=== PATIENT | male | born 1940 | race Caucasian/White ===

== ENCOUNTER 2016-08-15 09:49 | Inpatient (IN) | payer MEDICARE ==
[2016-08-15] MEDS ORDERED: SODIUM CHLORIDE 0.9% 500 ML IV STA (09:59)
[2016-08-15] MEDS ORDERED: SODIUM CHLORIDE 0.9% 1,000 ML IV STA (09:59)
[2016-08-15 10:24] LABS: Glucose,Whole Blood 96 mg/dL (75-99)
[2016-08-15 10:46] LABS: INR 1.1 (<1.1); Partial Thromboplastin Time 23.8 sec (22.0-30.0)
--- NOTE | 2016-08-15 10:48 | ED ---
General Adult HPI - General Chief complaint: Neuro Symptoms/Deficit Stated complaint: tia Symptoms Time Seen by Provider: 08/15/16 09:52 Source: patient, RN notes reviewed, old records reviewed Mode of arrival: wheelchair Limitations: no limitations - History of Present Illness Initial comments: This is a 76-year-old male to the ER for evaluation. Patient presents here today for evaluation of neurological complaint. Patient has recent diagnosis of high blood pressure. No other medical comorbid disease. No prior history of CVA, no known heart disease. 3 days ago he started having some dizziness and weakness fine motor skill loss of control of his right hand and arm, right leg difficulty and weakness causing him to have dizziness while walking or instability. Patient states his symptoms have been persistent since 3 days. No modifying symptoms. No change in medication. - Related Data Home Medications Medication Instructions Recorded Confirmed Aspirin 162 mg PO ONCE 08/15/16 08/15/16 Hydrochlorothiazide [Hydrodiuril] 25 mg PO DAILY 08/15/16 08/15/16 Levothyroxine Sodium [Synthroid] 50 mcg PO DAILY 08/15/16 08/15/16 Losartan Potassium [Cozaar] 100 mg PO DAILY 08/15/16 08/15/16 Allergies Allergy/AdvReac Type Severity Reaction Status Date / Time No Known Allergies Allergy Verified 08/15/16 11:03 Review of Systems ROS Statement: Those systems with pertinent positive or pertinent negative responses have been documented in the HPI. ROS Other: All systems not noted in ROS Statement are negative. Past Medical History Past Medical History: Hypertension History of Any Multi-Drug Resistant Organisms: None Reported Past Surgical History: Orthopedic Surgery Additional Past Surgical History / Comment(s): prostate Past Psychological History: No Psychological Hx Reported Smoking Status: Never smoker Past Alcohol Use History: None Reported Past Drug Use History: None Reported General Exam - General Exam Comments Initial Comments: NIH of 1 secondary to right leg weakness compared to left Limitations: no limitations General appearance: alert, in no apparent distress Head exam: Present: atraumatic, normocephalic, normal inspection Eye exam: Present: normal appearance, PERRL, EOMI. Absent: scleral icterus, conjunctival injection, periorbital swelling ENT exam: Present: normal exam, mucous membranes moist Neck exam: Present: normal inspection. Absent: tenderness, meningismus, lymphadenopathy Respiratory exam: Present: normal lung sounds bilaterally. Absent: respiratory distress, wheezes, rales, rhonchi, stridor Cardiovascular Exam: Present: regular rate, normal rhythm, normal heart sounds. Absent: systolic murmur, diastolic murmur, rubs, gallop, clicks GI/Abdominal exam: Present: soft, normal bowel sounds. Absent: distended, tenderness, guarding, rebound, rigid Extremities exam: Present: normal inspection, full ROM, normal capillary refill. Absent: tenderness, pedal edema, joint swelling, calf tenderness Back exam: Present: normal inspection Neurological exam: Present: alert, oriented X3, CN II-XII intact Psychiatric exam: Present: normal affect, normal mood Skin exam: Present: warm, dry, intact, normal color. Absent: rash Course Vital Signs 08/15/16 08/15/16 08/15/16 09:52 10:18 10:42 Temperature 97.6 F Pulse Rate 75 84 90 Respiratory 20 18 18 Rate Blood Pressure 159/101 163/112 166/106 O2 Sat by Pulse 97 97 Oximetry - Reevaluation(s) Reevaluation #1: 08/15/16 10:47 Patient is not TPA secondary to time of onset EKG Findings - EKG Comments: EKG Findings:: EKG shows sinus rhythm of 72, pO2 100, QRS 114, QTc 444 Medical Decision Making - Medical Decision Making 76 ER for evaluation of right arm right leg weakness since and difficulty walking, patient will be admitted for neurological evaluation. Symptoms 3 days ago. Patient will start on aspirin, CT at this time is negative - Lab Data Result diagrams: 08/15/16 10:18 08/15/16 10:18 Lab Results 08/15/16 08/15/16 08/15/16 Range/Units 10:18 10:18 10:18 WBC 6.0 (3.8-10.6) k/uL RBC 5.36 (4.30-5.90) m/uL Hgb 15.9 (13.0-17.5) gm/dL Hct 46.7 (39.0-53.0) % MCV 87.2 (80.0-100.0) fL MCH 29.6 (25.0-35.0) pg MCHC 33.9 (31.0-37.0) g/dL RDW 13.0 (11.5-15.5) % Plt Count 241 (150-450) k/uL Neutrophils % (Manual) 72.0 % Lymphocytes % (Manual) 17.0 % Monocytes % (Manual) 4.0 % Eosinophils % (Manual) 7.0 % Neutrophils # (Manual) 4.3 (1.3-7.7) k/uL Lymphocytes # (Manual) 1.0 (1.0-4.8) k/uL Monocytes # (Manual) 0.2 (0-1.0) k/uL Eosinophils # (Manual) 0.4 (0-0.7) k/uL Nucleated RBCs 0 (0-0) /100 WBC Manual Slide Review Performed RBC Morphology Normal PT (9.0-12.0) sec INR (<1.1) APTT (22.0-30.0) sec Sodium 141 (137-145) mmol/L Potassium 4.3 (3.5-5.1) mmol/L Chloride 103 (98-107) mmol/L Carbon Dioxide 28 (22-30) mmol/L Anion Gap 10 mmol/L BUN 30 H (9-20) mg/dL Creatinine 1.44 H (0.66-1.25) mg/dL Est GFR (MDRD) Af Amer 58 (>60 ml/min/1.73 sqM) Est GFR (MDRD) Non-Af 48 (>60 ml/min/1.73 sqM) Glucose 101 H (74-99) mg/dL POC Glucose (mg/dL) (75-99) mg/dL POC Glu Patient Service Rep ID Calcium 9.6 (8.4-10.2) mg/dL Total Bilirubin 2.0 H (0.2-1.3) mg/dL AST 34 (17-59) U/L ALT 32 (21-72) U/L Alkaline Phosphatase 58 (38-126) U/L Total Creatine Kinase 341 H (55-170) U/L CK-MB (CK-2) 6.9 H* (0.0-2.4) ng/mL CK-MB (CK-2) Rel Index 2.0 Troponin I <0.012 (0.000-0.034) ng/mL Total Protein 7.8 (6.3-8.2) g/dL Albumin 4.5 (3.5-5.0) g/dL 08/15/16 08/15/16 Range/Units 10:18 10:19 WBC (3.8-10.6) k/uL RBC (4.30-5.90) m/uL Hgb (13.0-17.5) gm/dL Hct (39.0-53.0) % MCV (80.0-100.0) fL MCH (25.0-35.0) pg MCHC (31.0-37.0) g/dL RDW (11.5-15.5) % Plt Count (150-450) k/uL Neutrophils % (Manual) % Lymphocytes % (Manual) % Monocytes % (Manual) % Eosinophils % (Manual) % Neutrophils # (Manual) (1.3-7.7) k/uL Lymphocytes # (Manual) (1.0-4.8) k/uL Monocytes # (Manual) (0-1.0) k/uL Eosinophils # (Manual) (0-0.7) k/uL Nucleated RBCs (0-0) /100 WBC Manual Slide Review RBC Morphology PT 11.0 (9.0-12.0) sec INR 1.1 (<1.1) APTT 23.8 (22.0-30.0) sec Sodium (137-145) mmol/L Potassium (3.5-5.1) mmol/L Chloride (98-107) mmol/L Carbon Dioxide (22-30) mmol/L Anion Gap mmol/L BUN (9-20) mg/dL Creatinine (0.66-1.25) mg/dL Est GFR (MDRD) Af Amer (>60 ml/min/1.73 sqM) Est GFR (MDRD) Non-Af (>60 ml/min/1.73 sqM) Glucose (74-99) mg/dL POC Glucose (mg/dL) 96 (75-99) mg/dL POC Glu Patient Service Rep ID Coby Murphy Calcium (8.4-10.2) mg/dL Total Bilirubin (0.2-1.3) mg/dL AST (17-59) U/L ALT (21-72) U/L Alkaline Phosphatase (38-126) U/L Total Creatine Kinase (55-170) U/L CK-MB (CK-2) (0.0-2.4) ng/mL CK-MB (CK-2) Rel Index Troponin I (0.000-0.034) ng/mL Total Protein (6.3-8.2) g/dL Albumin (3.5-5.0) g/dL - Radiology Data Radiology results: report reviewed ( CT brain negative for acute disease, chest x-ray negative), image reviewed Disposition Clinical Impression: Cerebrovascular accident Disposition: ADMITTED IP TO THIS [facility] Condition: Undetermined Referrals: Divya Agustin MD [Primary Care Provider] - 1-2 days
[2016-08-15 10:51] LABS: Aty Lym Flag Slight; CH 30.6; CHCM 35.2; HCT 46.7 % (39.0-53.0); HDW 2.48; HGB 15.9 gm/dL (13.0-17.5); MCH 29.6 pg (25.0-35.0); MCHC 33.9 g/dL (31.0-37.0); MCV 87.2 fL (80.0-100.0); Mean Platelet Volume 6.7; RBC 5.36 m/uL (4.30-5.90); WBC (Perox) 5.83
[2016-08-15 10:55] LABS: Calcium 9.6 mg/dL (8.4-10.2); Potassium 4.3 mmol/L (3.5-5.1); Total Protein 7.8 g/dL (6.3-8.2)
[2016-08-15 11:00] LABS: Add Differential Manual Differential; Creatine Kinase 341 U/L (55-170)
[2016-08-15 11:01] LABS: Nucleated Red Blood Cells 0 /100 WBC (0-0); Total Cells Counted 100
[2016-08-15 11:02] LABS: Manual Review Performed; RBC Morphology Normal
--- NOTE | 2016-08-15 11:02 | XR ---
EXAMINATION TYPE: XR chest 2V DATE OF EXAM: 08/15/2016 10:56 AM COMPARISON: NONE HISTORY: Shortness of breath TECHNIQUE: Frontal and lateral views of the chest are obtained. FINDINGS: Scattered senescent parenchymal changes noted. Hyperinflation compatible with COPD. No evidence for infiltrate. No evidence for atelectasis. Heart size is stable. Mediastinal structures are stable and grossly unremarkable. No evidence for hilar prominence. Degenerative changes dorsal spine. IMPRESSION: 1. No evidence for acute pulmonary disease.
--- NOTE | 2016-08-15 11:07 | CT ---
EXAMINATION TYPE: CT brain wo con for TPA DATE OF EXAM: 08/15/2016 11:03 AM COMPARISON: NONE HISTORY: Paitent complains of episode of slurred speech and difficulty controlling right side extremi ties. CT DLP: [address] of the brain was performed. The ventricles, basal cisterns and sulci overlying the cerebral convexities demonstrate mild enlargem ent. There is no evidence for intracranial hemorrhage or sulcal effacement. There is decreased attenuation about the periventricular white matter and deep white matter of both c erebral hemispheres, compatible with chronic small vessel ischemia. Differential diagnosis does inclu de demyelination. No mass effects are seen.No midline shift. Osseous calvarium is intact. If symptoms persist consider MRI. IMPRESSION: 1. Age related atrophic and chronic small vessel ischemic change without acute intracranial process s een at this time.
[2016-08-15 11:12] LABS: Troponin I <0.012 ng/mL (0.000-0.034)
[2016-08-15 11:21] LABS: Creatine Kinase MB 6.9 ng/mL (0.0-2.4)
[2016-08-15] MEDS ORDERED: ASPIRIN 325 MG TAB PO STA (12:04)
[2016-08-15] MEDS ORDERED: ASPIRIN 81 MG CHEW PO STA (12:13)
[2016-08-15] MEDS ORDERED: hydrALAZINE HCL 20 MG/ML 1 ML VIAL IVP STA (12:13)
--- NOTE | 2016-08-15 13:59 | US ---
EXAMINATION TYPE: US carotid duplex BILAT DATE OF EXAM: 08/15/2016 12:52 PM COMPARISON: NONE CLINICAL HISTORY: Stenosis. Possible TIA. Slurred speech. Right upper and lower extremity mov't los s. EXAM MEASUREMENTS: RIGHT: Peak Systolic Velocity (PSV) cm/sec ----- Right CCA: 61.9 ----- Right ICA: 57.9 ----- Right ECA: 103.0 ICA/CCA ratio: 0.9 RIGHT: End Diastole cm/sec ----- Right CCA: 14.7 ----- Right ICA: 26.3 ----- Right ECA: 17.6 LEFT: Peak Systolic Velocity (PSV) cm/sec ----- Left CCA: 68.6 ----- Left ICA: 72.9 ----- Left ECA: 93.0 ICA/CCA ratio: 1.1 LEFT: End Diastole cm/sec ----- Left CCA: 16.2 ----- Left ICA: 25.8 ----- Left ECA: 14.9 VERTEBRALS (direction of flow): Right Vertebral: Antegrade Left Vertebral: Antegrade Bilateral wall thickening. No elevated velocities or significant stenosis seen. Plaque seen in bila teral bulbs and in mid right CCA. IMPRESSION: 1. Bilateral plaque with no significant hemodynamic stenosis.
--- NOTE | 2016-08-15 17:25 | HP ---
DATE OF ADMISSION: 08/15/2016 Mario Alberto is a pleasant 76-year-old gentleman who came in with complaints of something wrong with the right side of his body. Patient may have right-sided facial droop as well. Patient was complaining of weakness in the right upper limb and lower limb that has been going on for about 3 days. Patient has mostly instability of the gait, because of which patient fell down. Patient denied any headache. Patient denied any seizure-like activity. Patient denied any loss of bowel or bladder incontinence. Patient denied any back pain, denied any migraine, denied any fever, chills, cough, runny nose. Upon neurological examination, patient's strength appears to be the same in bilaterally both upper limbs and lower limbs with normal reflexes, about 4+/5 in both upper limbs as well as lower limbs. Patient appears to have minimal facial droop toward the left side. I did not appreciate any other cranial nerve abnormalities, although patient's Romberg sign is positive with eyes open and patient has unstable gait. The rest of the cerebellar signs are essentially within normal limits. Finger-nose test is a bit slow but not significantly abnormal. Patient does not have any post-pointing tremor. ( ) test is essentially within normal limits, although patient does have clear unstable gait. Patient also has some elevated creatinine. I do not have his baseline creatinine at this point of time. REVIEW OF SYSTEMS: CONSTITUTIONAL: No fever, no malaise, no fatigue. HEENT: No recent visual problems or hearing problems. Denied any sore throat. CARDIOVASCULAR: No chest pain, orthopnea, PND, no palpitations, no syncope. PULMONARY: No shortness of breath, no cough, no hemoptysis. GASTROINTESTINAL: No diarrhea, no nausea, no vomiting, no abdominal pain. Normoactive bowel sounds. NEUROLOGICAL: As described in HPI. HEMATOLOGICAL: Denies any bleeding or petechiae. GENITOURINARY: Denies any burning micturition, frequency, or urgency. MUSCULOSKELETAL/RHEUMATOLOGICAL: Denies any joint pain, swelling, or any muscle pain. ENDOCRINE: Denies any polyuria or polydipsia. The rest of the 14 point review of systems is negative. Past medical history is significant for: 1. Hypertension. 2. Orthopedic surgery. 3. Prostate surgery. SOCIAL HISTORY: Denied any smoking, alcohol abuse or any drug abuse. FAMILY HISTORY: Extensive family history of cerebrovascular accidents and coronary artery disease. PHYSICAL EXAMINATION: VITAL SIGNS: Temperature 97.6, pulse of 105, respiratory rate of 18. Blood pressure is 128/89. Saturating at 95% on 2 L of oxygen by nasal cannula. GENERAL: The patient is alert and oriented x3, not in any acute distress. Well developed, well nourished. HEENT: Pupils are round and equally reacting to light. EOMI. No scleral icterus. No conjunctival pallor. Normocephalic, atraumatic. No pharyngeal erythema. No thyromegaly. CARDIOVASCULAR: S1 and S2 present. No murmurs, rubs, or gallops. PULMONARY: Chest is clear to auscultation, no wheezing or crackles. ABDOMEN: Soft, nontender, nondistended, normoactive bowel sounds. No palpable organomegaly. MUSCULOSKELETAL: No joint swelling or deformity. EXTREMITIES: No cyanosis, clubbing, or pedal edema. NEUROLOGICAL: As described in HPI. SKIN: No rashes. Bilateral carotid Doppler only showed some plaques. CT of the brain showed age-related atrophic changes without any intracranial abnormality. Patient may end up needing an MRI. That decision will be left to Neurology. Patient was given aspirin. I am also obtaining an echocardiogram and lipid panel. I will obtain a TSH level as well and B12 level. ASSESSMENT AND PLAN: 1. Possible cerebrovascular accident involving the cerebellum, although it is not clear. Will obtain neurology consultation. Continue with aspirin. Further workup with echocardiogram. Lipid panel, as mentioned above. 2. Hypertension. Because of the renal dysfunction ( ) permissive hypertension, will hold off on hydrochlorothiazide and losartan. 3. Hypothyroidism. Continue with levothyroxine. 4. Possible acute renal failure. Continue with IV fluids and see how his kidney function responds. Patient may have prerenal azotemia secondary to hydrochlorothiazide and losartan.
[2016-08-15] MEDS: SODIUM CHLORIDE 0.9% 1,000 ML IV SCH ×2 (20:03→23:30)
--- NOTE | 2016-08-15 21:10 | P.CNNES ---
History of Present Illness Consult date: 08/15/16 Reason for Consult: Patient with right sided weakness and possible stroke. History of Present Illness: This patient is a 76-year-old right-handed white male who was in his usual state of health until Saturday morning. Apparently he was at home and was noticing difficulty with the use of his right leg. He was also complaining of some balance difficulties and possible weakness in his right leg causing him to feel very unsteady walking. He did not seek any medical attention at the time. Yesterday the patient was outdoors brain some trees with a sprayer when he noticed right-sided weakness and holding his right arm and right leg. This caused him to lose balance and fall to his right side. Due to the recurrence of the right-sided weakness he decided to come to the emergency room. He was seen in the ER by Dr. Quiroz. He was evaluated and his NIH stroke scale this morning was noted to be 1.0. He was not a candidate for TPA. He was advised admission to the hospital for a full stroke workup. He underwent a carotid Doppler today which came back negative for any evidence of significant carotid artery stenosis. He underwent a computed tomography scan of the brain which revealed age related atrophy and chronic small vessel ischemic changes without acute intracranial abnormalities noted. The patient states he still feels somewhat uncoordinated with some right-sided weakness. His neurological examination seems to still indicate residual right sided features. He denies any previous history of TIA or stroke. His most recent [facility] [place] and was noted to be 190. He has not been on any specific statin drug for high cholesterol. He was taking aspirin up until year ago when he stopped aspirin therapy altogether. We are recommending that he be restarted on one baby aspirin daily for secondary stroke prevention. This patient's clinical history suggesting possibility of left hemispheric TIA versus stroke. We are recommending he undergo a complete stroke evaluation for further assessment. Neurology is now been consulted for further evaluation and recommendations. Review of Systems All systems: negative Constitutional: Denies chills, Denies fever Eyes: denies blurred vision, denies pain Ears, nose, mouth and throat: Denies headache, Denies sore throat Cardiovascular: Denies chest pain, Denies shortness of breath Respiratory: Denies cough Gastrointestinal: Denies abdominal pain, Denies diarrhea, Denies nausea, Denies vomiting Musculoskeletal: Denies myalgias Integumentary: Denies pruritus, Denies rash Neurological: Reports change in speech, Reports lack of coordination, Reports sensory deficit, Denies numbness, Denies weakness Psychiatric: Denies anxiety, Denies depression Endocrine: Denies fatigue, Denies weight change Past Medical History Past Medical History: Cancer, Hypertension, Osteoarthritis (OA) Additional Past Medical History / Comment(s): Prostate cancer with surgery, 2006 UTI with EColi, back pain on occasion, seasonal allergies. History of Any Multi-Drug Resistant Organisms: None Reported Past Surgical History: Orthopedic Surgery Additional Past Surgical History / Comment(s): Radical retropubic prostatectomy , colonoscopy with polypectomy, R elbow sx, R knee arthroscopy. Past Anesthesia/Blood Transfusion Reactions: No Reported Reaction Past Psychological History: No Psychological Hx Reported Additional Psychological History / Comment(s): Pt resides with his spouse. He uses no device. He drives. Smoking Status: Never smoker Past Alcohol Use History: None Reported Past Drug Use History: None Reported - Past Family History Father Family Medical History: No Reported History Additional Family Medical History / Comment(s): Father was healthy and lived to be 89yrs old. Mother Family Medical History: Diabetes Mellitus Additional Family Medical History / Comment(s): Mother in her 80's. Medications and Allergies Home Medications Medication Instructions Recorded Confirmed Type Aspirin 162 mg PO ONCE 08/15/16 08/15/16 History Hydrochlorothiazide [Hydrodiuril] 25 mg PO DAILY 08/15/16 08/15/16 History Levothyroxine Sodium [Synthroid] 50 mcg PO DAILY 08/15/16 08/15/16 History Losartan Potassium [Cozaar] 100 mg PO DAILY 08/15/16 08/15/16 History Allergies Allergy/AdvReac Type Severity Reaction Status Date / Time No Known Allergies Allergy Verified 08/15/16 11:03 Physical Examination - Vital Signs Vital Signs: Vital Signs Pulse Pulse Resp BP BP Pulse Ox 08/15/16 15:04 98 18 134/84 96 08/15/16 14:49 105 H 18 128/89 95 08/15/16 14:00 103 H 18 152/92 97 08/15/16 12:20 91 18 167/107 97 Intake and Output 04/26/17 04/26/17 04/26/17 06:59 14:59 22:59 Other: # Voids 1 - Constitutional General appearance: average body habitus, cooperative - EENT EENT: PERRL, mucous membranes moist - Respiratory Respiratory: lungs clear, normal breath sounds - Cardiovascular Cardiovascular: regular rate, normal S1, normal S2 Extremities: no peripheral edema bilaterally - Gastrointestinal Gastrointestinal: normoactive bowel sounds - Integumentary Integumentary: normal - Neurologic Cranial nerve examination: PERRL, EOMI, VFF, V1/V2/V3 grossly intact, face symmetric, tongue midline, intact gag reflex, intact corneal reflex, normal palatal elevation Speech examination: intact Sensorimotor examination: intact Motor examination - right side: 3/5: wrist flexion, wrist extension, 4/5: biceps , triceps, sound ranging crewmember, hip flexors, knee extensors, dorsiflexion, toe extension (EHL) , plantarflexion Motor examination - left side: 5/5: biceps, triceps, wrist flexion, wrist extension, sound ranging crewmember, hip flexors, knee extensors, dorsiflexion, toe extension (EHL) , plantarflexion Detailed sensory examination: intact Reflex and gait examination: intact Reflexes: 1+: ankle, bicep, knee, tricep Cerebellar examination: ataxia - Musculoskeletal Musculoskeletal: no pain - Psychiatric Psychiatric: mood/affect appropriate, cooperative Results - Laboratory Findings CBC and BMP: 08/15/16 10:18 08/15/16 10:18 Assessment and Plan (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 Symptoms started on Saturday of this past week. He did not seek medical attention at that time. Today he was brought in for further evaluation. He was seen in the ER by Dr. Quiroz. He underwent a computed tomography scan of the brain which was negative for any evidence of acute stroke. Carotid Doppler is negative for significant carotid artery stenosis. His most recent total cholesterol level was noted to be 190 done at [facility]. There is some family history of stroke. We are recommending he undergo a complete stroke evaluation. His clinical exam findings and history suggests acute left hemispheric stroke. We are recommending undergo an MRI of the brain for further evaluation. Patient should be started on aspirin 81 mg daily for secondary stroke prevention. His overall prognosis at this time remains guarded. This case was discussed at length with the patient and his and 2 children at bedside. All of their questions were answered. They're aware of his guarded condition. Neurology will continue close neurological follow-up of this patient during this admission. Time with Patient: Greater than 30
[2016-08-16 06:43] LABS: Anion Gap 8 mmol/L; Blood Urea Nitrogen 26 mg/dL (9-20); Calcium 8.8 mg/dL (8.4-10.2); Carbon Dioxide 23 mmol/L (22-30); Chloride 110 mmol/L (98-107); Cholesterol 158 mg/dL (<200); Glucose 96 mg/dL (74-99); HDL Cholesterol 32 mg/dL (40-60); Non-African American GFR(MDRD) 59 (>60 ml/min/1.73 sqM); Potassium 4.1 mmol/L (3.5-5.1); Sodium 141 mmol/L (137-145); Triglycerides 101 mg/dL (<150)
[2016-08-16 07:32] LABS: Vitamin B12 235 pg/mL
[2016-08-16] MEDS ORDERED: ASPIRIN 325 MG TAB PO SCH (09:00)
[2016-08-16 09:28] VITALS: TEMP 96.8
[2016-08-16] MEDS: SODIUM CHLORIDE 0.9% 1,000 ML IV SCH (09:33)
[2016-08-16] MEDS ORDERED: LACTATED RINGERS 1,000 ML IV SCH (10:30)
--- NOTE | 2016-08-16 10:30 | ECHOF ---
Referral Reason:stroke MEASUREMENTS -------- HEIGHT: 177.8 cm WEIGHT: 79.4 kg BP: 145/82 RVIDd: 3.2 cm (< 3.3) IVSd: 1.0 cm (0.6 - 1.1) LVIDd: 4.9 cm (3.9 - 5.3) LVPWd: 0.9 cm (0.6 - 1.1) IVSs: 1.3 cm LVIDs: 2.9 cm LVPWs: 1.1 cm LAESV Index (A-L): 24.66 ml/m Ao Diam: 3.5 cm (2.0 - 3.7) AV Cusp: 1.7 cm (1.5 - 2.6) LA Diam: 2.6 cm (2.7 - 3.8) MV EXCURSION: 12.690 mm (> 18.000) MV EF SLOPE: 35 mm/s (70 - 150) EPSS: 0.5 cm MV E Shayan: 0.64 m/s MV DecT: 247 ms MV A Shayan: 0.93 m/s MV E/A Ratio: 0.68 RAP: 5.00 mmHg RVSP: 13.09 mmHg FINDINGS -------- Sinus rhythm with extra systolic beats. This was a technically good study. LV size, wall thickness and systolic function are normal, with an EF greater than 55%. The right ventricle is normal in size and function. Normal LA size by volume 22+/-6 ml/m2. The right atrium is normal in size. There is mild aortic valve sclerosis. Mitral valve is thickened with myxomatous degeneration. The mitral valve leaflets are mildly thickened. There is no evidence of pulmonary hypertension. The right ventricular systolic pressure, as measured by Doppler, is 13.09mmHg. The pulmonic valve is normal. The aortic root size is normal. Echo free space may represent effusion or a pericardial fat pad. There is a trivial pericardial effusion present. CONCLUSIONS -------- 1. LV size, wall thickness and systolic function are normal, with an EF greater than 55%. 2. There is mild aortic valve sclerosis. 3. Mitral valve is thickened with myxomatous degeneration. 4. The mitral valve leaflets are mildly thickened. 5. There is no evidence of pulmonary hypertension. 6. The right ventricular systolic pressure, as measured by Doppler, is 13.09mmHg. 7. The aortic root size is normal. 8. Echo free space may represent effusion or a pericardial fat pad. 9. There is a trivial pericardial effusion present. COMMERCIAL SALES MANAGER: Татьяна Jimenez RDCS
--- NOTE | 2016-08-16 12:15 | MR ---
EXAMINATION TYPE: MR brain wo con DATE OF EXAM: 08/16/2016 12:05 PM COMPARISON: CT brain 08/15/2016 HISTORY: Acute left hemispheric stroke T1-weighted sagittal, T2, FLAIR, and diffusion axial, and T2 coronal coronal views of the brain are s ubmitted. There is 1.2 cm area of high signal within the gilbert on diffusion imaging compatible with acute to sub acute ischemia. Changes of chronic sinusitis noted. Mild to moderate generalized degenerative change. Diffuse and focal areas of abnormal signal are seen diffusely throughout the white matter bilaterally which are nonspecific but most typical remote microvascular ischemia. Craniocervical junction maintained. Sella turcica has a normal appearance. No cerebellopontine angle mass. IMPRESSION: 1. Area of suspected acute ischemia measuring 1.2 cm within the gilbert. 2. Degenerative and nonspecific white matter changes most typical remote microvascular ischemia. Repo rt called to the patient's nurse.
[2016-08-16] MEDS ORDERED: CYANOCOBALAMIN 1,000 MCG/ML 1 ML VIAL IM ONE (13:27)
[2016-08-16 19:00] VITALS: BP 142/84; PULSE 64; RESP 16
[2016-08-16] MEDS ORDERED: ATORVASTATIN 40 MG TAB PO SCH (21:00)
--- NOTE | 2016-08-16 22:40 | P.PN ---
Subjective This patient is a 76-year-old right-handed white male who was admitted just stay with symptoms of acute right-sided weakness and unsteady gait. He was admitted to hospital yesterday and initially was seen in the ER by Dr. Quiroz. He underwent an initial computed tomography scan of the brain which was reported negative for any acute changes. He was not considered a candidate for TPA by the ER physician and the interventional neurologist as his NIH stroke scale was 1.0. His neurological examination yesterday after admission revealed him to have evidence of some right-sided weakness and speech impairment. He was sent for MRI of the brain today which was completed. MRI does reveal evidence of any acute stroke measuring 1.2 cm in the pontine region of the brain stem. We reviewed the results of the MRI today with the patient. He is to continue on aspirin therapy 325 mg daily. He underwent an echocardiogram today which was reviewed. Echo reveals an ejection fraction greater than 55%. There was mild aortic valve sclerosis noted. Patient seems to be doing slightly better today compared to yesterday. He is to be evaluated by PT /OT for possible inpatient rehab placement. According to the patient he was able to work with PT today and he was walking up and down the hallway. He did not require any further assistance. Apparently he was told that he does not require inpatient rehab placement. We have reviewed all of the test results today with the patient and his at bedside. We are recommending that he be continue on aspirin therapy daily. He may continue with some physical therapy in the outpatient setting. Patient may follow-up in the outpatient neurology clinic in 2-3 weeks. Patient should also monitor his blood pressure closely for any signs of essential hypertension. Case was discussed today at length with the patient and his in detail. We are recommending he follow-up in the outpatient neurology clinic in 2-3 weeks. His overall prognosis remains guarded. Objective - Vital Signs Vital signs: Vital Signs Temp 96.8 F L 08/16/16 08:00 Pulse 64 08/16/16 16:00 Resp 16 08/16/16 16:00 BP 142/84 08/16/16 16:00 Pulse Ox 94 L 08/16/16 16:00 Intake & Output 08/16/16 08/16/16 08/17/16 06:59 18:59 06:59 Intake Total 1700 1525 Output Total 1050 Balance 1700 475 Weight 79.6 kg Intake: IV 1700 Sodium Chloride 0.9% 1, 1700 000 ml @ 100 mls/hr IV . Q10H [facility] Rx#:[id number] Intake, IV Titration 925 Amount Lactated Ringers 1,000 ml 225 @ 75 mls/hr IV .[id number] [facility] Rx#:[id number] Sodium Chloride 0.9% 1, 700 000 ml @ 100 mls/hr IV . Q10H [facility] Rx#:[id number] Oral 600 Output: Urine 1050 Other: Voiding Method Toilet Urinal - Exam Physical examination: PHYSICAL EXAMINATION: Patient is resting comfortably in bed. VITAL SIGNS: Blood pressure is 147/96. Heart rate is [76]. Respiration is [18]. Temperature is [97.0]. HEENT: Head is atraumatic, neck is supple, there were no carotid bruits. CHEST: Lungs are clear to auscultation and percussion. CARDIAC: S1, S2 normal rate and rhythm. There is no murmur. ABDOMEN: Soft and nontender. Bowel sounds are present. EXTREMITIES: There is no pedal edema. Peripheral pulses are present. Neurological examination: Patient's neurological examination is unchanged from yesterday. - Labs CBC & Chem 7: 08/15/16 10:18 08/16/16 06:17 Labs: Abnormal Lab Results - Last 24 Hours (Table) 08/16/16 Range/Units 06:17 Chloride 110 H (98-107) mmol/L BUN 26 H (9-20) mg/dL LDL Cholesterol, Calc 106 H (0-99) mg/dL HDL Cholesterol 32 L (40-60) mg/dL Assessment and Plan (1) Acute ischemic left middle cerebral artery (MCA) stroke Status: Acute Code(s): I63.512 - CEREB INFRC D/T UNSP OCCLS OR STENOS OF LEFT MID CEREB ART (2) Aphasia Status: Acute Code(s): R47.01 - APHASIA (3) Dysmetria Status: Acute Code(s): R27.8 - OTHER LACK OF COORDINATION (4) Hyperlipidemia Status: Acute Code(s): E78.5 - HYPERLIPIDEMIA, UNSPECIFIED
--- NOTE | 2016-08-17 11:18 | EEG ---
DATE OF SERVICE: 08/16/2016 INDICATIONS FOR EXAMINATION: This patient is a 76 -year-old male being evaluated for right sided weakness and acute pontine stroke. AGE: 76Y EEG FINDINGS: A routine 21 channel awake digital EEG recording was accomplished utilizing the 10-20 international system with bipolar and referential montages. The background activity in the most alert resting state consists of a low to medium amplitude, fairly well developed and well sustained 7-8 Hz activity over the posterior head regions. This posterior rhythm attenuates to eye opening. There is a small amount of low amplitude 18-20 Hz beta activity seen maximally over the anterior head regions. Muscle and movement artifact was observed on a few occasions during the tracing. Hyperventilation was not performed. Photic stimulation at flash frequencies of 2-30 Hz produced a good symmetrical occipital driving response. No epileptiform discharges were seen. IMPRESSION: This EEG is within normal limits for the patient's age. The EEG failed to reveal any focal, lateralized or epileptiform abnormalities. Clinical correlation is recommended.
--- NOTE | 2016-08-17 11:40 | DS ---
DATE OF ADMISSION: 08/15/2016 DATE OF DISCHARGE: 08/16/2016 76 -year-old admitted with unstable and some weakness in the right side of the body. Patient main symptoms are unstable yet and the patient had an MRI which showed pontine stroke, although in the MRI report the stroke is not lateralized. I believe it is in the left pontine area from the images and we will get neurology opinion if the patient needs any further intervention. As patient is already on aspirin, we will switch him to Plavix 75 mg oral daily and the patient will be started on statin because of his LDL 106. REVIEW OF SYSTEMS: CARDIOVASCULAR: No chest pain, no orthopnea, no PND, no palpitations. PULMONARY: Denied any shortness of breath. No cough or hemoptysis. GASTROINTESTINAL: No diarrhea, nausea or vomiting. No abdominal pain. Normoactive bowel sounds. NEUROLOGIC: Improvement in his unstable gait. PHYSICAL EXAMINATION: Temperature 96.8, pulse of 76, respiratory rate of 18, blood pressure is 147/96, saturating at 94% on room air. GENERAL: The patient is alert and oriented x3, not in any acute distress. Well developed, well nourished. HEENT: Pupils are round and equally reacting to light. EOMI. No scleral icterus. No conjunctival pallor. Normocephalic, atraumatic. No pharyngeal erythema. No thyromegaly. CARDIOVASCULAR: S1 and S2 present. No murmurs, rubs, or gallops. PULMONARY: Chest is clear to auscultation, no wheezing or crackles. ABDOMEN: Soft, nontender, nondistended, normoactive bowel sounds. No palpable organomegaly. MUSCULOSKELETAL: No joint swelling or deformity. EXTREMITIES: No cyanosis, clubbing, or pedal edema. NEUROLOGICAL: Improvement in his unstable gait. SKIN: No rashes. LABORATORY DATA: CBC and BMP are abnormal for elevated chloride of 110, which is secondary to normal saline he was receiving. Kidney function improved from 1.44 to 1.20. BUN is 26. I believe patient still has prerenal azotemia which is expected to improve. TSH is within normal limits. B12 is on the low-normal side. I will go ahead and give him intramuscular cyanocobalamin injection one dose. ASSESSMENT AND PLAN: 1. Cerebrovascular accident with stroke involving the left pontine area with improvement in symptoms and PT and OT evaluate the patient, they are recommending a walker. Cleared by neurology. Patient will be discharged home with atorvastatin 20 mg p.o. bedtime. Amlodipine 2.5 mg oral daily and Plavix 75 mg oral daily. 2. Hypertension because of renal dysfunction secondary to ( ) because NIKUNJ inhibitor at this is being held and patient was started on atorvastatin. Patient is also hypotensive, will start him on gentle ( ) to allow permissive hypertension, we will start him on a very low dose of amlodipine. 3. Hyperlipidemia. 4. Acute renal failure, prerenal azotemia secondary to the medications, including NIKUNJ inhibitor and diuretic. If the patient is cleared for discharge and no further intervention is being planned by neurology then patient will be discharged, patient will be discharged to follow with Dr. Divya Agustin in about 3 to 7 days. Home physical therapy: Will order home physical therapy. Activity as tolerated. Cardiac diet. Echocardiogram showed normal ejection fraction. No significant interventricular thrombus was appreciated. Spent greater than 35 minutes in total discharge process. I had extensive discussion with the family regarding further management of his medical problems.
== END 2016-08-16 20:57 | disposition home or self-care (01) | DRG 65 ==
LOC: EC 09:49 → 6SEL 12:04
PROVIDERS: ADMIT Hospitalist; ATTEND Hospitalist
DX: I63.9 Cerebral infarction, unspecified (principal); N17.9 Acute kidney failure, unspecified; I95.9 Hypotension, unspecified; R47.01 Aphasia; I35.8 Other nonrheumatic aortic valve disorders; I10 Essential (primary) hypertension; E03.9 Hypothyroidism, unspecified; E78.5 Hyperlipidemia, unspecified; M19.90 Unspecified osteoarthritis, unspecified site; Z79.82 Long term (current) use of aspirin; Z79.899 Other long term (current) drug therapy; Z85.46 Personal history of malignant neoplasm of prostate; Z82.49 Family history of ischemic heart disease and other diseases of the circulatory system
CPT/HCPCS: 36415; 70450; 70551; 71020; 80048; 80053; 80061; 82550; 82553; 82607; 84443; 84484; 85025; 85610; 85730; 93005; 93306; 93880; 95819; 96361; 96374; 99285

== ENCOUNTER 2016-10-28 13:32 | Emergency (ER) | payer MEDICARE ==
[2016-10-28 13:46] VITALS: RESP 18
[2016-10-28] MEDS ORDERED: LIDOCAINE/EPINEPHR/TETRACAINE 5 ML BOTTLE TOPICAL ONE (14:21)
--- NOTE | 2016-10-28 14:23 | ED ---
General Adult HPI - General Chief complaint: Fall Stated complaint: Fall. Facial Injury Time Seen by Provider: 10/28/16 14:16 Source: patient, RN notes reviewed Mode of arrival: ambulatory Limitations: no limitations - History of Present Illness Initial comments: Patient 76-year-old male who presents emergency room today with a chief complaint of fall and facial injury that occurred just prior to arrival. Patient does admit that he was in his right guarding pulling weeds when he tripped over the proximal and down hitting his nose causing abrasions and laceration. He also admits to chewing to tooth #9. Patient denies any loss consciousness. Does admit to pain over the nasal bridge. Does admit to bloody nose, from the left side. Patient does admit that he is on blood thinners. He denies any other complaints or associated symptoms at this time. Patient denies any recent fever, chills, shortness of breath, chest pain, back pain, abdominal pain, nausea or vomiting, numbness or tingling, dysuria or hematuria, constipation or diarrhea, headaches or visual changes, or any other complaints. - Related Data Home Medications Medication Instructions Recorded Confirmed Levothyroxine Sodium [Synthroid] 50 mcg PO DAILY 08/15/16 10/28/16 amLODIPine BESYLATE [Norvasc] 2.5 mg PO HS 10/28/16 10/28/16 amLODIPine [Norvasc] 5 mg PO QAM 10/28/16 10/28/16 Previous Rx's Medication Instructions Recorded Atorvastatin Calcium [Lipitor] 20 mg PO HS #30 tab 08/16/16 Clopidogrel Bisulfate [Plavix] 75 mg PO DAILY #30 tab 08/16/16 Cephalexin [Keflex] 500 mg PO Q12HR 10 Days 10/28/16 Allergies Allergy/AdvReac Type Severity Reaction Status Date / Time No Known Allergies Allergy Verified 10/28/16 14:38 Review of Systems ROS Statement: Those systems with pertinent positive or pertinent negative responses have been documented in the HPI. ROS Other: All systems not noted in ROS Statement are negative. Past Medical History Past Medical History: Cancer, CVA/TIA, Hypertension, Osteoarthritis (OA) Additional Past Medical History / Comment(s): Prostate cancer with surgery, 2006 UTI with EColi, back pain on occasion, seasonal allergies. History of Any Multi-Drug Resistant Organisms: None Reported Past Surgical History: Orthopedic Surgery Additional Past Surgical History / Comment(s): Radical retropubic prostatectomy , colonoscopy with polypectomy, R elbow sx, R knee arthroscopy. Past Anesthesia/Blood Transfusion Reactions: No Reported Reaction Past Psychological History: No Psychological Hx Reported Smoking Status: Never smoker Past Alcohol Use History: None Reported Past Drug Use History: None Reported - Past Family History Father Family Medical History: No Reported History Additional Family Medical History / Comment(s): Father was healthy and lived to be 89yrs old. Mother Family Medical History: Diabetes Mellitus Additional Family Medical History / Comment(s): Mother in her 80's. General Exam - General Exam Comments Initial Comments: General: The patient is awake and alert, in no distress, and does not appear acutely ill. Eye: Pupils are equal, round and reactive to light, extra-ocular movements are intact. No nystagmus. There is normal conjunctiva bilaterally. No signs of icterus. Ears, nose, mouth and throat: There are moist mucous membranes and no oral lesions. Neck: The neck is supple, there is no tenderness or JVD. Cardiovascular: There is a regular rate and rhythm. No murmur, rub or gallop is appreciated. Respiratory: Lungs are clear to auscultation, respirations are non-labored, breath sounds are equal. No wheezes, stridor, rales, or rhonchi. Gastrointestinal: Soft, non-distended, non-tender abdomen without masses or organomegaly noted. There is no rebound or guarding present. No CVA tenderness. Bowel sounds are unremarkable. Musculoskeletal: Normal ROM, no tenderness. Strength 5/5. Sensation intact. Pulses equal bilaterally 2+. Neurological: A&O x 3. CN II-XII intact, There are no obvious motor or sensory deficits. Coordination appears 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 Speech is normal. Skin: Abrasion over the nasal bridge. Patient does have small laceration left side of the upper lip measuring approximately 0.5 cm. Psychiatric: Cooperative, appropriate mood & affect, normal judgment. Limitations: no limitations Course Vital Signs 10/28/16 13:43 Temperature 97.0 F L Pulse Rate 93 Respiratory 18 Rate Blood Pressure 155/91 O2 Sat by Pulse 99 Oximetry Procedures - Procedures Initial comment: 0.5 cm linear L-shaped laceration to the upper lip. Laceration was cleaned here with saline and closed with Dermabond. Medical Decision Making - Medical Decision Making Patient reexamined at this time shows no signs of distress. Does show comminuted nasal fracture. No other acute abnormalities appreciated. Patient' s epistaxis doctor in the emergency room. Patient doing well at this time no rebleeding after. Of observation. Patient's laceration to the upper lip was closed with Dermabond. Patient's tetanus updated given shot of Ancef here in the emergency room. Patient will be continued on antibiotics and advised to follow-up with ENT over the next 2 days. Advised return here to the emergency room symptoms increase or worsen or for any other concerns. Disposition Clinical Impression: Fall, Nasal fracture, Epistaxis, Abrasion, Laceration Disposition: HOME SELF-CARE Condition: Good Instructions: Nasal Fracture (ED) Additional Instructions: Please use medication as discussed. Please follow-up with ENT/family doctor in the next 2 days. Please return to emergency room if the symptoms increase or worsen or for any other concerns. Prescriptions: Cephalexin [Keflex] 500 mg PO Q12HR 10 Days Referrals: Divya Agustin MD [Primary Care Provider] - 1-2 days Time of Disposition: 15:45
--- NOTE | 2016-10-28 15:05 | CT ---
EXAMINATION TYPE: CT facial bones wo con DATE OF EXAM: 10/28/2016 COMPARISON: NONE HISTORY: Fall today. Injury to nose. CT DLP: 569.10 mGycm Automated exposure control for dose reduction was used. TECHNIQUE: CT scan of the sinuses is performed without contrast, axial images are obtained, coronal r eformatted images are also reviewed. FINDINGS: The mandibular ring is intact. The orbital margins are intact. There is no evidence of a bl owout fracture. There is mild mucosal thickening in the ethmoid and right maxillary sinus. Sphenoid s inus is normal. The maxilla is intact. The zygomatic arches appear normal. There is a comminuted frac ture of the nasal bone. There is soft tissue air anterior to the nasal bone consistent with laceratio n. IMPRESSION: Comminuted nasal bone fracture with laceration. Debris in the nasopharynx.
--- NOTE | 2016-10-28 15:09 | CT ---
EXAMINATION TYPE: CT brain abhay edmondson DATE OF EXAM: 10/28/2016 COMPARISON: CT brain 08/15/2016 HISTORY: Fall today. Injury to nose. CT DLP: 1307.40 mGycm Automated exposure control for dose reduction was used. TECHNIQUE: CT scan of the head and cervical spine are performed without contrast. FINDINGS: Ventricles of normal size. There is no mass effect nor midline shift. There is no sign of intracranial hemorrhage. Calvarium is intact. Nasal bone fractures noted. Cervical vertebra are normal alignment. There is degenerative disc space narrowing from C4 to C7 with moderate spurring of the endplates. Posterior elements are intact. There is no compression fracture. There is bony spinal stenosis at C4-5 C5-6 and C6-7. The skull base is intact. IMPRESSION: No acute intracranial abnormality. Multilevel cervical spondylosis. Multilevel bony spinal stenosis in the lower cervical spine. No frac ture.
[2016-10-28] MEDS ORDERED: ceFAZolin 1,000 MG VIAL IM STA (15:24)
[2016-10-28] MEDS ORDERED: TOPICAL SKIN ADHESIVE 1 EACH AMP TOPICAL ONE (15:30)
[2016-10-28] MEDS ORDERED: DIPH,PERTUS(ACELL)TETVAC-LF 0.5 ML VIAL IM ONE (15:30)
[2016-10-28 16:26] VITALS: BP 152/89; PULSE 88; TEMP 97.4
== END 2016-10-28 16:35 | disposition home or self-care (01) ==
LOC: EC 13:32
DX: S02.2XXA Fracture of nasal bones, initial encounter for closed fracture (principal); S01.511A Laceration without foreign body of lip, initial encounter; I10 Essential (primary) hypertension; Z23 Encounter for immunization; Z86.73 Personal history of transient ischemic attack (TIA), and cerebral infarction without residual deficits; Z79.02 Long term (current) use of antithrombotics/antiplatelets; Z79.899 Other long term (current) drug therapy; W01.198A Fall on same level from slipping, tripping and stumbling with subsequent striking against other object, initial encounter
CPT/HCPCS: 99283; 12011; 96372; 90471; 72125; 70486; 70450; 90715; J0690

== ENCOUNTER → 2017-09-10 | Outpatient (CLI) | payer OTHER ==
--- NOTE | 2017-09-10 10:48 | US ---
EXAMINATION TYPE: US abd limited kidneys/bladder DATE OF EXAM: 09/10/2017 COMPARISON: NONE CLINICAL HISTORY: R31.9 Hematuria. Limited/difficult exam due to overlying bowel gas/patient body hab itus EXAM MEASUREMENTS: Liver Length: 13.6 cm Gallbladder Wall: 0.2 cm CBD: 0.3 cm Right Kidney: 10.1 x 4.6 x 4.8 cm Left Kidney: 9.8 x 5.0 x 4.2 cm Pancreas: Obscured by bowel gas Liver: Limited visualization due to overlying bowel. Cystic area visualized left lobe measuring 1.7 x 1.6 x 1.9 cm Gallbladder: Non-mobile echogenic area visualize measuring 0.3 cm CBD: wnl as visualized, distal portion obscured by bowel gas Right Kidney: No hydronephrosis or masses seen Left Kidney: No hydronephrosis or masses seen Bladder: Bladder wall appears thickened Bilateral Jets Seen Yes IMPRESSION: 1. Hepatic cyst 2. Gallbladder polyp. Adherent stone considered less likely. 3. Some urinary bladder wall thickening may be present.
== END | disposition home or self-care (01) ==
LOC: RADUSWWP 06:58
DX: K76.89 Other specified diseases of liver (principal); K82.4 Cholesterolosis of gallbladder; N32.89 Other specified disorders of bladder
CPT/HCPCS: 76705; 76770

== ENCOUNTER → 2022-09-20 | Outpatient (CLI) | payer MEDICARE ==
--- NOTE | 2022-09-20 09:40 | XR ---
EXAM TYPE: LUMBAR SPINE X RAY SERIES COMPARISON: NONE HISTORY: Pain TECHNIQUE: 4 views are submitted. FINDINGS: Alignment is anatomic. The pedicles are intact. The transverse processes are intact. There is no s pondylolysis or spondylolisthesis. Severe multilevel degenerative disc disease with facet arthropath y and multilevel foraminal protrusion. Diffuse osteopenia. Vascular calcifications of the aorta. IMPRESSION: 1. Bilateral severe degenerative disc disease and facet arthropathy. Multilevel foraminal encroachmen t suspected
== END | disposition home or self-care (01) ==
LOC: RADXRYALE 08:39
PROVIDERS: ATTEND Internal Medicine
DX: M51.16 Intervertebral disc disorders with radiculopathy, lumbar region (principal); M47.26 Other spondylosis with radiculopathy, lumbar region
CPT/HCPCS: 72110

== ENCOUNTER 2023-02-08 22:50 | Inpatient (IN) | payer MEDICARE ==
[2023-02-08] MEDS ORDERED: SODIUM CHLORIDE 0.9% 1,000 ML IV STA (23:11)
--- NOTE | 2023-02-08 23:49 | ED ---
Weakness HPI - General Chief complaint: Weakness Stated complaint: Weakness Time Seen by Provider: 02/08/23 22:52 Source: patient, family, EMS, RN notes reviewed Mode of arrival: EMS Limitations: no limitations - History of Present Illness Initial comments: This is an 82-year-old male who presents to the emergency department for generalized weakness. Patient has been experiencing increasing weakness and fatigue for the last 4 weeks. He was hospitalized at [facility] from 01/28-02/01 related to his weakness. He was found to have low white blood cells and instructed to follow up with a home hospice aide. He is scheduled to see a home hospice aide next week, Dr. Curran. However, his weakness increased substantially today, prompting his family to call EMS. They state that over the last couple of weeks his blood pressure has been very low. His blood pressure medications have been discontinued for a couple of weeks, however his pressure continues to drop. They are keeping close track of his vital signs, and today is the first time that his heart rate became over 100 beats per minute. His current medications only consist of levothyroxine and Flomax. Patient also notes feeling very short of breath over the last 4 weeks, especially with any exertion. Denies any associated chest pain. Also denies any swelling in his extremities. His family also notes that he has lost over 20 pounds in the last few weeks as well. MD Complaint: generalized weakness - Related Data Home Medications Medication Instructions Recorded Confirmed Levothyroxine Sodium [Synthroid] 50 mcg PO DAILY 08/15/16 10/28/16 amLODIPine BESYLATE [Norvasc] 2.5 mg PO HS 10/28/16 10/28/16 amLODIPine [Norvasc] 5 mg PO QAM 10/28/16 10/28/16 Previous Rx's Medication Instructions Recorded Atorvastatin Calcium [Lipitor] 20 mg PO HS #30 tab 08/16/16 Clopidogrel Bisulfate [Plavix] 75 mg PO DAILY #30 tab 08/16/16 Cephalexin [Keflex] 500 mg PO Q12HR 10 Days cap 10/28/16 Allergies Allergy/AdvReac Type Severity Reaction Status Date / Time No Known Allergies Allergy Verified 10/28/16 14:38 Review of Systems ROS Statement: Those systems with pertinent positive or pertinent negative responses have been documented in the HPI. ROS Other: All systems not noted in ROS Statement are negative. Past Medical History Past Medical History: Cancer, CVA/TIA, Hypertension, Osteoarthritis (OA) Additional Past Medical History / Comment(s): Prostate cancer with surgery, 2007 UTI with EColi, back pain on occasion, seasonal allergies. History of Any Multi-Drug Resistant Organisms: None Reported Past Surgical History: Orthopedic Surgery Additional Past Surgical History / Comment(s): Radical retropubic prostatectomy, colonoscopy with polypectomy, R elbow sx, R knee arthroscopy. Past Anesthesia/Blood Transfusion Reactions: No Reported Reaction Past Psychological History: No Psychological Hx Reported Smoking Status: Never smoker Past Alcohol Use History: None Reported Past Drug Use History: None Reported - Past Family History Father Family Medical History: No Reported History Additional Family Medical History / Comment(s): Father was healthy and lived to be 89yrs old. Mother Family Medical History: Diabetes Mellitus Additional Family Medical History / Comment(s): Mother in her 80's. General Exam Limitations: no limitations General appearance: alert, in no apparent distress Head exam: Present: atraumatic, normocephalic, normal inspection Respiratory exam: Present: normal lung sounds bilaterally. Absent: respiratory distress, wheezes, rales, rhonchi, stridor Cardiovascular Exam: Present: normal rhythm, tachycardia, normal heart sounds GI/Abdominal exam: Present: soft, normal bowel sounds. Absent: distended, tenderness, guarding, rebound, rigid Neurological exam: Present: alert, oriented X3, CN II-XII intact Psychiatric exam: Present: normal affect, normal mood Skin exam: Present: warm, dry, intact, normal color. Absent: rash Course Vital Signs 02/08/23 02/09/23 02/09/23 22:57 00:00 00:23 Temperature 97.6 F Pulse Rate 115 H 101 H 92 Respiratory 20 16 16 Rate Blood Pressure 101/66 89/67 95/66 O2 Sat by Pulse 97 96 96 Oximetry 02/09/23 01:37 Temperature Pulse Rate 87 Respiratory 16 Rate Blood Pressure 104/75 O2 Sat by Pulse 96 Oximetry Medical Decision Making - Medical Decision Making This is an 82-year-old male who presents to the emergency department for generalized weakness. Was pt. sent in by a medical professional or institution? @ -No Did you speak to anyone other than the patient for history? @ -His family provided the majority of the information, with the patient saying that he felt increasingly fatigued and short of breath, especially with exer tion. Did you review nursing and triage notes? @ -Yes, and I agree, it is accurate with regards to the patient's symptoms. Were old charts reviewed? @ -No Differential Diagnosis? @ -Differential Weakness: Hypoglycemia, shock, sepsis, hyponatremia, anemia, infection, IN, ETOH, adverse medicine reaction, overdose, stroke, this is not meant to be an all-inclusive list. EKG interpreted by me (3pts min.)? @ -EKG interpreted by me demonstrating the following: Atrial flutter/tachycardia. Ventricular rate 115 bpm, QRS duration 138 ms, QTC 365 ms. X-rays interpreted by me (1pt min.)? @ -Chest x-ray obtained, my interpretation identifies no localized consolidations or infiltrates. CT interpreted by me (1pt min.)? @ -Not obtained U/S interpreted by me (1pt. min.)? @ -Not obtained What testing was considered but not performed? (CT, X-rays, U/S, labs)? Why? @ -CTA of the chest to r/o PE, however the patient has poor renal function and this was avoided. VQ scan was ordered instead. What meds were considered but not given? Why? @ -None Did you discuss the management of the patient with other professionals? @ -Yes, Nick Chamebrs with [facility], who accepts the patient for admission. Did you reconcile home meds? @ -No Was smoking cessation discussed for >3mins.? @ -No Was critical care preformed (if so, how long)? @ -No Were there social determinants of health that impacted care today? How? (Homelessness, low income, unemployed, alcoholism, drug addiction, transportation, low edu. Level, literacy, decrease access to med. care, prison, rehab)? @ -No Was there de-escalation of care discussed even if they declined? (Discuss DNR or withdrawal of care, Hospice)? @ -No What co-morbidities impacted this encounter? (DM, HTN, Smoking, COPD, CAD, Cancer, CVA, Hep., AIDS, mental health diagnosis, sleep apnea, morbid obesity)? @ -None Was patient admitted / discharged? @ -Admitted. Lab work reveals multiple irregularities, including findings suggestive of pancytopenia on his CBC with a WBC of 2.8, RBC of 4.15, and platelets of 16. Na is 124. Renal function is poor with a creatinine of 2.01 and GFR of 30. Lactic acid elevated at 3.5. D-dimer elevated at 5.91. COVID, influenza, and RSV testing were negative. Heterophile negative. Chest x-ray reveals no acute process. Given the patient's poor renal function, CTA cannot be obtained. Patient was tachycardic and hypotensive on arrival here. He was given a 2 L bolus of normal saline. Tachycardia improved and blood pressure improved to some extent, but was still soft. Patient admitted to medicine for generalized weakness, pancytopenia, hypotension, and elevated d-dimer. VQ scan was ordered with regards to the elevated d-dimer and his shortness of breath. Patient does note that he had in depth testing done on 02/05 for further investigation into the pancytopenia. Family states that this was ordered by his PCP, but they are unsure what the results were. Urinalysis still pending at the time of admission. Consult placed for hematology oncology. Undiagnosed new problem with uncertain prognosis? @ -None Drug Therapy requiring intensive monitoring for toxicity (Heparin, Nitro, Insulin, Cardizem)? @ -None Were any procedures done? @ -None Diagnosis/symptom? @ -Weakness, pancytopenia, hypotension, elevated d-dimer Acute, or Chronic, or Acute on Chronic? @ -Acute Uncomplicated (without systemic symptoms) or Complicated (systemic symptoms)? @ -Complicated Side effects of treatment? @ -None Exacerbation, Progression, or Severe Exacerbation] @ -Not applicable Poses a threat to life or bodily function? @ -Yes This case was discussed in detail with the attending ED physician, Dr. Segovia. Presentation, findings, and treatment plan discussed in detail as well. - Lab Data Result diagrams: 02/08/23 23:28 02/08/23 23:28 Lab Results 02/08/23 02/08/23 02/08/23 Range/Units 23:28 23:28 23:28 WBC 2.8 L (3.8-10.6) k/uL RBC 4.15 L (4.30-5.90) m/uL Hgb 11.8 L (13.0-17.5) gm/dL Hct 33.2 L (39.0-53.0) % MCV 79.9 L (80.0-100.0) fL MCH 28.4 (25.0-35.0) pg MCHC 35.5 (31.0-37.0) g/dL RDW 13.9 (11.5-15.5) % Plt Count 16 L* (150-450) k/uL MPV 12.7 Neutrophils % (Manual) 20 % Lymphocytes % (Manual) 67 % Monocytes % (Manual) 13 % Other Cells % % Neutrophils # METAL MOULDER Neutrophils # (Manual) 0.56 L (1.3-7.7) k/uL Lymphocytes # (Manual) 1.88 (1.0-4.8) k/uL Monocytes # (Manual) 0.36 (0-1.0) k/uL Nucleated RBCs 0 (0-0) /100 WBC Differential Comment P PT 12.8 H (10.0-12.5) sec INR 1.2 H (<1.2) APTT 31.9 H (22.0-30.0) sec D-Dimer 5.91 H (<0.60) mg/L FEU Sodium 124 L (137-145) mmol/L Potassium 4.8 (3.5-5.1) mmol/L Chloride 98 (98-107) mmol/L Carbon Dioxide 12 L (22-30) mmol/L Anion Gap 14 mmol/L BUN 70 H (9-20) mg/dL Creatinine 2.01 H (0.66-1.25) mg/dL Est GFR (CKD-EPI)AfAm 35 (>60 ml/min/1.73 sqM) Est GFR (CKD-EPI)NonAf 30 (>60 ml/min/1.73 sqM) Glucose 134 H (74-99) mg/dL Lactic Ac Sepsis Rflx Plasma Lactic Acid Eulogio (0.7-2.0) mmol/L Calcium 8.3 L (8.4-10.2) mg/dL Magnesium 1.9 (1.6-2.3) mg/dL Total Bilirubin 1.7 H (0.2-1.3) mg/dL AST 48 (17-59) U/L ALT 41 (4-49) U/L Alkaline Phosphatase 83 (38-126) U/L Troponin I (0.000-0.034) ng/mL Total Protein 4.8 L (6.3-8.2) g/dL Albumin 2.6 L (3.5-5.0) g/dL TSH 2.550 (0.465-4.680) mIU/L Heterophile Antibody (Negative) Influenza Type A (PCR) (Not Detectd) Influenza Type B (PCR) (Not Detectd) RSV (PCR) (Not Detectd) SARS-CoV-2 (PCR) (Not Detectd) 02/08/23 02/08/23 02/08/23 Range/Units 23:28 23:28 23:28 WBC (3.8-10.6) k/uL RBC (4.30-5.90) m/uL Hgb (13.0-17.5) gm/dL Hct (39.0-53.0) % MCV (80.0-100.0) fL MCH (25.0-35.0) pg MCHC (31.0-37.0) g/dL RDW (11.5-15.5) % Plt Count (150-450) k/uL MPV Neutrophils % (Manual) % Lymphocytes % (Manual) % Monocytes % (Manual) % Other Cells % % Neutrophils # Neutrophils # (Manual) (1.3-7.7) k/uL Lymphocytes # (Manual) (1.0-4.8) k/uL Monocytes # (Manual) (0-1.0) k/uL Nucleated RBCs (0-0) /100 WBC Differential Comment PT (10.0-12.5) sec INR (<1.2) APTT (22.0-30.0) sec D-Dimer (<0.60) mg/L FEU Sodium (137-145) mmol/L Potassium (3.5-5.1) mmol/L Chloride (98-107) mmol/L Carbon Dioxide (22-30) mmol/L Anion Gap mmol/L BUN (9-20) mg/dL Creatinine (0.66-1.25) mg/dL Est GFR (CKD-EPI)AfAm (>60 ml/min/1.73 sqM) Est GFR (CKD-EPI)NonAf (>60 ml/min/1.73 sqM) Glucose (74-99) mg/dL Lactic Ac Sepsis Rflx Plasma Lactic Acid Eulogio 3.5 H* (0.7-2.0) mmol/L Calcium (8.4-10.2) mg/dL Magnesium (1.6-2.3) mg/dL Total Bilirubin (0.2-1.3) mg/dL AST (17-59) U/L ALT (4-49) U/L Alkaline Phosphatase (38-126) U/L Troponin I <0.012 (0.000-0.034) ng/mL Total Protein (6.3-8.2) g/dL Albumin (3.5-5.0) g/dL TSH (0.465-4.680) mIU/L Heterophile Antibody (Negative) Influenza Type A (PCR) Not Detected (Not Detectd) Influenza Type B (PCR) Not Detected (Not Detectd) RSV (PCR) Not Detected (Not Detectd) SARS-CoV-2 (PCR) Not Detected (Not Detectd) 02/08/23 02/09/23 Range/Units 23:58 00:20 WBC (3.8-10.6) k/uL RBC (4.30-5.90) m/uL Hgb (13.0-17.5) gm/dL Hct (39.0-53.0) % MCV (80.0-100.0) fL MCH (25.0-35.0) pg MCHC (31.0-37.0) g/dL RDW (11.5-15.5) % Plt Count (150-450) k/uL MPV Neutrophils % (Manual) % Lymphocytes % (Manual) % Monocytes % (Manual) % Other Cells % % Neutrophils # Neutrophils # (Manual) (1.3-7.7) k/uL Lymphocytes # (Manual) (1.0-4.8) k/uL Monocytes # (Manual) (0-1.0) k/uL Nucleated RBCs (0-0) /100 WBC Differential Comment PT (10.0-12.5) sec INR (<1.2) APTT (22.0-30.0) sec D-Dimer (<0.60) mg/L FEU Sodium (137-145) mmol/L Potassium (3.5-5.1) mmol/L Chloride (98-107) mmol/L Carbon Dioxide (22-30) mmol/L Anion Gap mmol/L BUN (9-20) mg/dL Creatinine (0.66-1.25) mg/dL Est GFR (CKD-EPI)AfAm (>60 ml/min/1.73 sqM) Est GFR (CKD-EPI)NonAf (>60 ml/min/1.73 sqM) Glucose (74-99) mg/dL Lactic Ac Sepsis Rflx Y Plasma Lactic Acid Eulogio (0.7-2.0) mmol/L Calcium (8.4-10.2) mg/dL Magnesium (1.6-2.3) mg/dL Total Bilirubin (0.2-1.3) mg/dL AST (17-59) U/L ALT (4-49) U/L Alkaline Phosphatase (38-126) U/L Troponin I (0.000-0.034) ng/mL Total Protein (6.3-8.2) g/dL Albumin (3.5-5.0) g/dL TSH (0.465-4.680) mIU/L Heterophile Antibody Negative (Negative) Influenza Type A (PCR) (Not Detectd) Influenza Type B (PCR) (Not Detectd) RSV (PCR) (Not Detectd) SARS-CoV-2 (PCR) (Not Detectd) - Radiology Data Radiology results: report reviewed, image reviewed Disposition Clinical Impression: Weakness, Pancytopenia, Hypotension, Elevated d-dimer Disposition: ADMITTED IP TO THIS HOSP
[2023-02-09] MEDS ORDERED: SODIUM CHLORIDE 0.9% 1,000 ML IV STA ×2 (00:03)
[2023-02-09 00:08] LABS: HCT 33.2 % (39.0-53.0); HGB 11.8 gm/dL (13.0-17.5); MCH 28.4 pg (25.0-35.0); MCHC 35.5 g/dL (31.0-37.0); MCV 79.9 fL (80.0-100.0); Mean Platelet Volume 12.7; RBC 4.15 m/uL (4.30-5.90); RDW 13.9 % (11.5-15.5); WBC 2.8 k/uL (3.8-10.6)
[2023-02-09 00:12] LABS: ALT 41 U/L (4-49); AST 48 U/L (17-59); African American GFR (CKD) 35 (>60 ml/min/1.73 sqM); Albumin 2.6 g/dL (3.5-5.0); Alkaline Phosphatase 83 U/L (38-126); Anion Gap 14 mmol/L; Blood Urea Nitrogen 70 mg/dL (9-20); Calcium 8.3 mg/dL (8.4-10.2); Carbon Dioxide 12 mmol/L (22-30); Chloride 98 mmol/L (98-107); Glucose 134 mg/dL (74-99); Magnesium 1.9 mg/dL (1.6-2.3); Non-African American GFR(CKD) 30 (>60 ml/min/1.73 sqM); Potassium 4.8 mmol/L (3.5-5.1); Sodium 124 mmol/L (137-145); Total Bilirubin 1.7 mg/dL (0.2-1.3); Total Protein 4.8 g/dL (6.3-8.2)
[2023-02-09 00:21] LABS: INR 1.2 (<1.2); Partial Thromboplastin Time 31.9 sec (22.0-30.0); Prothrombin Time 12.8 sec (10.0-12.5)
[2023-02-09 00:22] LABS: Platelet Count 16 k/uL (150-450)
[2023-02-09 00:54] LABS: Lymphocytes # (M) 1.88 k/uL (1.0-4.8); Monocytes # (M) 0.36 k/uL (0-1.0); Neutrophils # (M) 0.56 k/uL (1.3-7.7); Neutrophils % (M) 20 %; Nucleated Red Blood Cells 0 /100 WBC (0-0); Total Cells Counted 100
[2023-02-09] MEDS ORDERED: ONDANSETRON 4 MG/2 ML VIAL IVP PRN (01:01)
[2023-02-09] MEDS ORDERED: ACETAMINOPHEN TAB 325 MG TAB PO PRN (01:01)
[2023-02-09] MEDS ORDERED: NALOXONE 0.4 MG/ML 1 ML VIAL IV PRN (01:01)
[2023-02-09] MEDS ORDERED: HYDROcodone/APAP 5-325MG 1 EACH TAB PO PRN (01:01)
--- NOTE | 2023-02-09 02:52 | XR ---
EXAM: XR Chest, 2 Views CLINICAL HISTORY: ITS.REASON XR Reason: Weakness TECHNIQUE: Frontal and lateral views of the chest. COMPARISON: 08/15/2016 FINDINGS: Lungs: Unremarkable. No consolidation. Pleural space: Unremarkable. No pneumothorax. No pleural effusions. Heart: Unremarkable. No cardiomegaly. Mediastinum: Unremarkable. Bones/joints: Mid thoracic compression fractures stable from prior exam. IMPRESSION: No acute cardiopulmonary disease.
--- NOTE | 2023-02-09 08:49 | NM ---
EXAMINATION TYPE: NM pul vent and perfuse DATE OF EXAM: 02/09/2023 CLINICAL INDICATION: Male, 82 years old with history of ROBINA, tachycardia, elevated d-dimer; COMPARISON: 2V chest x-ray 02/09/2023 TECHNIQUE: Utilizing inhalation of 38.7 mCi Tc 99m DTPA aerosol and intravenous injection of 4.9 mCi of Tc 99m MAA, ventilation and perfusion images are acquired post injection in multiple projections. FINDINGS: Some clumping of radiotracer noted on ventilation study in the hilar regions. Otherwise normal radiot racer distribution is noted in the lungs. There is no evidence of mismatched defects. If there is persistent concern, CT angiogram may be considered for further evaluation. IMPRESSION: No convincing scintigraphic evidence of PE.
[2023-02-09] MEDS: IOPAMIDOL CONTRAST (ORAL USE) VIAL PO PRN ×2 (09:49→09:50)
--- NOTE | 2023-02-09 11:44 | P.HPIM ---
History of Present Illness H&P Date: 02/09/23 Chief Complaint: Generalized weakness * 82-year-old gentleman with past medical history significant for hypertension, prostate cancer, history of CVA, osteoarthritis presents to the emergency department with worsening weakness and fatigue ongoing for the last 4 weeks. Patient was recently hospitalized and early January with significant weakness and blood count obtained at that time showed pancytopenia. Patient was scheduled to follow-up with hematology as outpatient however due to progressive weakness and failure to thrive patient decided to call EMS and was brought to the emergency for further evaluation. Patient had been complaining of associated weakness and exertional shortness of breath however he denied any fever, chest pain, nausea, vomiting, diarrhea. Patient to chart review mentioned to the emergency team that he lost about 20 pounds in the last few w eeks * Workup initiated in ER include hepatology which were WBC of 2.8 hemoglobin 11.8 hematocrit 33 platelet count of 16,000 neutrophil count is 0.56 PT/INR off 12.8, 1.2 d-dimer of 5.91 * Patient had a VQ scan done which was negative for pulmonary embolism * Serum chemistry showed sodium 124 potassium 4.8, and Axert 12 BUNs 70 2.01 lactate of 3.5 bilirubin of 1.7 TSH within normal limits * Patient tested negative for influenza and RSV and Covid PCR REVIEW OF SYSTEMS: Weakness, weight loss, anorexia, decreased appetite CONSTITUTIONAL: Weakness, weight loss, anorexia, decreased appetite HEENT: No recent visual problems or hearing problems. Denied any sore throat. CARDIOVASCULAR: No chest pain, orthopnea, PND, no palpitations, no syncope. PULMONARY: No shortness of breath, no cough, no hemoptysis. GASTROINTESTINAL: No diarrhea, no nausea, no vomiting, no abdominal pain. NEUROLOGICAL: No headaches, no weakness, no numbness. HEMATOLOGICAL: Denies any bleeding or petechiae. GENITOURINARY: Denies any burning micturition, frequency, or urgency. MUSCULOSKELETAL/RHEUMATOLOGICAL: Denies any joint pain, swelling, or any muscle pain. ENDOCRINE: Denies any polyuria or polydipsia. PHYSICAL EXAMINATION: GENERAL: The patient is alert and oriented x3, ill appearance, pale HEENT: Pupils are round and equally reacting to light. EOMI. CARDIOVASCULAR: S1 and S2 present. No murmurs, rubs, or gallops. PULMONARY: Chest is clear to auscultation, no wheezing or crackles. ABDOMEN: Soft, nontender, nondistended, normoactive bowel sounds. MUSCULOSKELETAL: No joint swelling or deformity. EXTREMITIES: No cyanosis, clubbing, or pedal edema. NEUROLOGICAL: Gross neurological examination did not reveal any focal deficits. Past Medical History Past Medical History: Cancer, CVA/TIA, Hypertension, Osteoarthritis (OA) Additional Past Medical History / Comment(s): Prostate cancer with surgery, 2006 UTI with EColi, back pain on occasion, seasonal allergies. History of Any Multi-Drug Resistant Organisms: None Reported Past Surgical History: Orthopedic Surgery Additional Past Surgical History / Comment(s): Radical retropubic prostatectomy, colonoscopy with polypectomy, R elbow sx, R knee arthroscopy. Past Anesthesia/Blood Transfusion Reactions: No Reported Reaction Past Psychological History: No Psychological Hx Reported Additional Psychological History / Comment(s): Pt resides with his spouse. He uses no device. He drives. Smoking Status: Never smoker Past Alcohol Use History: None Reported Past Drug Use History: None Reported - Past Family History Father Family Medical History: No Reported History Additional Family Medical History / Comment(s): Father was healthy and lived to be 89yrs old. Mother Family Medical History: Diabetes Mellitus Additional Family Medical History / Comment(s): Mother in her 80's. Medications and Allergies Home Medications Medication Instructions Recorded Confirmed Type Levothyroxine Sodium [Synthroid] 50 mcg PO DAILY 08/15/16 10/28/16 History Atorvastatin Calcium [Lipitor] 20 mg PO HS #30 tab 08/16/16 10/28/16 Rx Clopidogrel Bisulfate [Plavix] 75 mg PO DAILY #30 tab 08/16/16 10/28/16 Rx Cephalexin [Keflex] 500 mg PO Q12HR 10 Days cap 10/28/16 Rx amLODIPine BESYLATE [Norvasc] 2.5 mg PO HS 10/28/16 10/28/16 History amLODIPine [Norvasc] 5 mg PO QAM 10/28/16 10/28/16 History Allergies Allergy/AdvReac Type Severity Reaction Status Date / Time No Known Allergies Allergy Verified 10/28/16 14:38 Physical Exam Vitals: Vital Signs Temp Pulse Pulse Resp BP BP Pulse Ox 02/09/23 04:11 86 18 136/65 97 02/09/23 01:37 87 16 104/75 96 02/09/23 00:23 92 16 95/66 96 02/09/23 00:00 101 H 16 89/67 96 02/08/23 22:57 97.6 F 115 H 20 10166 97 Intake and Output 02/08/23 02/09/23 02/09/23 22:59 06:59 14:59 Intake Total 240 Balance 240 Intake: Oral 240 Other: Weight 71.214 kg 71.214 kg Results CBC & Chem 7: 02/08/23 23:28 02/08/23 23:28 Labs: Abnormal Lab Results - Last 24 Hours (Table) 02/08/23 02/08/23 02/08/23 Range/Units 23:28 23:28 23:28 WBC 2.8 L (3.8-10.6) k/uL RBC 4.15 L (4.30-5.90) m/uL Hgb 11.8 L (13.0-17.5) gm/dL Hct 33.2 L (39.0-53.0) % MCV 79.9 L (80.0-100.0) fL Plt Count 16 L* (150-450) k/uL Neutrophils # (Manual) 0.56 L (1.3-7.7) k/uL PT 12.8 H (10.0-12.5) sec INR 1.2 H (<1.2) APTT 31.9 H (22.0-30.0) sec D-Dimer 5.91 H (<0.60) mg/L FEU Sodium 124 L (137-145) mmol/L Carbon Dioxide 12 L (22-30) mmol/L BUN 70 H (9-20) mg/dL Creatinine 2.01 H (0.66-1.25) mg/dL Glucose 134 H (74-99) mg/dL Plasma Lactic Acid Eulogio (0.7-2.0) mmol/L Calcium 8.3 L (8.4-10.2) mg/dL Total Bilirubin 1.7 H (0.2-1.3) mg/dL Total Protein 4.8 L (6.3-8.2) g/dL Albumin 2.6 L (3.5-5.0) g/dL 02/08/23 Range/Units 23:28 WBC (3.8-10.6) k/uL RBC (4.30-5.90) m/uL Hgb (13.0-17.5) gm/dL Hct (39.0-53.0) % MCV (80.0-100.0) fL Plt Count (150-450) k/uL Neutrophils # (Manual) (1.3-7.7) k/uL PT (10.0-12.5) sec INR (<1.2) APTT (22.0-30.0) sec D-Dimer (<0.60) mg/L FEU Sodium (137-145) mmol/L Carbon Dioxide (22-30) mmol/L BUN (9-20) mg/dL Creatinine (0.66-1.25) mg/dL Glucose (74-99) mg/dL Plasma Lactic Acid Eulogio 3.5 H* (0.7-2.0) mmol/L Calcium (8.4-10.2) mg/dL Total Bilirubin (0.2-1.3) mg/dL Total Protein (6.3-8.2) g/dL Albumin (3.5-5.0) g/dL Thrombosis Risk Factor Assmnt - DVT/VTE Prophylaxis DVT/VTE Prophylaxis: Mechanical Prophylaxis ordered - Choose All That Apply Any of the Below Risk Factors Present?: No Each Risk Factor Represents 3 Points: Age 75 years or older Other congenital or acquired thrombophilia - If yes, enter type in comment: No Thrombosis Risk Factor Assessment Total Risk Factor Score: 3 Thrombosis Risk Factor Assessment Level: Moderate Risk Assessment and Plan Assessment: Assessment and plan * Acute pancytopenia * Noninfectious lactic acidosis and dehydration * Acute kidney injury * Acute hyponatremia * Severe protein calorie malnutrition * In regards to pancytopenia, hematology oncology consulted, peripheral smear ordered, folate, vitamin B12 levels ordered. CT abdomen and pelvis ordered * In regards to lactic acidosis patient reassess her with IV fluid serum lactic acid levels improved follow up on CRP and pro-calcitonin levels * In regards to acute kidney injury follow up on renal profile post hydration continue patient on IV fluids * In regards to hyponatremia likely secondary to hypovolemia continue fluid resuscitation * In regards to protein calorie malnutrition that reconsulted continue patient on regular diet * Physical therapy occupational therapy consulted * Status is full code
[2023-02-09 12:23] VITALS: BMI 23.1
[2023-02-09 12:53] LABS: HCT 29.1 % (39.0-53.0); HGB 10.2 gm/dL (13.0-17.5); MCH 28.6 pg (25.0-35.0); MCV 81.7 fL (80.0-100.0); Mean Platelet Volume 11.2; RBC 3.56 m/uL (4.30-5.90); RDW 13.9 % (11.5-15.5); WBC 2.3 k/uL (3.8-10.6)
[2023-02-09 12:55] LABS: Platelet Count 21 k/uL (150-450)
--- NOTE | 2023-02-09 16:22 | P.CONS ---
History of Present Illness - Reason for Consult Consult date: 02/09/23 Pancytopenia Requesting physician: Rosmery Butterfield - Chief Complaint Hypotension, weakness - History of Present Illness Mr. Lyons is a very pleasant 82-year-old gentleman with a history of hypertension, remote CVA, and prostate cancer status post resection 1015 years ago who is here for increased weakness and hypotension. He has noted increasing weakness for the past 4 weeks or so. He was recently hospitalized for the same problem at [facility] where he was noted to be hypokalemic. He was hydrated and his antihypertensive medications were discontinued. He was also found to have an elevated creatinine and pancytopenia. On presentation his WBC was 3.2, hemoglobin 13.8, platelets 55. Repeat with a WBC 2.1, hemoglobin 11.9, platelets 53. Throughout the rest of his hospitalization his white count has been around 12, platelets downtrending with hemoglobin stable around 11. He was discharged with platelets of 32 with instructions to [address] Dr[address] Curran for further evaluation for his pancytopenia. His differential showed neutropenia. He is scheduled to see Dr. Curran later this week on however presented back to the hospital here for hypotension, blood pressure 75/48, with persistent significant weakness. He does not feel that he improved at all during his hospitalization at [facility]. He has been doing very well up until around spring of this year when he started having knee pain. He was seen by orthopedics and was told she had osteoarthritis. He then developed low back pain which improved with cortisone injection. During this time he was losing weight, about 20 pounds total. After gathering and 01/12/23, he woke up the next day very fatigued. He has been walking his dog 4 times a day but has been unable to do anything else and gets very tired with this. No pain, nausea, vomiting, shortness of breath, cough, significant diarrhea other than a couple days prior to his initial hospitalization, constipation, or bleeding. Denies any obvious bruising. He has had limited appetite and decreased oral intake. Here in the ER, his WBC was 2.8, hemoglobin 11.8, platelets 16. ANC was 0.5. Sodium 124, creatinine 2. Covid/RSV/flu was negative. TSH was normal. B12 was borderline low at 293. Chest x-ray unremarkable. His d-dimer was elevated. He was found to have lactic acidosis and given fluids, with improvement. He was admitted and we were consulted for further evaluation of his pancytopenia. He is and lives with his who is with him today. Has been doing very well and very active up until a month ago. He follows [facility] and states his last blood work from 08/2022 was normal. Denies any smoking, alcohol, or drug use. No known family history of blood disorders or malignancy other than the patient himself with prostate cancer status post resection 1015 years ago and a brother with prostate cancer. Past Medical History Past Medical History: Cancer, CVA/TIA, Hypertension, Osteoarthritis (OA) Additional Past Medical History / Comment(s): Prostate cancer with surgery, 2006 UTI with EColi, back pain on occasion, seasonal allergies. History of Any Multi-Drug Resistant Organisms: None Reported Past Surgical History: Orthopedic Surgery Additional Past Surgical History / Comment(s): Radical retropubic prostatectomy, colonoscopy with polypectomy, R elbow sx, R knee arthroscopy. Past Anesthesia/Blood Transfusion Reactions: No Reported Reaction Past Psychological History: No Psychological Hx Reported Additional Psychological History / Comment(s): Pt resides with his spouse. He uses no device. He drives. Smoking Status: Never smoker Past Alcohol Use History: None Reported Past Drug Use History: None Reported - Past Family History Father Family Medical History: No Reported History Additional Family Medical History / Comment(s): Father was healthy and lived to be 89yrs old. Mother Family Medical History: Diabetes Mellitus Additional Family Medical History / Comment(s): Mother in her 80's. Medications and Allergies Home Medications Medication Instructions Recorded Confirmed Type Levothyroxine Sodium [Synthroid] 50 mcg PO DAILY 08/15/16 02/09/23 History Tamsulosin [Flomax] 0.4 mg PO DAILY 02/09/23 02/09/23 History Allergies Allergy/AdvReac Type Severity Reaction Status Date / Time No Known Allergies Allergy Verified 02/09/23 12:55 Physical Exam Vitals: Vital Signs Temp Pulse Pulse Resp BP BP Pulse Ox 02/09/23 13:38 96 18 123/76 95 02/09/23 08:00 98.1 F 101 H 18 123/89 96 02/09/23 04:11 86 18 136/65 97 02/09/23 01:37 87 16 104/75 96 02/09/23 00:23 92 16 95/66 96 02/09/23 00:00 101 H 16 89/67 96 02/08/23 22:57 97.6 F 115 H 20 101/66 97 Intake and Output 02/09/23 02/09/23 02/09/23 06:59 14:59 22:59 Intake Total 240 236 Output Total 500 Balance 240 -264 Intake: Oral 240 236 Output: Urine 500 Other: Voiding Method External Catheter Weight 71.214 kg 71.214 kg Patient appears to be in no acute distress. No respiratory distress, on room air. Heart rate normal. Abdomen is soft, nontender, nondistended. No lower extremity swelling. No obvious bruises or petechiae. Results CBC & Chem 7: 02/09/23 11:06 02/08/23 23:28 Labs: Abnormal Lab Results - Last 24 Hours (Table) 02/08/23 02/08/23 02/08/23 Range/Units 23:28 23:28 23:28 WBC 2.8 L (3.8-10.6) k/uL RBC 4.15 L (4.30-5.90) m/uL Hgb 11.8 L (13.0-17.5) gm/dL Hct 33.2 L (39.0-53.0) % MCV 79.9 L (80.0-100.0) fL Plt Count 16 L* (150-450) k/uL Neutrophils # (Manual) 0.56 L (1.3-7.7) k/uL PT 12.8 H (10.0-12.5) sec INR 1.2 H (<1.2) APTT 31.9 H (22.0-30.0) sec D-Dimer 5.91 H (<0.60) mg/L FEU Sodium 124 L (137-145) mmol/L Carbon Dioxide 12 L (22-30) mmol/L BUN 70 H (9-20) mg/dL Creatinine 2.01 H (0.66-1.25) mg/dL Glucose 134 H (74-99) mg/dL Plasma Lactic Acid Eulogio (0.7-2.0) mmol/L Calcium 8.3 L (8.4-10.2) mg/dL Total Bilirubin 1.7 H (0.2-1.3) mg/dL C-Reactive Protein (<1.0) mg/dL Total Protein 4.8 L (6.3-8.2) g/dL Albumin 2.6 L (3.5-5.0) g/dL 02/08/23 02/09/23 02/09/23 Range/Units 23:28 11:06 11:06 WBC 2.3 L (3.8-10.6) k/uL RBC 3.56 L (4.30-5.90) m/uL Hgb 10.2 L (13.0-17.5) gm/dL Hct 29.1 L (39.0-53.0) % MCV (80.0-100.0) fL Plt Count 21 L (150-450) k/uL Neutrophils # (Manual) (1.3-7.7) k/uL PT (10.0-12.5) sec INR (<1.2) APTT (22.0-30.0) sec D-Dimer (<0.60) mg/L FEU Sodium (137-145) mmol/L Carbon Dioxide (22-30) mmol/L BUN (9-20) mg/dL Creatinine (0.66-1.25) mg/dL Glucose (74-99) mg/dL Plasma Lactic Acid Eulogio 3.5 H* (0.7-2.0) mmol/L Calcium (8.4-10.2) mg/dL Total Bilirubin (0.2-1.3) mg/dL C-Reactive Protein 1.2 H (<1.0) mg/dL Total Protein (6.3-8.2) g/dL Albumin (3.5-5.0) g/dL Chest x-ray: report reviewed Assessment and Plan Assessment: 1. Pancytopenia of unclear etiology with severe neutropenia, mild anemia, and severe thrombocytopenia 2. Dehydration 3. Hypotension 4. AL 5. Generalized weakness Plan: Mr. Lyons is a very pleasant 82-year-old gentleman with no significant past medical history other than prostate cancer, status post resection 1015 years ago, who is here for increasing weakness and hypotension her the past month, as sociated with 20 pound weight loss over the past few months and lack of appetite. Due to his records here as well as at [facility]. Workup with AK I, creatinine 2, hypo-nature anemia, sodium 124, and pancytopenia with WBC 2.8, hemoglobin 11.8, platelets 16 with ANC of 0.5. No obvious infections. B12 is borderline low at 293, we'll supplement, normal folate, TSH normal Agree with flow cytometry and peripheral smear, we'll monitor for results PT and PTT are elevated as well as a d-dimer, rule out DIC Agree with CT AP, would also obtain CT chest Complete pancytopenia workup including viral studies We should proceed with bone marrow biopsy. I discussed this with the patient an d his family at bedside ( and daughter) and they're agreeable. This should be planned for Saturday/Saturday of this week Monitor CBC and transfuse for hemoglobin <7 or platelets <15 Monitor for bleeding Encouraged increased oral intake, protein drinks such as boost ovary his prior blood work results from the summer and previously, we'll scan these into his chart is a don't have a baseline set of labs prior to this month Discussed with patient and family and they're agreeable to the plan. All her questions were answered.
--- NOTE | 2023-02-09 19:32 | CT ---
EXAMINATION TYPE: CT abdomen pelvis wo con CT DLP: 501 mGycm, Automated exposure control for dose reduction was used. DATE OF EXAM: 02/09/2023 12:21 PM COMPARISON: None CLINICAL INDICATION:Male, 82 years old with history of history of prostate cancer, abdominal pain, co ncern for metastatic disease. Evaluate for intra-abdominal pathology; TECHNIQUE: Axial CT of the abdomen and pelvis. Sagittal and coronal reformats were created on a [employer] workstation. Contrast used:, (none if empty) Oral contrast used: Oral contrast was utilized FINDINGS: LOWER CHEST: Mild coronary artery calcifications ABDOMEN LIVER: Simple appearing left hepatic lobe cyst. GALLBLADDER AND BILE DUCTS: Unremarkable. PANCREAS: Unremarkable. SPLEEN: Spleen is enlarged measuring up to 14.9 cm. ADRENAL GLANDS: Right adrenal nodule measuring 22 mm and 8 Hounsfield units which is compatible with lipid rich adrenal adenoma. KIDNEYS AND URETERS: No evidence of hydronephrosis or renal calculus. The ureters are unremarkable. PELVIS BLADDER: Unremarkable REPRODUCTIVE: Unremarkable. ABDOMEN & PELVIS STOMACH AND BOWEL: No evidence of bowel obstruction. The appendix is normal. PERITONEUM/RETROPERITONEUM: No evidence of pneumoperitoneum or free fluid. Surgical clips in the pelv is. VASCULATURE: No evidence of aortic aneurysm. MUSCULOSKELETAL: No acute osseous abnormalities LYMPH NODES: No gross evidence for lymphadenopathy. SOFT TISSUE/ABDOMINAL WALL: Unremarkable IMPRESSION: 1. No evidence for acute intra-abdominal process. 2. Splenomegaly. 3. Prostatomegaly without definitive evidence for recurrence or metastatic disease. Consider nuclear medicine PET gallium-68 PSMA scan for more sensitive evaluation for recurrence of prostate cancer in the setting of rising PSA. 4. Right adrenal nodule most compatible with lipid rich adrenal adenoma.
[2023-02-09 23:07] LABS: Appearance,Urine Clear (Clear); Bilirubin,Urine Negative (Negative); Blood,Urine Negative (Negative); Color,Urine Yellow; Glucose,Urine (UA) Negative (Negative); Ketones,Urine Negative (Negative); Leukocyte Esterase,Urine Negative (Negative); Nitrite,Urine Negative (Negative); Protein,Urine Trace (Negative); Specific Gravity,Urine 1.015 (1.001-1.035); Urobilinogen,Urine <2.0 mg/dL (<2.0)
[2023-02-10] MEDS: LEVOTHYROXINE 50 MCG TAB PO SCH (06:39)
[2023-02-10] MEDS: TAMSULOSIN 0.4 MG CAP.ER.24H PO SCH (09:00)
--- NOTE | 2023-02-10 11:54 | P.PN ---
Subjective Progress Note Date: 02/10/23 * 82-year-old gentleman with past medical history significant for hypertension, prostate cancer, history of CVA, osteoarthritis presents to the emergency department with worsening weakness and fatigue ongoing for the last 4 weeks. Patient was recently hospitalized and early January with significant weakness and blood count obtained at that time showed pancytopenia. Patient was scheduled to follow-up with hematology as outpatient however due to progressive weakness and failure to thrive patient decided to call EMS and was brought to the emergency for further evaluation. Patient had been complaining of associated weakness and exertional shortness of breath however he denied any fever, chest pain, nausea, vomiting, diarrhea. Patient to chart review mentioned to the emergency team that he lost about 20 pounds in the last few weeks * Workup initiated in ER include hepatology which were WBC of 2.8 hemoglobin 11.8 hematocrit 33 platelet count of 16,000 neutrophil count is 0.56 PT/INR off 12.8, 1.2 d-dimer of 5.91 * Patient had a VQ scan done which was negative for pulmonary embolism * Serum chemistry showed sodium 124 potassium 4.8, and Axert 12 BUNs 70 2.01 lactate of 3.5 bilirubin of 1.7 TSH within normal limits * Patient tested negative for influenza and RSV and Covid PCR * 02/10/23: Patient seen and evaluated bedside, appreciate input from oncology, CT abdomen pelvis reviewed, CT chest ordered continue to monitor for fever or chills of infection was of infection noted Objective - Vital Signs Vital signs: Vital Signs Temp 98.0 F 02/10/23 08:00 Pulse 66 02/10/23 08:00 Resp 18 02/10/23 08:00 BP 113/66 02/10/23 08:00 Pulse Ox 99 02/10/23 08:00 FiO2 Intake & Output 02/09/23 02/10/23 02/10/23 18:59 06:59 18:59 Intake Total 354 240 Output Total 500 800 Balance -146 -800 240 Weight 71.214 kg Intake: Oral 354 240 Output: Urine 500 800 Other: Voiding Method External Catheter External Catheter External Catheter - Exam PHYSICAL EXAMINATION: GENERAL: The patient is alert and oriented x3, ill appearance, pale HEENT: Pupils are round and equally reacting to light. EOMI. CARDIOVASCULAR: S1 and S2 present. No murmurs, rubs, or gallops. PULMONARY: Chest is clear to auscultation, no wheezing or crackles. ABDOMEN: Soft, nontender, nondistended, normoactive bowel sounds. MUSCULOSKELETAL: No joint swelling or deformity. EXTREMITIES: No cyanosis, clubbing, or pedal edema. NEUROLOGICAL: Gross neurological examination did not reveal any focal deficits. - Labs CBC & Chem 7: 02/09/23 11:06 02/08/23 23:28 Labs: Abnormal Lab Results - Last 24 Hours (Table) 02/09/23 02/09/23 02/09/23 Range/Units 11:06 11:06 11:06 WBC 2.3 L (3.8-10.6) k/uL RBC 3.56 L (4.30-5.90) m/uL Hgb 10.2 L (13.0-17.5) gm/dL Hct 29.1 L (39.0-53.0) % Plt Count 21 L (150-450) k/uL Fibrinogen (200-500) mg/dL C-Reactive Protein 1.2 H (<1.0) mg/dL Procalcitonin 0.32 H (0.02-0.09) ng/mL Urine Protein (Negative) 02/09/23 02/10/23 Range/Units 22:30 07:37 WBC (3.8-10.6) k/uL RBC (4.30-5.90) m/uL Hgb (13.0-17.5) gm/dL Hct (39.0-53.0) % Plt Count (150-450) k/uL Fibrinogen 99 L (200-500) mg/dL C-Reactive Protein (<1.0) mg/dL Procalcitonin (0.02-0.09) ng/mL Urine Protein Trace H (Negative) Assessment and Plan Assessment: Assessment and plan * Acute pancytopenia * Noninfectious lactic acidosis and dehydration * Acute kidney injury * Acute hyponatremia * Severe protein calorie malnutrition * In regards to pancytopenia, hematology oncology consulted, peripheral smear ordered, CT abdomen and pelvis negative for intra-abdominal process, vitamin B12 supplementation started here will need bone marrow biopsy, CT chest ordered * In regards to lactic acidosis patient reassess her with IV fluid serum lactic acid levels improved follow up on CRP and pro-calcitonin levels minimally elevated * In regards to acute kidney injury follow up on renal profile post hydration continue patient on IV fluids * In regards to hyponatremia likely secondary to hypovolemia continue fluid resuscitation * In regards to protein calorie malnutrition that reconsulted continue patient on regular diet * Physical therapy occupational therapy consulted * Status is full code
[2023-02-10] MEDS ORDERED: SODIUM CHLORIDE 0.9% 1,000 ML IV SCH (12:00)
--- NOTE | 2023-02-10 13:16 | CT ---
EXAMINATION TYPE: CT chest wo con CT DLP: 341.7 mGycm, Automated exposure control for dose reduction was used. DATE OF EXAM: 02/10/2023 12:27 PM COMPARISON: CT abdomen pelvis 02/09/2023 CLINICAL INDICATION:Male, 82 years old with history of Rule out intrathoracic mass; PHH, Rule out int rathoracic mass TECHNIQUE: Multiple axial images were obtained through the chest. Sagittal and coronal reformats were created for review. Contrast used: mL of (None if empty) Oral contrast used: (None if empty) FINDINGS: LUNGS/ PLEURA: No evidence of focal consolidation or pneumothorax. Suspected trace right pleural effu bin. AIRWAY: Patent and unremarkable. HEART: Size within normal limits. There is severe coronary artery calcifications. MEDIASTINUM: No gross evidence of adenopathy. VASCULATURE: No aortic aneurysm. MUSCULOSKELETAL: No acute osseous abnormalities SOFT TISSUES/LYMPH NODES: Unremarkable. LOWER NECK: No significant findings. UPPER ABDOMEN: No significant findings. IMPRESSION: 1. No evidence for mass. 2. Trace right pleural effusion. 3. Severe coronary artery calcifications.
[2023-02-10 13:27] LABS: Albumin 2.6 d/dL (3.8-4.9); Immunoglobulin M <35.0 mg/dL (40.0-280.0); Protein, Total 4.2 d/dL (6.2-8.2)
[2023-02-10 13:56] LABS: Hepatitis B Surface AB- Quant 3.5 mIU/mL; Hepatitis B Surface Antigen Nonreactive; Hepatitis C IgG Antibody Nonreactive
[2023-02-11] MEDS: LEVOTHYROXINE 50 MCG TAB PO SCH (06:16)
[2023-02-11 08:23] LABS: HCT 29.9 % (39.0-53.0); HGB 10.3 gm/dL (13.0-17.5); MCH 27.9 pg (25.0-35.0); MCHC 34.5 g/dL (31.0-37.0); Mean Platelet Volume 11.2; RBC 3.69 m/uL (4.30-5.90); RDW 13.9 % (11.5-15.5); WBC 2.1 k/uL (3.8-10.6)
[2023-02-11 08:30] LABS: Platelet Count 20 k/uL (150-450)
[2023-02-11] MEDS: TAMSULOSIN 0.4 MG CAP.ER.24H PO SCH (09:23)
[2023-02-11 09:53] LABS: African American GFR (CKD) 36 (>60 ml/min/1.73 sqM); Anion Gap 5 mmol/L; Blood Urea Nitrogen 55 mg/dL (9-20); C Reactive Protein 0.9 mg/dL (<1.0); Calcium 8.1 mg/dL (8.4-10.2); Carbon Dioxide 19 mmol/L (22-30); Chloride 104 mmol/L (98-107); Glucose 101 mg/dL (74-99); Non-African American GFR(CKD) 32 (>60 ml/min/1.73 sqM); Potassium 4.9 mmol/L (3.5-5.1); Sodium 128 mmol/L (137-145)
--- NOTE | 2023-02-11 10:24 | P.PN ---
Subjective Progress Note Date: 02/11/23 Principal diagnosis: pancytopenia In f/u pt denies any gross bleeding, energy levels are fair, his wt. loss stabilized in the last 4 months. Denies fevers, sweats, N, acute change in bowel habits. Objective - Vital Signs Vital signs: Vital Signs Temp 98.3 F 02/11/23 09:00 Pulse 103 H 02/11/23 09:00 Resp 18 02/11/23 09:00 BP 107/74 02/11/23 09:00 Pulse Ox 94 L 02/11/23 09:00 FiO2 Intake & Output 02/10/23 02/11/23 02/11/23 18:59 06:59 18:59 Intake Total 540 118 Output Total 250 1300 300 Balance 290 -1300 -182 Intake: Oral 540 118 Output: Urine 250 1300 300 Other: Voiding Method External Catheter External Catheter External Catheter # Voids 1 - Constitutional General appearance: Present: cooperative, no acute distress, thin - EENT Eyes: Present: anicteric sclerae, EOMI ENT: Present: hearing grossly normal - Respiratory Respiratory: bilateral: CTA - Cardiovascular Rhythm: regular Heart sounds: normal: S1, S2 Abnormal Heart Sounds: Absent: systolic murmur, diastolic murmur, rub, S3 Gallop, S4 Gallop, click, other - Peripheral edema leg Peripheral Edema: bilateral: None - Gastrointestinal General gastrointestinal: Present: normal bowel sounds, soft - Integumentary Integumentary: Present: normal - Neurologic Neurologic: Present: CNII-XII intact - Musculoskeletal Musculoskeletal: Present: strength equal bilaterally - Psychiatric Psychiatric: Present: A&O x's 3, appropriate affect, intact judgment & insight - Labs CBC & Chem 7: 02/11/23 07:16 02/11/23 07:16 Labs: Abnormal Lab Results - Last 24 Hours (Table) 02/10/23 02/10/23 02/11/23 Range/Units 07:37 07:37 07:16 WBC 2.1 L (3.8-10.6) k/uL RBC 3.69 L (4.30-5.90) m/uL Hgb 10.3 L (13.0-17.5) gm/dL Hct 29.9 L (39.0-53.0) % Plt Count 20 L (150-450) k/uL Sodium (137-145) mmol/L Carbon Dioxide (22-30) mmol/L BUN (9-20) mg/dL Creatinine (0.66-1.25) mg/dL Glucose (74-99) mg/dL Calcium (8.4-10.2) mg/dL Total Protein (PEP) 4.2 L (6.2-8.2) d/dL Albumin (PEP) 2.6 L (3.8-4.9) d/dL Procalcitonin 0.26 H (0.02-0.09) ng/mL IgM <35.0 L (40.0-280.0) mg/dL 02/11/23 Range/Units 07:16 WBC (3.8-10.6) k/uL RBC (4.30-5.90) m/uL Hgb (13.0-17.5) gm/dL Hct (39.0-53.0) % Plt Count (150-450) k/uL Sodium 128 L (137-145) mmol/L Carbon Dioxide 19 L (22-30) mmol/L BUN 55 H (9-20) mg/dL Creatinine 1.92 H (0.66-1.25) mg/dL Glucose 101 H (74-99) mg/dL Calcium 8.1 L (8.4-10.2) mg/dL Total Protein (PEP) (6.2-8.2) d/dL Albumin (PEP) (3.8-4.9) d/dL Procalcitonin (0.02-0.09) ng/mL IgM (40.0-280.0) mg/dL - Imaging and Cardiology CT scan - abdomen: report reviewed CT scan - chest: report reviewed CT scan - pelvis: report reviewed Assessment and Plan (1) DIC (disseminated intravascular coagulation) Current Visit: Yes Status: Acute Priority: High Code(s): D65 - DISSEMINATED INTRAVASCULAR COAGULATION SNOMED Code(s): 22861385 (2) Pancytopenia Current Visit: Yes Status: Acute Priority: High Code(s): D61.818 - OTHER PANCYTOPENIA SNOMED Code(s): 477580000 Plan: Low grade DIC -DIC labs results reviewed -Fibrinogen 99, cryoprecipitate ordered -Coags and fibrinogen daily ordered -Some solid tumors and liquid tumors, such as APL and CMML, can cause DIC, work up progress. PSA ordered as pt has a Hx of prostate ca. -Dr. Gonzalez discussed with pt pending pancytopenia work up completion before purs uing BM Bx and aspirate as those results determine the testing that will be ordered on the Bx and aspirate. Planning BM bx and asp possibly for this Wed or Thur Pancytopenia -No transfusions needed today -Transfuse for a Hgb< 7 and plt <10K or if symptomatic -CBC monitoring daily -Pending ordered work up, peripheral smear analysis -Underlying cause being worked up. Will update plan of care as more info becomes available Attests: I have seen and examined pt, performed H&P, developed impression and plan of care. Discussed with dictator. Agree with documentation, dictated as a scribe.
[2023-02-11 12:52] LABS: Free Kappa Lt Chain Qnt, Serum 3.76 mg/dL (0.33-1.94); Free Lambda Lt Chain Qnt, Seru 3.78 mg/dL (0.57-2.63)
--- NOTE | 2023-02-11 13:05 | P.PN ---
Subjective Progress Note Date: 02/11/23 * 82-year-old gentleman with past medical history significant for hypertension, prostate cancer, history of CVA, osteoarthritis presents to the emergency department with worsening weakness and fatigue ongoing for the last 4 weeks. Patient was recently hospitalized and early January with significant weakness and blood count obtained at that time showed pancytopenia. Patient was scheduled to follow-up with hematology as outpatient however due to progressive weakness and failure to thrive patient decided to call EMS and was brought to the emergency for further evaluation. Patient had been complaining of associated weakness and exertional shortness of breath however he denied any fever, chest pain, nausea, vomiting, diarrhea. Patient to chart review mentioned to the emergency team that he lost about 20 pounds in the last few weeks * Workup initiated in ER include hepatology which were WBC of 2.8 hemoglobin 11.8 hematocrit 33 platelet count of 16,000 neutrophil count is 0.56 PT/INR off 12.8, 1.2 d-dimer of 5.91 * Patient had a VQ scan done which was negative for pulmonary embolism * Serum chemistry showed sodium 124 potassium 4.8, and Axert 12 BUNs 70 2.01 lactate of 3.5 bilirubin of 1.7 TSH within normal limits * Patient tested negative for influenza and RSV and Covid PCR * 02/10/23: Patient seen and evaluated bedside, appreciate input from oncology, CT abdomen pelvis reviewed, CT chest ordered continue to monitor for fever or chills of infection was of infection noted * 02/11/23 : Patient seen and evaluated bedside. Continue to monitor blood counts. DIC labs reviewed planning for bone marrow biopsy this hospital stay continue to monitor CBC. CT chest reviewed negative for intrathoracic mass Objective - Vital Signs Vital signs: Vital Signs Temp 97.9 F 02/11/23 11:40 Pulse 101 H 02/11/23 11:40 Resp 18 02/11/23 11:40 BP 107/65 02/11/23 11:40 Pulse Ox 95 02/11/23 11:40 FiO2 Intake & Output 02/10/23 02/11/23 02/11/23 18:59 06:59 18:59 Intake Total 540 118 Output Total 250 1300 300 Balance 290 -1300 -182 Intake: Oral 540 118 Output: Urine 250 1300 300 Other: Voiding Method External Catheter External Catheter External Catheter # Voids 1 - Exam PHYSICAL EXAMINATION: GENERAL: The patient is alert and oriented x3, ill appearance, pale HEENT: Pupils are round and equally reacting to light. EOMI. CARDIOVASCULAR: S1 and S2 present. No murmurs, rubs, or gallops. PULMONARY: Chest is clear to auscultation, no wheezing or crackles. ABDOMEN: Soft, nontender, nondistended, normoactive bowel sounds. MUSCULOSKELETAL: No joint swelling or deformity. EXTREMITIES: No cyanosis, clubbing, or pedal edema. NEUROLOGICAL: Gross neurological examination did not reveal any focal deficits. - Labs CBC & Chem 7: 02/11/23 07:16 02/11/23 07:16 Labs: Abnormal Lab Results - Last 24 Hours (Table) 02/10/23 02/10/23 02/11/23 Range/Units 07:37 07:37 07:16 WBC 2.1 L (3.8-10.6) k/uL RBC 3.69 L (4.30-5.90) m/uL Hgb 10.3 L (13.0-17.5) gm/dL Hct 29.9 L (39.0-53.0) % Plt Count 20 L (150-450) k/uL Sodium (137-145) mmol/L Carbon Dioxide (22-30) mmol/L BUN (9-20) mg/dL Creatinine (0.66-1.25) mg/dL Glucose (74-99) mg/dL Calcium (8.4-10.2) mg/dL Total Protein (PEP) 4.2 L (6.2-8.2) d/dL Albumin (PEP) 2.6 L (3.8-4.9) d/dL Procalcitonin 0.26 H (0.02-0.09) ng/mL IgM <35.0 L (40.0-280.0) mg/dL Free [place] LC, Quant 3.76 H (0.33-1.94) mg/dL Free Lambda LC, Quant 3.78 H (0.57-2.63) mg/dL 02/11/23 Range/Units 07:16 WBC (3.8-10.6) k/uL RBC (4.30-5.90) m/uL Hgb (13.0-17.5) gm/dL Hct (39.0-53.0) % Plt Count (150-450) k/uL Sodium 128 L (137-145) mmol/L Carbon Dioxide 19 L (22-30) mmol/L BUN 55 H (9-20) mg/dL Creatinine 1.92 H (0.66-1.25) mg/dL Glucose 101 H (74-99) mg/dL Calcium 8.1 L (8.4-10.2) mg/dL Total Protein (PEP) (6.2-8.2) d/dL Albumin (PEP) (3.8-4.9) d/dL Procalcitonin (0.02-0.09) ng/mL IgM (40.0-280.0) mg/dL Free [place] LC, Quant (0.33-1.94) mg/dL Free Lambda LC, Quant (0.57-2.63) mg/dL Assessment and Plan Assessment: Assessment and plan * Acute pancytopenia * Noninfectious lactic acidosis and dehydration * Acute kidney injury * Acute hyponatremia * Severe protein calorie malnutrition * In regards to pancytopenia, hematology oncology consulted, peripheral smear ordered, CT abdomen and pelvis negative for intra-abdominal process, vitamin B12 supplementation started here will need bone marrow biopsy, CT chest negative for intrathoracic mass * In regards to lactic acidosis patient reassess her with IV fluid serum lactic acid levels improved follow up on CRP and pro-calcitonin levels minimally elevated * In regards to acute kidney injury follow up on renal profile post hydration continue patient on IV fluids * In regards to hyponatremia likely secondary to hypovolemia continue fluid resuscitation * In regards to protein calorie malnutrition that reconsulted continue patient on regular diet * Physical therapy occupational therapy consulted * Status is full code
[2023-02-11 14:36] LABS: EBV-EA (IgG) <0.2 AI; EBV-EBNA(IgG) >8.0; EBV-VCA (IgG) >8.0 AI; EBV-VCA (IgM) <0.2 AI; HIV 2 AB Non-Reactive (Non-Reactive); HIV AB P24 Non-Reactive (Non-Reactive); HIV P24 AG Non-Reactive (Non-Reactive)
[2023-02-11 19:47] LABS: Gamma Globulin 0.72 d/dL (0.70-1.50)
[2023-02-12 05:39] LABS: HCT 31.3 % (39.0-53.0); HGB 10.7 gm/dL (13.0-17.5); MCH 27.6 pg (25.0-35.0); MCHC 34.4 g/dL (31.0-37.0); MCV 80.4 fL (80.0-100.0); Mean Platelet Volume 10.8; RBC 3.89 m/uL (4.30-5.90); RDW 13.9 % (11.5-15.5); WBC 1.6 k/uL (3.8-10.6)
[2023-02-12 05:46] LABS: African American GFR (CKD) 41 (>60 ml/min/1.73 sqM); Anion Gap 8 mmol/L; Blood Urea Nitrogen 50 mg/dL (9-20); Calcium 7.9 mg/dL (8.4-10.2); Carbon Dioxide 17 mmol/L (22-30); Chloride 102 mmol/L (98-107); Glucose 105 mg/dL (74-99); Non-African American GFR(CKD) 36 (>60 ml/min/1.73 sqM); Potassium 4.6 mmol/L (3.5-5.1); Sodium 127 mmol/L (137-145)
[2023-02-12] MEDS: LEVOTHYROXINE 50 MCG TAB PO SCH (06:10)
[2023-02-12 07:30] LABS: INR 1.1 (<1.2); Partial Thromboplastin Time 28.8 sec (22.0-30.0)
[2023-02-12 07:49] LABS: Platelet Count 18 k/uL (150-450)
[2023-02-12] MEDS: TAMSULOSIN 0.4 MG CAP.ER.24H PO SCH (08:44)
--- NOTE | 2023-02-12 11:45 | P.PN ---
Subjective Progress Note Date: 02/12/23 * 82-year-old gentleman with past medical history significant for hypertension, prostate cancer, history of CVA, osteoarthritis presents to the emergency department with worsening weakness and fatigue ongoing for the last 4 weeks. Patient was recently hospitalized and early January with significant weakness and blood count obtained at that time showed pancytopenia. Patient was scheduled to follow-up with hematology as outpatient however due to progressive weakness and failure to thrive patient decided to call EMS and was brought to the emergency for further evaluation. Patient had been complaining of associated weakness and exertional shortness of breath however he denied any fever, chest pain, nausea, vomiting, diarrhea. Patient to chart review mentioned to the emergency team that he lost about 20 pounds in the last few weeks * Workup initiated in ER include hepatology which were WBC of 2.8 hemoglobin 11.8 hematocrit 33 platelet count of 16,000 neutrophil count is 0.56 PT/INR off 12.8, 1.2 d-dimer of 5.91 * Patient had a VQ scan done which was negative for pulmonary embolism * Serum chemistry showed sodium 124 potassium 4.8, and Axert 12 BUNs 70 2.01 lactate of 3.5 bilirubin of 1.7 TSH within normal limits * Patient tested negative for influenza and RSV and Covid PCR * 02/10/23: Patient seen and evaluated bedside, appreciate input from oncology, CT abdomen pelvis reviewed, CT chest ordered continue to monitor for fever or chills of infection was of infection noted * 02/11/23 : Patient seen and evaluated bedside. Continue to monitor blood counts. DIC labs reviewed planning for bone marrow biopsy this hospital stay continue to monitor CBC. CT chest reviewed negative for intrathoracic mass * 02/12/23: Patient seen and evaluated at bedside accompanied with wobgejvm-or-por, care plan discussed blood work reviewed platelet count 18,000. Hematology following plan for bone marrow biopsy secondary to impaired kidney function will request evaluation from nephrology as well Objective - Vital Signs Vital signs: Vital Signs Temp 98.3 F 02/12/23 08:10 Pulse 101 H 02/12/23 08:10 Resp 18 02/12/23 08:10 BP 108/65 02/12/23 08:10 Pulse Ox 95 02/12/23 08:10 FiO2 Intake & Output 02/11/23 02/12/23 02/12/23 18:59 06:59 18:59 Intake Total 319 240 Output Total 850 500 Balance -531 -500 240 Intake: Oral 236 240 Blood Product 83 Pooled Cryoprecipitate 83 Unit [id number] Output: Urine 850 500 Other: Voiding Method External Catheter External Catheter External Catheter - Exam PHYSICAL EXAMINATION: GENERAL: The patient is alert and oriented x3, ill appearance, pale HEENT: Pupils are round and equally reacting to light. EOMI. CARDIOVASCULAR: S1 and S2 present. No murmurs, rubs, or gallops. PULMONARY: Chest is clear to auscultation, no wheezing or crackles. ABDOMEN: Soft, nontender, nondistended, normoactive bowel sounds. MUSCULOSKELETAL: No joint swelling or deformity. EXTREMITIES: No cyanosis, clubbing, or pedal edema. NEUROLOGICAL: Gross neurological examination did not reveal any focal deficits. - Labs CBC & Chem 7: 02/12/23 04:54 02/12/23 04:54 Labs: Abnormal Lab Results - Last 24 Hours (Table) 02/08/23 02/10/23 02/10/23 Range/Units 23:28 07:37 07:37 WBC (3.8-10.6) k/uL RBC (4.30-5.90) m/uL Hgb (13.0-17.5) gm/dL Hct (39.0-53.0) % Plt Count (150-450) k/uL Pathologist Review See comment A Fibrinogen (200-500) mg/dL Sodium (137-145) mmol/L Carbon Dioxide (22-30) mmol/L BUN (9-20) mg/dL Creatinine (0.66-1.25) mg/dL Glucose (74-99) mg/dL Calcium (8.4-10.2) mg/dL Zthbj-3-Iziekorxj 0.38 L (0.60-1.00) d/dL Beta Globulins 0.43 L (0.60-1.30) d/dL Free [place] LC, Quant 3.76 H (0.33-1.94) mg/dL Free Lambda LC, Quant 3.78 H (0.57-2.63) mg/dL EBV Capsid Ag IgG Intrp Positive A (Negative) EBV Nuc Ag IgG Interp Positive A (Negative) 10/24/23 10/24/23 10/24/23 Range/Units 04:54 04:54 04:54 WBC 1.6 L (3.8-10.6) k/uL RBC 3.89 L (4.30-5.90) m/uL Hgb 10.7 L (13.0-17.5) gm/dL Hct 31.3 L (39.0-53.0) % Plt Count 18 L* (150-450) k/uL Pathologist Review Fibrinogen 170 L (200-500) mg/dL Sodium 127 L (137-145) mmol/L Carbon Dioxide 17 L (22-30) mmol/L BUN 50 H (9-20) mg/dL Creatinine 1.73 H (0.66-1.25) mg/dL Glucose 105 H (74-99) mg/dL Calcium 7.9 L (8.4-10.2) mg/dL Dxpoe-3-Axqlkryit (0.60-1.00) d/dL Beta Globulins (0.60-1.30) d/dL Free [place] LC, Quant (0.33-1.94) mg/dL Free Lambda LC, Quant (0.57-2.63) mg/dL EBV Capsid Ag IgG Intrp (Negative) EBV Nuc Ag IgG Interp (Negative) Assessment and Plan Assessment: Assessment and plan * Acute pancytopenia * Noninfectious lactic acidosis and dehydration * Acute kidney injury on CK D stage IIIa * Acute hyponatremia * Severe protein calorie malnutrition * In regards to pancytopenia, hematology oncology consulted, peripheral smear ordered, CT abdomen and pelvis negative for intra-abdominal process, vitamin B12 supplementation started * will need bone marrow biopsy, CT chest negative for intrathoracic mass * In regards to lactic acidosis patient reassess her with IV fluid serum lactic acid levels improved follow up on CRP and pro-calcitonin levels minimally elevated * In regards to acute kidney injury follow up on renal profile post hydration, nephrology consulted for evaluation * In regards to hyponatremia likely secondary to hypovolemia continue fluid resuscitation was appropriately resuscitated with fluid * In regards to protein calorie malnutrition that reconsulted continue patient on regular diet * Physical therapy occupational therapy consulted * Status is full code
--- NOTE | 2023-02-12 15:08 | P.PN ---
Subjective Progress Note Date: 02/12/23 Principal diagnosis: pancytopenia In f/u pt Did have a nosebleed this a.m., no other bleeding to report. Denies fevers, cough, acute changes in bowel or bladder habits Objective - Vital Signs Vital signs: Vital Signs Temp 98.3 F 02/12/23 08:10 Pulse 101 H 02/12/23 08:10 Resp 18 02/12/23 08:10 BP 108/65 02/12/23 08:10 Pulse Ox 95 02/12/23 08:10 FiO2 Intake & Output 02/11/23 02/12/23 02/12/23 18:59 06:59 18:59 Intake Total 319 240 Output Total 850 500 Balance -531 -500 240 Intake: Oral 236 240 Blood Product 83 Pooled Cryoprecipitate 83 Unit [id number] Output: Urine 850 500 Other: Voiding Method External Catheter External Catheter External Catheter - Constitutional General appearance: Present: cooperative, no acute distress, thin - EENT Eyes: Present: anicteric sclerae, EOMI ENT: Present: hearing grossly normal - Respiratory Details: resp even and unlabored at rest - Cardiovascular Details: skin warm and dry to touch - Peripheral edema leg Peripheral Edema: bilateral: None - Integumentary Integumentary: Present: pale - Neurologic Neurologic: Present: CNII-XII intact (grossly) - Musculoskeletal Musculoskeletal: Present: generalized weakness - Psychiatric Psychiatric: Present: A&O x's 3, appropriate affect, intact judgment & insight - Labs CBC & Chem 7: 02/12/23 04:54 02/12/23 04:54 Labs: Abnormal Lab Results - Last 24 Hours (Table) 02/08/23 02/10/23 02/10/23 Range/Units 23:28 07:37 07:37 WBC (3.8-10.6) k/uL RBC (4.30-5.90) m/uL Hgb (13.0-17.5) gm/dL Hct (39.0-53.0) % Plt Count (150-450) k/uL Pathologist Review See comment A Fibrinogen (200-500) mg/dL Sodium (137-145) mmol/L Carbon Dioxide (22-30) mmol/L BUN (9-20) mg/dL Creatinine (0.66-1.25) mg/dL Glucose (74-99) mg/dL Calcium (8.4-10.2) mg/dL Uopor-7-Wlbtdrfte 0.38 L (0.60-1.00) d/dL Beta Globulins 0.43 L (0.60-1.30) d/dL Free [place] LC, Quant 3.76 H (0.33-1.94) mg/dL Free Lambda LC, Quant 3.78 H (0.57-2.63) mg/dL EBV Capsid Ag IgG Intrp Positive A (Negative) EBV Nuc Ag IgG Interp Positive A (Negative) 02/12/23 02/12/23 02/12/23 Range/Units 04:54 04:54 04:54 WBC 1.6 L (3.8-10.6) k/uL RBC 3.89 L (4.30-5.90) m/uL Hgb 10.7 L (13.0-17.5) gm/dL Hct 31.3 L (39.0-53.0) % Plt Count 18 L* (150-450) k/uL Pathologist Review Fibrinogen 170 L (200-500) mg/dL Sodium 127 L (137-145) mmol/L Carbon Dioxide 17 L (22-30) mmol/L BUN 50 H (9-20) mg/dL Creatinine 1.73 H (0.66-1.25) mg/dL Glucose 105 H (74-99) mg/dL Calcium 7.9 L (8.4-10.2) mg/dL Zqded-6-Ydplidkgj (0.60-1.00) d/dL Beta Globulins (0.60-1.30) d/dL Free [place] LC, Quant (0.33-1.94) mg/dL Free Lambda LC, Quant (0.57-2.63) mg/dL EBV Capsid Ag IgG Intrp (Negative) EBV Nuc Ag IgG Interp (Negative) Assessment and Plan (1) DIC (disseminated intravascular coagulation) Current Visit: Yes Status: Acute Priority: High Code(s): D65 - DISSEMINATED INTRAVASCULAR COAGULATION SNOMED Code(s): 87843756 (2) Pancytopenia Current Visit: Yes Status: Acute Priority: High Code(s): D61.818 - OTHER PANCYTOPENIA SNOMED Code(s): 242294898 Plan: Low grade DIC -DIC labs results reviewed -Fibrinogen 170 s/p cryoprecipitate -Coags and fibrinogen daily ordered-coags normal, fibrinogen 170 today -Some solid tumors and liquid tumors, such as APL and CMML, can cause DIC, Workup is in progress. -PSA screen is 0.038 -Some of the results today show an IgM of less than 35, there is a parapr oteinemia 0.23 g/dL this is not been thoroughly qualified. Lambda light chains were both elevated, ratio is equal. Peripheral smear is reported as pancytopenia with rare atypical lymphocytes present, myeloproliferative or myelodysplastic disorder. -Plan is for bone marrow biopsy tomorrow morning at 7 AM. The procedure, risks versus benefits, risks of bleeding, infection, information that will be obtained from the bone marrow will be used in determining diagnosis and prognosis. All of patient's and his family's questions were answered to the best of my ability. Orders have been placed for her nothing by mouth after midnight, obtain consent. Cryoprecipitate has been ordered to be given at 5 AM, couple of hours before bone marrow biopsy. CBC ordered stat for 5 AM Pancytopenia -No transfusions needed today -Transfuse for a Hgb< 7 and plt <10K or if symptomatic. Hemoglobin stable at 10.7, platelets 18,000. -WBC 1.6, Unreadable differential. No acute intervention at this time until we have at least a preliminary bone marrow report -CBC monitoring daily -Pending ordered work up -Underlying cause being worked up. Will update plan of care as more info becomes available
[2023-02-12 15:31] LABS: Neutrophils % (M) 16 %
[2023-02-12 15:35] LABS: Lymphocytes # (M) 1.23 k/uL (1.0-4.8); Monocytes # (M) 0.11 k/uL (0-1.0); Neutrophils # (M) 0.26 k/uL (1.3-7.7); Nucleated Red Blood Cells 0 /100 WBC (0-0); Total Cells Counted 100
[2023-02-12 15:37] LABS: RBC Morphology Norm
[2023-02-13] MEDS: LEVOTHYROXINE 50 MCG TAB PO SCH (06:21)
[2023-02-13] MEDS ORDERED: PHENYLEPHRINE 10 MG/ML 5 ML VIAL ONE (06:57)
[2023-02-13] MEDS ORDERED: PROPOFOL 10 MG/ML 20 ML VIAL IV ONE (06:57)
[2023-02-13] MEDS ORDERED: IV FLUID CONTINUATION 500 ML IV ONE (07:21)
--- NOTE | 2023-02-13 07:26 | P.PCN ---
Date of Procedure: 02/13/23 Preoperative Diagnosis: Pancytopenia Postoperative Diagnosis: Same Procedure(s) Performed: Bone marrow aspiration biopsy Anesthesia: MAC Surgeon: Ervin [employer] Supervisor #1: Stated None Estimated Blood Loss (ml): 1 Pathology: other Condition: stable Disposition: floor Indications for Procedure: Pancytopenia, negative lab workup. DIC Operative Findings: Adequate samples Description of Procedure: The procedure was discussed in detail with the patient on the floor. Informed consent was obtained on the floor. He was brought to the outpatient endoscopy suite, placed in the left lateral decubitus position. Area over both posterior iliac crest was cleaned and prepped with chlorhexidine and sterile draping. IV sedation was then initiated. Local anesthesia was administered to the right posterior iliac crest a Jamshidi needle was then inserted and bone marrow aspirate and biopsy obtained. On withdrawal of the needle hemostasis was easily achieved. Blood loss was minimal and recovery from sedation was satisfactory. He appeared to have tolerated the procedure well without any obvious, immediate complications. Patient was transferred back to the floor in stable condition.
[2023-02-13] MEDS: TAMSULOSIN 0.4 MG CAP.ER.24H PO SCH (07:52)
[2023-02-13 09:09] LABS: HCT 28.1 % (39.0-53.0); HGB 9.9 gm/dL (13.0-17.5); MCH 28.5 pg (25.0-35.0); MCHC 35.3 g/dL (31.0-37.0); MCV 80.7 fL (80.0-100.0); Mean Platelet Volume 12.9; RBC 3.49 m/uL (4.30-5.90); RDW 14.2 % (11.5-15.5); Reticulocyte % 1.1 % (0.5-2.0)
[2023-02-13 09:15] LABS: Platelet Count 17 k/uL (150-450); WBC 1.2 k/uL (3.8-10.6)
[2023-02-13 09:17] LABS: INR 1.1 (<1.2); Partial Thromboplastin Time 29.7 sec (22.0-30.0); Prothrombin Time 12.3 sec (10.0-12.5)
[2023-02-13 09:21] LABS: African American GFR (CKD) 38 (>60 ml/min/1.73 sqM); Blood Urea Nitrogen 52 mg/dL (9-20); Calcium 7.7 mg/dL (8.4-10.2); Carbon Dioxide 18 mmol/L (22-30); Chloride 103 mmol/L (98-107); Glucose 111 mg/dL (74-99); Non-African American GFR(CKD) 33 (>60 ml/min/1.73 sqM); Potassium 4.9 mmol/L (3.5-5.1)
[2023-02-13 10:15] LABS: Lymphocytes # (M) 0.83 k/uL (1.0-4.8); Monocytes # (M) 0.17 k/uL (0-1.0); Neutrophils % (M) 17 %; Nucleated Red Blood Cells 0 /100 WBC (0-0); Total Cells Counted 100
[2023-02-13 10:54] LABS: Anion Gap 6 mmol/L; Sodium 127 mmol/L (137-145)
--- NOTE | 2023-02-13 11:14 | P.PN ---
Subjective Progress Note Date: 02/13/23 * 82-year-old gentleman with past medical history significant for hypertension, prostate cancer, history of CVA, osteoarthritis presents to the emergency department with worsening weakness and fatigue ongoing for the last 4 weeks. Patient was recently hospitalized and early January with significant weakness and blood count obtained at that time showed pancytopenia. Patient was scheduled to follow-up with hematology as outpatient however due to progressive weakness and failure to thrive patient decided to call EMS and was brought to the emergency for further evaluation. Patient had been complaining of associated weakness and exertional shortness of breath however he denied any fever, chest pain, nausea, vomiting, diarrhea. Patient to chart review mentioned to the emergency team that he lost about 20 pounds in the last few weeks * Workup initiated in ER include hepatology which were WBC of 2.8 hemoglobin 11.8 hematocrit 33 platelet count of 16,000 neutrophil count is 0.56 PT/INR off 12.8, 1.2 d-dimer of 5.91 * Patient had a VQ scan done which was negative for pulmonary embolism * Serum chemistry showed sodium 124 potassium 4.8, and Axert 12 BUNs 70 2.01 lactate of 3.5 bilirubin of 1.7 TSH within normal limits * Patient tested negative for influenza and RSV and Covid PCR * 02/10/23: Patient seen and evaluated bedside, appreciate input from oncology, CT abdomen pelvis reviewed, CT chest ordered continue to monitor for fever or chills of infection was of infection noted * 02/11/23 : Patient seen and evaluated bedside. Continue to monitor blood counts. DIC labs reviewed planning for bone marrow biopsy this hospital stay continue to monitor CBC. CT chest reviewed negative for intrathoracic mass * 02/12/23: Patient seen and evaluated at bedside accompanied with deqoyzgw-xq-wkx, care plan discussed blood work reviewed platelet count 18,000. Hematology following plan for bone marrow biopsy secondary to impaired kidney function will request evaluation from nephrology as well * 02/13/23: Patient seen and evaluated bedside, pmypbibi-jh-hef at bedside care plan discussed. Episode of 97.5 temperature. Does have neutropenia along with pancytopenia. Started on IV cefepime blood cultures ordered infectious disease consulted as well will follow up on CRP and pro-calcitonin levels. CRP early in the hospital stay was normal pro-calcitonin was minimally elevated on 02/10 0.26 appreciate input from nephrology as well. Patient denies feeling sick, denies chills does complain of decreased appetite Objective - Vital Signs Vital signs: Vital Signs Temp 97.5 F L 02/13/23 11:02 Pulse 96 02/13/23 11:02 Resp 17 02/13/23 11:02 BP 95/60 02/13/23 11:02 Pulse Ox 97 02/13/23 11:02 FiO2 Intake & Output 02/12/23 02/13/23 02/13/23 18:59 06:59 18:59 Intake Total 358 96 658 Output Total 350 700 Balance 8 -604 658 Intake: IV 300 Oral 358 358 Blood Product 96 Pooled Cryoprecipitate 96 Unit [id number] Output: Urine 350 700 Other: Voiding Method External Catheter External Catheter External Catheter - Exam PHYSICAL EXAMINATION: GENERAL: The patient is alert and oriented x3, ill appearance, pale HEENT: Pupils are round and equally reacting to light. EOMI. CARDIOVASCULAR: S1 and S2 present. No murmurs, rubs, or gallops. PULMONARY: Chest is clear to auscultation, no wheezing or crackles. ABDOMEN: Soft, nontender, nondistended, normoactive bowel sounds. MUSCULOSKELETAL: No joint swelling or deformity. EXTREMITIES: No cyanosis, clubbing, or pedal edema. NEUROLOGICAL: Gross neurological examination did not reveal any focal deficits. - Labs CBC & Chem 7: 02/13/23 08:00 02/13/23 08:00 Labs: Abnormal Lab Results - Last 24 Hours (Table) 02/12/23 02/13/23 02/13/23 Range/Units 04:54 08:00 08:00 WBC 1.2 L* (3.8-10.6) k/uL RBC 3.49 L (4.30-5.90) m/uL Hgb 9.9 L (13.0-17.5) gm/dL Hct 28.1 L (39.0-53.0) % Plt Count 17 L* (150-450) k/uL Neutrophils # (Manual) 0.26 L* 0.20 L* (1.3-7.7) k/uL Lymphocytes # (Manual) 0.83 L (1.0-4.8) k/uL Fibrinogen (200-500) mg/dL Sodium 127 L (137-145) mmol/L Carbon Dioxide 18 L (22-30) mmol/L BUN 52 H (9-20) mg/dL Creatinine 1.87 H (0.66-1.25) mg/dL Glucose 111 H (74-99) mg/dL Calcium 7.7 L (8.4-10.2) mg/dL 02/13/23 Range/Units 08:00 WBC (3.8-10.6) k/uL RBC (4.30-5.90) m/uL Hgb (13.0-17.5) gm/dL Hct (39.0-53.0) % Plt Count (150-450) k/uL Neutrophils # (Manual) (1.3-7.7) k/uL Lymphocytes # (Manual) (1.0-4.8) k/uL Fibrinogen 195 L (200-500) mg/dL Sodium (137-145) mmol/L Carbon Dioxide (22-30) mmol/L BUN (9-20) mg/dL Creatinine (0.66-1.25) mg/dL Glucose (74-99) mg/dL Calcium (8.4-10.2) mg/dL Assessment and Plan Assessment: Assessment and plan * Acute pancytopenia * Neutropenia with low-grade temperature * Noninfectious lactic acidosis and dehydration RESOLVED * Acute kidney injury on CK D stage IIIa * Acute hyponatremia * Severe protein calorie malnutrition * In regards to pancytopenia, hematology oncology consulted, CT abdomen and pelvis negative for intra-abdominal process, vitamin B12 supplementation , status was bone marrow aspiration 02/13 * will need bone marrow biopsy, CT chest negative for intrathoracic mass * In regards to febrile neutropenia noted on 02/13, infectious disease consulted patient started on cefepime, blood cultures ordered In regards to lactic acidosis patient reassess her with IV fluid serum lactic acid levels improved follow up on CRP and pro-calcitonin levels minimally elevated * In regards to acute kidney injury follow up on renal profile post hydration, nephrology consulted for evaluation * In regards to hyponatremia likely secondary to hypovolemia continue fluid resuscitation was appropriately resuscitated with fluid * In regards to protein calorie malnutrition that reconsulted continue patient on regular diet * Physical therapy occupational therapy consulted * Status is full code
--- NOTE | 2023-02-13 11:16 | P.NPCON ---
History of Present Illness - Reason for Consult acute renal failure - History of Present Illness Patient is an 82-year-old male with history of prostatic cancer status post resection about 10-15 years ago. He was recently discharged from [facility] after being admitted for weakness, volume depletion. He had acute kidney injury with creatinine at peak of 2.5 mg/dL. Patient received IV fluids and serum creatinine was around 1.8 at the time of discharge. Patient is readmitted with continued weakness and difficulty to ambulate. No history of nausea vomiting or abdominal pain or diarrhea. He has had pancytopenia and had a bone marrow aspiration done this morning. Patient states he is been voiding well. CT of the abdomen does not show any obstructive uropathy. Serum creatinine was 2.0 on admission and it is 1.87 today. Serum sodium 127. Blood pressure has been low with systolic in the 90s Currently not on IV fluids. Review of Systems As per HPI Past Medical History Past Medical History: Cancer, CVA/TIA, Hypertension, Osteoarthritis (OA) Additional Past Medical History / Comment(s): Prostate cancer with surgery, 2006 UTI with EColi, back pain on occasion, seasonal allergies. History of Any Multi-Drug Resistant Organisms: None Reported Past Surgical History: Orthopedic Surgery Additional Past Surgical History / Comment(s): Radical retropubic prostatectomy, colonoscopy with polypectomy, R elbow sx, R knee arthroscopy. Past Anesthesia/Blood Transfusion Reactions: No Reported Reaction Past Psychological History: No Psychological Hx Reported Additional Psychological History / Comment(s): Pt resides with his spouse. He uses no device. He drives. Smoking Status: Never smoker Past Alcohol Use History: None Reported Past Drug Use History: None Reported - Past Family History Father Family Medical History: No Reported History Additional Family Medical History / Comment(s): Father was healthy and lived to be 89yrs old. Mother Family Medical History: Diabetes Mellitus Additional Family Medical History / Comment(s): Mother in her 80's. Medications and Allergies Home Medications Medication Instructions Recorded Confirmed Type Levothyroxine Sodium [Synthroid] 50 mcg PO DAILY 08/15/16 02/09/23 History Tamsulosin [Flomax] 0.4 mg PO DAILY 02/09/23 02/09/23 History Allergies Allergy/AdvReac Type Severity Reaction Status Date / Time No Known Allergies Allergy Verified 02/09/23 12:55 Physical Exam Vitals: Vital Signs Temp Pulse Pulse Resp BP BP Pulse Ox 02/13/23 11:02 97.5 F L 96 17 95/60 97 02/13/23 07:41 97.6 F 94 17 102/64 94 L 02/13/23 06:12 97.8 F 99 16 104/61 97 02/13/23 05:46 98.0 F 101 H 16 102/65 96 02/13/23 05:26 98.0 F 98 16 103/70 95 02/13/23 05:17 98.2 F 102 H 16 104/69 95 02/13/23 04:00 103 H 18 101/59 98 02/13/23 02:00 18 02/13/23 00:00 108 H 18 94/60 95 02/12/23 20:00 98.3 F 107 H 18 99/58 97 02/12/23 16:19 98.1 F 113 H 18 90/55 94 L 02/12/23 13:17 107 H 02/12/23 12:00 97.5 F L 120 H 18 95/55 98 Intake and Output 02/12/23 02/13/23 02/13/23 22:59 06:59 14:59 Intake Total 118 96 658 Output Total 350 700 Balance -232 606 658 Intake: IV 300 Oral 118 358 Blood Product 96 Pooled Cryoprecipitate 96 Unit [id number] Output: Urine 350 700 Other: Voiding Method External Catheter External Catheter External Catheter Patient is awake, comfortable, no acute distress Examination of the heart S1 and S2 Examination of the lungs bilateral breath sounds are heard Abdomen is soft nontender Examination of lower extremity shows no evidence of edema [employer] [facility] exam 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 Results - Lab Results Most recent lab results Calcium 7.7 mg/dL (8.4-10.2) L 02/13/23 08:00 Magnesium 1.9 mg/dL (1.6-2.3) 02/08/23 23:28 02/13/23 08:00 02/13/23 08:00 Assessment and Plan Assessment: 1. Acute kidney injury, ATN with peak creatinine at 2.5 mg/dL while at [facility] 2 weeks ago. Renal function improved with creatinine now staying at about 1.7-1.8 mg/dL. No evidence of obstruction on CT of the abdomen. UA is completely benign 2. Hyponatremia most likely hypovolemic. Consider SIADH if serum sodium worsens with saline administration. Check urine osmolality and random urine sodium. 3. Generalized debility and weakness 4. Pancytopenia status post bone marrow biopsy 5. History of prostatic cancer status post surgery 10-15 years ago 6. Non-gap metabolic acidosis associated with acute kidney injury Plan: Add IV fluids, half-normal saline with 150mEq of sodium bicarb Repeat sodium this afternoon Check random urine sodium and urine osmolality Accurate I's and O's Repeat labs in a.m. Thank you for the consultation. We will continue to follow the patient with you during his hospitalization.
[2023-02-13] MEDS: SODIUM CHLORIDE 0.45% 1,000 ML with SODIUM BICARB (1 MEQ/ML) 150 ML IV SCH ×2 (12:16)
[2023-02-13] MEDS: CEFEPIME 2 GM in SODIUM CHLORIDE 0.9% 100 ML IVPB SCH ×2 (12:16→19:54)
--- NOTE | 2023-02-13 21:36 | P.CONS ---
History of Present Illness - Reason for Consult Consult date: 02/13/23 - History of Present Illness Patient is a 82-year-old male with a past medical history significant for hypertension osteoarthritis CVA TIA history of prostate cancer and UTI patient presenting to the hospital 5 days ago for evaluation generalized weakness and fatigue and this patient symptom has been going on for 4 weeks patient on presentation to the hospital did have a low-grade fever of 99.7 however no fever for the last 3 to 4 days patient did have mild hypertension but no need for pressor support and no hypoxemia patient did have leukopenia and the white count has dropped to 1.2 platelet count is 17 and neutrophil count of 0.20. It has been mildly elevated patient did have EBV serology hepatitis and HIV panel was negative patient did have bone marrow biopsy completed today infectious was consulted because of his worsening leukopenia low-grade fever concerning for possible febrile neutropenia patient did have a CT abdominal pelvis on 02/09/2023 no evidence for acute intra-abdominal process splenomegaly prostatomegaly without evidence for recurrence or metastatic disease patient also have a CT of the chest no evidence of mass pleural effusion patient currently denies having any fever or any chills denies any headache or URI symptoms no chest pain no shortness related mild cough not bringing up any sputum no nausea vomiting no abdominal pain no diarrhea no urinary symptoms Past Medical History Past Medical History: Cancer, CVA/TIA, Hypertension, Osteoarthritis (OA) Additional Past Medical History / Comment(s): Prostate cancer with surgery, 2006 UTI with EColi, back pain on occasion, seasonal allergies. History of Any Multi-Drug Resistant Organisms: None Reported Past Surgical History: Orthopedic Surgery Additional Past Surgical History / Comment(s): Radical retropubic prostatectomy, colonoscopy with polypectomy, R elbow sx, R knee arthroscopy. Past Anesthesia/Blood Transfusion Reactions: No Reported Reaction Past Psychological History: No Psychological Hx Reported Additional Psychological History / Comment(s): Pt resides with his spouse. He uses no device. He drives. Smoking Status: Never smoker Past Alcohol Use History: None Reported Past Drug Use History: None Reported - Past Family History Father Family Medical History: No Reported History Additional Family Medical History / Comment(s): Father was healthy and lived to be 89yrs old. Mother Family Medical History: Diabetes Mellitus Additional Family Medical History / Comment(s): Mother in her 80's. Medications and Allergies Home Medications Medication Instructions Recorded Confirmed Type Levothyroxine Sodium [Synthroid] 50 mcg PO DAILY 08/15/16 02/09/23 History Tamsulosin [Flomax] 0.4 mg PO DAILY 02/09/23 02/09/23 History Allergies Allergy/AdvReac Type Severity Reaction Status Date / Time No Known Allergies Allergy Verified 02/09/23 12:55 Physical Exam Vitals: Vital Signs Temp Pulse Pulse Resp BP BP Pulse Ox 02/13/23 11:02 97.5 F L 96 17 95/60 97 02/13/23 07:41 97.6 F 94 17 102/64 94 L 02/13/23 06:12 97.8 F 99 16 104/61 97 02/13/23 05:46 98.0 F 101 H 16 102/65 96 02/13/23 05:26 98.0 F 98 16 103/70 95 02/13/23 05:17 98.2 F 102 H 16 104/69 95 02/13/23 04:00 103 H 18 101/59 98 02/13/23 02:00 18 02/13/23 00:00 108 H 18 94/60 95 02/12/23 20:00 98.3 F 107 H 18 99/58 97 02/12/23 16:19 98.1 F 113 H 18 90/55 94 L 02/12/23 13:17 107 H Intake and Output 02/12/23 02/13/23 02/13/23 22:59 06:59 14:59 Intake Total 118 96 658 Output Total 350 700 Balance -232 -604 658 Intake: IV 300 Oral 118 358 Blood Product 96 Pooled Cryoprecipitate 96 Unit [id number] Output: Urine 350 700 Other: Voiding Method External Catheter External Catheter External Catheter Results CBC & Chem 7: 02/13/23 08:00 02/13/23 15:40 Labs: Abnormal Lab Results - Last 24 Hours (Table) 02/12/23 02/13/23 02/13/23 Range/Units 04:54 08:00 08:00 WBC 1.2 L* (3.8-10.6) k/uL RBC 3.49 L (4.30-5.90) m/uL Hgb 9.9 L (13.0-17.5) gm/dL Hct 28.1 L (39.0-53.0) % Plt Count 17 L* (150-450) k/uL Neutrophils # (Manual) 0.26 L* 0.20 L* (1.3-7.7) k/uL Lymphocytes # (Manual) 0.83 L (1.0-4.8) k/uL Fibrinogen (200-500) mg/dL Sodium 127 L (137-145) mmol/L Carbon Dioxide 18 L (22-30) mmol/L BUN 52 H (9-20) mg/dL Creatinine 1.87 H (0.66-1.25) mg/dL Glucose 111 H (74-99) mg/dL Calcium 7.7 L (8.4-10.2) mg/dL 02/13/23 Range/Units 08:00 WBC (3.8-10.6) k/uL RBC (4.30-5.90) m/uL Hgb (13.0-17.5) gm/dL Hct (39.0-53.0) % Plt Count (150-450) k/uL Neutrophils # (Manual) (1.3-7.7) k/uL Lymphocytes # (Manual) (1.0-4.8) k/uL Fibrinogen 195 L (200-500) mg/dL Sodium (137-145) mmol/L Carbon Dioxide (22-30) mmol/L BUN (9-20) mg/dL Creatinine (0.66-1.25) mg/dL Glucose (74-99) mg/dL Calcium (8.4-10.2) mg/dL Assessment and Plan Plan: 1patient with pancytopenia with the first being leukopenic patient did have evidence of splenomegaly on CT abdominal pelvis but no evidence of any other lymphadenopathy did have a low-grade fever which could be more like related to underlying primary illness responsible for this pancytopenia and concern for possible hematological malignancy clinical suspicion is low for secondary infectious etiology as the patient does not look toxic CT chest was negative for pneumonia CT abdominal pelvis was negative for any acute intra-abdominal process 2-we will obtain blood cultures and inflammatory markers 3-continue with empiric cefepime We will follow on clinical condition and cultures to further adjust medication if needed Thank you for this consultation we will follow the patient along with you Dictation was produced using Applikaation software. please excuse any grammatical, word or spelling errors. Time with Patient: Greater than 30
[2023-02-14] MEDS: SODIUM CHLORIDE 0.45% 1,000 ML with SODIUM BICARB (1 MEQ/ML) 150 ML IV SCH ×2 (05:00)
[2023-02-14] MEDS: LEVOTHYROXINE 50 MCG TAB PO SCH (06:07)
[2023-02-14 07:50] LABS: HCT 26.8 % (39.0-53.0); HGB 9.4 gm/dL (13.0-17.5); MCH 27.9 pg (25.0-35.0); MCV 79.9 fL (80.0-100.0); Mean Platelet Volume 10.4; RBC 3.36 m/uL (4.30-5.90); RDW 13.9 % (11.5-15.5)
[2023-02-14 08:29] LABS: INR 1.1 (<1.2); Partial Thromboplastin Time 29.6 sec (22.0-30.0)
[2023-02-14 09:02] LABS: Platelet Count 20 k/uL (150-450)
[2023-02-14 09:53] LABS: African American GFR (CKD) 40 (>60 ml/min/1.73 sqM); Anion Gap 4 mmol/L; Blood Urea Nitrogen 47 mg/dL (9-20); Calcium 7.5 mg/dL (8.4-10.2); Carbon Dioxide 20 mmol/L (22-30); Chloride 102 mmol/L (98-107); Glucose 91 mg/dL (74-99); Non-African American GFR(CKD) 35 (>60 ml/min/1.73 sqM); Potassium 4.8 mmol/L (3.5-5.1); Sodium 126 mmol/L (137-145)
[2023-02-14] MEDS: CEFEPIME 2 GM in SODIUM CHLORIDE 0.9% 100 ML IVPB SCH ×2 (11:04→20:06)
[2023-02-14] MEDS: TAMSULOSIN 0.4 MG CAP.ER.24H PO SCH (11:34)
--- NOTE | 2023-02-14 11:44 | P.PN ---
Subjective Progress Note Date: 02/14/23 * 82-year-old gentleman with past medical history significant for hypertension, prostate cancer, history of CVA, osteoarthritis presents to the emergency department with worsening weakness and fatigue ongoing for the last 4 weeks. Patient was recently hospitalized and early January with significant weakness and blood count obtained at that time showed pancytopenia. Patient was scheduled to follow-up with hematology as outpatient however due to progressive weakness and failure to thrive patient decided to call EMS and was brought to the emergency for further evaluation. Patient had been complaining of associated weakness and exertional shortness of breath however he denied any fever, chest pain, nausea, vomiting, diarrhea. Patient to chart review mentioned to the emergency team that he lost about 20 pounds in the last few weeks * Workup initiated in ER include hepatology which were WBC of 2.8 hemoglobin 11.8 hematocrit 33 platelet count of 16,000 neutrophil count is 0.56 PT/INR off 12.8, 1.2 d-dimer of 5.91 * Patient had a VQ scan done which was negative for pulmonary embolism * Serum chemistry showed sodium 124 potassium 4.8, and Axert 12 BUNs 70 2.01 lactate of 3.5 bilirubin of 1.7 TSH within normal limits * Patient tested negative for influenza and RSV and Covid PCR * 02/10/23: Patient seen and evaluated bedside, appreciate input from oncology, CT abdomen pelvis reviewed, CT chest ordered continue to monitor for fever or chills of infection was of infection noted * 02/11/23 : Patient seen and evaluated bedside. Continue to monitor blood counts. DIC labs reviewed planning for bone marrow biopsy this hospital stay continue to monitor CBC. CT chest reviewed negative for intrathoracic mass * 02/12/23: Patient seen and evaluated at bedside accompanied with [id number], care plan discussed blood work reviewed platelet count 18,000. Hematology following plan for bone marrow biopsy secondary to impaired kidney function will request evaluation from nephrology as well * 02/13/23: Patient seen and evaluated bedside, [id number] at bedside care plan discussed. Episode of 97.5 temperature. Does have neutropenia along with pancytopenia. Started on IV cefepime blood cultures ordered infectious disease consulted as well will follow up on CRP and pro-calcitonin levels. CRP early in the hospital stay was normal pro-calcitonin was minimally elevated on 02/10 0.26 appreciate input from nephrology as well. Patient denies feeling sick, denies chills does complain of decreased appetite * 02/14/23: Patient seen and evaluated bedside, multiple family members at bedside including , [id number], daughter. Care plan discussed. Continue to monitor for fever. We'll follow up on bone marrow biopsy results. Continue prophylactic antibiotics secondary to neutropenia. Infectious disease following. We will daily monitor CBC and basic metabolic panel. CRP normal pro-calcitonin minimally elevated infection. Regarding discharge planning patient will be through the weekend potential discharge on Saturday once cleared by hematology I did to rehab or home depending on patient's condition. Patient encouraged increase oral intake mentation is alert and oriented 4 Objective - Vital Signs Vital signs: Vital Signs Temp 97.9 F 02/14/23 04:00 Pulse 108 H 02/14/23 10:10 Resp 17 02/14/23 08:29 BP 98/56 02/14/23 08:29 Pulse Ox 94 L 02/14/23 08:29 FiO2 Intake & Output 02/13/23 02/14/23 02/14/23 18:59 06:59 18:59 Intake Total 1212 Output Total 600 700 Balance 612 -700 Weight 71.214 kg Intake: IV 300 Oral 912 Output: Urine 600 700 Other: Voiding Method External Catheter External Catheter - Exam PHYSICAL EXAMINATION: GENERAL: The patient is alert and oriented x 4 , ill appearance, pale HEENT: Pupils are round and equally reacting to light. EOMI. CARDIOVASCULAR: S1 and S2 present. No murmurs, rubs, or gallops. PULMONARY: Chest is clear to auscultation, no wheezing or crackles. ABDOMEN: Soft, nontender, nondistended, normoactive bowel sounds. MUSCULOSKELETAL: No joint swelling or deformity. EXTREMITIES: No cyanosis, clubbing, or pedal edema. NEUROLOGICAL: Gross neurological examination did not reveal any focal deficits. - Labs CBC & Chem 7: 02/14/23 06:49 02/14/23 06:49 Labs: Abnormal Lab Results - Last 24 Hours (Table) 02/13/23 02/14/23 02/14/23 Range/Units 15:40 06:49 06:49 WBC 1.0 L* (3.8-10.6) k/uL RBC 3.36 L (4.30-5.90) m/uL Hgb 9.4 L (13.0-17.5) gm/dL Hct 26.8 L (39.0-53.0) % MCV 79.9 L (80.0-100.0) fL Fibrinogen (200-500) mg/dL Sodium 127 L (137-145) mmol/L Carbon Dioxide (22-30) mmol/L BUN (9-20) mg/dL Creatinine (0.66-1.25) mg/dL Calcium (8.4-10.2) mg/dL Procalcitonin 0.13 H (0.02-0.09) ng/mL 02/14/23 02/14/23 Range/Units 06:49 06:49 WBC (3.8-10.6) k/uL RBC (4.30-5.90) m/uL Hgb (13.0-17.5) gm/dL Hct (39.0-53.0) % MCV (80.0-100.0) fL Fibrinogen 198 L (200-500) mg/dL Sodium 126 L (137-145) mmol/L Carbon Dioxide 20 L (22-30) mmol/L BUN 47 H (9-20) mg/dL Creatinine 1.78 H (0.66-1.25) mg/dL Calcium 7.5 L (8.4-10.2) mg/dL Procalcitonin (0.02-0.09) ng/mL Assessment and Plan Assessment: Assessment and plan * Acute pancytopenia * Neutropenia with low-grade temperature * Noninfectious lactic acidosis and dehydration RESOLVED * Acute kidney injury on CK D stage IIIa * Acute hyponatremia * Severe protein calorie malnutrition * In regards to pancytopenia, hematology oncology consulted, CT abdomen and pelvis negative for intra-abdominal process , status was bone marrow aspiration 02/13 CT chest negative for intrathoracic mass * In regards to febrile neutropenia noted on 02/13, infectious disease consulted patient started on cefepime, blood cultures ordered In regards to lactic acidosis patient reassess her with IV fluid serum lactic acid levels improved follow up on CRP and pro-calcitonin levels minimally elevated * In regards to acute kidney injury follow up on renal profile post hydration, nephrology consulted for evaluation * In regards to hyponatremia likely secondary to hypovolemia continue fluid resuscitation was appropriately resuscitated with fluid * In regards to protein calorie malnutrition that reconsulted continue patient on regular diet * Physical therapy occupational therapy consulted>>PHOEBE likely by 02/17/23 * Status is full code
--- NOTE | 2023-02-14 11:50 | P.PN ---
Subjective Patient is seen for follow-up for acute kidney injury and top of chronic kidney disease. No significant complaints today. Good urine output. Serum creatinine at 1.7 mg/dL. Sodium is at 126 today. Maintained on bicarb drip with half normal saline as base. Urine osmolality and urine sodium not back yet. Objective - Vital Signs Vital signs: Vital Signs Temp 97.9 F 02/14/23 04:00 Pulse 108 H 02/14/23 10:10 Resp 17 02/14/23 08:29 BP 98/56 02/14/23 08:29 Pulse Ox 94 L 02/14/23 08:29 FiO2 Intake & Output 02/13/23 02/14/23 02/14/23 18:59 06:59 18:59 Intake Total 1212 Output Total 600 700 Balance 612 -700 Weight 71.214 kg Intake: IV 300 Oral 912 Output: Urine 600 700 Other: Voiding Method External Catheter External Catheter - Exam Patient is awake, comfortable, no acute distress Examination of the heart S1 and S2 Examination of the lungs bilateral breath sounds are heard Abdomen is soft nontender Examination of lower extremity shows no evidence of edema [employer] exam 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 - Labs CBC & Chem 7: 02/14/23 06:49 02/14/23 06:49 Labs: Abnormal Lab Results - Last 24 Hours (Table) 02/13/23 02/14/23 02/14/23 Range/Units 15:40 06:49 06:49 WBC 1.0 L* (3.8-10.6) k/uL RBC 3.36 L (4.30-5.90) m/uL Hgb 9.4 L (13.0-17.5) gm/dL Hct 26.8 L (39.0-53.0) % MCV 79.9 L (80.0-100.0) fL Fibrinogen (200-500) mg/dL Sodium 127 L (137-145) mmol/L Carbon Dioxide (22-30) mmol/L BUN (9-20) mg/dL Creatinine (0.66-1.25) mg/dL Calcium (8.4-10.2) mg/dL Procalcitonin 0.13 H (0.02-0.09) ng/mL 02/14/23 02/14/23 Range/Units 06:49 06:49 WBC (3.8-10.6) k/uL RBC (4.30-5.90) m/uL Hgb (13.0-17.5) gm/dL Hct (39.0-53.0) % MCV (80.0-100.0) fL Fibrinogen 198 L (200-500) mg/dL Sodium 126 L (137-145) mmol/L Carbon Dioxide 20 L (22-30) mmol/L BUN 47 H (9-20) mg/dL Creatinine 1.78 H (0.66-1.25) mg/dL Calcium 7.5 L (8.4-10.2) mg/dL Procalcitonin (0.02-0.09) ng/mL Assessment and Plan Assessment: 1. Acute kidney injury, ATN with peak creatinine at 2.5 mg/dL while at [facility] 2 weeks ago. Renal function improved with creatinine now staying at about 1.7-1.8 mg/dL. No evidence of obstruction on CT of the abdomen. UA is completely benign. Previous creatinine 1.2 in 2017 2. Hyponatremia most likely hypovolemic. Consider SIADH if serum sodium worsens with saline administration. Check urine osmolality and random urine sodium. Check cortisol as blood pressure has been on the lower side 3. Generalized debility and weakness, Check cortisol level 4. Pancytopenia status post bone marrow biopsy 5. History of prostatic cancer status post surgery 10-15 years ago 6. Non-gap metabolic acidosis associated with acute kidney injury 7. Chronic kidney disease NKF stage III with previous creatinine 1.2 in 2017. Etiology is nephrosclerosis. UA is quite benign with trace protein. Plan: Check cortisol level rule out adrenal insufficiency as blood pressure remains low Reorder urine osmolality and urine sodium Sodium chloride tab 1 Switch IV fluids to normal saline Add oral sodium bicarb
[2023-02-14 13:44] LABS: Band Neutrophils % 2 %; Eosinophils # (M) 0.01 k/uL (0-0.7); Lymphocytes # (M) 0.53 k/uL (1.0-4.8); Monocytes # (M) 0.11 k/uL (0-1.0); Neutrophils % (M) 32 %
[2023-02-14 13:45] LABS: Metamyelocytes # (M) 0.01 k/uL (0); Metamyelocytes % 1 %; Nucleated Red Blood Cells 0 /100 WBC (0-0); Total Cells Counted 100
[2023-02-14] MEDS: SODIUM CHLORIDE TAB 1 GM TAB PO SCH ×2 (14:20→20:07)
--- NOTE | 2023-02-14 14:59 | P.PN ---
Subjective Progress Note Date: 02/14/23 Principal diagnosis: Febrile neutropenia Patient is a 82-year-old male with a past medical history significant for hypertension osteoarthritis CVA TIA history of prostate cancer and UTI patient presenting to the hospital for evaluation generalized weakness and fatigue, patient did have low-grade fever also noticed to be leukopenia/neutropenia prompting this Infectious disease consultation On today's evaluation that is 02/14/2023, the patient continues to be afebrile, the patient is breathing comfortably on room air, the patient denies any chest pain or cough, patient denies abdominal pain, and denies any nausea/vomiting or diarrhea Patient white count is 1.0, creatinine is 1.78, culture pending Objective - Vital Signs Vital signs: Vital Signs Temp 97.9 F 02/14/23 04:00 Pulse 108 H 02/14/23 10:10 Resp 17 02/14/23 08:29 BP 98/56 02/14/23 08:29 Pulse Ox 94 L 02/14/23 08:29 FiO2 Intake & Output 02/13/23 02/14/23 02/14/23 18:59 06:59 18:59 Intake Total 1212 Output Total 600 700 Balance 612 -700 Weight 71.214 kg Intake: IV 300 Oral 912 Output: Urine 600 700 Other: Voiding Method External Catheter External Catheter - Exam GENERAL DESCRIPTION: An elderly male lying in bed in no distress RESPIRATORY SYSTEM: Unlabored breathing , clear to auscultation anteriorly HEART: S1 S2 regular rate and rhythm , ABDOMEN: Soft , no tenderness EXTREMITIES: No edema feet - Labs CBC & Chem 7: 02/14/23 06:49 02/14/23 06:49 Labs: Abnormal Lab Results - Last 24 Hours (Table) 02/13/23 02/13/23 02/14/23 Range/Units 08:00 15:40 06:49 WBC 1.0 L* (3.8-10.6) k/uL RBC 3.36 L (4.30-5.90) m/uL Hgb 9.4 L (13.0-17.5) gm/dL Hct 26.8 L (39.0-53.0) % MCV 79.9 L (80.0-100.0) fL Fibrinogen (200-500) mg/dL Sodium 127 L 127 L (137-145) mmol/L Carbon Dioxide (22-30) mmol/L BUN (9-20) mg/dL Creatinine (0.66-1.25) mg/dL Calcium (8.4-10.2) mg/dL 02/14/23 02/14/23 Range/Units 06:49 06:49 WBC (3.8-10.6) k/uL RBC (4.30-5.90) m/uL Hgb (13.0-17.5) gm/dL Hct (39.0-53.0) % MCV (80.0-100.0) fL Fibrinogen 198 L (200-500) mg/dL Sodium 126 L (137-145) mmol/L Carbon Dioxide 20 L (22-30) mmol/L BUN 47 H (9-20) mg/dL Creatinine 1.78 H (0.66-1.25) mg/dL Calcium 7.5 L (8.4-10.2) mg/dL Assessment and Plan (1) Febrile neutropenia Current Visit: Yes Status: Acute Code(s): D70.9 - NEUTROPENIA, UNSPECIFIED; R50.81 - FEVER PRESENTING WITH CONDITIONS CLASSIFIED ELSEWHERE SNOMED Code(s): 281887296 Plan: 1patient with pancytopenia with the first being leukopenic patient did have evidence of splenomegaly on CT abdominal pelvis but no evidence of any other lymphadenopathy did have a low-grade fever which could be more like related to underlying primary illness responsible for this pancytopenia and concern for possible hematological malignancy clinical suspicion is low for secondary infectious etiology as the patient does not look toxic CT chest was negative for pneumonia CT abdominal pelvis was negative for any acute intra-abdominal process 2- blood cultures and inflammatory markers are currently pending 3-patient to continue with empiric cefepime Multiple family members at the bedside questions were answered Dictation was produced using Un[employer]ation software. please excuse any grammatical, word or spelling errors. Time with Patient: Less than 30
--- NOTE | 2023-02-14 19:41 | P.PN ---
Subjective Progress Note Date: 02/14/23 Principal diagnosis: pancytopenia In f/u pt denies fever, cough, appetite is poor, no N,V, or acute changes in bowel or bladder habits Objective - Vital Signs Vital signs: Vital Signs Temp 97.9 F 02/14/23 04:00 Pulse 108 H 02/14/23 14:00 Resp 17 02/14/23 14:00 BP 98/56 02/14/23 08:29 Pulse Ox 94 L 02/14/23 08:29 FiO2 Intake & Output 02/13/23 02/14/23 02/14/23 18:59 06:59 18:59 Intake Total 1212 Output Total 600 700 Balance 612 -700 Weight 71.214 kg Intake: IV 300 Oral 912 Output: Urine 600 700 Other: Voiding Method External Catheter External Catheter External Catheter - Constitutional General appearance: Present: cooperative, no acute distress, thin - EENT Eyes: Present: anicteric sclerae, EOMI ENT: Present: hearing grossly normal - Respiratory Details: resp even and unlabored - Peripheral edema leg Peripheral Edema: bilateral: None - Integumentary Integumentary Comment(s): no hematoma at Bx site - Neurologic Neurologic: Present: CNII-XII intact - Musculoskeletal Musculoskeletal: Present: generalized weakness - Psychiatric Psychiatric: Present: A&O x's 3, appropriate affect, intact judgment & insight - Labs CBC & Chem 7: 02/14/23 06:49 02/14/23 06:49 Labs: Abnormal Lab Results - Last 24 Hours (Table) 02/13/23 02/14/23 02/14/23 Range/Units 15:40 06:49 06:49 WBC 1.0 L* (3.8-10.6) k/uL RBC 3.36 L (4.30-5.90) m/uL Hgb 9.4 L (13.0-17.5) gm/dL Hct 26.8 L (39.0-53.0) % MCV 79.9 L (80.0-100.0) fL Plt Count 20 L (150-450) k/uL Neutrophils # (Manual) 0.30 L* (1.3-7.7) k/uL Lymphocytes # (Manual) 0.53 L (1.0-4.8) k/uL Metamyelocytes # (Man) 0.01 H (0) k/uL Fibrinogen (200-500) mg/dL Sodium 127 L (137-145) mmol/L Carbon Dioxide (22-30) mmol/L BUN (9-20) mg/dL Creatinine (0.66-1.25) mg/dL Calcium (8.4-10.2) mg/dL Procalcitonin 0.13 H (0.02-0.09) ng/mL 02/14/23 02/14/23 Range/Units 06:49 06:49 WBC (3.8-10.6) k/uL RBC (4.30-5.90) m/uL Hgb (13.0-17.5) gm/dL Hct (39.0-53.0) % MCV (80.0-100.0) fL Plt Count (150-450) k/uL Neutrophils # (Manual) (1.3-7.7) k/uL Lymphocytes # (Manual) (1.0-4.8) k/uL Metamyelocytes # (Man) (0) k/uL Fibrinogen 198 L (200-500) mg/dL Sodium 126 L (137-145) mmol/L Carbon Dioxide 20 L (22-30) mmol/L BUN 47 H (9-20) mg/dL Creatinine 1.78 H (0.66-1.25) mg/dL Calcium 7.5 L (8.4-10.2) mg/dL Procalcitonin (0.02-0.09) ng/mL Assessment and Plan (1) DIC (disseminated intravascular coagulation) Current Visit: Yes Status: Acute Priority: High Code(s): D65 - DISSEMINATED INTRAVASCULAR COAGULATION SNOMED Code(s): 20517783 (2) Pancytopenia Current Visit: Yes Status: Acute Priority: High Code(s): D61.818 - OTHER PANCYTOPENIA SNOMED Code(s): 979961079 Plan: Low grade DIC -DIC labs results reviewed today, coags normal, fibrinogen 198 today after 2 doses of cryoprecipitate -Coags and fibrinogen irdered -Some solid tumors and liquid tumors, such as APL and CMML, can cause DIC, workup is in progress, s/p BM Bx. -Some of the results today show an IgM of less than 35, there is a paraproteinemia 0.23 g/dL qualified as IgG lambda. Light chains were both elevated, ratio is equal. Peripheral smear is reported as pancytopenia with rare atypical lymphocytes present, myeloproliferative or myelodysplastic disorder. Do not anticipate preliminary bone marrow results until early next week, will cont to inquire Pancytopenia -No transfusions needed today -Transfuse for a Hgb< 7 and plt <10K or if symptomatic. Hemoglobin 9.4, platelets 20,000. -WBC 1, Unreadable differential. No GCSF at this time until we have at least a preliminary bone marrow report. ID following. -CBC monitoring daily -Pending ordered work up -Underlying cause being worked up. Will update plan of care as more info becomes available
[2023-02-14] MEDS: SODIUM BICARBONATE TAB 650 MG TAB PO SCH (20:07)
[2023-02-15] MEDS: LEVOTHYROXINE 50 MCG TAB PO SCH (06:25)
[2023-02-15 08:10] LABS: HGB 8.9 gm/dL (13.0-17.5); MCH 28.6 pg (25.0-35.0); MCHC 35.5 g/dL (31.0-37.0); MCV 80.5 fL (80.0-100.0); Mean Platelet Volume 10.1; RDW 13.9 % (11.5-15.5)
[2023-02-15 08:20] LABS: Platelet Count 23 k/uL (150-450); WBC 0.8 k/uL (3.8-10.6)
[2023-02-15 08:35] LABS: African American GFR (CKD) 41 (>60 ml/min/1.73 sqM); Anion Gap 6 mmol/L; Blood Urea Nitrogen 46 mg/dL (9-20); Calcium 7.3 mg/dL (8.4-10.2); Carbon Dioxide 22 mmol/L (22-30); Chloride 100 mmol/L (98-107); Glucose 83 mg/dL (74-99); Non-African American GFR(CKD) 36 (>60 ml/min/1.73 sqM); Potassium 4.3 mmol/L (3.5-5.1); Sodium 128 mmol/L (137-145)
[2023-02-15] MEDS: TAMSULOSIN 0.4 MG CAP.ER.24H PO SCH (08:52)
[2023-02-15] MEDS: SODIUM BICARBONATE TAB 650 MG TAB PO SCH ×2 (08:53→20:49)
[2023-02-15] MEDS: CEFEPIME 2 GM in SODIUM CHLORIDE 0.9% 100 ML IVPB SCH ×2 (08:56→20:49)
[2023-02-15 09:50] LABS: Rouleaux Present
--- NOTE | 2023-02-15 11:20 | P.PN ---
Subjective Patient is seen in follow-up for acute kidney injury on chronic kidney disease. Renal Fortune stable. Denies chest pain or shortness of breath. No vomiting or diarrhea. Oral intake fair. Hemodynamically stable. Vital signs are stable. General: No acute distress. HEENT: Head exam is unremarkable. LUNGS: No audible rhonchi or wheezes. HEART: Rate and Rhythm are regular. ABDOMEN: Nontender. EXTREMITITES: No edema. Objective - Vital Signs Vital signs: Vital Signs Temp 98.2 F 02/15/23 08:24 Pulse 100 02/15/23 10:04 Resp 17 02/15/23 08:24 BP 95/62 02/15/23 09:30 Pulse Ox 93 L 02/15/23 08:24 FiO2 Intake & Output 02/14/23 02/15/23 02/15/23 18:59 06:59 18:59 Intake Total 700 10 Output Total 400 700 Balance 300 -700 10 Intake: IV 10 Invasive Line 2 10 Intake, IV Titration 700 Amount Cefepime 2 gm In Sodium 100 Chloride 0.9% 100 ml @ 25 mls/hr IVPB Q12HR [facility] Rx #:[id number] Sodium Chloride 0.45% 1, 600 000 ml @ 75 mls/hr IV . [id number] [facility] with Sodium Bicarb (1 Meq/ml) 150 ml Rx#:[id number] Output: Urine 400 700 Other: Voiding Method External Catheter External Catheter - Labs CBC & Chem 7: 02/15/23 07:15 02/15/23 07:15 Labs: Abnormal Lab Results - Last 24 Hours (Table) 02/14/23 02/15/23 02/15/23 Range/Units 06:49 07:15 07:15 WBC 0.8 L* (3.8-10.6) k/uL RBC 3.10 L (4.30-5.90) m/uL Hgb 8.9 L (13.0-17.5) gm/dL Hct 25.0 L (39.0-53.0) % Plt Count 20 L 23 L (150-450) k/uL Neutrophils # (Manual) 0.30 L* (1.3-7.7) k/uL Lymphocytes # (Manual) 0.53 L (1.0-4.8) k/uL Metamyelocytes # (Man) 0.01 H (0) k/uL Fibrinogen (200-500) mg/dL Sodium 128 L (137-145) mmol/L BUN 46 H (9-20) mg/dL Creatinine 1.73 H (0.66-1.25) mg/dL Calcium 7.3 L (8.4-10.2) mg/dL 02/15/23 Range/Units 07:15 WBC (3.8-10.6) k/uL RBC (4.30-5.90) m/uL Hgb (13.0-17.5) gm/dL Hct (39.0-53.0) % Plt Count (150-450) k/uL Neutrophils # (Manual) (1.3-7.7) k/uL Lymphocytes # (Manual) (1.0-4.8) k/uL Metamyelocytes # (Man) (0) k/uL Fibrinogen 172 L (200-500) mg/dL Sodium (137-145) mmol/L BUN (9-20) mg/dL Creatinine (0.66-1.25) mg/dL Calcium (8.4-10.2) mg/dL Microbiology - Last 24 Hours (Table) 02/13/23 11:48 Blood Culture - Preliminary Blood Assessment and Plan Plan: Assessment: 1. Acute kidney injury secondary to ATN. Renal function stable with creatinine at 1.73 today. No hydronephrosis noted on CAT scan. UA with trace protein. 2. Hyponatremia. 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 On sodium chloride tabs. Better. Urine sodium 95 and urine osmolality 627. Cortisol level not low. 3. Pancytopenia status post bone marrow biopsy. 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 Oncology following. 4. Metabolic acidosis secondary to acute kidney injury maintain on oral bicarb martha. Better. 5. Chronic kidney disease stage IIIA with creatinine near 1.2 in 2017. Suspect nephrosclerosis. Plan: Maintain salt tabs. Add 1500 mL fluid restriction. Check TSH. If no improvement in sodium level tomorrow, will give Samsca. Avoid nephrotoxins. Continue to monitor renal function and urine output.
[2023-02-15] MEDS: SODIUM CHLORIDE TAB 1 GM TAB PO SCH ×2 (12:28→20:49)
--- NOTE | 2023-02-15 13:56 | P.PN ---
Subjective Progress Note Date: 02/15/23 Principal diagnosis: pancytopenia At todays visit patient is resting comfortably in bedside chair. Family at bedside. Patient is reporting nausea today. Denies vomiting. WBC 800, platelets 23,000, hemoglobin 8.9. Patient denies any bleeding episodes or petechiae. Objective - Vital Signs Vital signs: Vital Signs Temp 97.5 F L 02/15/23 12:24 Pulse 106 H 02/15/23 12:24 Resp 15 02/15/23 12:24 BP 92/57 02/15/23 12:24 Pulse Ox 96 02/15/23 12:24 FiO2 Intake & Output 02/14/23 02/15/23 02/15/23 18:59 06:59 18:59 Intake Total 700 130 Output Total 400 700 Balance 300 -700 130 Weight 71.214 kg Intake: IV 10 Invasive Line 2 10 Intake, IV Titration 700 Amount Cefepime 2 gm In Sodium 100 Chloride 0.9% 100 ml @ 25 mls/hr IVPB Q12HR [facility] Rx #:[id number] Sodium Chloride 0.45% 1, 600 000 ml @ 75 mls/hr IV . [id number] [facility] with Sodium Bicarb (1 Meq/ml) 150 ml Rx#:[id number] Oral 120 Output: Urine 400 700 Other: Voiding Method External Catheter External Catheter # Bowel Movements 1 - Constitutional General appearance: Present: no acute distress - EENT Eyes: Present: anicteric sclerae, EOMI ENT: Present: hearing grossly normal - Respiratory Details: breathing is even and unlabored - Cardiovascular Details: skin warm and dry - Integumentary Integumentary: Present: pale - Musculoskeletal Musculoskeletal: Present: generalized weakness - Psychiatric Psychiatric: Present: A&O x's 3, appropriate affect, intact judgment & insight - Labs CBC & Chem 7: 02/15/23 07:15 02/15/23 07:15 Labs: Abnormal Lab Results - Last 24 Hours (Table) 02/15/23 02/15/23 02/15/23 Range/Units 07:15 07:15 07:15 WBC 0.8 L* (3.8-10.6) k/uL RBC 3.10 L (4.30-5.90) m/uL Hgb 8.9 L (13.0-17.5) gm/dL Hct 25.0 L (39.0-53.0) % Plt Count 23 L (150-450) k/uL Fibrinogen 172 L (200-500) mg/dL Sodium 128 L (137-145) mmol/L BUN 46 H (9-20) mg/dL Creatinine 1.73 H (0.66-1.25) mg/dL Calcium 7.3 L (8.4-10.2) mg/dL Microbiology - Last 24 Hours (Table) 02/13/23 11:48 Blood Culture - Preliminary Blood Assessment and Plan (1) DIC (disseminated intravascular coagulation) Current Visit: Yes Status: Acute Priority: High Code(s): D65 - DISSEM INATED INTRAVASCULAR COAGULATION SNOMED Code(s): 91482545 (2) Pancytopenia Current Visit: Yes Status: Acute Priority: High Code(s): D61.818 - OTHER P ANCYTOPENIA SNOMED Code(s): 998901552 Plan: Low grade DIC -DIC labs results reviewed, coags normal, fibrinogen 172 today after 2 doses of cryoprecipitate -Will continue to monitor coags and fibrinogen -Some solid tumors and liquid tumors, such as APL and CMML, can cause DIC, workup is in progress, s/p BM Bx. -Some of the results today show an IgM of less than 35, there is a paraproteinemia 0.23 g/dL qualified as IgG lambda. Light chains were both elevated, ratio is normal. Peripheral smear is reported as pancytopenia with rare atypical lymphocytes present, myeloproliferative or myelodysplastic disorder. Do not anticipate preliminary bone marrow results until early next week, will cont to follow Pt and family have been updated on results and POC Pancytopenia -No transfusions needed today -Transfuse for a Hgb< 7 and plt <10K or if symptomatic. Hemoglobin 8.9, platelets 23,000. -WBC 800, Unreadable differential. No GCSF at this time until we have at least a preliminary bone marrow report. ID following. -CBC monitoring daily -Underlying cause being worked up. Will update plan of care as more info becomes available
--- NOTE | 2023-02-15 14:51 | P.PN ---
Subjective Progress Note Date: 02/15/23 Principal diagnosis: Febrile neutropenia Patient is a 82-year-old male with a past medical history significant for hypertension osteoarthritis CVA TIA history of prostate cancer and UTI patient presenting to the hospital for evaluation generalized weakness and fatigue, patient did have low-grade fever also noticed to be leukopenia/neutropenia prompting this Infectious disease consultation On today's evaluation that is 02/15/2023, the patient denies any fever or any chills, the patient is breathing comfortably on room air and no need for supplemental oxygen, the patient denies any chest pain patient did have some dry irritating, but no sputum production, patient denies any nausea/vomiting or diarrhea and no abdominal pain Patient white count is 0.8, creatinine is 1.73, culture pending Objective - Vital Signs Vital signs: Vital Signs Temp 98.2 F 02/15/23 08:24 Pulse 100 02/15/23 10:04 Resp 17 02/15/23 08:24 BP 95/62 02/15/23 09:30 Pulse Ox 93 L 02/15/23 08:24 FiO2 Intake & Output 02/14/23 02/15/23 02/15/23 18:59 06:59 18:59 Intake Total 700 10 Output Total 400 700 Balance 300 -700 10 Intake: IV 10 Invasive Line 2 10 Intake, IV Titration 700 Amount Cefepime 2 gm In Sodium 100 Chloride 0.9% 100 ml @ 25 mls/hr IVPB Q12HR [facility] Rx #:[id number] Sodium Chloride 0.45% 1, 600 000 ml @ 75 mls/hr IV . [id number] [facility] with Sodium Bicarb (1 Meq/ml) 150 ml Rx#:[id number] Output: Urine 400 700 Other: Voiding Method External Catheter External Catheter - Exam GENERAL DESCRIPTION: An elderly male lying in bed in no distress RESPIRATORY SYSTEM: Unlabored breathing , clear to auscultation anteriorly HEART: S1 S2 regular rate and rhythm , ABDOMEN: Soft , no tenderness EXTREMITIES: No edema feet - Labs CBC & Chem 7: 02/15/23 07:15 02/15/23 07:15 Labs: Abnormal Lab Results - Last 24 Hours (Table) 02/14/23 02/14/23 02/15/23 Range/Units 06:49 06:49 07:15 WBC (3.8-10.6) k/uL RBC (4.30-5.90) m/uL Hgb (13.0-17.5) gm/dL Hct (39.0-53.0) % Plt Count 20 L (150-450) k/uL Neutrophils # (Manual) 0.30 L* (1.3-7.7) k/uL Lymphocytes # (Manual) 0.53 L (1.0-4.8) k/uL Metamyelocytes # (Man) 0.01 H (0) k/uL Fibrinogen (200-500) mg/dL Sodium 128 L (137-145) mmol/L BUN 46 H (9-20) mg/dL Creatinine 1.73 H (0.66-1.25) mg/dL Calcium 7.3 L (8.4-10.2) mg/dL Procalcitonin 0.13 H (0.02-0.09) ng/mL 02/15/23 02/15/23 Range/Units 07:15 07:15 WBC 0.8 L* (3.8-10.6) k/uL RBC 3.10 L (4.30-5.90) m/uL Hgb 8.9 L (13.0-17.5) gm/dL Hct 25.0 L (39.0-53.0) % Plt Count 23 L (150-450) k/uL Neutrophils # (Manual) (1.3-7.7) k/uL Lymphocytes # (Manual) (1.0-4.8) k/uL Metamyelocytes # (Man) (0) k/uL Fibrinogen 172 L (200-500) mg/dL Sodium (137-145) mmol/L BUN (9-20) mg/dL Creatinine (0.66-1.25) mg/dL Calcium (8.4-10.2) mg/dL Procalcitonin (0.02-0.09) ng/mL Microbiology - Last 24 Hours (Table) 02/13/23 11:48 Blood Culture - Preliminary Blood Assessment and Plan (1) Febrile neutropenia Current Visit: Yes Status: Acute Code(s): D70.9 - NEUTROPENIA, UNSPECIFIED; R50.81 - FEVER PRESENTING WITH CONDITIONS CLASSIFIED ELSEWHERE SNOMED Code(s): 920382987 Plan: 1patient with pancytopenia with the first being leukopenic patient did have evidence of splenomegaly on CT abdominal pelvis but no evidence of any other lymphadenopathy did have a low-grade fever which could be more like related to underlying primary illness responsible for this pancytopenia and concern for possible hematological malignancy clinical suspicion is low for secondary infectious etiology as the patient does not look toxic CT chest was negative for pneumonia CT abdominal pelvis was negative for any acute intra-abdominal process 2- blood cultures are so far negative, patient did have a procalcitonin 0.13 and a CRP of 0.7 3-patient to continue with empiric cefepime and monitor clinical course closely and daughter at the bedside multiple questions and concerns were answered in Layman terms Dictation was produced using [employer] dictation software. please excuse any gr ammatical, word or spelling errors. Time with Patient: Less than 30
--- NOTE | 2023-02-15 15:28 | P.PN ---
Subjective Progress Note Date: 02/15/23 82-year-old gentleman with past medical history significant for hypertension, prostate cancer, history of CVA, osteoarthritis presents to the emergency department with worsening weakness and fatigue ongoing for the last 4 weeks. Patient was recently hospitalized and early January with significant weakness and blood count obtained at that time showed pancytopenia. Patient was scheduled to follow-up with hematology as outpatient however due to progressive weakness and failure to thrive patient decided to call EMS and was brought to the emergency for further evaluation. Patient had been complaining of associated weakness and exertional shortness of breath however he denied any fever, chest pain, nausea, vomiting, diarrhea. Patient to chart review mentioned to the emergency team that he lost about 20 pounds in the last few weeks * Workup initiated in ER include hepatology which were WBC of 2.8 hemoglobin 11.8 hematocrit 33 platelet count of 16,000 neutrophil count is 0.56 PT/INR off 12.8, 1.2 d-dimer of 5.91 * Patient had a VQ scan done which was negative for pulmonary embolism * Serum chemistry showed sodium 124 potassium 4.8, and Axert 12 BUNs 70 2.01 lactate of 3.5 bilirubin of 1.7 TSH within normal limits * Patient tested negative for influenza and RSV and Covid PCR * 02/10/23: Patient seen and evaluated bedside, appreciate input from oncology, CT abdomen pelvis reviewed, CT chest ordered continue to monitor for fever or chills of infection was of infection noted * 02/11/23 : Patient seen and evaluated bedside. Continue to monitor blood counts. DIC labs reviewed planning for bone marrow biopsy this hospital stay continue to monitor CBC. CT chest reviewed negative for intrathoracic mass * 02/12/23: Patient seen and evaluated at bedside accompanied with [id number], care plan discussed blood work reviewed platelet count 18,000. Hematology following plan for bone marrow biopsy secondary to impaired kidney function will request evaluation from nephrology as well * 02/13/23: Patient seen and evaluated bedside, [id number] at bedside care plan discussed. Episode of 97.5 temperature. Does have neutropenia along with pancytopenia. Started on IV cefepime blood cultures ordered infectious disease consulted as well will follow up on CRP and pro-calcitonin levels. CR P early in the hospital stay was normal pro-calcitonin was minimally elevated on 02/10 0.26 appreciate input from nephrology as well. Patient denies feeling sick, denies chills does complain of decreased appetite * 02/14/23: Patient seen and evaluated bedside, multiple family members at bedside including , [id number], daughter. Care plan discussed. Continue to monitor for fever. We'll follow up on bone marrow biopsy results. Continue prophylactic antibiotics secondary to neutropenia. Infectious disease following. We will daily monitor CBC and basic metabolic panel. CRP normal pro-calcitonin minimally elevated infection. Regarding discharge planning patient will be through the weekend potential discharge on Saturday once cleared by hematology I did to rehab or home depending on patient's condition. Patient encouraged increase oral intake mentation is alert and oriented 4 02/15. Patient seen and examined. Blood work and this morning showed WBC 0.8, hemoglobin 8.9, platelet count 23, sodium 128, potassium 4.3, BUN 46, creatinine 1.73. Vital signs temperature 98.2 heart rate 100, respirations 17, blood pressure 95/62. Family at the bedside, they're concerned patient has poor appetite. Not drinking enough water. REVIEW OF SYSTEMS: CONSTITUTIONAL: No fever,. Complaining of fatigue CARDIOVASCULAR: No chest pain, no palpitations, no syncope. PULMONARY: No shortness of breath, no cough, GASTROINTESTINAL: No diarrhea, no nausea, no vomiting, no abdominal pain. NEUROLOGICAL: No headaches, no weakness, PHYSICAL EXAMINATION: GENERAL: The patient is alert and oriented x3, not in any acute distress. Chronically ill-looking HEENT: Pupils are round and equally reacting to light. EOMI. No scleral icterus. No conjunctival pallor. Normocephalic, atraumatic. No pharyngeal erythema. No thyromegaly. CARDIOVASCULAR: S1 and S2 present. No murmurs, rubs, or gallops. PULMONARY: Chest is clear to auscultation, no wheezing or crackles. ABDOMEN: Soft, nontender, nondistended, normoactive bowel sounds. No palpable organomegaly. MUSCULOSKELETAL: No joint swelling or deformity. EXTREMITIES: No cyanosis, clubbing, or pedal edema. NEUROLOGICAL: Gross neurological examination did not reveal any focal deficits. SKIN: No rashes. Assessment and plan Acute pancytopenia * Neutropenia with low-grade temperature * Noninfectious lactic acidosis and dehydration RESOLVED * Acute kidney injury on CK D stage IIIa * Acute hyponatremia * Severe protein calorie malnutrition * In regards to pancytopenia, hematology oncology consulted, CT abdomen and pelvis negative for intra-abdominal process , status was bone marrow asp iration 02/13 CT chest negative for intrathoracic mass.IgM of less than 35, there is a paraproteinemia 0.23 g/dL qualified as IgG lambda. Light chains were both elevated, ratio is equal. Peripheral smear is reported as pancytopenia with rare atypical lymphocytes present, myeloproliferative or mye lodysplastic disorder. Biopsy results pending. No transfusion is needed on 02/15 * In regards to febrile neutropenia noted on 02/13, infectious disease consulted patient started on cefepime, blood cultures ordered In regards to lactic acidosis patient reassess her with IV fluid serum lactic acid levels improved follow up on CRP and pro-calcitonin levels minimally elevated * In regards to acute kidney injury follow up on renal profile post hydration, nephrology consulted for evaluation * In regards to hyponatremia likely secondary to hypovolemia continue fluid resuscitation was appropriately resuscitated with fluid * In regards to protein calorie malnutrition that reconsulted continue patient on regular diet * Physical therapy occupational therapy consulted>>PHOEBE likely by 02/17/23 Labs and medication were reviewed.. Continue same treatment. Continue with symptomatic treatment. Resume home medication. Monitor labs and vitals. DVT and GI prophylaxis. Further recommendations as per clinical course of the patient Dictation was produced using [employer] dictation software. please excuse any grammatical, word or spelling errors. Objective - Vital Signs Vital signs: Vital Signs Temp 98.2 F 02/15/23 08:24 Pulse 100 02/15/23 10:04 Resp 17 02/15/23 08:24 BP 95/62 02/15/23 09:30 Pulse Ox 93 L 02/15/23 08:24 FiO2 Intake & Output 02/14/23 02/15/23 02/15/23 18:59 06:59 18:59 Intake Total 700 10 Output Total 400 700 Balance 300 -700 10 Intake: IV 10 Invasive Line 2 10 Intake, IV Titration 700 Amount Cefepime 2 gm In Sodium 100 Chloride 0.9% 100 ml @ 25 mls/hr IVPB Q12HR [facility] Rx #:[id number] Sodium Chloride 0.45% 1, 600 000 ml @ 75 mls/hr IV . [id number] [facility] with Sodium Bicarb (1 Meq/ml) 150 ml Rx#:[id number] Output: Urine 400 700 Other: Voiding Method External Catheter External Catheter - Labs CBC & Chem 7: 02/15/23 07:15 02/15/23 07:15 Labs: Abnormal Lab Results - Last 24 Hours (Table) 02/14/23 02/15/23 02/15/23 Range/Units 06:49 07:15 07:15 WBC 0.8 L* (3.8-10.6) k/uL RBC 3.10 L (4.30-5.90) m/uL Hgb 8.9 L (13.0-17.5) gm/dL Hct 25.0 L (39.0-53.0) % Plt Count 20 L 23 L (150-450) k/uL Neutrophils # (Manual) 0.30 L* (1.3-7.7) k/uL Lymphocytes # (Manual) 0.53 L (1.0-4.8) k/uL Metamyelocytes # (Man) 0.01 H (0) k/uL Fibrinogen (200-500) mg/dL Sodium 128 L (137-145) mmol/L BUN 46 H (9-20) mg/dL Creatinine 1.73 H (0.66-1.25) mg/dL Calcium 7.3 L (8.4-10.2) mg/dL 02/15/23 Range/Units 07:15 WBC (3.8-10.6) k/uL RBC (4.30-5.90) m/uL Hgb (13.0-17.5) gm/dL Hct (39.0-53.0) % Plt Count (150-450) k/uL Neutrophils # (Manual) (1.3-7.7) k/uL Lymphocytes # (Manual) (1.0-4.8) k/uL Metamyelocytes # (Man) (0) k/uL Fibrinogen 172 L (200-500) mg/dL Sodium (137-145) mmol/L BUN (9-20) mg/dL Creatinine (0.66-1.25) mg/dL Calcium (8.4-10.2) mg/dL Microbiology - Last 24 Hours (Table) 02/13/23 11:48 Blood Culture - Preliminary Blood
[2023-02-16 05:37] LABS: MCH 27.7 pg (25.0-35.0); MCHC 34.6 g/dL (31.0-37.0); MCV 80.1 fL (80.0-100.0); Mean Platelet Volume 11.4; RBC 3.25 m/uL (4.30-5.90)
[2023-02-16 05:41] LABS: Platelet Count 25 k/uL (150-450); WBC 0.9 k/uL (3.8-10.6)
[2023-02-16 05:45] LABS: INR 1.1 (<1.2); Partial Thromboplastin Time 29.7 sec (22.0-30.0); Prothrombin Time 12.3 sec (10.0-12.5)
[2023-02-16 06:01] LABS: African American GFR (CKD) 44 (>60 ml/min/1.73 sqM); Anion Gap 5 mmol/L; Blood Urea Nitrogen 49 mg/dL (9-20); Calcium 7.6 mg/dL (8.4-10.2); Carbon Dioxide 22 mmol/L (22-30); Chloride 100 mmol/L (98-107); Glucose 100 mg/dL (74-99); Magnesium 1.9 mg/dL (1.6-2.3); Non-African American GFR(CKD) 38 (>60 ml/min/1.73 sqM); Potassium 4.7 mmol/L (3.5-5.1); Sodium 127 mmol/L (137-145)
[2023-02-16] MEDS: LEVOTHYROXINE 50 MCG TAB PO SCH (06:31)
[2023-02-16] MEDS: CEFEPIME 2 GM in SODIUM CHLORIDE 0.9% 100 ML IVPB SCH ×2 (08:27→19:45)
[2023-02-16] MEDS: SODIUM BICARBONATE TAB 650 MG TAB PO SCH ×2 (08:27→19:45)
[2023-02-16] MEDS: SODIUM CHLORIDE TAB 1 GM TAB PO SCH ×2 (08:27→19:45)
[2023-02-16] MEDS: TAMSULOSIN 0.4 MG CAP.ER.24H PO SCH (08:27)
--- NOTE | 2023-02-16 13:19 | P.PN ---
Subjective Progress Note Date: 02/16/23 Principal diagnosis: Febrile neutropenia Patient is a 82-year-old male with a past medical history significant for hypertension osteoarthritis CVA TIA history of prostate cancer and UTI patient presenting to the hospital for evaluation generalized weakness and fatigue, patient did have low-grade fever also noticed to be leukopenia/neutropenia prompting this Infectious disease consultation On today's evaluation that is 02/16/2023, the patient remains to be afebrile, the patient is breathing comfortably on room air and denies any shortness of breath, the patient denies any chest pain, he did have occasional dry cough, patient denies Abdominal pain and no nausea/vomiting or diarrhea Patient white count is 0.9, creatinine is 1.66, culture so far negative Objective - Vital Signs Vital signs: Vital Signs Temp 98.1 F 02/16/23 08:21 Pulse 67 02/16/23 11:25 Resp 17 02/16/23 11:25 BP 110/67 02/16/23 11:25 Pulse Ox 95 02/16/23 11:25 FiO2 Intake & Output 02/15/23 02/16/23 02/16/23 18:59 06:59 18:59 Intake Total 470 480 Output Total 350 1000 925 Balance 120 -1000 -445 Weight 71.214 kg Intake: IV 10 Invasive Line 2 10 Intake, IV Titration 100 Amount Cefepime 2 gm In Sodium 100 Chloride 0.9% 100 ml @ 25 mls/hr IVPB Q12HR [facility] Rx #:[id number] Oral 360 480 Output: Urine 350 1000 925 Other: Voiding Method External Catheter External Catheter External Catheter # Voids 2 # Bowel Movements 1 - Exam GENERAL DESCRIPTION: An elderly male lying in bed in no distress RESPIRATORY SYSTEM: Unlabored breathing , clear to auscultation anteriorly HEART: S1 S2 regular rate and rhythm , ABDOMEN: Soft , no tenderness EXTREMITIES: No edema feet - Labs CBC & Chem 7: 02/16/23 05:07 02/16/23 05:07 Labs: Abnormal Lab Results - Last 24 Hours (Table) 02/16/23 02/16/23 02/16/23 Range/Units 05:07 05:07 05:07 WBC 0.9 L* (3.8-10.6) k/uL RBC 3.25 L (4.30-5.90) m/uL Hgb 9.0 L (13.0-17.5) gm/dL Hct 26.0 L (39.0-53.0) % Plt Count 25 L (150-450) k/uL Fibrinogen 170 L (200-500) mg/dL Sodium 127 L (137-145) mmol/L BUN 49 H (9-20) mg/dL Creatinine 1.66 H (0.66-1.25) mg/dL Glucose 100 H (74-99) mg/dL Calcium 7.6 L (8.4-10.2) mg/dL Microbiology - Last 24 Hours (Table) 02/13/23 11:48 Blood Culture - Preliminary Blood Assessment and Plan (1) Febrile neutropenia Current Visit: Yes Status: Acute Code(s): D70.9 - NEUTROPENIA, UNSPECIFIED; R50.81 - FEVER PRESENTING WITH CONDITIONS CLASSIFIED ELSEWHERE SNOMED Code(s): 704666221 Plan: 1patient with pancytopenia with the first being leukopenic patient did have evidence of splenomegaly on CT abdominal pelvis but no evidence of any other lymphadenopathy did have a low-grade fever which could be more like related to underlying primary illness responsible for this pancytopenia and concern for possible hematological malignancy clinical suspicion is low for secondary infectious etiology as the patient does not look toxic CT chest was negative for pneumonia CT abdominal pelvis was negative for any acute intra-abdominal process 2- blood cultures are so far negative, patient did have a procalcitonin 0.13 and a CRP of 0.7 3-patient has shown clinical improvement and will continue with cefepime while waiting for the workup to be completed Dictation was produced using [employer] dictation software. please excuse any grammatical, word or spelling errors. Time with Patient: Less than 30
--- NOTE | 2023-02-16 13:54 | P.PN ---
Subjective Progress Note Date: 02/16/23 82-year-old gentleman with past medical history significant for hypertension, prostate cancer, history of CVA, osteoarthritis presents to the emergency department with worsening weakness and fatigue ongoing for the last 4 weeks. Patient was recently hospitalized and early January with significant weakness and blood count obtained at that time showed pancytopenia. Patient was scheduled to follow-up with hematology as outpatient however due to progressive weakness and failure to thrive patient decided to call EMS and was brought to the emergency for further evaluation. Patient had been complaining of associated weakness and exertional shortness of breath however he denied any fever, chest pain, nausea, vomiting, diarrhea. Patient to chart review mentioned to the emergency team that he lost about 20 pounds in the last few weeks * Workup initiated in ER include hepatology which were WBC of 2.8 hemoglobin 11.8 hematocrit 33 platelet count of 16,000 neutrophil count is 0.56 PT/INR off 12.8, 1.2 d-dimer of 5.91 * Patient had a VQ scan done which was negative for pulmonary embolism * Serum chemistry showed sodium 124 potassium 4.8, and Axert 12 BUNs 70 2.01 lactate of 3.5 bilirubin of 1.7 TSH within normal limits * Patient tested negative for influenza and RSV and Covid PCR * 02/10/23: Patient seen and evaluated bedside, appreciate input from oncology, CT abdomen pelvis reviewed, CT chest ordered continue to monitor for fever or chills of infection was of infection noted * 02/11/23 : Patient seen and evaluated bedside. Continue to monitor blood counts. DIC labs reviewed planning for bone marrow biopsy this hospital stay continue to monitor CBC. CT chest reviewed negative for intrathoracic mass * 02/12/23: Patient seen and evaluated at bedside accompanied with [id number], care plan discussed blood work reviewed platelet count 18,000. Hematology following plan for bone marrow biopsy secondary to impaired kidney function will request evaluation from nephrology as well * 02/13/23: Patient seen and evaluated bedside, [id number] at bedside care plan discussed. Episode of 97.5 temperature. Does have neutropenia along with pancytopenia. Started on IV cefepime blood cultures ordered infectious disease consulted as well will follow up on CRP and pro-calcitonin levels. CR P early in the hospital stay was normal pro-calcitonin was minimally elevated on 02/10 0.26 appreciate input from nephrology as well. Patient denies feeling sick, denies chills does complain of decreased appetite * 02/14/23: Patient seen and evaluated bedside, multiple family members at bedside including , [id number], daughter. Care plan discussed. Continue to monitor for fever. We'll follow up on bone marrow biopsy results. Continue prophylactic antibiotics secondary to neutropenia. Infectious disease following. We will daily monitor CBC and basic metabolic panel. CRP normal pro-calcitonin minimally elevated infection. Regarding discharge planning patient will be through the weekend potential discharge on Saturday once cleared by hematology I did to rehab or home depending on patient's condition. Patient encouraged increase oral intake mentation is alert and oriented 4 02/15. Patient seen and examined. Blood work and this morning showed WBC 0.8, hemoglobin 8.9, platelet count 23, sodium 128, potassium 4.3, BUN 46, creatinine 1.73. Vital signs temperature 98.2 heart rate 100, respirations 17, blood pressure 95/62. Family at the bedside, they're concerned patient has poor appetite. Not drinking enough water. 02/16. Patient seen and examined. Patient was working with physical therapy. States dizziness has improved. Blood work done this morning showed WBC 0.9, hemoglobin 9, platelet count 25, sodium 127, BUN 49, creatinine 1.66. Vital signs stable REVIEW OF SYSTEMS: CONSTITUTIONAL: No fever,. Complaining of fatigue and lethargy CARDIOVASCULAR: No chest pain, no palpitations, no syncope. PULMONARY: No shortness of breath, no cough, GASTROINTESTINAL: No diarrhea, no nausea, no vomiting, no abdominal pain. NEUROLOGICAL: No headaches, no weakness, PHYSICAL EXAMINATION: GENERAL: The patient is alert and oriented x3, not in any acute distress. Chronically ill-looking HEENT: Pupils are round and equally reacting to light. EOMI. No scleral icterus. No conjunctival pallor. Normocephalic, atraumatic. No pharyngeal erythema. No thyromegaly. CARDIOVASCULAR: S1 and S2 present. No murmurs, rubs, or gallops. PULMONARY: Chest is clear to auscultation, no wheezing or crackles. ABDOMEN: Soft, nontender, nondistended, normoactive bowel sounds. No palpable organomegaly. MUSCULOSKELETAL: No joint swelling or deformity. EXTREMITIES: No cyanosis, clubbing, or pedal edema. NEUROLOGICAL: Gross neurological examination did not reveal any focal deficits. SKIN: No rashes. 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 Light chains were both elevated, ratio is equal. Peripheral smear is reported as pancytopenia with rare atypical lymphocytes present, myeloproliferative or myelodysplastic disorder. Biopsy results pending. Hematology oncology following * In regards to febrile neutropenia noted on 02/13, infectious disease consulted patient started on cefepime, blood cultures ordered In regards to lactic acidosis patient reassess her with IV fluid serum lactic acid levels improved follow up on CRP and pro-calcitonin levels minimally elevated * In regards to acute kidney injury follow up on renal profile post hydration, nephrology following * In regards to hyponatremia likely secondary to hypovolemia continue fluid restriction, nephrology following * In regards to protein calorie malnutrition that reconsulted continue patient on regular diet * Physical therapy occupational therapy consulted>>PHOEBE likely by 02/17/23 Labs and medication were reviewed.. Continue same treatment. Continue with symptomatic treatment. Resume home medication. Monitor labs and vitals. DVT and GI prophylaxis. Further recommendations as per clinical course of the patient Dictation was produced using [employer] dictation software. please excuse any grammatical, word or spelling errors. Objective - Vital Signs Vital signs: Vital Signs Temp 98.1 F 02/16/23 08:21 Pulse 67 02/16/23 11:25 Resp 17 02/16/23 11:25 BP 110/67 02/16/23 11:25 Pulse Ox 95 02/16/23 11:25 FiO2 Intake & Output 02/15/23 02/16/23 02/16/23 18:59 06:59 18:59 Intake Total 470 480 Output Total 350 1000 925 Balance 120 -1000 -445 Weight 71.214 kg Intake: IV 10 Invasive Line 2 10 Intake, IV Titration 100 Amount Cefepime 2 gm In Sodium 100 Chloride 0.9% 100 ml @ 25 mls/hr IVPB Q12HR [facility] Rx #:[id number] Oral 360 480 Output: Urine 350 1000 925 Other: Voiding Method External Catheter External Catheter External Catheter # Voids 2 # Bowel Movements 1 - Labs CBC & Chem 7: 02/16/23 05:07 02/16/23 05:07 Labs: Abnormal Lab Results - Last 24 Hours (Table) 02/16/23 02/16/23 02/16/23 Range/Units 05:07 05:07 05:07 WBC 0.9 L* (3.8-10.6) k/uL RBC 3.25 L (4.30-5.90) m/uL Hgb 9.0 L (13.0-17.5) gm/dL Hct 26.0 L (39.0-53.0) % Plt Count 25 L (150-450) k/uL Fibrinogen 170 L (200-500) mg/dL Sodium 127 L (137-145) mmol/L BUN 49 H (9-20) mg/dL Creatinine 1.66 H (0.66-1.25) mg/dL Glucose 100 H (74-99) mg/dL Calcium 7.6 L (8.4-10.2) mg/dL Microbiology - Last 24 Hours (Table) 02/13/23 11:48 Blood Culture - Preliminary Blood
--- NOTE | 2023-02-16 15:42 | P.PN ---
Subjective Progress Note Date: 02/16/23 Principal diagnosis: Pancytopenia -No acute events overnight -Continues to have weakness with intermittent dizziness/lightheadedness -Denies any dyspnea or pain Objective - Vital Signs Vital signs: Vital Signs Temp 98.1 F 02/16/23 08:21 Pulse 109 H 02/16/23 15:09 Resp 17 02/16/23 15:09 BP 113/70 02/16/23 15:09 Pulse Ox 97 02/16/23 15:09 FiO2 Intake & Output 02/15/23 02/16/23 02/16/23 18:59 06:59 18:59 Intake Total 470 480 Output Total 350 1000 925 Balance 120 -1000 -445 Weight 71.214 kg Intake: IV 10 Invasive Line 2 10 Intake, IV Titration 100 Amount Cefepime 2 gm In Sodium 100 Chloride 0.9% 100 ml @ 25 mls/hr IVPB Q12HR [facility] Rx #:[id number] Oral 360 480 Output: Urine 350 1000 925 Other: Voiding Method External Catheter External Catheter External Catheter # Voids 2 # Bowel Movements 1 - Constitutional Constitutional Comment(s): Fatigued-appearing General appearance: Present: cooperative, no acute distress - EENT Eyes: Present: EOMI - Respiratory Respiratory: bilateral: CTA - Cardiovascular Details: Regular tachycardia with systolic murmur Abnormal Heart Sounds: Present: systolic murmur - Gastrointestinal General gastrointestinal: Present: normal bowel sounds, soft. Absent: distended, tenderness - Integumentary Integumentary: Present: pale - Neurologic Neurologic: Present: CNII-XII intact. Absent: focal deficits - Labs CBC & Chem 7: 02/16/23 05:07 02/16/23 05:07 Labs: Abnormal Lab Results - Last 24 Hours (Table) 02/16/23 02/16/23 02/16/23 Range/Units 05:07 05:07 05:07 WBC 0.9 L* (3.8-10.6) k/uL RBC 3.25 L (4.30-5.90) m/uL Hgb 9.0 L (13.0-17.5) gm/dL Hct 26.0 L (39.0-53.0) % Plt Count 25 L (150-450) k/uL Fibrinogen 170 L (200-500) mg/dL Sodium 127 L (137-145) mmol/L BUN 49 H (9-20) mg/dL Creatinine 1.66 H (0.66-1.25) mg/dL Glucose 100 H (74-99) mg/dL Calcium 7.6 L (8.4-10.2) mg/dL Microbiology - Last 24 Hours (Table) 02/13/23 11:48 Blood Culture - Preliminary Blood Assessment and Plan (1) DIC (disseminated intravascular coagulation) Current Visit: Yes Status: Acute Priority: High Code(s): D65 - DISSEMINATED INTRAVASCULAR COAGULATION SNOMED Code(s): 72502591 (2) Pancytopenia Current Visit: Yes Status: Acute Priority: High Code(s): D61.818 - OTHER PANCYTOPENIA SNOMED Code(s): 184971035 Plan: Low grade DIC -DIC labs results reviewed, coags normal, fibrinogen 170 today status post 2 units of cryoprecipitate this admission -No cryoprecipitate needed today -Noted to have IgM less than 35 with IgG lambda M protein measuring 0.23 g/dL. [place] and lambda light chains are normal. Atypical lymphocytes noted and peripheral smear -Will continue to monitor coags and fibrinogen -Some solid tumors and liquid tumors, such as APL and CMML, can cause DIC. There is also concern for MPN or MDS -Definitive management pending results of bone marrow biopsy, which are not anticipated until early next week -Discussed with patient and his family Pancytopenia -No transfusions needed today -Transfuse for a Hgb< 7 and plt <10K or if symptomatic. Hemoglobin 9, platelets 25,000. -WBC 900, Unreadable differential. No GCSF at this time until we have at least a preliminary bone marrow report. ID following. -CBC monitoring daily -Underlying cause being worked up. Will update plan of care as more info becomes available Stanislaw Curran MD
--- NOTE | 2023-02-16 16:47 | P.PN ---
Subjective Progress Note Date: 02/16/23 Follow-up for acute kidney injury. Denies any nausea vomiting diarrhea. Family at bedside. Objective - Vital Signs Vital signs: Vital Signs Temp 98.1 F 02/16/23 08:21 Pulse 109 H 02/16/23 15:09 Resp 17 02/16/23 15:09 BP 113/70 02/16/23 15:09 Pulse Ox 97 02/16/23 15:09 FiO2 Intake & Output 02/15/23 02/16/23 02/16/23 18:59 06:59 18:59 Intake Total 470 720 Output Total 350 1000 925 Balance 120 -1000 -205 Weight 71.214 kg Intake: IV 10 Invasive Line 2 10 Intake, IV Titration 100 Amount Cefepime 2 gm In Sodium 100 Chloride 0.9% 100 ml @ 25 mls/hr IVPB Q12HR [facility] Rx #:[id number] Oral 360 720 Output: Urine 350 1000 925 Other: Voiding Method External Catheter External Catheter External Catheter # Voids 2 # Bowel Movements 1 - Exam No acute distress S1-S2 heard Lungs clear No edema - Labs CBC & Chem 7: 02/16/23 05:07 02/16/23 05:07 Labs: Abnormal Lab Results - Last 24 Hours (Table) 02/16/23 02/16/23 02/16/23 Range/Units 05:07 05:07 05:07 WBC 0.9 L* (3.8-10.6) k/uL RBC 3.25 L (4.30-5.90) m/uL Hgb 9.0 L (13.0-17.5) gm/dL Hct 26.0 L (39.0-53.0) % Plt Count 25 L (150-450) k/uL Fibrinogen 170 L (200-500) mg/dL Sodium 127 L (137-145) mmol/L BUN 49 H (9-20) mg/dL Creatinine 1.66 H (0.66-1.25) mg/dL Glucose 100 H (74-99) mg/dL Calcium 7.6 L (8.4-10.2) mg/dL Microbiology - Last 24 Hours (Table) 02/13/23 11:48 Blood Culture - Preliminary Blood Assessment and Plan Assessment: #1 acute kidney injury secondary to ATN. -Urine analysis trace protein -Urine sodium of 95. Urine osmolality of 627 #2 hypotonic hyponatremia suspect hypovolemia. Also component of SIADH. #3 metabolic acidosis secondary to acute kidney injury #4 chronic kidney disease stage III with a baseline creatinine of 1.2 MG per DL Plan: #1 serum sodium stable around 128. #2 currently on salt tablets. Add normal saline at 75 ML's an hour. #3 check labs in the morning
[2023-02-16] MEDS: SODIUM CHLORIDE 0.9% 1,000 ML IV SCH ×2 (17:37→19:45)
[2023-02-17] MEDS: LEVOTHYROXINE 50 MCG TAB PO SCH (06:40)
[2023-02-17] MEDS: TAMSULOSIN 0.4 MG CAP.ER.24H PO SCH (08:11)
[2023-02-17] MEDS: SODIUM BICARBONATE TAB 650 MG TAB PO SCH ×2 (08:11→20:39)
[2023-02-17] MEDS: SODIUM CHLORIDE TAB 1 GM TAB PO SCH ×2 (08:11→20:43)
[2023-02-17] MEDS: CEFEPIME 2 GM in SODIUM CHLORIDE 0.9% 100 ML IVPB SCH ×2 (08:11→20:38)
[2023-02-17 10:08] LABS: HCT 26.2 % (39.0-53.0); HGB 9.2 gm/dL (13.0-17.5); MCH 28.4 pg (25.0-35.0); MCHC 35.2 g/dL (31.0-37.0); MCV 80.6 fL (80.0-100.0); Mean Platelet Volume 10.5; RBC 3.24 m/uL (4.30-5.90); RDW 14.1 % (11.5-15.5)
[2023-02-17 10:33] LABS: ALT 42 U/L (4-49); AST 50 U/L (17-59); African American GFR (CKD) 41 (>60 ml/min/1.73 sqM); Albumin 2.1 g/dL (3.5-5.0); Alkaline Phosphatase 68 U/L (38-126); Anion Gap 5 mmol/L; Blood Urea Nitrogen 44 mg/dL (9-20); Calcium 7.7 mg/dL (8.4-10.2); Carbon Dioxide 22 mmol/L (22-30); Chloride 102 mmol/L (98-107); Glucose 86 mg/dL (74-99); Non-African American GFR(CKD) 36 (>60 ml/min/1.73 sqM); Potassium 4.4 mmol/L (3.5-5.1); Sodium 129 mmol/L (137-145); Total Bilirubin 1.4 mg/dL (0.2-1.3); Total Protein 4.3 g/dL (6.3-8.2)
[2023-02-17 10:38] LABS: Platelet Count 30 k/uL (150-450); WBC 0.9 k/uL (3.8-10.6)
--- NOTE | 2023-02-17 14:09 | P.PN ---
Subjective Progress Note Date: 02/17/23 82-year-old gentleman with past medical history significant for hypertension, prostate cancer, history of CVA, osteoarthritis presents to the emergency department with worsening weakness and fatigue ongoing for the last 4 weeks. Patient was recently hospitalized and early January with significant weakness and blood count obtained at that time showed pancytopenia. Patient was scheduled to follow-up with hematology as outpatient however due to progressive weakness and failure to thrive patient decided to call EMS and was brought to the emergency for further evaluation. Patient had been complaining of associated weakness and exertional shortness of breath however he denied any fever, chest pain, nausea, vomiting, diarrhea. Patient to chart review mentioned to the emergency team that he lost about 20 pounds in the last few weeks * Workup initiated in ER include hepatology which were WBC of 2.8 hemoglobin 11.8 hematocrit 33 platelet count of 16,000 neutrophil count is 0.56 PT/INR off 12.8, 1.2 d-dimer of 5.91 * Patient had a VQ scan done which was negative for pulmonary embolism * Serum chemistry showed sodium 124 potassium 4.8, and Axert 12 BUNs 70 2.01 lactate of 3.5 bilirubin of 1.7 TSH within normal limits * Patient tested negative for influenza and RSV and Covid PCR * 02/10/23: Patient seen and evaluated bedside, appreciate input from oncology, CT abdomen pelvis reviewed, CT chest ordered continue to monitor for fever or chills of infection was of infection noted * 02/11/23 : Patient seen and evaluated bedside. Continue to monitor blood counts. DIC labs reviewed planning for bone marrow biopsy this hospital stay continue to monitor CBC. CT chest reviewed negative for intrathoracic mass * 02/12/23: Patient seen and evaluated at bedside accompanied with [id number], care plan discussed blood work reviewed platelet count 18,000. Hematology following plan for bone marrow biopsy secondary to impaired kidney function will request evaluation from nephrology as well * 02/13/23: Patient seen and evaluated bedside, [id number] at bedside care plan discussed. Episode of 97.5 temperature. Does have neutropenia along with pancytopenia. Started on IV cefepime blood cultures ordered infectious disease consulted as well will follow up on CRP and pro-calcitonin levels. CR P early in the hospital stay was normal pro-calcitonin was minimally elevated on 02/10 0.26 appreciate input from nephrology as well. Patient denies feeling sick, denies chills does complain of decreased appetite * 02/14/23: Patient seen and evaluated bedside, multiple family members at bedside including , [id number], daughter. Care plan discussed. Continue to monitor for fever. We'll follow up on bone marrow biopsy results. Continue prophylactic antibiotics secondary to neutropenia. Infectious disease following. We will daily monitor CBC and basic metabolic panel. CRP normal pro-calcitonin minimally elevated infection. Regarding discharge planning patient will be through the weekend potential discharge on Saturday once cleared by hematology I did to rehab or home depending on patient's condition. Patient encouraged increase oral intake mentation is alert and oriented 4 02/15. Patient seen and examined. Blood work and this morning showed WBC 0.8, hemoglobin 8.9, platelet count 23, sodium 128, potassium 4.3, BUN 46, creatinine 1.73. Vital signs temperature 98.2 heart rate 100, respirations 17, blood pressure 95/62. Family at the bedside, they're concerned patient has poor appetite. Not drinking enough water. 02/16. Patient seen and examined. Patient was working with physical therapy. States dizziness has improved. Blood work done this morning showed WBC 0.9, hemoglobin 9, platelet count 25, sodium 127, BUN 49, creatinine 1.66. Vital signs stable 02/17. Patient seen and examined. Labs were done this morning showed WBC of 0.9, hemoglobin 9.2, platelet count 30. Sodium 129, potassium 4.4, BUN 44, creatinine 1.73. Denies chest pain or shortness of breath REVIEW OF SYSTEMS: CONSTITUTIONAL: No fever,. Complaining of fatigue and lethargy CARDIOVASCULAR: No chest pain, no palpitations, no syncope. PULMONARY: No shortness of breath, no cough, GASTROINTESTINAL: No diarrhea, no nausea, no vomiting, no abdominal pain. NEUROLOGICAL: No headaches, no weakness, PHYSICAL EXAMINATION: GENERAL: The patient is alert and oriented x3, not in any acute distress. Chronically ill-looking HEENT: Pupils are round and equally reacting to light. EOMI. No scleral icterus. No conjunctival pallor. Normocephalic, atraumatic. No pharyngeal erythema. No thyromegaly. CARDIOVASCULAR: S1 and S2 present. No murmurs, rubs, or gallops. PULMONARY: Chest is clear to auscultation, no wheezing or crackles. ABDOMEN: Soft, nontender, nondistended, normoactive bowel sounds. No palpable organomegaly. MUSCULOSKELETAL: No joint swelling or deformity. EXTREMITIES: No cyanosis, clubbing, or pedal edema. NEUROLOGICAL: Gross neurological examination did not reveal any focal deficits. SKIN: No rashes. 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 Light chains were both elevated, ratio is equal. Peripheral smear is reported as pancytopenia with rare atypical lymphocytes present, myeloproliferative or myelodysplastic disorder. Biopsy results pending. Hematology oncology following * In regards to febrile neutropenia noted on 02/13, infectious disease consulted patient started on cefepime, ID following * In regards to acute kidney injury follow up on renal profile post hydration, nephrology following * In regards to hyponatremia likely secondary to hypovolemia continue fluid restriction, nephrology following * In regards to protein calorie malnutrition that reconsulted continue patient on regular diet * Physical therapy occupational therapy consulted>>PHOEBE likely by 02/17/23 Labs and medication were reviewed.. Continue same treatment. Continue with symptomatic treatment. Resume home medication. Monitor labs and vitals. DVT and GI prophylaxis. Further recommendations as per clinical course of the patient Dictation was produced using [employer] dictation software. please excuse any grammatical, word or spelling errors. Objective - Vital Signs Vital signs: Vital Signs Temp 97.8 F 02/17/23 08:08 Pulse 108 H 02/17/23 08:08 Resp 18 02/17/23 08:14 BP 124/80 02/17/23 08:08 Pulse Ox 94 L 02/17/23 08:08 FiO2 Intake & Output 02/16/23 02/17/23 02/17/23 18:59 06:59 18:59 Intake Total 2160 Output Total 1275 600 Balance 885 -600 Intake: Oral 2160 Output: Urine 1275 600 Other: Voiding Method External Catheter External Catheter External Catheter - Labs CBC & Chem 7: 02/17/23 08:59 02/17/23 08:59 Labs: Abnormal Lab Results - Last 24 Hours (Table) 02/17/23 Range/Units 08:59 Fibrinogen 173 L (200-500) mg/dL Microbiology - Last 24 Hours (Table) 02/13/23 11:48 Blood Culture - Preliminary Blood
--- NOTE | 2023-02-17 15:21 | P.PN ---
Subjective Progress Note Date: 02/17/23 Follow-up for acute kidney injury. Denies any nausea vomiting diarrhea. Family at bedside. Objective - Vital Signs Vital signs: Vital Signs Temp 97.8 F 02/17/23 08:08 Pulse 101 H 02/17/23 11:20 Resp 17 02/17/23 11:20 BP 112/69 02/17/23 11:20 Pulse Ox 94 L 02/17/23 11:20 FiO2 Intake & Output 02/16/23 02/17/23 02/17/23 18:59 06:59 18:59 Intake Total 2160 480 Output Total 1275 600 575 Balance 885 -600 -95 Intake: Oral 2160 480 Output: Urine 1275 600 575 Other: Voiding Method External Catheter External Catheter External Catheter - Exam No acute distress S1-S2 heard Lungs clear No edema - Labs CBC & Chem 7: 02/17/23 08:59 02/17/23 08:59 Labs: Abnormal Lab Results - Last 24 Hours (Table) 02/17/23 02/17/23 02/17/23 Range/Units 08:59 08:59 08:59 WBC 0.9 L* (3.8-10.6) k/uL RBC 3.24 L (4.30-5.90) m/uL Hgb 9.2 L (13.0-17.5) gm/dL Hct 26.2 L (39.0-53.0) % Plt Count 30 L (150-450) k/uL Fibrinogen 173 L (200-500) mg/dL Sodium 129 L (137-145) mmol/L BUN 44 H (9-20) mg/dL Creatinine 1.73 H (0.66-1.25) mg/dL Calcium 7.7 L (8.4-10.2) mg/dL Total Bilirubin 1.4 H (0.2-1.3) mg/dL Total Protein 4.3 L (6.3-8.2) g/dL Albumin 2.1 L (3.5-5.0) g/dL Microbiology - Last 24 Hours (Table) 02/13/23 11:48 Blood Culture - Preliminary Blood Assessment and Plan Assessment: #1 acute kidney injury secondary to ATN. -Urine analysis trace protein -Urine sodium of 95. Urine osmolality of 627 #2 hypotonic hyponatremia suspect hypovolemia. Also component of SIADH. #3 metabolic acidosis secondary to acute kidney injury #4 chronic kidney disease stage III with a baseline creatinine of 1.2 MG per DL Plan: #1 serum sodium stable around 129. #2 currently on salt tablets and normal saline at 75 ML's an hour. #3 check labs in the morning
--- NOTE | 2023-02-17 15:37 | P.PN ---
Subjective Progress Note Date: 02/17/23 Principal diagnosis: Febrile neutropenia Patient is a 82-year-old male with a past medical history significant for hypertension osteoarthritis CVA TIA history of prostate cancer and UTI patient presenting to the hospital for evaluation generalized weakness and fatigue, patient did have low-grade fever also noticed to be leukopenia/neutropenia prompting this Infectious disease consultation On today's evaluation that is 02/17/2023, the patient denies any fever or chil ls, the patient is breathing comfortably on room air and no need for supplemental oxygen, the patient denies any chest pain or cough, patient denies nausea/vomiting or diarrhea and no abdominal pain Patient white count is 0.9, creatinine is 1.73, culture so far negative Objective - Vital Signs Vital signs: Vital Signs Temp 97.8 F 02/17/23 08:08 Pulse 101 H 02/17/23 11:20 Resp 17 02/17/23 11:20 BP 112/69 02/17/23 11:20 Pulse Ox 94 L 02/17/23 11:20 FiO2 Intake & Output 02/16/23 02/17/23 02/17/23 18:59 06:59 18:59 Intake Total 2160 Output Total 1275 600 Balance 885 -600 Intake: Oral 2160 Output: Urine 1275 600 Other: Voiding Method External Catheter External Catheter External Catheter - Exam GENERAL DESCRIPTION: An elderly male lying in bed in no distress RESPIRATORY SYSTEM: Unlabored breathing , clear to auscultation anteriorly HEART: S1 S2 regular rate and rhythm , ABDOMEN: Soft , no tenderness EXTREMITIES: No edema feet - Labs CBC & Chem 7: 02/17/23 08:59 02/17/23 08:59 Labs: Abnormal Lab Results - Last 24 Hours (Table) 02/17/23 02/17/23 02/17/23 Range/Units 08:59 08:59 08:59 WBC 0.9 L* (3.8-10.6) k/uL RBC 3.24 L (4.30-5.90) m/uL Hgb 9.2 L (13.0-17.5) gm/dL Hct 26.2 L (39.0-53.0) % Plt Count 30 L (150-450) k/uL Fibrinogen 173 L (200-500) mg/dL Sodium 129 L (137-145) mmol/L BUN 44 H (9-20) mg/dL Creatinine 1.73 H (0.66-1.25) mg/dL Calcium 7.7 L (8.4-10.2) mg/dL Total Bilirubin 1.4 H (0.2-1.3) mg/dL Total Protein 4.3 L (6.3-8.2) g/dL Albumin 2.1 L (3.5-5.0) g/dL Microbiology - Last 24 Hours (Table) 02/13/23 11:48 Blood Culture - Preliminary Blood Assessment and Plan (1) Febrile neutropenia Current Visit: Yes Status: Acute Code(s): D70.9 - NEUTROPENIA, UNSPECIFIED; R50.81 - FEVER PRESENTING WITH CONDITIONS CLASSIFIED ELSEWHERE SNOMED Code(s): 245439925 Plan: 1patient with pancytopenia with the first being leukopenic patient did have evidence of splenomegaly on CT abdominal pelvis but no evidence of any other lym phadenopathy did have a low-grade fever which could be more like related to underlying primary illness responsible for this pancytopenia and concern for possible hematological malignancy clinical suspicion is low for secondary infectious etiology as the patient does not look toxic CT chest was negative for pneumonia CT abdominal pelvis was negative for any acute intra-abdominal process 2- blood cultures are so far negative, patient did have a procalcitonin 0.13 and a CRP of 0.7 3-patient did have resolution of his fever and white count still low culture negative and will continue with cefepime while waiting for the white count to improve Dictation was produced using [employer] dictation software. please excuse any grammatical, word or spelling errors. Time with Patient: Less than 30
[2023-02-18 06:59] LABS: HCT 25.3 % (39.0-53.0); HGB 8.5 gm/dL (13.0-17.5); MCH 27.7 pg (25.0-35.0); MCHC 33.8 g/dL (31.0-37.0); Mean Platelet Volume 11.9; RBC 3.09 m/uL (4.30-5.90); RDW 14.2 % (11.5-15.5)
[2023-02-18] MEDS: LEVOTHYROXINE 50 MCG TAB PO SCH (06:59)
[2023-02-18 07:11] LABS: Platelet Count 27 k/uL (150-450)
[2023-02-18 07:22] LABS: ALT 44 U/L (4-49); AST 50 U/L (17-59); African American GFR (CKD) 41 (>60 ml/min/1.73 sqM); Albumin 1.9 g/dL (3.5-5.0); Alkaline Phosphatase 66 U/L (38-126); Anion Gap 5 mmol/L; Blood Urea Nitrogen 47 mg/dL (9-20); Calcium 7.6 mg/dL (8.4-10.2); Carbon Dioxide 21 mmol/L (22-30); Chloride 104 mmol/L (98-107); Glucose 82 mg/dL (74-99); Non-African American GFR(CKD) 35 (>60 ml/min/1.73 sqM); Potassium 4.6 mmol/L (3.5-5.1); Sodium 130 mmol/L (137-145); Total Bilirubin 1.2 mg/dL (0.2-1.3); Total Protein 4.1 g/dL (6.3-8.2)
[2023-02-18] MEDS: SODIUM BICARBONATE TAB 650 MG TAB PO SCH ×2 (09:20→20:38)
[2023-02-18] MEDS: CEFEPIME 2 GM in SODIUM CHLORIDE 0.9% 100 ML IVPB SCH ×2 (09:20→20:37)
[2023-02-18] MEDS: SODIUM CHLORIDE TAB 1 GM TAB PO SCH ×2 (09:20→21:46)
[2023-02-18] MEDS: TAMSULOSIN 0.4 MG CAP.ER.24H PO SCH (09:20)
--- NOTE | 2023-02-18 10:53 | P.PN ---
Subjective Patient is seen in follow-up for acute kidney injury on chronic kidney disease. Renal function stable. Denies chest pain or shortness of breath. No vomiting or diarrhea. Oral intake fair. Hemodynamically stable. Vital signs are stable. General: No acute distress. HEENT: Head exam is unremarkable. LUNGS: No audible rhonchi or wheezes. HEART: Rate and Rhythm are regular. ABDOMEN: Nontender. EXTREMITITES: No edema. Objective - Vital Signs Vital signs: Vital Signs Temp 98.1 F 02/18/23 08:00 Pulse 92 02/18/23 08:00 Resp 17 02/18/23 08:00 BP 124/70 02/18/23 08:00 Pulse Ox 94 L 02/18/23 08:00 FiO2 Intake & Output 02/17/23 02/18/23 02/18/23 18:59 06:59 18:59 Intake Total 680 540 Output Total 805 600 375 Balance -125 -600 165 Intake: Oral 680 540 Output: Urine 805 600 375 Other: Voiding Method External Catheter External Catheter - Labs CBC & Chem 7: 02/18/23 06:42 02/18/23 06:42 Labs: Abnormal Lab Results - Last 24 Hours (Table) 02/18/23 02/18/23 02/18/23 Range/Units 06:42 06:42 06:42 WBC 1.0 L* (3.8-10.6) k/uL RBC 3.09 L (4.30-5.90) m/uL Hgb 8.5 L (13.0-17.5) gm/dL Hct 25.3 L (39.0-53.0) % Plt Count 27 L (150-450) k/uL Fibrinogen 163 L (200-500) mg/dL Sodium 130 L (137-145) mmol/L Carbon Dioxide 21 L (22-30) mmol/L BUN 47 H (9-20) mg/dL Creatinine 1.75 H (0.66-1.25) mg/dL Calcium 7.6 L (8.4-10.2) mg/dL Total Protein 4.1 L (6.3-8.2) g/dL Albumin 1.9 L (3.5-5.0) g/dL Assessment and Plan Plan: Assessment: 1. Acute kidney injury secondary to ATN. Renal function stable with creatinine at 1.75 today. No hydronephrosis noted on CAT scan. UA with trace protein. 2. Hyponatremia. 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 On sodium chloride tabs. Better. Urine sodium 95 and urine osmolality 627. Cortisol level not low. TSH normal. 3. Pancytopenia status post bone marrow biopsy. 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 Oncology following. 4. Metabolic acidosis secondary to acute kidney injury and IV fluids maintained on oral bicarbonate. 5. Chronic kidney disease stage IIIA with creatinine near 1.2 in 2017. Suspect nephrosclerosis. Plan: Maintain salt tabs. 1500 mL fluid restriction. Avoid nephrotoxins. Continue to monitor renal function and urine output. Maintain IV fluids for now.
--- NOTE | 2023-02-18 13:37 | P.PN ---
Subjective Progress Note Date: 02/18/23 82-year-old gentleman with past medical history significant for hypertension, prostate cancer, history of CVA, osteoarthritis presents to the emergency department with worsening weakness and fatigue ongoing for the last 4 weeks. Patient was recently hospitalized and early January with significant weakness and blood count obtained at that time showed pancytopenia. Patient was scheduled to follow-up with hematology as outpatient however due to progressive weakness and failure to thrive patient decided to call EMS and was brought to the emergency for further evaluation. Patient had been complaining of associated weakness and exertional shortness of breath however he denied any fever, chest pain, nausea, vomiting, diarrhea. Patient to chart review mentioned to the emergency team that he lost about 20 pounds in the last few weeks * Workup initiated in ER include hepatology which were WBC of 2.8 hemoglobin 11.8 hematocrit 33 platelet count of 16,000 neutrophil count is 0.56 PT/INR off 12.8, 1.2 d-dimer of 5.91 * Patient had a VQ scan done which was negative for pulmonary embolism * Serum chemistry showed sodium 124 potassium 4.8, and Axert 12 BUNs 70 2.01 lactate of 3.5 bilirubin of 1.7 TSH within normal limits * Patient tested negative for influenza and RSV and Covid PCR * 02/10/23: Patient seen and evaluated bedside, appreciate input from oncology, CT abdomen pelvis reviewed, CT chest ordered continue to monitor for fever or chills of infection was of infection noted * 02/11/23 : Patient seen and evaluated bedside. Continue to monitor blood counts. DIC labs reviewed planning for bone marrow biopsy this hospital stay continue to monitor CBC. CT chest reviewed negative for intrathoracic mass * 02/12/23: Patient seen and evaluated at bedside accompanied with [id number], care plan discussed blood work reviewed platelet count 18,000. Hematology following plan for bone marrow biopsy secondary to impaired kidney function will request evaluation from nephrology as well * 02/13/23: Patient seen and evaluated bedside, [id number] at bedside care plan discussed. Episode of 97.5 temperature. Does have neutropenia along with pancytopenia. Started on IV cefepime blood cultures ordered infectious disease consulted as well will follow up on CRP and pro-calcitonin levels. CR P early in the hospital stay was normal pro-calcitonin was minimally elevated on 02/10 0.26 appreciate input from nephrology as well. Patient denies feeling sick, denies chills does complain of decreased appetite * 02/14/23: Patient seen and evaluated bedside, multiple family members at bedside including , [id number], daughter. Care plan discussed. Continue to monitor for fever. We'll follow up on bone marrow biopsy results. Continue prophylactic antibiotics secondary to neutropenia. Infectious disease following. We will daily monitor CBC and basic metabolic panel. CRP normal pro-calcitonin minimally elevated infection. Regarding discharge planning patient will be through the weekend potential discharge on Saturday once cleared by hematology I did to rehab or home depending on patient's condition. Patient encouraged increase oral intake mentation is alert and oriented 4 02/15. Patient seen and examined. Blood work and this morning showed WBC 0.8, hemoglobin 8.9, platelet count 23, sodium 128, potassium 4.3, BUN 46, creatinine 1.73. Vital signs temperature 98.2 heart rate 100, respirations 17, blood pressure 95/62. Family at the bedside, they're concerned patient has poor appetite. Not drinking enough water. 02/16. Patient seen and examined. Patient was working with physical therapy. States dizziness has improved. Blood work done this morning showed WBC 0.9, hemoglobin 9, platelet count 25, sodium 127, BUN 49, creatinine 1.66. Vital signs stable 02/17. Patient seen and examined. Labs were done this morning showed WBC of 0.9, hemoglobin 9.2, platelet count 30. Sodium 129, potassium 4.4, BUN 44, creatinine 1.73. Denies chest pain or shortness of breath 02/18. Patient seen and examined. WBC this morning is 1, hemoglobin 8.5, platelet count is 27, sodium is 1:30, BUN is 47, creatinine is 1.75. Laying comfortably in the bed. Denies any lightheadedness or dizziness. States she continues to feel better REVIEW OF SYSTEMS: CONSTITUTIONAL: No fever,. Complaining of fatigue and lethargy CARDIOVASCULAR: No chest pain, no palpitations, no syncope. PULMONARY: No shortness of breath, no cough, GASTROINTESTINAL: No diarrhea, no nausea, no vomiting, no abdominal pain. NEUROLOGICAL: No headaches, no weakness, PHYSICAL EXAMINATION: GENERAL: The patient is alert and oriented x3, not in any acute distress. Chr onically ill-looking HEENT: Pupils are round and equally reacting to light. EOMI. No scleral icterus. No conjunctival pallor. Normocephalic, atraumatic. No pharyngeal erythema. No thyromegaly. CARDIOVASCULAR: S1 and S2 present. No murmurs, rubs, or gallops. PULMONARY: Chest is clear to auscultation, no wheezing or crackles. ABDOMEN: Soft, nontender, nondistended, normoactive bowel sounds. No palpable organomegaly. MUSCULOSKELETAL: No joint swelling or deformity. EXTREMITIES: No cyanosis, clubbing, or pedal edema. NEUROLOGICAL: Gross neurological examination did not reveal any focal deficits. SKIN: No rashes. 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 Light chains were both elevated, ratio is equal. Peripheral smear is reported as pancytopenia with rare atypical lymphocytes present, myeloproliferative or myelodysplastic disorder. Biopsy results pending. Hematology oncology following, no need for transfusion on 02/18 * In regards to febrile neutropenia noted on 02/13, currently on cefepime, ID following * In regards to acute kidney injury follow up on renal profile post hydration, nephrology following * In regards to hyponatremia likely secondary to hypovolemia continue fluid restriction, salt tablets, IV fluids nephrology following * In regards to protein calorie malnutrition that reconsulted continue patient on regular diet * Physical therapy occupational therapy consulted>>PHOEBE likely by 02/17/23 Labs and medication were reviewed.. Continue same treatment. Continue with symptomatic treatment. Resume home medication. Monitor labs and vitals. DVT and GI prophylaxis. Further recommendations as per clinical course of the patient Dictation was produced using [employer] dictation software. please excuse any grammatical, word or spelling errors. Objective - Vital Signs Vital signs: Vital Signs Temp 98.1 F 02/18/23 08:00 Pulse 92 02/18/23 08:00 Resp 17 02/18/23 08:00 BP 124/70 02/18/23 08:00 Pulse Ox 94 L 10/30/23 08:00 FiO2 Intake & Output 02/17/23 02/18/23 02/18/23 18:59 06:59 18:59 Intake Total 680 540 Output Total 805 600 Balance -125 -600 540 Intake: Oral 680 540 Output: Urine 805 600 Other: Voiding Method External Catheter External Catheter - Labs CBC & Chem 7: 02/18/23 06:42 02/18/23 06:42 Labs: Abnormal Lab Results - Last 24 Hours (Table) 02/17/23 02/17/23 02/17/23 Range/Units 08:59 08:59 08:59 WBC 0.9 L* (3.8-10.6) k/uL RBC 3.24 L (4.30-5.90) m/uL Hgb 9.2 L (13.0-17.5) gm/dL Hct 26.2 L (39.0-53.0) % Plt Count 30 L (150-450) k/uL Fibrinogen 173 L (200-500) mg/dL Sodium 129 L (137-145) mmol/L Carbon Dioxide (22-30) mmol/L BUN 44 H (9-20) mg/dL Creatinine 1.73 H (0.66-1.25) mg/dL Calcium 7.7 L (8.4-10.2) mg/dL Total Bilirubin 1.4 H (0.2-1.3) mg/dL Total Protein 4.3 L (6.3-8.2) g/dL Albumin 2.1 L (3.5-5.0) g/dL 02/18/23 02/18/23 02/18/23 Range/Units 06:42 06:42 06:42 WBC 1.0 L* (3.8-10.6) k/uL RBC 3.09 L (4.30-5.90) m/uL Hgb 8.5 L (13.0-17.5) gm/dL Hct 25.3 L (39.0-53.0) % Plt Count 27 L (150-450) k/uL Fibrinogen 163 L (200-500) mg/dL Sodium 130 L (137-145) mmol/L Carbon Dioxide 21 L (22-30) mmol/L BUN 47 H (9-20) mg/dL Creatinine 1.75 H (0.66-1.25) mg/dL Calcium 7.6 L (8.4-10.2) mg/dL Total Bilirubin (0.2-1.3) mg/dL Total Protein 4.1 L (6.3-8.2) g/dL Albumin 1.9 L (3.5-5.0) g/dL
--- NOTE | 2023-02-18 14:16 | P.PN ---
Subjective Progress Note Date: 02/18/23 Principal diagnosis: pancytopenia At todays visit patient is resting comfortably in bedside chair. Family at bedside. Patient is reporting generalized weakness, no other reported complaints at this time. WBC 1000, platelets 27,000, hemoglobin 8.5. Patient denies any bleeding episodes or petechiae. Objective - Vital Signs Vital signs: Vital Signs Temp 98.1 F 02/18/23 08:00 Pulse 92 02/18/23 08:00 Resp 17 02/18/23 08:00 BP 124/70 02/18/23 08:00 Pulse Ox 94 L 02/18/23 08:00 FiO2 Intake & Output 02/17/23 02/18/23 02/18/23 18:59 06:59 18:59 Intake Total 680 540 Output Total 805 600 775 Balance -125 -600 -235 Intake: Oral 680 540 Output: Urine 805 600 775 Other: Voiding Method External Catheter External Catheter External Catheter - Constitutional General appearance: Present: average body habitus, no acute distress - EENT Eyes: Present: anicteric sclerae, EOMI ENT: Present: hearing grossly normal - Respiratory Details: breathing even and unlabored - Cardiovascular Details: skin warm and dry - Integumentary Integumentary: Absent: cyanotic - Musculoskeletal Musculoskeletal: Present: generalized weakness - Psychiatric Psychiatric: Present: A&O x's 3, appropriate affect, intact judgment & insight - Labs CBC & Chem 7: 02/18/23 06:42 02/18/23 06:42 Labs: Abnormal Lab Results - Last 24 Hours (Table) 02/18/23 02/18/23 02/18/23 Range/Units 06:42 06:42 06:42 WBC 1.0 L* (3.8-10.6) k/uL RBC 3.09 L (4.30-5.90) m/uL Hgb 8.5 L (13.0-17.5) gm/dL Hct 25.3 L (39.0-53.0) % Plt Count 27 L (150-450) k/uL Fibrinogen 163 L (200-500) mg/dL Sodium 130 L (137-145) mmol/L Carbon Dioxide 21 L (22-30) mmol/L BUN 47 H (9-20) mg/dL Creatinine 1.75 H (0.66-1.25) mg/dL Calcium 7.6 L (8.4-10.2) mg/dL Total Protein 4.1 L (6.3-8.2) g/dL Albumin 1.9 L (3.5-5.0) g/dL Assessment and Plan (1) DIC (disseminated intravascular coagulation) Current Visit: Yes Status: Acute Priority: High Code(s): D65 - DISSEMINATED INTRAVASCULAR COAGULATION SNOMED Code(s): 99127017 (2) Pancytopenia Current Visit: Yes Status: Acute Priority: High Code(s): D61.818 - OTHER PANCYTOPENIA SNOMED Code(s): 845911334 Plan: Low grade DIC -DIC labs results reviewed, coags normal, fibrinogen 163. S/p 2 doses of cryoprecipitate -Will continue to monitor coags and fibrinogen -Some solid tumors and liquid tumors, such as APL and CMML, can cause DIC, workup is in progress, s/p BM Bx. -Some of the results today show an IgM of less than 35, there is a paraproteinemia 0.23 g/dL qualified as IgG lambda. Light chains were both elevated, ratio is normal. Peripheral smear is reported as pancytopenia with rare atypical lymphocytes present, myeloproliferative or myelodysplastic disorder. Bone marrow results pending. Preliminary flow cytometry inconclusive, will await full report. Pt and family have been updated on results and POC Pancytopenia -No transfusions needed today -Transfuse for a Hgb< 7 and plt <10K or if symptomatic. Hemoglobin 8.5, platelets 27,000. -WBC 1000. No GCSF at this time until we have at least a preliminary bone marrow report. ID following. -CBC monitoring daily -Underlying cause being worked up. Will update plan of care as more info becomes available
[2023-02-18] MEDS: SODIUM CHLORIDE 0.9% 1,000 ML IV SCH ×2 (20:43→20:44)
[2023-02-19] MEDS: SODIUM CHLORIDE 0.9% 1,000 ML IV SCH (03:37)
[2023-02-19] MEDS: LEVOTHYROXINE 50 MCG TAB PO SCH (05:34)
[2023-02-19] MEDS: SODIUM BICARBONATE TAB 650 MG TAB PO SCH ×2 (08:26→20:17)
[2023-02-19] MEDS: TAMSULOSIN 0.4 MG CAP.ER.24H PO SCH (08:27)
[2023-02-19] MEDS: SODIUM CHLORIDE TAB 1 GM TAB PO SCH ×2 (08:27→20:17)
[2023-02-19] MEDS: CEFEPIME 2 GM in SODIUM CHLORIDE 0.9% 100 ML IVPB SCH (08:27)
[2023-02-19 08:29] LABS: HCT 26.8 % (39.0-53.0); HGB 9.4 gm/dL (13.0-17.5); MCH 28.1 pg (25.0-35.0); MCV 80.2 fL (80.0-100.0); RBC 3.34 m/uL (4.30-5.90); RDW 14.8 % (11.5-15.5)
[2023-02-19 08:43] LABS: African American GFR (CKD) 45 (>60 ml/min/1.73 sqM); Anion Gap 3 mmol/L; Blood Urea Nitrogen 45 mg/dL (9-20); Calcium 7.6 mg/dL (8.4-10.2); Carbon Dioxide 20 mmol/L (22-30); Chloride 106 mmol/L (98-107); Glucose 86 mg/dL (74-99); Magnesium 1.9 mg/dL (1.6-2.3); Non-African American GFR(CKD) 39 (>60 ml/min/1.73 sqM); Potassium 4.3 mmol/L (3.5-5.1); Sodium 129 mmol/L (137-145)
[2023-02-19 08:59] LABS: Platelet Count 33 k/uL (150-450); WBC 0.8 k/uL (3.8-10.6)
--- NOTE | 2023-02-19 11:01 | P.PN ---
Subjective Patient is seen in follow-up for acute kidney injury on chronic kidney disease. Renal function stable. Denies chest pain or shortness of breath. No vomiting or diarrhea. Oral intake fair. Hemodynamically stable. Vital signs are stable. General: No acute distress. HEENT: Head exam is unremarkable. LUNGS: No audible rhonchi or wheezes. HEART: Rate and Rhythm are regular. ABDOMEN: Nontender. EXTREMITITES: No edema. Objective - Vital Signs Vital signs: Vital Signs Temp 97.8 F 02/19/23 08:00 Pulse 89 02/19/23 10:48 Resp 20 02/19/23 10:48 BP 102/65 02/19/23 10:48 Pulse Ox 92 L 02/19/23 08:00 FiO2 Intake & Output 02/18/23 02/19/23 02/19/23 18:59 06:59 18:59 Intake Total 780 540 Output Total 1453 850 Balance -673 -310 Intake: Oral 780 540 Output: Urine 1453 850 Other: Voiding Method External Catheter External Catheter External Catheter # Voids 1 # Bowel Movements 1 - Labs CBC & Chem 7: 02/19/23 08:18 02/19/23 08:18 Labs: Abnormal Lab Results - Last 24 Hours (Table) 02/19/23 02/19/23 02/19/23 Range/Units 08:18 08:18 08:18 WBC 0.8 L* (3.8-10.6) k/uL RBC 3.34 L (4.30-5.90) m/uL Hgb 9.4 L (13.0-17.5) gm/dL Hct 26.8 L (39.0-53.0) % Plt Count 33 L (150-450) k/uL Fibrinogen 168 L (200-500) mg/dL Sodium 129 L (137-145) mmol/L Carbon Dioxide 20 L (22-30) mmol/L BUN 45 H (9-20) mg/dL Creatinine 1.61 H (0.66-1.25) mg/dL Calcium 7.6 L (8.4-10.2) mg/dL Microbiology - Last 24 Hours (Table) 02/13/23 11:48 Blood Culture - Final Blood Assessment and Plan Plan: Assessment: 1. Acute kidney injury secondary to ATN. Renal function stable with creatinine at 1.61 today. No hydronephrosis noted on CAT scan. UA with trace protein. 2. Hyponatremia. 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 On sodium chloride tabs. Urine sodium 95 and urine osmolality 627. Cortisol level not low. TSH normal. 3. Pancytopenia status post bone marrow biopsy. 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 Oncology following. 4. Metabolic acidosis secondary to acute kidney injury and IV fluids maintained on oral bicarbonate. 5. Chronic kidney disease stage IIIA with creatinine near 1.2 in 2017. Suspect nephrosclerosis. Plan: Hep-Lock IV fluids. Maintain salt tabs. 1500 mL fluid restriction. Avoid nephrotoxins. Continue to monitor renal function and urine output. Samsca 7.5 mg once today.
[2023-02-19 11:30] LABS: RBC Morphology Normal
[2023-02-19] MEDS ORDERED: TOLVAPTAN 15 MG TABLET PO ONE (12:00)
--- NOTE | 2023-02-19 13:07 | P.PN ---
Subjective Progress Note Date: 02/18/23 Principal diagnosis: Febrile neutropenia Patient is a 82-year-old male with a past medical history significant for hypertension osteoarthritis CVA TIA history of prostate cancer and UTI patient presenting to the hospital for evaluation generalized weakness and fatigue, patient did have low-grade fever also noticed to be leukopenia/neutropenia prompting this Infectious disease consultation On today's evaluation that is 02/18/2023, the patient continues to be afebrile , the patient is breathing comfortably on room air and denies any shortness of breath, the patient denies any chest pain or cough, patient denies abdominal pain and no nausea/vomiting or diarrhea Patient white count is 1.0, creatinine is 1.75, culture so far negative Objective - Vital Signs Vital signs: Vital Signs Temp 98.1 F 02/18/23 08:00 Pulse 92 02/18/23 08:00 Resp 17 02/18/23 08:00 BP 124/70 02/18/23 08:00 Pulse Ox 94 L 02/18/23 08:00 FiO2 Intake & Output 02/17/23 02/18/23 02/18/23 18:59 06:59 18:59 Intake Total 680 540 Output Total 805 600 375 Balance -125 -600 165 Intake: Oral 680 540 Output: Urine 805 600 375 Other: Voiding Method External Catheter External Catheter External Catheter - Exam GENERAL DESCRIPTION: An elderly male lying in bed in no distress RESPIRATORY SYSTEM: Unlabored breathing , clear to auscultation anteriorly HEART: S1 S2 regular rate and rhythm , ABDOMEN: Soft , no tenderness EXTREMITIES: No edema feet - Labs CBC & Chem 7: 02/19/23 08:18 02/19/23 08:18 Labs: Abnormal Lab Results - Last 24 Hours (Table) 02/18/23 02/18/23 02/18/23 Range/Units 06:42 06:42 06:42 WBC 1.0 L* (3.8-10.6) k/uL RBC 3.09 L (4.30-5.90) m/uL Hgb 8.5 L (13.0-17.5) gm/dL Hct 25.3 L (39.0-53.0) % Plt Count 27 L (150-450) k/uL Fibrinogen 163 L (200-500) mg/dL Sodium 130 L (137-145) mmol/L Carbon Dioxide 21 L (22-30) mmol/L BUN 47 H (9-20) mg/dL Creatinine 1.75 H (0.66-1.25) mg/dL Calcium 7.6 L (8.4-10.2) mg/dL Total Protein 4.1 L (6.3-8.2) g/dL Albumin 1.9 L (3.5-5.0) g/dL Assessment and Plan (1) Febrile neutropenia Current Visit: Yes Status: Acute Code(s): D70.9 - NEUTROPENIA, UNSPECIFIED; R50.81 - FEVER PRESENTING WITH CONDITIONS CLASSIFIED ELSEWHERE SNOMED Code(s): 627060349 Plan: 1patient with pancytopenia with the first being leukopenic patient did have evidence of splenomegaly on CT abdominal pelvis but no evidence of any other lymphadenopathy did have a low-grade fever which could be more like related to underlying primary illness responsible for this pancytopenia and concern for possible hematological malignancy clinical suspicion is low for secondary infectious etiology as the patient does not look toxic CT chest was negative for pneumonia CT abdominal pelvis was negative for any acute intra-abdominal process 2- blood cultures are so far negative, patient did have a procalcitonin 0.13 and a CRP of 0.7 3-patient did have resolution of his fever and white count still low 4-patient will continue with cefepime while waiting for the white count to improve Dictation was produced using [employer] dictation software. please excuse any gramma tical, word or spelling errors. Time with Patient: Less than 30
--- NOTE | 2023-02-19 13:08 | P.PN ---
Subjective Progress Note Date: 02/19/23 Principal diagnosis: Febrile neutropenia Patient is a 82-year-old male with a past medical history significant for hypertension osteoarthritis CVA TIA history of prostate cancer and UTI patient presenting to the hospital for evaluation generalized weakness and fatigue, patient did have low-grade fever also noticed to be leukopenia/neutropenia prompting this Infectious disease consultation On today's evaluation that is 02/19/2023, the patient remains to be afebrile , the patient is breathing comfortably on room air without need for supplemental oxygen, the patient denies any chest pain and no significant cough or sputum production, patient denies abdominal pain and no nausea/vomiting or diarrhea Patient white count is 0.8, creatinine is 1.61, culture so far negative Objective - Vital Signs Vital signs: Vital Signs Temp 97.9 F 02/19/23 11:28 Pulse 68 02/19/23 12:24 Resp 20 02/19/23 12:24 BP 114/70 02/19/23 12:24 Pulse Ox 95 02/19/23 11:28 FiO2 Intake & Output 02/18/23 02/19/23 02/19/23 18:59 06:59 18:59 Intake Total 780 540 Output Total 1453 850 350 Balance -673 -310 -350 Intake: Oral 780 540 Output: Urine 1453 850 350 Other: Voiding Method External Catheter External Catheter External Catheter # Voids 1 # Bowel Movements 1 - Exam GENERAL DESCRIPTION: An elderly male lying in bed in no distress RESPIRATORY SYSTEM: Unlabored breathing , clear to auscultation anteriorly HEART: S1 S2 regular rate and rhythm , ABDOMEN: Soft , no tenderness EXTREMITIES: No edema feet - Labs CBC & Chem 7: 02/19/23 08:18 02/19/23 08:18 Labs: Abnormal Lab Results - Last 24 Hours (Table) 02/19/23 02/19/23 02/19/23 Range/Units 08:18 08:18 08:18 WBC 0.8 L* (3.8-10.6) k/uL RBC 3.34 L (4.30-5.90) m/uL Hgb 9.4 L (13.0-17.5) gm/dL Hct 26.8 L (39.0-53.0) % Plt Count 33 L (150-450) k/uL Fibrinogen 168 L (200-500) mg/dL Sodium 129 L (137-145) mmol/L Carbon Dioxide 20 L (22-30) mmol/L BUN 45 H (9-20) mg/dL Creatinine 1.61 H (0.66-1.25) mg/dL Calcium 7.6 L (8.4-10.2) mg/dL Microbiology - Last 24 Hours (Table) 02/13/23 11:48 Blood Culture - Final Blood Assessment and Plan (1) Febrile neutropenia Current Visit: Yes Status: Acute Code(s): D70.9 - NEUTROPENIA, UNSPECIFIED; R50.81 - FEVER PRESENTING WITH CONDITIONS CLASSIFIED ELSEWHERE SNOMED Code(s): 082810042 Plan: 1patient with pancytopenia with the first being leukopenic patient did have evidence of splenomegaly on CT abdominal pelvis but no evidence of any other l ymphadenopathy did have a low-grade fever which could be more like related to underlying primary illness responsible for this pancytopenia and concern for possible hematological malignancy clinical suspicion is low for secondary infectious etiology as the patient does not look toxic CT chest was negative for pneumonia CT abdominal pelvis was negative for any acute intra-abdominal process 2- blood cultures are so far negative, patient did have a procalcitonin 0.13 and a CRP of 0.7 3-patient did have resolution of his fever and white count still low 4-patient does not look toxic and do not have any obvious focus of infection with negative culture and no fever. Discontinue cefepime and monitor the patient closely off antibiotic therapy Dictation was produced using [employer] dictation software. please excuse any grammatical, word or spelling errors. Time with Patient: Less than 30
--- NOTE | 2023-02-19 13:28 | P.PN ---
Subjective Progress Note Date: 02/19/23 82-year-old gentleman with past medical history significant for hypertension, prostate cancer, history of CVA, osteoarthritis presents to the emergency department with worsening weakness and fatigue ongoing for the last 4 weeks. Patient was recently hospitalized and early January with significant weakness and blood count obtained at that time showed pancytopenia. Patient was scheduled to follow-up with hematology as outpatient however due to progressive weakness and failure to thrive patient decided to call EMS and was brought to the emergency for further evaluation. Patient had been complaining of associated weakness and exertional shortness of breath however he denied any fever, chest pain, nausea, vomiting, diarrhea. Patient to chart review mentioned to the emergency team that he lost about 20 pounds in the last few weeks * Workup initiated in ER include hepatology which were WBC of 2.8 hemoglobin 11.8 hematocrit 33 platelet count of 16,000 neutrophil count is 0.56 PT/INR off 12.8, 1.2 d-dimer of 5.91 * Patient had a VQ scan done which was negative for pulmonary embolism * Serum chemistry showed sodium 124 potassium 4.8, and Axert 12 BUNs 70 2.01 lactate of 3.5 bilirubin of 1.7 TSH within normal limits * Patient tested negative for influenza and RSV and Covid PCR * 02/10/23: Patient seen and evaluated bedside, appreciate input from oncology, CT abdomen pelvis reviewed, CT chest ordered continue to monitor for fever or chills of infection was of infection noted * 02/11/23 : Patient seen and evaluated bedside. Continue to monitor blood counts. DIC labs reviewed planning for bone marrow biopsy this hospital stay continue to monitor CBC. CT chest reviewed negative for intrathoracic mass * 02/12/23: Patient seen and evaluated at bedside accompanied with [id number], care plan discussed blood work reviewed platelet count 18,000. Hematology following plan for bone marrow biopsy secondary to impaired kidney function will request evaluation from nephrology as well * 02/13/23: Patient seen and evaluated bedside, [id number] at bedside care plan discussed. Episode of 97.5 temperature. Does have neutropenia along with pancytopenia. Started on IV cefepime blood cultures ordered infectious disease consulted as well will follow up on CRP and pro-calcitonin levels. CR P early in the hospital stay was normal pro-calcitonin was minimally elevated on 02/10 0.26 appreciate input from nephrology as well. Patient denies feeling sick, denies chills does complain of decreased appetite * 02/14/23: Patient seen and evaluated bedside, multiple family members at bedside including , [id number], daughter. Care plan discussed. Continue to monitor for fever. We'll follow up on bone marrow biopsy results. Continue prophylactic antibiotics secondary to neutropenia. Infectious disease following. We will daily monitor CBC and basic metabolic panel. CRP normal pro-calcitonin minimally elevated infection. Regarding discharge planning patient will be through the weekend potential discharge on Saturday once cleared by hematology I did to rehab or home depending on patient's condition. Patient encouraged increase oral intake mentation is alert and oriented 4 02/15. Patient seen and examined. Blood work and this morning showed WBC 0.8, hemoglobin 8.9, platelet count 23, sodium 128, potassium 4.3, BUN 46, creatinine 1.73. Vital signs temperature 98.2 heart rate 100, respirations 17, blood pressure 95/62. Family at the bedside, they're concerned patient has poor appetite. Not drinking enough water. 02/16. Patient seen and examined. Patient was working with physical therapy. States dizziness has improved. Blood work done this morning showed WBC 0.9, hemoglobin 9, platelet count 25, sodium 127, BUN 49, creatinine 1.66. Vital signs stable 02/17. Patient seen and examined. Labs were done this morning showed WBC of 0.9, hemoglobin 9.2, platelet count 30. Sodium 129, potassium 4.4, BUN 44, creatinine 1.73. Denies chest pain or shortness of breath 02/18. Patient seen and examined. WBC this morning is 1, hemoglobin 8.5, platelet count is 27, sodium is 1:30, BUN is 47, creatinine is 1.75. Laying comfortably in the bed. Denies any lightheadedness or dizziness. States she continues to feel better 02/19. Patient seen and examined. Blood work done this morning showed WBC 0.8, hemoglobin 9.4, platelet count 33, sodium 129, potassium 4.3, BUN 45, creatinine 1.61. Patient felt dizzy this morning while he was having a bowel movement, feels better now. REVIEW OF SYSTEMS: CONSTITUTIONAL: No fever,. Complaining of fatigue and lethargy CARDIOVASCULAR: No chest pain, no palpitations, no syncope. PULMONARY: No shortness of breath, no cough, GASTROINTESTINAL: No diarrhea, no nausea, no vomiting, no abdominal pain. NEUROLOGICAL: No headaches, no weakness, PHYSICAL EXAMINATION: GENERAL: The patient is alert and oriented x3, not in any acute distress. Chronically ill-looking HEENT: Pupils are round and equally reacting to light. EOMI. No scleral icterus. No conjunctival pallor. Normocephalic, atraumatic. No pharyngeal erythema. No thyromegaly. CARDIOVASCULAR: S1 and S2 present. No murmurs, rubs, or gallops. PULMONARY: Chest is clear to auscultation, no wheezing or crackles. ABDOMEN: Soft, nontender, nondistended, normoactive bowel sounds. No palpable organomegaly. MUSCULOSKELETAL: No joint swelling or deformity. EXTREMITIES: No cyanosis, clubbing, or pedal edema. NEUROLOGICAL: Gross neurological examination did not reveal any focal deficits. SKIN: No rashes. 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 Light chains were both elevated, ratio is equal. Peripheral smear is reported as pancytopenia with rare atypical lymphocytes present, myeloproliferative or myelodysplastic disorder. Biopsy results pending. Hematology oncology following, no need for transfusion on 02/18 * In regards to febrile neutropenia noted on 02/13, antibiotics discontinued, ID wants patient to be monitored off antibiotics * In regards to acute kidney injury follow up on renal profile post hydration, nephrology following * In regards to hyponatremia likely secondary to hypovolemia continue fluid restriction, salt tablets, patient received a dose of tolvaptan today nephrology following * In regards to protein calorie malnutrition that reconsulted continue patient on regular diet * Physical therapy occupational therapy consulted>>PHOEBE likely by 02/17/23 Labs and medication were reviewed.. Continue same treatment. Continue with symptomatic treatment. Resume home medication. Monitor labs and vitals. DVT and GI prophylaxis. Further recommendations as per clinical course of the patient Dictation was produced using [employer] dictation software. please excuse any gra mmatical, word or spelling errors. Objective - Vital Signs Vital signs: Vital Signs Temp 97.9 F 02/19/23 11:28 Pulse 68 02/19/23 12:24 Resp 20 02/19/23 12:24 BP 114/70 02/19/23 12:24 Pulse Ox 95 02/19/23 11:28 FiO2 Intake & Output 02/18/23 02/19/23 02/19/23 18:59 06:59 18:59 Intake Total 780 540 Output Total 1453 850 350 Balance -673 310 -350 Intake: Oral 780 540 Output: Urine 1453 850 350 Other: Voiding Method External Catheter External Catheter External Catheter # Voids 1 # Bowel Movements 1 - Labs CBC & Chem 7: 02/19/23 08:18 02/19/23 08:18 Labs: Abnormal Lab Results - Last 24 Hours (Table) 02/19/23 02/19/23 02/19/23 Range/Units 08:18 08:18 08:18 WBC 0.8 L* (3.8-10.6) k/uL RBC 3.34 L (4.30-5.90) m/uL Hgb 9.4 L (13.0-17.5) gm/dL Hct 26.8 L (39.0-53.0) % Plt Count 33 L (150-450) k/uL Fibrinogen 168 L (200-500) mg/dL Sodium 129 L (137-145) mmol/L Carbon Dioxide 20 L (22-30) mmol/L BUN 45 H (9-20) mg/dL Creatinine 1.61 H (0.66-1.25) mg/dL Calcium 7.6 L (8.4-10.2) mg/dL Microbiology - Last 24 Hours (Table) 02/13/23 11:48 Blood Culture - Final Blood
--- NOTE | 2023-02-19 19:15 | P.PN ---
Subjective Progress Note Date: 02/19/23 Principal diagnosis: pancytopenia At todays visit patient is resting comfortably in bed, family at bedside. Patient is reporting generalized weakness, no other reported complaints at this time. WBC 800, platelets 33,000, hemoglobin 9.4. Patient denies any bleeding episodes or petechiae. Objective - Vital Signs Vital signs: Vital Signs Temp 97.4 F L 02/19/23 16:26 Pulse 105 H 02/19/23 16:26 Resp 20 02/19/23 16:26 BP 101/67 02/19/23 16:26 Pulse Ox 97 02/19/23 16:26 FiO2 Intake & Output 02/19/23 02/19/23 02/20/23 06:59 18:59 06:59 Intake Total 540 1440 Output Total 850 550 Balance -310 890 Intake: Intake, IV Titration 900 Amount Sodium Chloride 0.9% 1, 900 000 ml @ 75 mls/hr IV . [id number] [facility] Rx#:[id number] Oral 540 540 Output: Urine 850 550 Other: Voiding Method External Catheter External Catheter # Bowel Movements 1 - Constitutional General appearance: Present: no acute distress - EENT Eyes: Present: anicteric sclerae, EOMI ENT: Present: hearing grossly normal - Respiratory Details: breathing is even and unlabored - Cardiovascular Details: skin warm and dry - Integumentary Integumentary Comment(s): no petechiae noted Integumentary: Absent: cyanotic - Musculoskeletal Musculoskeletal: Present: generalized weakness - Psychiatric Psychiatric: Present: A&O x's 3, appropriate affect, intact judgment & insight - Labs CBC & Chem 7: 02/19/23 08:18 02/19/23 08:18 Labs: Abnormal Lab Results - Last 24 Hours (Table) 02/19/23 02/19/23 02/19/23 Range/Units 08:18 08:18 08:18 WBC 0.8 L* (3.8-10.6) k/uL RBC 3.34 L (4.30-5.90) m/uL Hgb 9.4 L (13.0-17.5) gm/dL Hct 26.8 L (39.0-53.0) % Plt Count 33 L (150-450) k/uL Fibrinogen 168 L (200-500) mg/dL Sodium 129 L (137-145) mmol/L Carbon Dioxide 20 L (22-30) mmol/L BUN 45 H (9-20) mg/dL Creatinine 1.61 H (0.66-1.25) mg/dL Calcium 7.6 L (8.4-10.2) mg/dL Microbiology - Last 24 Hours (Table) 02/13/23 11:48 Blood Culture - Final Blood Assessment and Plan (1) DIC (disseminated intravascular coagulation) Current Visit: Yes Status: Acute Priority: High Code(s): D65 - DISSEM INATED INTRAVASCULAR COAGULATION SNOMED Code(s): 02818064 (2) Pancytopenia Current Visit: Yes Status: Acute Priority: High Code(s): D61.818 - OTHER P ANCYTOPENIA SNOMED Code(s): 405407783 Plan: Low grade DIC -DIC labs results reviewed, coags normal, fibrinogen 168. S/p 2 doses of cryoprecipitate -Will continue to monitor coags and fibrinogen -Some solid tumors and liquid tumors, such as APL and CMML, can cause DIC, workup is in progress, s/p BM Bx. -IgM of less than 35, there is a paraproteinemia 0.23 g/dL qualified as IgG lambda. Light chains were both elevated, ratio is normal. Peripheral smear is reported as pancytopenia with rare atypical lymphocytes present, myeloproliferative or myelodysplastic disorder. Bone marrow results pending. Preliminary flow cytometry inconclusive, will await full report. Pt and family have been updated on results and POC Pancytopenia -No transfusions needed today -Transfuse for a Hgb< 7 and plt <10K or if symptomatic. Hemoglobin 9.4, plate lets 33,000. -WBC 800. No GCSF at this time until we have at least a preliminary bone marrow report. ID following. -CBC monitoring daily -Underlying cause being worked up. Will update plan of care as more info becomes available Dr. stuartests: I have seen and examined patient, performed H&P, developed impression and plan of care. Discussed with dictator. Agree with documentation, dictated as a scribe.
[2023-02-20] MEDS: LEVOTHYROXINE 50 MCG TAB PO SCH (06:43)
[2023-02-20 07:24] LABS: African American GFR (CKD) 39 (>60 ml/min/1.73 sqM); Anion Gap 6 mmol/L; Blood Urea Nitrogen 50 mg/dL (9-20); Calcium 7.7 mg/dL (8.4-10.2); Carbon Dioxide 18 mmol/L (22-30); Chloride 106 mmol/L (98-107); Glucose 102 mg/dL (74-99); Non-African American GFR(CKD) 33 (>60 ml/min/1.73 sqM); Potassium 4.3 mmol/L (3.5-5.1); Sodium 130 mmol/L (137-145)
[2023-02-20] MEDS: SODIUM CHLORIDE TAB 1 GM TAB PO SCH ×2 (08:17→20:46)
[2023-02-20] MEDS: SODIUM BICARBONATE TAB 650 MG TAB PO SCH ×3 (08:17→20:46)
[2023-02-20] MEDS: TAMSULOSIN 0.4 MG CAP.ER.24H PO SCH (08:17)
[2023-02-20 09:45] LABS: HCT 25.2 % (39.0-53.0); HGB 8.9 gm/dL (13.0-17.5); MCH 28.6 pg (25.0-35.0); MCHC 35.2 g/dL (31.0-37.0); MCV 81.1 fL (80.0-100.0); Mean Platelet Volume 12.4
[2023-02-20 10:02] LABS: WBC 0.8 k/uL (3.8-10.6)
[2023-02-20 10:03] LABS: Platelet Count 29 k/uL (150-450)
--- NOTE | 2023-02-20 11:04 | P.PN ---
Subjective Patient is seen in follow-up for acute kidney injury on chronic kidney disease. Renal function fairly stable. Denies chest pain or shortness of breath. No vomiting or diarrhea. Oral intake fair. Hemodynamically stable. Vital signs are stable. General: No acute distress. HEENT: Head exam is unremarkable. LUNGS: No audible rhonchi or wheezes. HEART: Rate and Rhythm are regular. ABDOMEN: Nontender. EXTREMITITES: No edema. Objective - Vital Signs Vital signs: Vital Signs Temp 98.4 F 02/20/23 08:00 Pulse 113 H 02/20/23 08:00 Resp 18 02/20/23 08:00 BP 108/76 02/20/23 08:00 Pulse Ox 96 02/20/23 08:00 FiO2 Intake & Output 02/19/23 02/20/23 02/20/23 18:59 06:59 18:59 Intake Total 1440 540 0 Output Total 550 450 Balance 890 90 0 Intake: Intake, IV Titration 900 Amount Sodium Chloride 0.9% 1, 900 000 ml @ 75 mls/hr IV . [id number] [facility] Rx#:[id number] Oral 540 540 0 Output: Urine 550 450 Other: Voiding Method External Catheter External Catheter # Bowel Movements 1 1 - Labs CBC & Chem 7: 02/20/23 06:30 02/20/23 06:30 Labs: Abnormal Lab Results - Last 24 Hours (Table) 02/20/23 02/20/23 Range/Units 06:30 06:30 WBC 0.8 L* (3.8-10.6) k/uL RBC 3.10 L (4.30-5.90) m/uL Hgb 8.9 L (13.0-17.5) gm/dL Hct 25.2 L (39.0-53.0) % Sodium 130 L (137-145) mmol/L Carbon Dioxide 18 L (22-30) mmol/L BUN 50 H (9-20) mg/dL Creatinine 1.83 H (0.66-1.25) mg/dL Glucose 102 H (74-99) mg/dL Calcium 7.7 L (8.4-10.2) mg/dL Assessment and Plan Plan: Assessment: 1. Acute kidney injury secondary to ATN. Renal function stable with creatinine at 1.83 today. No hydronephrosis noted on CAT scan. UA with trace protein. 2. Hyponatremia. 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 On sodium c hloride tabs. Urine sodium 95 and urine osmolality 627. Cortisol level not low. TSH normal. 3. Pancytopenia status post bone marrow biopsy. 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 Oncology following. 4. Metabolic acidosis secondary to acute kidney injury and IV fluids maintained on oral bicarbonate. 5. Chronic kidney disease stage IIIA with creatinine near 1.2 in 2017. Suspect nephrosclerosis. Plan: Encourage oral intake. Maintain salt tabs. 1500 mL fluid restriction. Avoid nephrotoxins. Continue to monitor renal function and urine output. Repeat Samsca today. Increase frequency of bicarb to 3 times a day.
[2023-02-20] MEDS ORDERED: TOLVAPTAN 15 MG TABLET PO ONE (12:00)
--- NOTE | 2023-02-20 12:14 | P.PN ---
Subjective Progress Note Date: 02/20/23 82-year-old gentleman with past medical history significant for hypertension, prostate cancer, history of CVA, osteoarthritis presents to the emergency department with worsening weakness and fatigue ongoing for the last 4 weeks. Patient was recently hospitalized and early January with significant weakness and blood count obtained at that time showed pancytopenia. Patient was scheduled to follow-up with hematology as outpatient however due to progressive weakness and failure to thrive patient decided to call EMS and was brought to the emergency for further evaluation. Patient had been complaining of associated weakness and exertional shortness of breath however he denied any fever, chest pain, nausea, vomiting, diarrhea. Patient to chart review mentioned to the emergency team that he lost about 20 pounds in the last few weeks * Workup initiated in ER include hepatology which were WBC of 2.8 hemoglobin 11.8 hematocrit 33 platelet count of 16,000 neutrophil count is 0.56 PT/INR off 12.8, 1.2 d-dimer of 5.91 * Patient had a VQ scan done which was negative for pulmonary embolism * Serum chemistry showed sodium 124 potassium 4.8, and Axert 12 BUNs 70 2.01 lactate of 3.5 bilirubin of 1.7 TSH within normal limits * Patient tested negative for influenza and RSV and Covid PCR * 02/10/23: Patient seen and evaluated bedside, appreciate input from oncology, CT abdomen pelvis reviewed, CT chest ordered continue to monitor for fever or chills of infection was of infection noted * 02/11/23 : Patient seen and evaluated bedside. Continue to monitor blood counts. DIC labs reviewed planning for bone marrow biopsy this hospital stay continue to monitor CBC. CT chest reviewed negative for intrathoracic mass * 02/12/23: Patient seen and evaluated at bedside accompanied with [id number], care plan discussed blood work reviewed platelet count 18,000. Hematology following plan for bone marrow biopsy secondary to impaired kidney function will request evaluation from nephrology as well * 02/13/23: Patient seen and evaluated bedside, [id number] at bedside care plan discussed. Episode of 97.5 temperature. Does have neutropenia along with pancytopenia. Started on IV cefepime blood cultures ordered infectious disease consulted as well will follow up on CRP and pro-calcitonin levels. CR P early in the hospital stay was normal pro-calcitonin was minimally elevated on 02/10 0.26 appreciate input from nephrology as well. Patient denies feeling sick, denies chills does complain of decreased appetite * 02/14/23: Patient seen and evaluated bedside, multiple family members at bedside including , [id number], daughter. Care plan discussed. Continue to monitor for fever. We'll follow up on bone marrow biopsy results. Continue prophylactic antibiotics secondary to neutropenia. Infectious disease following. We will daily monitor CBC and basic metabolic panel. CRP normal pro-calcitonin minimally elevated infection. Regarding discharge planning patient will be through the weekend potential discharge on Saturday once cleared by hematology I did to rehab or home depending on patient's condition. Patient encouraged increase oral intake mentation is alert and oriented 4 02/15. Patient seen and examined. Blood work and this morning showed WBC 0.8, hemoglobin 8.9, platelet count 23, sodium 128, potassium 4.3, BUN 46, creatinine 1.73. Vital signs temperature 98.2 heart rate 100, respirations 17, blood pressure 95/62. Family at the bedside, they're concerned patient has poor appetite. Not drinking enough water. 02/16. Patient seen and examined. Patient was working with physical therapy. States dizziness has improved. Blood work done this morning showed WBC 0.9, hemoglobin 9, platelet count 25, sodium 127, BUN 49, creatinine 1.66. Vital signs stable 02/17. Patient seen and examined. Labs were done this morning showed WBC of 0.9, hemoglobin 9.2, platelet count 30. Sodium 129, potassium 4.4, BUN 44, creatinine 1.73. Denies chest pain or shortness of breath 02/18. Patient seen and examined. WBC this morning is 1, hemoglobin 8.5, platelet count is 27, sodium is 1:30, BUN is 47, creatinine is 1.75. Laying comfortably in the bed. Denies any lightheadedness or dizziness. States she continues to feel better 02/19. Patient seen and examined. Blood work done this morning showed WBC 0.8, hemoglobin 9.4, platelet count 33, sodium 129, potassium 4.3, BUN 45, creatinine 1.61. Patient felt dizzy this morning while he was having a bowel movement, feels better now. 02/20. Patient seen and examined. states he feels much stronger. Blood work done this morning showed WBC 0.8, hemoglobin 8.9, sodium 1:30, potassium 4.3, BUN 50, creatinine 1.83. Complaining of swelling of left ankle REVIEW OF SYSTEMS: CONSTITUTIONAL: No fever,. CARDIOVASCULAR: No chest pain, no palpitations, no syncope. PULMONARY: No shortness of breath, no cough, GASTROINTESTINAL: No diarrhea, no nausea, no vomiting, no abdominal pain. NEUROLOGICAL: No headaches, no weakness, PHYSICAL EXAMINATION: GENERAL: The patient is alert and oriented x3, not in any acute distress. Chronically ill-looking HEENT: Pupils are round and equally reacting to light. EOMI. No scleral icterus. No conjunctival pallor. Normocephalic, atraumatic. No pharyngeal erythema. No thyromegaly. CARDIOVASCULAR: S1 and S2 present. No murmurs, rubs, or gallops. PULMONARY: Chest is clear to auscultation, no wheezing or crackles. ABDOMEN: Soft, nontender, nondistended, normoactive bowel sounds. No palpable organomegaly. MUSCULOSKELETAL: No joint swelling or deformity. EXTREMITIES: Left ankle swollen, no erythema NEUROLOGICAL: Gross neurological examination did not reveal any focal deficits. SKIN: No rashes. 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 Light chains were both elevated, ratio is equal. Peripheral smear is reported as pancytopenia with rare atypical lymphocytes present, myeloproliferative or myelodysplastic disorder. Biopsy results pending. Hematology oncology following, no need for transfusion on 02/20 * In regards to febrile neutropenia noted on 02/13, antibiotics discontinued, ID wants patient to be monitored off antibiotics * In regards to acute kidney injury follow up on renal profile post hydration, nephrology following * In regards to hyponatremia likely secondary to hypovolemia continue fluid restriction, salt tablets, received tolvaptan on 02/18 and 02/20 nephrology following * In regards to protein calorie malnutrition that reconsulted continue patient on regular diet * Physical therapy occupational therapy consulted>>PHOEBE likely by 02/17/23 Labs and medication were reviewed.. Continue same treatment. Continue with symptomatic treatment. Resume home medication. Monitor labs and vitals. DVT and GI prophylaxis. Further recommendations as per clinical course of the patient Dictation was produced using [employer] dictation software. please excuse any grammatical, word or spelling errors. Objective - Vital Signs Vital signs: Vital Signs Temp 98.4 F 02/20/23 08:00 Pulse 113 H 02/20/23 08:00 Resp 18 02/20/23 08:00 BP 108/76 02/20/23 08:00 Pulse Ox 96 02/20/23 08:00 FiO2 Intake & Output 02/19/23 02/20/23 02/20/23 18:59 06:59 18:59 Intake Total 1440 540 0 Output Total 550 450 200 Balance 890 90 -200 Intake: Intake, IV Titration 900 Amount Sodium Chloride 0.9% 1, 900 000 ml @ 75 mls/hr IV . [id number] [facility] Rx#:[id number] Oral 540 540 0 Output: Urine 550 450 200 Other: Voiding Method External Catheter External Catheter # Bowel Movements 1 1 - Labs CBC & Chem 7: 02/20/23 06:30 02/20/23 06:30 Labs: Abnormal Lab Results - Last 24 Hours (Table) 02/20/23 02/20/23 Range/Units 06:30 06:30 WBC 0.8 L* (3.8-10.6) k/uL RBC 3.10 L (4.30-5.90) m/uL Hgb 8.9 L (13.0-17.5) gm/dL Hct 25.2 L (39.0-53.0) % Sodium 130 L (137-145) mmol/L Carbon Dioxide 18 L (22-30) mmol/L BUN 50 H (9-20) mg/dL Creatinine 1.83 H (0.66-1.25) mg/dL Glucose 102 H (74-99) mg/dL Calcium 7.7 L (8.4-10.2) mg/dL
[2023-02-20 12:17] LABS: Ovalocytes Present
[2023-02-21] MEDS: LEVOTHYROXINE 50 MCG TAB PO SCH (06:25)
[2023-02-21 07:45] LABS: HCT 27.4 % (39.0-53.0); HGB 9.3 gm/dL (13.0-17.5); MCH 27.8 pg (25.0-35.0); MCHC 33.8 g/dL (31.0-37.0); MCV 82.3 fL (80.0-100.0); Mean Platelet Volume 10.7; RBC 3.33 m/uL (4.30-5.90)
[2023-02-21 07:48] LABS: Platelet Count 44 k/uL (150-450); WBC 1.1 k/uL (3.8-10.6)
[2023-02-21 07:53] LABS: African American GFR (CKD) 38 (>60 ml/min/1.73 sqM); Anion Gap 7 mmol/L; Blood Urea Nitrogen 48 mg/dL (9-20); Carbon Dioxide 20 mmol/L (22-30); Chloride 105 mmol/L (98-107); Glucose 96 mg/dL (74-99); Non-African American GFR(CKD) 33 (>60 ml/min/1.73 sqM); Potassium 4.5 mmol/L (3.5-5.1); Sodium 132 mmol/L (137-145)
[2023-02-21 08:40] LABS: Eosinophils # (M) 0.02 k/uL (0-0.7); Lymphocytes # (M) 0.35 k/uL (1.0-4.8); Monocytes # (M) 0.11 k/uL (0-1.0); Neutrophils # (M) 0.62 k/uL (1.3-7.7); Neutrophils % (M) 56 %; Nucleated Red Blood Cells 0 /100 WBC (0-0); Total Cells Counted 100
[2023-02-21] MEDS: SODIUM BICARBONATE TAB 650 MG TAB PO SCH ×3 (10:22→19:39)
[2023-02-21] MEDS: TAMSULOSIN 0.4 MG CAP.ER.24H PO SCH (10:22)
[2023-02-21] MEDS: SODIUM CHLORIDE TAB 1 GM TAB PO SCH ×2 (10:22→20:18)
--- NOTE | 2023-02-21 11:12 | P.PN ---
Subjective Patient is seen in follow-up for acute kidney injury on chronic kidney disease. Renal function stable. Denies chest pain or shortness of breath. No vomiting or diarrhea. Oral intake fair. Hemodynamically stable. No changes overnight. Vital signs are stable. General: No acute distress. HEENT: Head exam is unremarkable. LUNGS: No audible rhonchi or wheezes. HEART: Rate and Rhythm are regular. ABDOMEN: Nontender. EXTREMITITES: No edema. Objective - Vital Signs Vital signs: Vital Signs Temp 98.8 F 02/21/23 08:00 Pulse 110 H 02/21/23 08:00 Resp 17 02/21/23 08:00 BP 102/65 02/21/23 08:00 Pulse Ox 97 02/21/23 08:00 FiO2 Intake & Output 02/20/23 02/21/23 02/21/23 18:59 06:59 18:59 Intake Total 180 120 Output Total 500 550 Balance -320 -430 Weight 71.214 kg Intake: Oral 180 120 Output: Urine 500 550 Other: Voiding Method External Catheter External Catheter # Bowel Movements 1 - Labs CBC & Chem 7: 02/21/23 07:29 02/21/23 07:29 Labs: Abnormal Lab Results - Last 24 Hours (Table) 02/20/23 02/21/23 02/21/23 Range/Units 06:30 07:29 07:29 WBC 1.1 L* (3.8-10.6) k/uL RBC 3.33 L (4.30-5.90) m/uL Hgb 9.3 L (13.0-17.5) gm/dL Hct 27.4 L (39.0-53.0) % Plt Count 29 L 44 L D (150-450) k/uL Neutrophils # (Manual) 0.62 L (1.3-7.7) k/uL Lymphocytes # (Manual) 0.35 L (1.0-4.8) k/uL Fibrinogen 156 L (200-500) mg/dL Sodium (137-145) mmol/L Carbon Dioxide (22-30) mmol/L BUN (9-20) mg/dL Creatinine (0.66-1.25) mg/dL Calcium (8.4-10.2) mg/dL 02/21/23 Range/Units 07:29 WBC (3.8-10.6) k/uL RBC (4.30-5.90) m/uL Hgb (13.0-17.5) gm/dL Hct (39.0-53.0) % Plt Count (150-450) k/uL Neutrophils # (Manual) (1.3-7.7) k/uL Lymphocytes # (Manual) (1.0-4.8) k/uL Fibrinogen (200-500) mg/dL Sodium 132 L (137-145) mmol/L Carbon Dioxide 20 L (22-30) mmol/L BUN 48 H (9-20) mg/dL Creatinine 1.86 H (0.66-1.25) mg/dL Calcium 8.0 L (8.4-10.2) mg/dL Assessment and Plan Plan: Assessment: 1. Acute kidney injury secondary to ATN. Renal function stable with creatinine at 1.86 today. No hydronephrosis noted on CAT scan. UA with trace protein. 2. Hyponatremia. 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 On sodium chloride tabs. Urine sodium 95 and urine osmolality 627. Cortisol level not low. TSH normal. 3. Pancytopenia status post bone marrow biopsy. 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 Oncology following. 4. Metabolic acidosis secondary to acute kidney injury and IV fluids maintained on oral bicarbonate. Better. 5. Chronic kidney disease stage IIIA with creatinine near 1.2 in 2017. Suspect nephrosclerosis. Plan: Encourage oral intake. Maintain salt tabs. 1500 mL fluid restriction. Avoid nephrotoxins. Continue to monitor renal function and urine output. Status post [facility] given February 19 and 02/21/2020
--- NOTE | 2023-02-21 13:04 | P.PN ---
Subjective Progress Note Date: 02/21/23 82-year-old gentleman with past medical history significant for hypertension, prostate cancer, history of CVA, osteoarthritis presents to the emergency department with worsening weakness and fatigue ongoing for the last 4 weeks. Patient was recently hospitalized and early January with significant weakness and blood count obtained at that time showed pancytopenia. Patient was scheduled to follow-up with hematology as outpatient however due to progressive weakness and failure to thrive patient decided to call EMS and was brought to the emergency for further evaluation. Patient had been complaining of associated weakness and exertional shortness of breath however he denied any fever, chest pain, nausea, vomiting, diarrhea. Patient to chart review mentioned to the emergency team that he lost about 20 pounds in the last few weeks * Workup initiated in ER include hepatology which were WBC of 2.8 hemoglobin 11.8 hematocrit 33 platelet count of 16,000 neutrophil count is 0.56 PT/INR off 12.8, 1.2 d-dimer of 5.91 * Patient had a VQ scan done which was negative for pulmonary embolism * Serum chemistry showed sodium 124 potassium 4.8, and Axert 12 BUNs 70 2.01 lactate of 3.5 bilirubin of 1.7 TSH within normal limits * Patient tested negative for influenza and RSV and Covid PCR * 02/10/23: Patient seen and evaluated bedside, appreciate input from oncology, CT abdomen pelvis reviewed, CT chest ordered continue to monitor for fever or chills of infection was of infection noted * 02/11/23 : Patient seen and evaluated bedside. Continue to monitor blood counts. DIC labs reviewed planning for bone marrow biopsy this hospital stay continue to monitor CBC. CT chest reviewed negative for intrathoracic mass * 02/12/23: Patient seen and evaluated at bedside accompanied with [id number], care plan discussed blood work reviewed platelet count 18,000. Hematology following plan for bone marrow biopsy secondary to impaired kidney function will request evaluation from nephrology as well * 02/13/23: Patient seen and evaluated bedside, [id number] at bedside care plan discussed. Episode of 97.5 temperature. Does have neutropenia along with pancytopenia. Started on IV cefepime blood cultures ordered infectious disease consulted as well will follow up on CRP and pro-calcitonin levels. CR P early in the hospital stay was normal pro-calcitonin was minimally elevated on 02/10 0.26 appreciate input from nephrology as well. Patient denies feeling sick, denies chills does complain of decreased appetite * 02/14/23: Patient seen and evaluated bedside, multiple family members at bedside including , [id number], daughter. Care plan discussed. Continue to monitor for fever. We'll follow up on bone marrow biopsy results. Continue prophylactic antibiotics secondary to neutropenia. Infectious disease following. We will daily monitor CBC and basic metabolic panel. CRP normal pro-calcitonin minimally elevated infection. Regarding discharge planning patient will be through the weekend potential discharge on Saturday once cleared by hematology I did to rehab or home depending on patient's condition. Patient encouraged increase oral intake mentation is alert and oriented 4 02/15. Patient seen and examined. Blood work and this morning showed WBC 0.8, hemoglobin 8.9, platelet count 23, sodium 128, potassium 4.3, BUN 46, creatinine 1.73. Vital signs temperature 98.2 heart rate 100, respirations 17, blood pressure 95/62. Family at the bedside, they're concerned patient has poor appetite. Not drinking enough water. 02/16. Patient seen and examined. Patient was working with physical therapy. States dizziness has improved. Blood work done this morning showed WBC 0.9, hemoglobin 9, platelet count 25, sodium 127, BUN 49, creatinine 1.66. Vital signs stable 02/17. Patient seen and examined. Labs were done this morning showed WBC of 0.9, hemoglobin 9.2, platelet count 30. Sodium 129, potassium 4.4, BUN 44, creatinine 1.73. Denies chest pain or shortness of breath 02/18. Patient seen and examined. WBC this morning is 1, hemoglobin 8.5, platelet count is 27, sodium is 1:30, BUN is 47, creatinine is 1.75. Laying comfortably in the bed. Denies any lightheadedness or dizziness. States she continues to feel better 02/19. Patient seen and examined. Blood work done this morning showed WBC 0.8, hemoglobin 9.4, platelet count 33, sodium 129, potassium 4.3, BUN 45, creatinine 1.61. Patient felt dizzy this morning while he was having a bowel movement, feels better now. 02/20. Patient seen and examined. states he feels much stronger. Blood work done this morning showed WBC 0.8, hemoglobin 8.9, sodium 1:30, potassium 4.3, BUN 50, creatinine 1.83. Complaining of swelling of left ankle 02/21. Patient seen and examined. Daughter is at the bedside. Lab work done this morning showed WBC 1.1, hemoglobin 9.3, platelet count 44, sodium 132, BUN 48, creatinine 1.86 REVIEW OF SYSTEMS: CONSTITUTIONAL: No fever,. CARDIOVASCULAR: No chest pain, no palpitations, no syncope. PULMONARY: No shortness of breath, no cough, GASTROINTESTINAL: No diarrhea, no nausea, no vomiting, no abdominal pain. NEUROLOGICAL: No headaches, no weakness, PHYSICAL EXAMINATION: GENERAL: The patient is alert and oriented x3, not in any acute distress. Chronically ill-looking HEENT: Pupils are round and equally reacting to light. EOMI. No scleral icterus. No conjunctival pallor. Normocephalic, atraumatic. No pharyngeal erythema. No thyromegaly. CARDIOVASCULAR: S1 and S2 present. No murmurs, rubs, or gallops. PULMONARY: Chest is clear to auscultation, no wheezing or crackles. ABDOMEN: Soft, nontender, nondistended, normoactive bowel sounds. No palpable organomegaly. MUSCULOSKELETAL: No joint swelling or deformity. EXTREMITIES: Left ankle swollen, no erythema NEUROLOGICAL: Gross neurological examination did not reveal any focal deficits. SKIN: No rashes. 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 Light chains were both elevated, ratio is equal. Peripheral smear is reported as pancytopenia with rare atypical lymphocytes present, myeloproliferative or myelodysplastic disorder. Biopsy results pending. Hematology oncology following, no need for transfusion on 02/21 * In regards to febrile neutropenia noted on 02/13, antibiotics discontinued, ID wants patient to be monitored off antibiotics * In regards to acute kidney injury , monitor renal functions, nephrology following * In regards to hyponatremia likely secondary to hypovolemia continue fluid restriction, salt tablets, received tolvaptan on 02/18 and 02/20, nephrology following * In regards to protein calorie malnutrition that reconsulted continue patient on regular diet * Physical therapy occupational therapy consulted>>PHOEBE likely by 02/17/23 Labs and medication were reviewed.. Continue same treatment. Continue with symptomatic treatment. Resume home medication. Monitor labs and vitals. DVT and GI prophylaxis. Further recommendations as per clinical course of the patient Dictation was produced using [employer] dictation software. please excuse any grammatical, word or spelling errors. Objective - Vital Signs Vital signs: Vital Signs Temp 98.8 F 02/21/23 08:00 Pulse 110 H 02/21/23 08:00 Resp 17 02/21/23 08:00 BP 102/65 02/21/23 08:00 Pulse Ox 97 02/21/23 08:00 FiO2 Intake & Output 02/20/23 02/21/23 02/21/23 18:59 06:59 18:59 Intake Total 180 120 Output Total 500 550 Balance -320 -430 Weight 71.214 kg Intake: Oral 180 120 Output: Urine 500 550 Other: Voiding Method External Catheter External Catheter # Bowel Movements 1 - Labs CBC & Chem 7: 02/21/23 07:29 02/21/23 07:29 Labs: Abnormal Lab Results - Last 24 Hours (Table) 02/21/23 02/21/23 02/21/23 Range/Units 07:29 07:29 07:29 WBC 1.1 L* (3.8-10.6) k/uL RBC 3.33 L (4.30-5.90) m/uL Hgb 9.3 L (13.0-17.5) gm/dL Hct 27.4 L (39.0-53.0) % Plt Count 44 L D (150-450) k/uL Neutrophils # (Manual) 0.62 L (1.3-7.7) k/uL Lymphocytes # (Manual) 0.35 L (1.0-4.8) k/uL Fibrinogen 156 L (200-500) mg/dL Sodium 132 L (137-145) mmol/L Carbon Dioxide 20 L (22-30) mmol/L BUN 48 H (9-20) mg/dL Creatinine 1.86 H (0.66-1.25) mg/dL Calcium 8.0 L (8.4-10.2) mg/dL
--- NOTE | 2023-02-21 13:33 | P.PN ---
Subjective Progress Note Date: 02/20/23 Principal diagnosis: Febrile neutropenia Patient is a 82-year-old male with a past medical history significant for hypertension osteoarthritis CVA TIA history of prostate cancer and UTI patient presenting to the hospital for evaluation generalized weakness and fatigue, patient did have low-grade fever also noticed to be leukopenia/neutropenia prompting this Infectious disease consultation On today's evaluation that is 02/20/2023, the patient continues to be afebrile , the patient is breathing comfortably on room air and denies any shortness of breath, the patient denies any chest pain and no cough or sputum production, patient denies abdominal pain and no nausea/vomiting or diarrhea , feeling better no new symptoms Patient white count is 0.8, creatinine is 1.83, blood culture has been negative Objective - Vital Signs Vital signs: Vital Signs Temp 98.4 F 02/20/23 08:00 Pulse 113 H 02/20/23 08:00 Resp 18 02/20/23 08:00 BP 108/76 02/20/23 08:00 Pulse Ox 96 02/20/23 08:00 FiO2 Intake & Output 02/19/23 02/20/23 02/20/23 18:59 06:59 18:59 Intake Total 1440 540 0 Output Total 550 450 Balance 890 90 0 Intake: Intake, IV Titration 900 Amount Sodium Chloride 0.9% 1, 900 000 ml @ 75 mls/hr IV . [id number] [facility] Rx#:[id number] Oral 540 540 0 Output: Urine 550 450 Other: Voiding Method External Catheter External Catheter # Bowel Movements 1 1 - Exam GENERAL DESCRIPTION: An elderly male lying in bed in no distress RESPIRATORY SYSTEM: Unlabored breathing , clear to auscultation anteriorly HEART: S1 S2 regular rate and rhythm , ABDOMEN: Soft , no tenderness EXTREMITIES: No edema feet - Labs CBC & Chem 7: 02/21/23 07:29 02/21/23 07:29 Labs: Abnormal Lab Results - Last 24 Hours (Table) 02/20/23 02/20/23 Range/Units 06:30 06:30 WBC 0.8 L* (3.8-10.6) k/uL RBC 3.10 L (4.30-5.90) m/uL Hgb 8.9 L (13.0-17.5) gm/dL Hct 25.2 L (39.0-53.0) % Sodium 130 L (137-145) mmol/L Carbon Dioxide 18 L (22-30) mmol/L BUN 50 H (9-20) mg/dL Creatinine 1.83 H (0.66-1.25) mg/dL Glucose 102 H (74-99) mg/dL Calcium 7.7 L (8.4-10.2) mg/dL Assessment and Plan (1) Febrile neutropenia Current Visit: Yes Status: Acute Code(s): D70.9 - NEUTROPENIA, UNSPECIFIED; R50.81 - FEVER PRESENTING WITH CONDITIONS CLASSIFIED ELSEWHERE SNOMED Code(s): 839001961 Plan: 1patient with pancytopenia with the first being leukopenic patient did have evidence of splenomegaly on CT abdominal pelvis but no evidence of any other lymphadenopathy did have a low-grade fever which could be more like related to underlying primary illness responsible for this pancytopenia and concern for possible hematological malignancy clinical suspicion is low for secondary infectious etiology as the patient does not look toxic CT chest was negative for pneumonia CT abdominal pelvis was negative for any acute intra-abdominal process 2- blood cultures are so far negative, patient did have a procalcitonin 0.13 and a CRP of 0.7 3-patient did have resolution of his fever and white count still low 4-patient does not look toxic and do not have any obvious focus of infection with negative culture and no fever. Patient is currently being monitored closely off antibiotic therapy Dictation was produced using [employer] dictation software. please excuse any grammatical, word or spelling errors. Time with Patient: Less than 30
--- NOTE | 2023-02-21 13:34 | P.PN ---
Subjective Progress Note Date: 02/21/23 Principal diagnosis: Febrile neutropenia Patient is a 82-year-old male with a past medical history significant for hypertension osteoarthritis CVA TIA history of prostate cancer and UTI patient presenting to the hospital for evaluation generalized weakness and fatigue, patient did have low-grade fever also noticed to be leukopenia/neutropenia prompting this Infectious disease consultation On today's evaluation that is 02/21/2023, the patient denies any fever or any chills , the patient is breathing comfortably on room air and no need for supplemental oxygen, the patient denies any chest pain or cough and no sputum production, patient denies abdominal pain and no nausea/vomiting or diarrhea , no new symptoms and feeling better Patient white count is 1.1, creatinine is 1.86, blood culture has been negative Objective - Vital Signs Vital signs: Vital Signs Temp 98.8 F 02/21/23 08:00 Pulse 110 H 02/21/23 08:00 Resp 17 02/21/23 08:00 BP 102/65 02/21/23 08:00 Pulse Ox 97 02/21/23 08:00 FiO2 Intake & Output 02/20/23 02/21/23 02/21/23 18:59 06:59 18:59 Intake Total 180 120 Output Total 500 550 Balance -320 -430 Weight 71.214 kg Intake: Oral 180 120 Output: Urine 500 550 Other: Voiding Method External Catheter External Catheter # Bowel Movements 1 - Exam GENERAL DESCRIPTION: An elderly male lying in bed in no distress RESPIRATORY SYSTEM: Unlabored breathing , clear to auscultation anteriorly HEART: S1 S2 regular rate and rhythm , ABDOMEN: Soft , no tenderness EXTREMITIES: No edema feet - Labs CBC & Chem 7: 02/21/23 07:29 02/21/23 07:29 Labs: Abnormal Lab Results - Last 24 Hours (Table) 02/21/23 02/21/23 02/21/23 Range/Units 07:29 07:29 07:29 WBC 1.1 L* (3.8-10.6) k/uL RBC 3.33 L (4.30-5.90) m/uL Hgb 9.3 L (13.0-17.5) gm/dL Hct 27.4 L (39.0-53.0) % Plt Count 44 L D (150-450) k/uL Neutrophils # (Manual) 0.62 L (1.3-7.7) k/uL Lymphocytes # (Manual) 0.35 L (1.0-4.8) k/uL Fibrinogen 156 L (200-500) mg/dL Sodium 132 L (137-145) mmol/L Carbon Dioxide 20 L (22-30) mmol/L BUN 48 H (9-20) mg/dL Creatinine 1.86 H (0.66-1.25) mg/dL Calcium 8.0 L (8.4-10.2) mg/dL Assessment and Plan (1) Febrile neutropenia Current Visit: Yes Status: Acute Code(s): D70.9 - NEUTROPENIA, UNSPECIFIED; R50.81 - FEVER PRESENTING WITH CONDITIONS CLASSIFIED ELSEWHERE SNOMED Code(s): 698961183 Plan: 1patient with pancytopenia with the first being leukopenic patient did have evidence of splenomegaly on CT abdominal pelvis but no evidence of any other lymphadenopathy did have a low-grade fever which could be more like related to underlying primary illness responsible for this pancytopenia and concern for possible hematological malignancy clinical suspicion is low for secondary infectious etiology as the patient does not look toxic CT chest was negative for pneumonia CT abdominal pelvis was negative for any acute intra-abdominal process 2- blood cultures are so far negative, patient did have a procalcitonin 0.13 and a CRP of 0.7 3-patient did have resolution of his fever and white count still low 4-patient does not look toxic and do not have any obvious focus of infection with negative culture and no fever. 5- Patient will be monitored closely off antibiotic therapy Family the bedside their questions were answered Dictation was produced using [employer] dictation software. please excuse any grammatical, word or spelling errors. Time with Patient: Less than 30
[2023-02-22 09:12] LABS: HCT 26.5 % (39.0-53.0); HGB 9.2 gm/dL (13.0-17.5); MCH 28.4 pg (25.0-35.0); MCHC 34.7 g/dL (31.0-37.0); MCV 81.7 fL (80.0-100.0); Mean Platelet Volume 11.2; RBC 3.24 m/uL (4.30-5.90); RDW 15.5 % (11.5-15.5)
[2023-02-22 09:21] LABS: Platelet Count 38 k/uL (150-450); WBC 1.2 k/uL (3.8-10.6)
[2023-02-22 09:32] LABS: ALT 39 U/L (4-49); AST 40 U/L (17-59); African American GFR (CKD) 34 (>60 ml/min/1.73 sqM); Albumin 2.1 g/dL (3.5-5.0); Alkaline Phosphatase 75 U/L (38-126); Anion Gap 7 mmol/L; Blood Urea Nitrogen 49 mg/dL (9-20); Carbon Dioxide 20 mmol/L (22-30); Chloride 103 mmol/L (98-107); Glucose 111 mg/dL (74-99); Non-African American GFR(CKD) 30 (>60 ml/min/1.73 sqM); Potassium 4.3 mmol/L (3.5-5.1); Sodium 130 mmol/L (137-145); Total Bilirubin 1.3 mg/dL (0.2-1.3); Total Protein 4.3 g/dL (6.3-8.2)
[2023-02-22] MEDS: SODIUM CHLORIDE TAB 1 GM TAB PO SCH ×2 (10:04→21:18)
[2023-02-22] MEDS: TAMSULOSIN 0.4 MG CAP.ER.24H PO SCH (10:04)
[2023-02-22] MEDS: LEVOTHYROXINE 50 MCG TAB PO SCH (10:04)
[2023-02-22] MEDS: SODIUM BICARBONATE TAB 650 MG TAB PO SCH ×3 (10:04→20:38)
--- NOTE | 2023-02-22 11:09 | P.PN ---
Subjective Patient is seen in follow-up for acute kidney injury on chronic kidney disease. Renal function slightly worse today. Denies chest pain or shortness of breath. No vomiting or diarrhea. Oral intake fair. Hemodynamically stable. No changes overnight. Vital signs are stable. General: No acute distress. HEENT: Head exam is unremarkable. LUNGS: No audible rhonchi or wheezes. HEART: Rate and Rhythm are regular. ABDOMEN: Nontender. EXTREMITITES: No edema. Objective - Vital Signs Vital signs: Vital Signs Temp 97.8 F 02/22/23 08:20 Pulse 105 H 02/22/23 08:20 Resp 17 02/22/23 08:20 BP 99/65 02/22/23 08:20 Pulse Ox 96 02/22/23 08:20 FiO2 Intake & Output 02/21/23 02/22/23 02/22/23 18:59 06:59 18:59 Intake Total 900 Output Total 600 900 Balance -600 -900 900 Intake: Oral 900 Output: Urine 600 900 Other: Voiding Method External Catheter External Catheter - Labs CBC & Chem 7: 02/22/23 08:27 02/22/23 08:27 Labs: Abnormal Lab Results - Last 24 Hours (Table) 02/22/23 02/22/23 Range/Units 08:27 08:27 WBC 1.2 L* (3.8-10.6) k/uL RBC 3.24 L (4.30-5.90) m/uL Hgb 9.2 L (13.0-17.5) gm/dL Hct 26.5 L (39.0-53.0) % Plt Count 38 L (150-450) k/uL Sodium 130 L (137-145) mmol/L Carbon Dioxide 20 L (22-30) mmol/L BUN 49 H (9-20) mg/dL Creatinine 2.02 H (0.66-1.25) mg/dL Glucose 111 H (74-99) mg/dL Calcium 8.0 L (8.4-10.2) mg/dL Total Protein 4.3 L (6.3-8.2) g/dL Albumin 2.1 L (3.5-5.0) g/dL Assessment and Plan Plan: Assessment: 1. Acute kidney injury secondary to ATN. Renal function slightly worse with creatinine 2.02 today. No hydronephrosis noted on CAT scan. UA with trace protein. 2. Hyponatremia. 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 On sodium chloride tabs. Urine sodium 95 and urine osmolality 627. Cortisol level not low. TSH normal. 3. Pancytopenia status post bone marrow biopsy. 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 Oncology following. 4. Metabolic acidosis secondary to acute kidney injury and IV fluids maintained on oral bicarbonate. 5. Chronic kidney disease stage IIIA with creatinine near 1.2 in 2017. Suspect nephrosclerosis. Plan: Encourage oral intake. Maintain salt tabs. 1500 mL fluid restriction. Avoid nephrotoxins. Continue to monitor renal function and urine output. Status post [facility] given February 19 and 02/21/2020
--- NOTE | 2023-02-22 13:10 | P.PN ---
Subjective Progress Note Date: 02/22/23 82-year-old gentleman with past medical history significant for hypertension, prostate cancer, history of CVA, osteoarthritis presents to the emergency department with worsening weakness and fatigue ongoing for the last 4 weeks. Patient was recently hospitalized and early January with significant weakness and blood count obtained at that time showed pancytopenia. Patient was scheduled to follow-up with hematology as outpatient however due to progressive weakness and failure to thrive patient decided to call EMS and was brought to the emergency for further evaluation. Patient had been complaining of associated weakness and exertional shortness of breath however he denied any fever, chest pain, nausea, vomiting, diarrhea. Patient to chart review mentioned to the emergency team that he lost about 20 pounds in the last few weeks * Workup initiated in ER include hepatology which were WBC of 2.8 hemoglobin 11.8 hematocrit 33 platelet count of 16,000 neutrophil count is 0.56 PT/INR off 12.8, 1.2 d-dimer of 5.91 * Patient had a VQ scan done which was negative for pulmonary embolism * Serum chemistry showed sodium 124 potassium 4.8, and Axert 12 BUNs 70 2.01 lactate of 3.5 bilirubin of 1.7 TSH within normal limits * Patient tested negative for influenza and RSV and Covid PCR * 02/10/23: Patient seen and evaluated bedside, appreciate input from oncology, CT abdomen pelvis reviewed, CT chest ordered continue to monitor for fever or chills of infection was of infection noted * 02/11/23 : Patient seen and evaluated bedside. Continue to monitor blood counts. DIC labs reviewed planning for bone marrow biopsy this hospital stay continue to monitor CBC. CT chest reviewed negative for intrathoracic mass * 02/12/23: Patient seen and evaluated at bedside accompanied with [id number], care plan discussed blood work reviewed platelet count 18,000. Hematology following plan for bone marrow biopsy secondary to impaired kidney function will request evaluation from nephrology as well * 02/13/23: Patient seen and evaluated bedside, [id number] at bedside care plan discussed. Episode of 97.5 temperature. Does have neutropenia along with pancytopenia. Started on IV cefepime blood cultures ordered infectious disease consulted as well will follow up on CRP and pro-calcitonin levels. CR P early in the hospital stay was normal pro-calcitonin was minimally elevated on 02/10 0.26 appreciate input from nephrology as well. Patient denies feeling sick, denies chills does complain of decreased appetite * 02/14/23: Patient seen and evaluated bedside, multiple family members at bedside including , [id number], daughter. Care plan discussed. Continue to monitor for fever. We'll follow up on bone marrow biopsy results. Continue prophylactic antibiotics secondary to neutropenia. Infectious disease following. We will daily monitor CBC and basic metabolic panel. CRP normal pro-calcitonin minimally elevated infection. Regarding discharge planning patient will be through the weekend potential discharge on Saturday once cleared by hematology I did to rehab or home depending on patient's condition. Patient encouraged increase oral intake mentation is alert and oriented 4 02/15. Patient seen and examined. Blood work and this morning showed WBC 0.8, hemoglobin 8.9, platelet count 23, sodium 128, potassium 4.3, BUN 46, creatinine 1.73. Vital signs temperature 98.2 heart rate 100, respirations 17, blood pressure 95/62. Family at the bedside, they're concerned patient has poor appetite. Not drinking enough water. 02/16. Patient seen and examined. Patient was working with physical therapy. States dizziness has improved. Blood work done this morning showed WBC 0.9, hemoglobin 9, platelet count 25, sodium 127, BUN 49, creatinine 1.66. Vital signs stable 02/17. Patient seen and examined. Labs were done this morning showed WBC of 0.9, hemoglobin 9.2, platelet count 30. Sodium 129, potassium 4.4, BUN 44, creatinine 1.73. Denies chest pain or shortness of breath 02/18. Patient seen and examined. WBC this morning is 1, hemoglobin 8.5, platelet count is 27, sodium is 1:30, BUN is 47, creatinine is 1.75. Laying comfortably in the bed. Denies any lightheadedness or dizziness. States she continues to feel better 02/19. Patient seen and examined. Blood work done this morning showed WBC 0.8, hemoglobin 9.4, platelet count 33, sodium 129, potassium 4.3, BUN 45, creatinine 1.61. Patient felt dizzy this morning while he was having a bowel movement, feels better now. 02/20. Patient seen and examined. states he feels much stronger. Blood work done this morning showed WBC 0.8, hemoglobin 8.9, sodium 1:30, potassium 4.3, BUN 50, creatinine 1.83. Complaining of swelling of left ankle 02/21. Patient seen and examined. Daughter is at the bedside. Lab work done this morning showed WBC 1.1, hemoglobin 9.3, platelet count 44, sodium 132, BUN 48, creatinine 1.86 02/22. Patient seen and examined. Denies any lethargy or weakness. Ambulating to the restroom on his own. Blood work showed WBC 1.2, hemoglobin 9.2, platelet count 38 sodium 1:30 BUN 49, creatinine 2.02 REVIEW OF SYSTEMS: CONSTITUTIONAL: No fever,. CARDIOVASCULAR: No chest pain, no palpitations, no syncope. PULMONARY: No shortness of breath, no cough, GASTROINTESTINAL: No diarrhea, no nausea, no vomiting, no abdominal pain. NEUROLOGICAL: No headaches, no weakness, PHYSICAL EXAMINATION: GENERAL: The patient is alert and oriented x3, not in any acute distress. Chronically ill-looking HEENT: Pupils are round and equally reacting to light. EOMI. No scleral icterus. No conjunctival pallor. Normocephalic, atraumatic. No pharyngeal erythema. No thyromegaly. CARDIOVASCULAR: S1 and S2 present. No murmurs, rubs, or gallops. PULMONARY: Chest is clear to auscultation, no wheezing or crackles. ABDOMEN: Soft, nontender, nondistended, normoactive bowel sounds. No palpable organomegaly. MUSCULOSKELETAL: No joint swelling or deformity. EXTREMITIES: Left ankle swollen, no erythema NEUROLOGICAL: Gross neurological examination did not reveal any focal deficits. SKIN: No rashes. 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 Light ch ains were both elevated, ratio is equal. Peripheral smear is reported as pancytopenia with rare atypical lymphocytes present, myeloproliferative or myelodysplastic disorder. Biopsy results pending. Hematology oncology following, no need for transfusion on 02/22 * In regards to febrile neutropenia noted on 02/13, antibiotics discontinued, ID wants patient to be monitored off antibiotics * In regards to acute kidney injury , monitor renal functions, encourage liberal oral hydration nephrology following * In regards to hyponatremia likely secondary to hypovolemia continue fluid restriction, salt tablets, received tolvaptan on 02/18 and 02/20, nephrology following * In regards to protein calorie malnutrition that reconsulted continue patient on regular diet * Physical therapy occupational therapy consulted>>PHOEBE likely by 02/17/23 Labs and medication were reviewed.. Continue same treatment. Continue with symptomatic treatment. Resume home medication. Monitor labs and vitals. DVT and GI prophylaxis. Further recommendations as per clinical course of the patient Dictation was produced using [employer] dictation software. please excuse any grammatical, word or spelling errors. Objective - Vital Signs Vital signs: Vital Signs Temp 97.8 F 02/22/23 08:20 Pulse 105 H 02/22/23 08:20 Resp 17 02/22/23 08:20 BP 99/65 02/22/23 08:20 Pulse Ox 96 02/22/23 08:20 FiO2 Intake & Output 02/21/23 02/22/23 02/22/23 18:59 06:59 18:59 Intake Total 900 Output Total 600 900 Balance -600 -900 900 Intake: Oral 900 Output: Urine 600 900 Other: Voiding Method External Catheter External Catheter - Labs CBC & Chem 7: 02/22/23 08:27 02/22/23 08:27 Labs: Abnormal Lab Results - Last 24 Hours (Table) 02/22/23 02/22/23 Range/Units 08:27 08:27 WBC 1.2 L* (3.8-10.6) k/uL RBC 3.24 L (4.30-5.90) m/uL Hgb 9.2 L (13.0-17.5) gm/dL Hct 26.5 L (39.0-53.0) % Plt Count 38 L (150-450) k/uL Sodium 130 L (137-145) mmol/L Carbon Dioxide 20 L (22-30) mmol/L BUN 49 H (9-20) mg/dL Creatinine 2.02 H (0.66-1.25) mg/dL Glucose 111 H (74-99) mg/dL Calcium 8.0 L (8.4-10.2) mg/dL Total Protein 4.3 L (6.3-8.2) g/dL Albumin 2.1 L (3.5-5.0) g/dL
[2023-02-23] MEDS: LEVOTHYROXINE 50 MCG TAB PO SCH (06:13)
[2023-02-23] MEDS: SODIUM CHLORIDE TAB 1 GM TAB PO SCH ×2 (09:08→19:39)
[2023-02-23] MEDS: TAMSULOSIN 0.4 MG CAP.ER.24H PO SCH (09:08)
[2023-02-23] MEDS: SODIUM BICARBONATE TAB 650 MG TAB PO SCH ×3 (09:08→19:39)
--- NOTE | 2023-02-23 11:12 | P.PN ---
Subjective Patient is seen in follow-up for acute kidney injury on chronic kidney disease. Denies chest pain or shortness of breath. No vomiting or diarrhea. Oral intake fair. Hemodynamically stable. No changes overnight. Vital signs are stable. General: No acute distress. HEENT: Head exam is unremarkable. LUNGS: No audible rhonchi or wheezes. HEART: Rate and Rhythm are regular. ABDOMEN: Nontender. EXTREMITITES: No edema. Objective - Vital Signs Vital signs: Vital Signs Temp 98.0 F 02/23/23 08:00 Pulse 106 H 02/23/23 08:00 Resp 16 02/23/23 08:00 BP 102/63 02/23/23 08:00 Pulse Ox 96 02/23/23 08:00 FiO2 Intake & Output 02/22/23 02/23/23 02/23/23 18:59 06:59 18:59 Intake Total 900 130 Output Total 400 500 Balance 500 -500 130 Intake: IV 10 Invasive Line 5 10 Oral 900 120 Output: Urine 400 500 Other: Voiding Method External Catheter External Catheter External Catheter # Bowel Movements 0 - Labs CBC & Chem 7: 02/22/23 08:27 02/22/23 08:27 Assessment and Plan Plan: Assessment: 1. Acute kidney injury secondary to ATN. Renal function slightly worse with creatinine 2.02 yesterday. No hydronephrosis noted on CAT scan. UA with trace protein. 2. Hyponatremia. 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 On sodium chloride tabs. Urine sodium 95 and urine osmolality 627. Cortisol level not low. TSH normal. 3. Pancytopenia status post bone marrow biopsy. 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 Oncology following. 4. Metabolic acidosis secondary to acute kidney injury and IV fluids maintained on oral bicarbonate. 5. Chronic kidney disease stage IIIA with creatinine near 1.2 in 2017. Suspect nephrosclerosis. Plan: Encourage oral intake. Maintain salt tabs. 1500 mL fluid restriction. Avoid nephrotoxins. Continue to monitor renal function and urine output. Status post [facility] given February 19 and 02/21/2020 Repeat labs in AM.
--- NOTE | 2023-02-23 13:31 | P.PN ---
Subjective Progress Note Date: 02/23/23 82-year-old gentleman with past medical history significant for hypertension, prostate cancer, history of CVA, osteoarthritis presents to the emergency department with worsening weakness and fatigue ongoing for the last 4 weeks. Patient was recently hospitalized and early January with significant weakness and blood count obtained at that time showed pancytopenia. Patient was scheduled to follow-up with hematology as outpatient however due to progressive weakness and failure to thrive patient decided to call EMS and was brought to the emergency for further evaluation. Patient had been complaining of associated weakness and exertional shortness of breath however he denied any fever, chest pain, nausea, vomiting, diarrhea. Patient to chart review mentioned to the emergency team that he lost about 20 pounds in the last few weeks * Workup initiated in ER include hepatology which were WBC of 2.8 hemoglobin 11.8 hematocrit 33 platelet count of 16,000 neutrophil count is 0.56 PT/INR off 12.8, 1.2 d-dimer of 5.91 * Patient had a VQ scan done which was negative for pulmonary embolism * Serum chemistry showed sodium 124 potassium 4.8, and Axert 12 BUNs 70 2.01 lactate of 3.5 bilirubin of 1.7 TSH within normal limits * Patient tested negative for influenza and RSV and Covid PCR * 02/10/23: Patient seen and evaluated bedside, appreciate input from oncology, CT abdomen pelvis reviewed, CT chest ordered continue to monitor for fever or chills of infection was of infection noted * 02/11/23 : Patient seen and evaluated bedside. Continue to monitor blood counts. DIC labs reviewed planning for bone marrow biopsy this hospital stay continue to monitor CBC. CT chest reviewed negative for intrathoracic mass * 02/12/23: Patient seen and evaluated at bedside accompanied with [id number], care plan discussed blood work reviewed platelet count 18,000. Hematology following plan for bone marrow biopsy secondary to impaired kidney function will request evaluation from nephrology as well * 02/13/23: Patient seen and evaluated bedside, [id number] at bedside care plan discussed. Episode of 97.5 temperature. Does have neutropenia along with pancytopenia. Started on IV cefepime blood cultures ordered infectious disease consulted as well will follow up on CRP and pro-calcitonin levels. CR P early in the hospital stay was normal pro-calcitonin was minimally elevated on 02/10 0.26 appreciate input from nephrology as well. Patient denies feeling sick, denies chills does complain of decreased appetite * 02/14/23: Patient seen and evaluated bedside, multiple family members at bedside including , [id number], daughter. Care plan discussed. Continue to monitor for fever. We'll follow up on bone marrow biopsy results. Continue prophylactic antibiotics secondary to neutropenia. Infectious disease following. We will daily monitor CBC and basic metabolic panel. CRP normal pro-calcitonin minimally elevated infection. Regarding discharge planning patient will be through the weekend potential discharge on Saturday once cleared by hematology I did to rehab or home depending on patient's condition. Patient encouraged increase oral intake mentation is alert and oriented 4 02/15. Patient seen and examined. Blood work and this morning showed WBC 0.8, hemoglobin 8.9, platelet count 23, sodium 128, potassium 4.3, BUN 46, creatinine 1.73. Vital signs temperature 98.2 heart rate 100, respirations 17, blood pressure 95/62. Family at the bedside, they're concerned patient has poor appetite. Not drinking enough water. 02/16. Patient seen and examined. Patient was working with physical therapy. States dizziness has improved. Blood work done this morning showed WBC 0.9, hemoglobin 9, platelet count 25, sodium 127, BUN 49, creatinine 1.66. Vital signs stable 02/17. Patient seen and examined. Labs were done this morning showed WBC of 0.9, hemoglobin 9.2, platelet count 30. Sodium 129, potassium 4.4, BUN 44, creatinine 1.73. Denies chest pain or shortness of breath 02/18. Patient seen and examined. WBC this morning is 1, hemoglobin 8.5, platelet count is 27, sodium is 1:30, BUN is 47, creatinine is 1.75. Laying comfortably in the bed. Denies any lightheadedness or dizziness. States she continues to feel better 02/19. Patient seen and examined. Blood work done this morning showed WBC 0.8, hemoglobin 9.4, platelet count 33, sodium 129, potassium 4.3, BUN 45, creatinine 1.61. Patient felt dizzy this morning while he was having a bowel movement, feels better now. 02/20. Patient seen and examined. states he feels much stronger. Blood work done this morning showed WBC 0.8, hemoglobin 8.9, sodium 1:30, potassium 4.3, BUN 50, creatinine 1.83. Complaining of swelling of left ankle 02/21. Patient seen and examined. Daughter is at the bedside. Lab work done this morning showed WBC 1.1, hemoglobin 9.3, platelet count 44, sodium 132, BUN 48, creatinine 1.86 02/22. Patient seen and examined. Denies any lethargy or weakness. Ambulating to the restroom on his own. Blood work showed WBC 1.2, hemoglobin 9.2, platelet count 38 sodium 1:30 BUN 49, creatinine 2.02 02/23. Patient seen and examined. Laying comfortably in the bed. Denies any lightheadedness or dizziness. No acute issues overnight REVIEW OF SYSTEMS: CONSTITUTIONAL: No fever,. CARDIOVASCULAR: No chest pain, no palpitations, no syncope. PULMONARY: No shortness of breath, no cough, GASTROINTESTINAL: No diarrhea, no nausea, no vomiting, no abdominal pain. NEUROLOGICAL: No headaches, no weakness, PHYSICAL EXAMINATION: GENERAL: The patient is alert and oriented x3, not in any acute distress. Chronically ill-looking HEENT: Pupils are round and equally reacting to light. EOMI. No scleral icterus. No conjunctival pallor. Normocephalic, atraumatic. No pharyngeal erythema. No thyromegaly. CARDIOVASCULAR: S1 and S2 present. No murmurs, rubs, or gallops. PULMONARY: Chest is clear to auscultation, no wheezing or crackles. ABDOMEN: Soft, nontender, nondistended, normoactive bowel sounds. No palpable organomegaly. MUSCULOSKELETAL: No joint swelling or deformity. EXTREMITIES: Left ankle swollen, no erythema NEUROLOGICAL: Gross neurological examination did not reveal any focal deficits. SKIN: No rashes. 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 Light chains were both elevated, ratio is equal. Peripheral smear is reported as pancytopenia with rare atypical lymphocytes present, myeloproliferative or myelodysplastic disorder. Biopsy results pending. Hematology oncology following, no need for transfusion on 02/23 * In regards to febrile neutropenia noted on 02/13, antibiotics discontinued, ID wants patient to be monitored off antibiotics * In regards to acute kidney injury , monitor renal functions, encourage liberal oral hydration nephrology following * In regards to hyponatremia likely secondary to hypovolemia continue fluid restriction, salt tablets, received tolvaptan on 02/18 and 02/20, nephrology following * In regards to protein calorie malnutrition that reconsulted continue patient on regular diet * Physical therapy occupational therapy consulted>>PHOEBE likely by 02/17/23 Labs and medication were reviewed.. Continue same treatment. Continue with symptomatic treatment. Resume home medication. Monitor labs and vitals. DVT and GI prophylaxis. Further recommendations as per clinical course of the patient Dictation was produced using [employer] dictation software. please excuse any grammatical, word or spelling errors. Objective - Vital Signs Vital signs: Vital Signs Temp 98.0 F 02/23/23 08:00 Pulse 106 H 02/23/23 08:00 Resp 16 02/23/23 08:00 BP 102/63 02/23/23 08:00 Pulse Ox 96 02/23/23 08:00 FiO2 Intake & Output 02/22/23 02/23/23 02/23/23 18:59 06:59 18:59 Intake Total 900 130 Output Total 400 500 Balance 500 -500 130 Intake: IV 10 Invasive Line 5 10 Oral 900 120 Output: Urine 400 500 Other: Voiding Method External Catheter External Catheter # Bowel Movements 0 - Labs CBC & Chem 7: 02/22/23 08:27 02/22/23 08:27
[2023-02-24] MEDS: LEVOTHYROXINE 50 MCG TAB PO SCH (06:12)
[2023-02-24] MEDS: SODIUM BICARBONATE TAB 650 MG TAB PO SCH ×3 (08:12→22:17)
[2023-02-24] MEDS: SODIUM CHLORIDE TAB 1 GM TAB PO SCH ×2 (08:12→22:17)
[2023-02-24] MEDS: TAMSULOSIN 0.4 MG CAP.ER.24H PO SCH (08:12)
[2023-02-24 10:02] LABS: HCT 26.9 % (39.0-53.0); HGB 9.2 gm/dL (13.0-17.5); MCH 28.5 pg (25.0-35.0); MCHC 34.2 g/dL (31.0-37.0); MCV 83.2 fL (80.0-100.0); Mean Platelet Volume 9.3; Platelet Count 44 k/uL (150-450); RBC 3.23 m/uL (4.30-5.90); RDW 15.6 % (11.5-15.5)
[2023-02-24 10:17] LABS: ALT 33 U/L (4-49); AST 35 U/L (17-59); African American GFR (CKD) 36 (>60 ml/min/1.73 sqM); Alkaline Phosphatase 71 U/L (38-126); Anion Gap 7 mmol/L; Blood Urea Nitrogen 52 mg/dL (9-20); Calcium 7.7 mg/dL (8.4-10.2); Carbon Dioxide 20 mmol/L (22-30); Chloride 105 mmol/L (98-107); Glucose 98 mg/dL (74-99); Non-African American GFR(CKD) 31 (>60 ml/min/1.73 sqM); Potassium 4.2 mmol/L (3.5-5.1); Sodium 132 mmol/L (137-145); Total Bilirubin 1.5 mg/dL (0.2-1.3); Total Protein 4.1 g/dL (6.3-8.2)
[2023-02-24 10:21] LABS: WBC 1.1 k/uL (3.8-10.6)
[2023-02-24] MEDS ORDERED: LACTULOSE 20 GM/30 ML CUP PO PRN (11:20)
--- NOTE | 2023-02-24 11:20 | P.PN ---
Subjective Patient is seen in follow-up for acute kidney injury on chronic kidney disease. Denies chest pain or shortness of breath. No vomiting or diarrhea. Oral intake fair. Hemodynamically stable. Renal function stable. Admits to constipation. Vital signs are stable. General: No acute distress. HEENT: Head exam is unremarkable. LUNGS: No audible rhonchi or wheezes. HEART: Rate and Rhythm are regular. ABDOMEN: Nontender. EXTREMITITES: No edema. Objective - Vital Signs Vital signs: Vital Signs Temp 97.5 F L 02/24/23 08:02 Pulse 91 02/24/23 08:02 Resp 16 02/24/23 08:02 BP 127/77 02/24/23 08:02 Pulse Ox 95 02/24/23 08:02 FiO2 Intake & Output 02/23/23 02/24/23 02/24/23 19:59 06:59 18:59 Intake Total 250 Output Total 200 Balance 50 Intake: IV 10 Invasive Line 5 10 Oral 240 Output: Urine 200 Other: Voiding Method External Catheter # Bowel Movements - Labs CBC & Chem 7: 02/24/23 09:15 02/24/23 09:15 Labs: Abnormal Lab Results - Last 24 Hours (Table) 02/24/23 02/24/23 Range/Units 09:15 09:15 WBC 1.1 L* (3.8-10.6) k/uL RBC 3.23 L (4.30-5.90) m/uL Hgb 9.2 L (13.0-17.5) gm/dL Hct 26.9 L (39.0-53.0) % RDW 15.6 H (11.5-15.5) % Plt Count 44 L (150-450) k/uL Sodium 132 L (137-145) mmol/L Carbon Dioxide 20 L (22-30) mmol/L BUN 52 H (9-20) mg/dL Creatinine 1.94 H (0.66-1.25) mg/dL Calcium 7.7 L (8.4-10.2) mg/dL Total Bilirubin 1.5 H (0.2-1.3) mg/dL Total Protein 4.1 L (6.3-8.2) g/dL Albumin 2.0 L (3.5-5.0) g/dL Assessment and Plan Plan: Assessment: 1. Acute kidney injury secondary to ATN. Renal function stable. No hydronephrosis noted on CAT scan. UA with trace protein. 2. Hyponatremia. 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 On sodium chlori de tabs. Urine sodium 95 and urine osmolality 627. Cortisol level not low. TSH normal. 3. Pancytopenia status post bone marrow biopsy. 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 Oncology following. 4. Metabolic acidosis secondary to acute kidney injury and IV fluids maintained on oral bicarbonate. 5. Chronic kidney disease stage IIIA with creatinine near 1.2 in 2017. Suspect nephrosclerosis. 6. Constipation. Plan: Encourage oral intake. Maintain salt tabs. 1500 mL fluid restriction. Avoid nephrotoxins. Continue to monitor renal function and urine output. [place] [facility] [place] 19 and 02/21/2020 Add lactulose as needed for constipation.
--- NOTE | 2023-02-24 13:20 | P.PN ---
Subjective Progress Note Date: 02/22/23 Principal diagnosis: Febrile neutropenia Patient is a 82-year-old male with a past medical history significant for hypertension osteoarthritis CVA TIA history of prostate cancer and UTI patient presenting to the hospital for evaluation generalized weakness and fatigue, patient did have low-grade fever also noticed to be leukopenia/neutropenia prompting this Infectious disease consultation On today's evaluation that is 02/22/2023, the patient remains to be afebrile, the patient is breathing comfortably on room air and denies any shortness of breath, the patient denies any chest pain or cough, patient denies nausea/vomiting or diarrhea and no abdominal pain, no new symptoms Patient white count is 1.2, creatinine is 2.02, blood culture has been negative Objective - Vital Signs Vital signs: Vital Signs Temp 97.8 F 02/22/23 08:20 Pulse 105 H 02/22/23 08:20 Resp 17 02/22/23 08:20 BP 99/65 02/22/23 08:20 Pulse Ox 96 02/22/23 08:20 FiO2 Intake & Output 02/21/23 02/22/23 02/22/23 18:59 06:59 18:59 Intake Total 900 Output Total 600 900 Balance -600 -900 900 Intake: Oral 900 Output: Urine 600 900 Other: Voiding Method External Catheter External Catheter - Exam GENERAL DESCRIPTION: An elderly male lying in bed in no distress RESPIRATORY SYSTEM: Unlabored breathing , clear to auscultation anteriorly HEART: S1 S2 regular rate and rhythm , ABDOMEN: Soft , no tenderness EXTREMITIES: No edema feet - Labs CBC & Chem 7: 02/24/23 09:15 02/24/23 09:15 Labs: Abnormal Lab Results - Last 24 Hours (Table) 02/22/23 02/22/23 Range/Units 08:27 08:27 WBC 1.2 L* (3.8-10.6) k/uL RBC 3.24 L (4.30-5.90) m/uL Hgb 9.2 L (13.0-17.5) gm/dL Hct 26.5 L (39.0-53.0) % Plt Count 38 L (150-450) k/uL Sodium 130 L (137-145) mmol/L Carbon Dioxide 20 L (22-30) mmol/L BUN 49 H (9-20) mg/dL Creatinine 2.02 H (0.66-1.25) mg/dL Glucose 111 H (74-99) mg/dL Calcium 8.0 L (8.4-10.2) mg/dL Total Protein 4.3 L (6.3-8.2) g/dL Albumin 2.1 L (3.5-5.0) g/dL Assessment and Plan (1) Febrile neutropenia Current Visit: Yes Status: Acute Code(s): D70.9 - NEUTROPENIA, UNSPECIFIED; R50.81 - FEVER PRESENTING WITH CONDITIONS CLASSIFIED ELSEWHERE SNOMED Code(s): 379377386 Plan: 1patient with pancytopenia with the first being leukopenic patient did have evidence of splenomegaly on CT abdominal pelvis but no evidence of any other lymphadenopathy did have a low-grade fever which could be more like related to underlying primary illness responsible for this pancytopenia and concern for po ssible hematological malignancy clinical suspicion is low for secondary infectious etiology as the patient does not look toxic CT chest was negative for pneumonia CT abdominal pelvis was negative for any acute intra-abdominal process 2- blood cultures are so far negative, patient did have a procalcitonin 0.13 and a CRP of 0.7 3-patient did have resolution of his fever and white count still low 4-patient is currently being monitored closely off antibiotic therapy Dictation was produced using [employer] dictation software. please excuse any grammatical, word or spelling errors. Time with Patient: Less than 30
--- NOTE | 2023-02-24 13:22 | P.PN ---
Subjective Progress Note Date: 02/23/23 Principal diagnosis: Febrile neutropenia Patient is a 82-year-old male with a past medical history significant for hypertension osteoarthritis CVA TIA history of prostate cancer and UTI patient presenting to the hospital for evaluation generalized weakness and fatigue, patient did have low-grade fever also noticed to be leukopenia/neutropenia prompting this Infectious disease consultation On today's evaluation that is 02/23/2023, the patient continues to be afebrile, the patient is breathing comfortably on room air and denies chest pain or cough, patient denies nausea/vomiting or diarrhea and no abdominal pain, no new symptoms Patient white count is 1.2, creatinine is 2.02 as of yesterday no lab draw today, blood culture has been negative Objective - Vital Signs Vital signs: Vital Signs Temp 98 F 02/23/23 19:35 Pulse 95 02/23/23 19:35 Resp 18 02/23/23 19:35 BP 120/77 02/23/23 19:35 Pulse Ox 93 L 02/23/23 19:35 FiO2 Intake & Output 02/23/23 02/23/23 02/24/23 06:59 18:59 05:59 Intake Total 130 Output Total 500 200 Balance -500 -70 Intake: IV 10 Invasive Line 5 10 Oral 120 Output: Urine 500 200 Other: Voiding Method External Catheter External Catheter External Catheter # Bowel Movements 0 - Exam GENERAL DESCRIPTION: An elderly male lying in bed in no distress RESPIRATORY SYSTEM: Unlabored breathing , clear to auscultation anteriorly HEART: S1 S2 regular rate and rhythm , ABDOMEN: Soft , no tenderness EXTREMITIES: No edema feet - Labs CBC & Chem 7: 02/24/23 09:15 02/24/23 09:15 Assessment and Plan (1) Febrile neutropenia Current Visit: Yes Status: Acute Code(s): D70.9 - NEUTROPENIA, UNSPECIFIED; R50.81 - FEVER PRESENTING WITH CONDITIONS CLASSIFIED ELSEWHERE SNOMED Code(s): 487186404 Plan: 1patient with pancytopenia with the first being leukopenic patient did have evidence of splenomegaly on CT abdominal pelvis but no evidence of any other lymphadenopathy did have a low-grade fever which could be more like related to underlying primary illness responsible for this pancytopenia and concern for possible hematological malignancy clinical suspicion is low for secondary infectious etiology as the patient does not look toxic CT chest was negative for pneumonia CT abdominal pelvis was negative for any acute intra-abdominal process 2- blood cultures are so far negative, patient did have a procalcitonin 0.13 and a CRP of 0.7 3-patient did have resolution of his fever and white count still low , however the patient doesn't look toxic and seemed to be doing well off antibiotic therapy Dictation was produced using [employer] dictation software. please excuse any grammatical, word or spelling errors. Time with Patient: Less than 30
--- NOTE | 2023-02-24 13:23 | P.PN ---
Subjective Progress Note Date: 02/24/23 Principal diagnosis: Febrile neutropenia Patient is a 82-year-old male with a past medical history significant for hypertension osteoarthritis CVA TIA history of prostate cancer and UTI patient presenting to the hospital for evaluation generalized weakness and fatigue, patient did have low-grade fever also noticed to be leukopenia/neutropenia prompting this Infectious disease consultation On today's evaluation that is 02/24/2023, the patient denies any fever or any chills, the patient is breathing comfortably on room air and no need for supplemental oxygen, the patient denies any chest pain and no cough or sputum production, patient denies Abdominal pain and no nausea/vomiting or diarrhea Patient white count is 1.1, creatinine is 1.94, blood culture has been negative Objective - Vital Signs Vital signs: Vital Signs Temp 97.4 F L 02/24/23 12:00 Pulse 110 H 02/24/23 12:00 Resp 18 02/24/23 12:00 BP 108/73 02/24/23 12:00 Pulse Ox 97 02/24/23 12:00 FiO2 Intake & Output 02/23/23 02/24/23 02/24/23 19:59 06:59 18:59 Intake Total 250 Output Total 200 Balance 50 Intake: IV 10 Invasive Line 5 10 Oral 240 Output: Urine 200 Other: Voiding Method External Catheter # Voids 1 # Bowel Movements 1 - Exam GENERAL DESCRIPTION: An elderly male lying in bed in no distress RESPIRATORY SYSTEM: Unlabored breathing , clear to auscultation anteriorly HEART: S1 S2 regular rate and rhythm , ABDOMEN: Soft , no tenderness EXTREMITIES: No edema feet - Labs CBC & Chem 7: 02/24/23 09:15 02/24/23 09:15 Labs: Abnormal Lab Results - Last 24 Hours (Table) 02/24/23 02/24/23 Range/Units 09:15 09:15 WBC 1.1 L* (3.8-10.6) k/uL RBC 3.23 L (4.30-5.90) m/uL Hgb 9.2 L (13.0-17.5) gm/dL Hct 26.9 L (39.0-53.0) % RDW 15.6 H (11.5-15.5) % Plt Count 44 L (150-450) k/uL Sodium 132 L (137-145) mmol/L Carbon Dioxide 20 L (22-30) mmol/L BUN 52 H (9-20) mg/dL Creatinine 1.94 H (0.66-1.25) mg/dL Calcium 7.7 L (8.4-10.2) mg/dL Total Bilirubin 1.5 H (0.2-1.3) mg/dL Total Protein 4.1 L (6.3-8.2) g/dL Albumin 2.0 L (3.5-5.0) g/dL Assessment and Plan (1) Febrile neutropenia Current Visit: Yes Status: Acute Code(s): D70.9 - NEUTROPENIA, UNSPECIFIED; R50.81 - FEVER PRESENTING WITH CONDITIONS CLASSIFIED ELSEWHERE SNOMED Code(s): 901865465 Plan: 1patient with pancytopenia with the first being leukopenic patient did have evidence of splenomegaly on CT abdominal pelvis but no evidence of any other lymphadenopathy did have a low-grade fever which could be more like related to underlying primary illness responsible for this pancytopenia and concern for possible hematological malignancy clinical suspicion is low for secondary infectious etiology as the patient does not look toxic CT chest was negative for pneumonia CT abdominal pelvis was negative for any acute intra-abdominal process 2- blood cultures are so far negative, patient did have a procalcitonin 0.13 and a CRP of 0.7 3-patient did have resolution of his fever, the patient doesn't look toxic and seemed to be doing well off antibiotic therapy, will be monitored closely Family the bedside questions were answered Dictation was produced using [employer] dictation software. please excuse any grammatical, word or spelling errors. Time with Patient: Less than 30
--- NOTE | 2023-02-24 13:42 | P.PN ---
Subjective Progress Note Date: 02/24/23 82-year-old gentleman with past medical history significant for hypertension, prostate cancer, history of CVA, osteoarthritis presents to the emergency department with worsening weakness and fatigue ongoing for the last 4 weeks. Patient was recently hospitalized and early January with significant weakness and blood count obtained at that time showed pancytopenia. Patient was scheduled to follow-up with hematology as outpatient however due to progressive weakness and failure to thrive patient decided to call EMS and was brought to the emergency for further evaluation. Patient had been complaining of associated weakness and exertional shortness of breath however he denied any fever, chest pain, nausea, vomiting, diarrhea. Patient to chart review mentioned to the emergency team that he lost about 20 pounds in the last few weeks * Workup initiated in ER include hepatology which were WBC of 2.8 hemoglobin 11.8 hematocrit 33 platelet count of 16,000 neutrophil count is 0.56 PT/INR off 12.8, 1.2 d-dimer of 5.91 * Patient had a VQ scan done which was negative for pulmonary embolism * Serum chemistry showed sodium 124 potassium 4.8, and Axert 12 BUNs 70 2.01 lactate of 3.5 bilirubin of 1.7 TSH within normal limits * Patient tested negative for influenza and RSV and Covid PCR * 02/10/23: Patient seen and evaluated bedside, appreciate input from oncology, CT abdomen pelvis reviewed, CT chest ordered continue to monitor for fever or chills of infection was of infection noted * 02/11/23 : Patient seen and evaluated bedside. Continue to monitor blood counts. DIC labs reviewed planning for bone marrow biopsy this hospital stay continue to monitor CBC. CT chest reviewed negative for intrathoracic mass * 02/12/23: Patient seen and evaluated at bedside accompanied with [id number], care plan discussed blood work reviewed platelet count 18,000. Hematology following plan for bone marrow biopsy secondary to impaired kidney function will request evaluation from nephrology as well * 02/13/23: Patient seen and evaluated bedside, [id number] at bedside care plan discussed. Episode of 97.5 temperature. Does have neutropenia along with pancytopenia. Started on IV cefepime blood cultures ordered infectious disease consulted as well will follow up on CRP and pro-calcitonin levels. CR P early in the hospital stay was normal pro-calcitonin was minimally elevated on 02/10 0.26 appreciate input from nephrology as well. Patient denies feeling sick, denies chills does complain of decreased appetite * 02/14/23: Patient seen and evaluated bedside, multiple family members at bedside including , [id number], daughter. Care plan discussed. Continue to monitor for fever. We'll follow up on bone marrow biopsy results. Continue prophylactic antibiotics secondary to neutropenia. Infectious disease following. We will daily monitor CBC and basic metabolic panel. CRP normal pro-calcitonin minimally elevated infection. Regarding discharge planning patient will be through the weekend potential discharge on Saturday once cleared by hematology I did to rehab or home depending on patient's condition. Patient encouraged increase oral intake mentation is alert and oriented 4 02/15. Patient seen and examined. Blood work and this morning showed WBC 0.8, hemoglobin 8.9, platelet count 23, sodium 128, potassium 4.3, BUN 46, creatinine 1.73. Vital signs temperature 98.2 heart rate 100, respirations 17, blood pressure 95/62. Family at the bedside, they're concerned patient has poor appetite. Not drinking enough water. 02/16. Patient seen and examined. Patient was working with physical therapy. States dizziness has improved. Blood work done this morning showed WBC 0.9, hemoglobin 9, platelet count 25, sodium 127, BUN 49, creatinine 1.66. Vital signs stable 02/17. Patient seen and examined. Labs were done this morning showed WBC of 0.9, hemoglobin 9.2, platelet count 30. Sodium 129, potassium 4.4, BUN 44, creatinine 1.73. Denies chest pain or shortness of breath 02/18. Patient seen and examined. WBC this morning is 1, hemoglobin 8.5, platelet count is 27, sodium is 1:30, BUN is 47, creatinine is 1.75. Laying comfortably in the bed. Denies any lightheadedness or dizziness. States she continues to feel better 02/19. Patient seen and examined. Blood work done this morning showed WBC 0.8, hemoglobin 9.4, platelet count 33, sodium 129, potassium 4.3, BUN 45, creatinine 1.61. Patient felt dizzy this morning while he was having a bowel movement, feels better now. 02/20. Patient seen and examined. states he feels much stronger. Blood work done this morning showed WBC 0.8, hemoglobin 8.9, sodium 1:30, potassium 4.3, BUN 50, creatinine 1.83. Complaining of swelling of left ankle 02/21. Patient seen and examined. Daughter is at the bedside. Lab work done this morning showed WBC 1.1, hemoglobin 9.3, platelet count 44, sodium 132, BUN 48, creatinine 1.86 02/22. Patient seen and examined. Denies any lethargy or weakness. Ambulating to the restroom on his own. Blood work showed WBC 1.2, hemoglobin 9.2, platelet count 38 sodium 1:30 BUN 49, creatinine 2.02 02/23. Patient seen and examined. Laying comfortably in the bed. Denies any lightheadedness or dizziness. No acute issues overnight 02/24. Patient seen and examined. Lab work showed WBC 1.1, hemoglobin 9.2, platelet count 44, sodium 132, BUN 52, creatinine 1.94. States he feels better. No issues overnight REVIEW OF SYSTEMS: CONSTITUTIONAL: No fever,. CARDIOVASCULAR: No chest pain, no palpitations, no syncope. PULMONARY: No shortness of breath, no cough, GASTROINTESTINAL: No diarrhea, no nausea, no vomiting, no abdominal pain. NEUROLOGICAL: No headaches, no weakness, PHYSICAL EXAMINATION: GENERAL: The patient is alert and oriented x3, not in any acute distress. Chronically ill-looking HEENT: Pupils are round and equally reacting to light. EOMI. No scleral icterus. No conjunctival pallor. Normocephalic, atraumatic. No pharyngeal erythema. No thyromegaly. CARDIOVASCULAR: S1 and S2 present. No murmurs, rubs, or gallops. PULMONARY: Chest is clear to auscultation, no wheezing or crackles. ABDOMEN: Soft, nontender, nondistended, normoactive bowel sounds. No palpable organomegaly. MUSCULOSKELETAL: No joint swelling or deformity. EXTREMITIES: Left ankle swollen, no erythema NEUROLOGICAL: Gross neurological examination did not reveal any focal deficits. SKIN: No rashes. 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 Light chains were both elevated, ratio is equal. Peripheral smear is reported as pancytopenia with rare atypical lymphocytes present, myeloproliferative or myelodysplastic disorder. Biopsy results pending. Hematology oncology following, no need for transfusion on 02/24 * In regards to febrile neutropenia noted on 02/13, antibiotics discontinued, ID wants patient to be monitored off antibiotics * In regards to acute kidney injury , monitor renal functions, encourage liberal oral hydration nephrology following * In regards to hyponatremia likely secondary to hypovolemia continue fluid re striction, salt tablets, received tolvaptan on 02/18 and 02/20, nephrology following * In regards to protein calorie malnutrition that reconsulted continue patient on regular diet * Physical therapy occupational therapy consulted>>PHOEBE likely by 02/17/23 Labs and medication were reviewed.. Continue same treatment. Continue with symptomatic treatment. Resume home medication. Monitor labs and vitals. DVT and GI prophylaxis. Further recommendations as per clinical course of the patient Dictation was produced using [employer] dictation software. please excuse any grammatical, word or spelling errors. Objective - Vital Signs Vital signs: Vital Signs Temp 97.5 F L 02/24/23 08:02 Pulse 91 02/24/23 08:02 Resp 16 02/24/23 08:02 BP 127/77 02/24/23 08:02 Pulse Ox 95 02/24/23 08:02 FiO2 Intake & Output 02/23/23 02/24/23 02/24/23 19:59 06:59 18:59 Intake Total 250 Output Total 200 Balance 50 Intake: IV 10 Invasive Line 5 10 Oral 240 Output: Urine 200 Other: Voiding Method # Bowel Movements - Labs CBC & Chem 7: 02/24/23 09:15 02/24/23 09:15
[2023-02-25] MEDS: LEVOTHYROXINE 50 MCG TAB PO SCH (06:35)
[2023-02-25] MEDS: SODIUM CHLORIDE TAB 1 GM TAB PO SCH ×2 (08:52→21:23)
[2023-02-25] MEDS: SODIUM BICARBONATE TAB 650 MG TAB PO SCH ×3 (08:52→21:23)
[2023-02-25] MEDS: TAMSULOSIN 0.4 MG CAP.ER.24H PO SCH (08:52)
--- NOTE | 2023-02-25 11:10 | P.PN ---
Subjective Progress Note Date: 02/25/23 Principal diagnosis: Febrile neutropenia Patient is a 82-year-old male with a past medical history significant for hypertension osteoarthritis CVA TIA history of prostate cancer and UTI patient presenting to the hospital for evaluation generalized weakness and fatigue, patient did have low-grade fever also noticed to be leukopenia/neutropenia prompting this Infectious disease consultation On today's evaluation that is 02/25/2023, the patient remains to be afebrile, the patient is breathing comfortably on room air , the patient denies any chest pain or cough and no sputum production, patient denies nausea/vomiting or diarrhea , no abdominal pain Patient white count is 1.1, creatinine is 1.94 as of 02/24/2023, blood culture has been negative Objective - Vital Signs Vital signs: Vital Signs Temp 97.3 F L 02/25/23 08:00 Pulse 92 02/25/23 08:00 Resp 18 02/25/23 08:00 BP 113/74 02/25/23 08:00 Pulse Ox 98 02/25/23 08:00 FiO2 Intake & Output 02/24/23 02/25/23 02/25/23 18:59 06:59 18:59 Intake Total 790 480 Output Total 850 300 Balance -60 180 Intake: IV 10 Invasive Line 5 10 Oral 780 480 Output: Urine 850 300 Other: Voiding Method External Catheter External Catheter External Catheter # Voids 1 # Bowel Movements 1 - Exam GENERAL DESCRIPTION: An elderly male lying in bed in no distress RESPIRATORY SYSTEM: Unlabored breathing , clear to auscultation anteriorly HEART: S1 S2 regular rate and rhythm , ABDOMEN: Soft , no tenderness EXTREMITIES: No edema feet - Labs CBC & Chem 7: 02/24/23 09:15 02/24/23 09:15 Assessment and Plan (1) Febrile neutropenia Current Visit: Yes Status: Acute Code(s): D70.9 - NEUTROPENIA, UNSPECIFIED; R50.81 - FEVER PRESENTING WITH CONDITIONS CLASSIFIED ELSEWHERE SNOMED Code(s): 270218890 Plan: 1patient with pancytopenia with the first being leukopenic patient did have evidence of splenomegaly on CT abdominal pelvis but no evidence of any other lymphadenopathy did have a low-grade fever which could be more like related to underlying primary illness responsible for this pancytopenia and concern for possible hematological malignancy clinical suspicion is low for secondary infectious etiology as the patient does not look toxic CT chest was negative for pneumonia CT abdominal pelvis was negative for any acute intra-abdominal process 2- blood cultures are so far negative, patient did have a procalcitonin 0.13 and a CRP of 0.7 3-patient did have resolution of his fever, the white count is still low and is being monitored closely by oncology, the patient doesn't look toxic and seemed to be doing well off antibiotic therapy and will be monitored closely Dictation was produced using [employer] dictation software. please excuse any grammatical, word or spelling errors. Time with Patient: Less than 30
--- NOTE | 2023-02-25 12:05 | P.PN ---
Subjective Progress Note Date: 02/25/23 82-year-old gentleman with past medical history significant for hypertension, prostate cancer, history of CVA, osteoarthritis presents to the emergency department with worsening weakness and fatigue ongoing for the last 4 weeks. Patient was recently hospitalized and early January with significant weakness and blood count obtained at that time showed pancytopenia. Patient was scheduled to follow-up with hematology as outpatient however due to progressive weakness and failure to thrive patient decided to call EMS and was brought to the emergency for further evaluation. Patient had been complaining of associated weakness and exertional shortness of breath however he denied any fever, chest pain, nausea, vomiting, diarrhea. Patient to chart review mentioned to the emergency team that he lost about 20 pounds in the last few weeks * Workup initiated in ER include hepatology which were WBC of 2.8 hemoglobin 11.8 hematocrit 33 platelet count of 16,000 neutrophil count is 0.56 PT/INR off 12.8, 1.2 d-dimer of 5.91 * Patient had a VQ scan done which was negative for pulmonary embolism * Serum chemistry showed sodium 124 potassium 4.8, and Axert 12 BUNs 70 2.01 lactate of 3.5 bilirubin of 1.7 TSH within normal limits * Patient tested negative for influenza and RSV and Covid PCR * 02/10/23: Patient seen and evaluated bedside, appreciate input from oncology, CT abdomen pelvis reviewed, CT chest ordered continue to monitor for fever or chills of infection was of infection noted * 02/11/23 : Patient seen and evaluated bedside. Continue to monitor blood counts. DIC labs reviewed planning for bone marrow biopsy this hospital stay continue to monitor CBC. CT chest reviewed negative for intrathoracic mass * 02/12/23: Patient seen and evaluated at bedside accompanied with [id number], care plan discussed blood work reviewed platelet count 18,000. Hematology following plan for bone marrow biopsy secondary to impaired kidney function will request evaluation from nephrology as well * 02/13/23: Patient seen and evaluated bedside, [id number] at bedside care plan discussed. Episode of 97.5 temperature. Does have neutropenia along with pancytopenia. Started on IV cefepime blood cultures ordered infectious disease consulted as well will follow up on CRP and pro-calcitonin levels. CR P early in the hospital stay was normal pro-calcitonin was minimally elevated on 02/10 0.26 appreciate input from nephrology as well. Patient denies feeling sick, denies chills does complain of decreased appetite * 02/14/23: Patient seen and evaluated bedside, multiple family members at bedside including , [id number], daughter. Care plan discussed. Continue to monitor for fever. We'll follow up on bone marrow biopsy results. Continue prophylactic antibiotics secondary to neutropenia. Infectious disease following. We will daily monitor CBC and basic metabolic panel. CRP normal pro-calcitonin minimally elevated infection. Regarding discharge planning patient will be through the weekend potential discharge on Saturday once cleared by hematology I did to rehab or home depending on patient's condition. Patient encouraged increase oral intake mentation is alert and oriented 4 02/15. Patient seen and examined. Blood work and this morning showed WBC 0.8, hemoglobin 8.9, platelet count 23, sodium 128, potassium 4.3, BUN 46, creatinine 1.73. Vital signs temperature 98.2 heart rate 100, respirations 17, blood pressure 95/62. Family at the bedside, they're concerned patient has poor appetite. Not drinking enough water. 02/16. Patient seen and examined. Patient was working with physical therapy. States dizziness has improved. Blood work done this morning showed WBC 0.9, hemoglobin 9, platelet count 25, sodium 127, BUN 49, creatinine 1.66. Vital signs stable 02/17. Patient seen and examined. Labs were done this morning showed WBC of 0.9, hemoglobin 9.2, platelet count 30. Sodium 129, potassium 4.4, BUN 44, creatinine 1.73. Denies chest pain or shortness of breath 02/18. Patient seen and examined. WBC this morning is 1, hemoglobin 8.5, platelet count is 27, sodium is 1:30, BUN is 47, creatinine is 1.75. Laying comfortably in the bed. Denies any lightheadedness or dizziness. States she continues to feel better 02/19. Patient seen and examined. Blood work done this morning showed WBC 0.8, hemoglobin 9.4, platelet count 33, sodium 129, potassium 4.3, BUN 45, creatinine 1.61. Patient felt dizzy this morning while he was having a bowel movement, feels better now. 02/20. Patient seen and examined. states he feels much stronger. Blood work done this morning showed WBC 0.8, hemoglobin 8.9, sodium 1:30, potassium 4.3, BUN 50, creatinine 1.83. Complaining of swelling of left ankle 02/21. Patient seen and examined. Daughter is at the bedside. Lab work done this morning showed WBC 1.1, hemoglobin 9.3, platelet count 44, sodium 132, BUN 48, creatinine 1.86 02/22. Patient seen and examined. Denies any lethargy or weakness. Ambulating to the restroom on his own. Blood work showed WBC 1.2, hemoglobin 9.2, platelet count 38 sodium 1:30 BUN 49, creatinine 2.02 02/23. Patient seen and examined. Laying comfortably in the bed. Denies any lightheadedness or dizziness. No acute issues overnight 02/24. Patient seen and examined. Lab work showed WBC 1.1, hemoglobin 9.2, platelet count 44, sodium 132, BUN 52, creatinine 1.94. States he feels better. No issues overnight 02/25. Patient seen and examined. Family at the bedside. Still waiting on biopsy results to come back. Patient strength is increased. Vital signs stable REVIEW OF SYSTEMS: CONSTITUTIONAL: No fever,. CARDIOVASCULAR: No chest pain, no palpitations, no syncope. PULMONARY: No shortness of breath, no cough, GASTROINTESTINAL: No diarrhea, no nausea, no vomiting, no abdominal pain. NEUROLOGICAL: No headaches, no weakness, PHYSICAL EXAMINATION: GENERAL: The patient is alert and oriented x3, not in any acute distress. C hronically ill-looking HEENT: Pupils are round and equally reacting to light. EOMI. No scleral icterus. No conjunctival pallor. Normocephalic, atraumatic. No pharyngeal erythema. No thyromegaly. CARDIOVASCULAR: S1 and S2 present. No murmurs, rubs, or gallops. PULMONARY: Chest is clear to auscultation, no wheezing or crackles. ABDOMEN: Soft, nontender, nondistended, normoactive bowel sounds. No palpable organomegaly. MUSCULOSKELETAL: No joint swelling or deformity. EXTREMITIES: Left ankle swollen, no erythema NEUROLOGICAL: Gross neurological examination did not reveal any focal deficits. SKIN: No rashes. 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 Light chains were both elevated, ratio is equal. Peripheral smear is reported as pancytopenia with rare atypical lymphocytes present, myeloproliferative or myelodysplastic disorder. Biopsy results pending. Hematology oncology follow ing, no need for transfusion on 02/25 * In regards to febrile neutropenia noted on 02/13, antibiotics discontinued, ID wants patient to be monitored off antibiotics * In regards to acute kidney injury , monitor renal functions, encourage liberal oral hydration nephrology following * In regards to hyponatremia likely secondary to hypovolemia continue fluid restriction, salt tablets, received tolvaptan on 02/18 and 02/20, nephrology following * In regards to protein calorie malnutrition that reconsulted continue patient on regular diet * Physical therapy occupational therapy consulted>>PHOEBE likely by 02/17/23 Labs and medication were reviewed.. Continue same treatment. Continue with symptomatic treatment. Resume home medication. Monitor labs and vitals. DVT and GI prophylaxis. Further recommendations as per clinical course of the patient Dictation was produced using [employer] dictation software. please excuse any grammatical, word or spelling errors. Objective - Vital Signs Vital signs: Vital Signs Temp 97.3 F L 02/25/23 08:00 Pulse 92 02/25/23 08:00 Resp 18 02/25/23 08:00 BP 113/74 02/25/23 08:00 Pulse Ox 98 02/25/23 08:00 FiO2 Intake & Output 02/24/23 02/25/23 02/25/23 18:59 06:59 18:59 Intake Total 790 480 Output Total 850 300 Balance -60 180 Intake: IV 10 Invasive Line 5 10 Oral 780 480 Output: Urine 850 300 Other: Voiding Method External Catheter External Catheter External Catheter # Voids 1 # Bowel Movements 1 - Labs CBC & Chem 7: 02/24/23 09:15 02/24/23 09:15
--- NOTE | 2023-02-25 12:31 | P.PN ---
Subjective Patient is seen for follow-up for acute kidney injury and top of chronic kidney disease. No significant complaints today. Good urine output. Serum creatinine at 1.8-1.9 mg/dL. Maintained on sodium chloride tablets for hyponatremia. Also maintained on fluid restriction. Serum sodium staying at 130 to 132 Objective - Vital Signs Vital signs: Vital Signs Temp 97.3 F L 02/25/23 08:00 Pulse 92 02/25/23 08:00 Resp 18 02/25/23 08:00 BP 113/74 02/25/23 08:00 Pulse Ox 98 02/25/23 08:00 FiO2 Intake & Output 02/24/23 02/25/23 02/25/23 18:59 06:59 18:59 Intake Total 790 480 Output Total 850 300 Balance -60 180 Intake: IV 10 Invasive Line 5 10 Oral 780 480 Output: Urine 850 300 Other: Voiding Method External Catheter External Catheter External Catheter # Voids 1 # Bowel Movements 1 - Exam Patient is awake, comfortable, no acute distress Examination of the heart S1 and S2 Examination of the lungs bilateral breath sounds are heard Abdomen is soft nontender Examination of lower extremity shows no evidence of edema [employer] REPRESENTATIVE exam 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 - Labs CBC & Chem 7: 02/24/23 09:15 02/24/23 09:15 Assessment and Plan Assessment: 1. Acute kidney injury, ATN with peak creatinine at 2.5 mg/dL while at [facility] 4 weeks ago. Renal function improved with creatinine now staying at about 1.7-1.8 mg/dL. No evidence of obstruction on CT of the abdo men. UA is completely benign. Previous creatinine 1.2 in 2017 2. Hyponatremia, component of SIADH, maintained on fluid restriction and sodium chloride tabs. Urine sodium was 95 and urine osmolality 10/09/2016. Cortisone was not low and TSH was normal. 3. Chronic kidney disease NKF stage III with previous creatinine 1.2 in 2017. Etiology is nephrosclerosis. UA is quite benign with trace protein. 4. Pancytopenia status post bone marrow biopsy 5. History of prostatic cancer status post surgery 10-15 years ago 6. Non-gap metabolic acidosis associated with acute kidney injury maintained on sodium bicarb 7. Plan: Continue sodium bicarb Continue with sodium chloride tabs for now Maintain fluid restriction.
[2023-02-26] MEDS: LEVOTHYROXINE 50 MCG TAB PO SCH (06:33)
[2023-02-26] MEDS: TAMSULOSIN 0.4 MG CAP.ER.24H PO SCH (08:46)
[2023-02-26] MEDS: SODIUM CHLORIDE TAB 1 GM TAB PO SCH ×2 (08:46→20:43)
[2023-02-26] MEDS: SODIUM BICARBONATE TAB 650 MG TAB PO SCH ×3 (08:46→20:43)
--- NOTE | 2023-02-26 12:08 | P.PN ---
Subjective Patient is seen for follow-up for acute kidney injury and top of chronic kidney disease. No significant complaints today. Good urine output. Serum creatinine at 1.8-1.9 mg/dL. Maintained on sodium chloride tablets for hyponatremia. Also maintained on fluid restriction. Serum sodium staying at 130 to 132 Objective - Vital Signs Vital signs: Vital Signs Temp 97.7 F 02/26/23 11:35 Pulse 111 H 02/26/23 11:35 Resp 18 02/26/23 11:35 BP 108/73 02/26/23 11:35 Pulse Ox 99 02/26/23 11:35 FiO2 Intake & Output 02/25/23 02/26/23 02/26/23 18:59 06:59 18:59 Output Total 400 500 200 Balance -400 -500 -200 Output: Urine 400 500 200 Other: Voiding Method External Catheter External Catheter External Catheter # Bowel Movements 1 - Exam Patient is awake, comfortable, no acute distress Examination of the heart S1 and S2 Examination of the lungs bilateral breath sounds are heard Abdomen is soft nontender Examination of lower extremity shows trace edema 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 - Labs CBC & Chem 7: 02/24/23 09:15 02/24/23 09:15 Assessment and Plan Assessment: 1. Acute kidney injury, ATN with peak creatinine at 2.5 mg/dL while at [facility] 4 weeks ago. Renal function improved with creatinine now staying at about 1.7-1.8 mg/dL. No evidence of obstruction on CT of the abdomen. UA is completely benign. Previous creatinine 1.2 in 2017 2. Hyponatremia, component of SIADH, maintained on fluid restriction and sodium chloride tabs. Urine sodium was 95 and urine osmolality 10/09/2016. Cortisone was not low and TSH was normal. 3. Chronic kidney disease NKF stage III with previous creatinine 1.2 in 2017. Etiology is nephrosclerosis. UA is quite benign with trace protein. 4. Pancytopenia status post bone marrow biopsy 5. History of prostatic cancer status post surgery 10-15 years ago 6. Non-gap metabolic acidosis associated with acute kidney injury maintained on sodium bicarb 7. Plan: Check labs today Continue sodium bicarb Continue with sodium chloride tabs for now Maintain fluid restriction.
[2023-02-26 12:09] LABS: African American GFR (CKD) 40 (>60 ml/min/1.73 sqM); Anion Gap 7 mmol/L; Blood Urea Nitrogen 54 mg/dL (9-20); Calcium 7.7 mg/dL (8.4-10.2); Carbon Dioxide 20 mmol/L (22-30); Chloride 105 mmol/L (98-107); Glucose 105 mg/dL (74-99); Non-African American GFR(CKD) 34 (>60 ml/min/1.73 sqM); Potassium 4.4 mmol/L (3.5-5.1); Sodium 132 mmol/L (137-145)
[2023-02-26 12:23] LABS: Anisocytosis Slight; HCT 29.4 % (39.0-53.0); MCH 28.4 pg (25.0-35.0); MCV 83.5 fL (80.0-100.0); Mean Platelet Volume 9.3; Platelet Count 51 k/uL (150-450); RBC 3.52 m/uL (4.30-5.90); RDW 16.2 % (11.5-15.5)
[2023-02-26 12:24] LABS: WBC 1.1 k/uL (3.8-10.6)
--- NOTE | 2023-02-26 14:24 | P.PN ---
Subjective Progress Note Date: 02/26/23 Principal diagnosis: Febrile neutropenia Patient is a 82-year-old male with a past medical history significant for hypertension osteoarthritis CVA TIA history of prostate cancer and UTI patient presenting to the hospital for evaluation generalized weakness and fatigue, patient did have low-grade fever also noticed to be leukopenia/neutropenia prompting this Infectious disease consultation On today's evaluation that is 02/26/2023, the patient continues to be afebrile, the patient is breathing comfortably on room air and no need for supplemental oxygen, the patient denies any chest pain or cough , patient denies nausea/vomiting or diarrhea , no abdominal pain Patient white count is 1.1, creatinine is 1.79 blood culture has been negative Objective - Vital Signs Vital signs: Vital Signs Temp 97.7 F 02/26/23 11:35 Pulse 111 H 02/26/23 11:35 Resp 18 02/26/23 11:35 BP 108/73 02/26/23 11:35 Pulse Ox 99 02/26/23 11:35 FiO2 Intake & Output 02/25/23 02/26/23 02/26/23 18:59 06:59 18:59 Output Total 400 500 200 Balance -400 -500 -200 Output: Urine 400 500 200 Other: Voiding Method External Catheter External Catheter External Catheter # Bowel Movements 1 - Labs CBC & Chem 7: 02/26/23 11:40 02/26/23 11:40 Assessment and Plan (1) Febrile neutropenia Current Visit: Yes Status: Acute Code(s): D70.9 - NEUTROPENIA, UNSPECIFIED; R50.81 - FEVER PRESENTING WITH CONDITIONS CLASSIFIED ELSEWHERE SNOMED Code(s): 121488180 Plan: 1patient with pancytopenia with the first being leukopenic patient did have evidence of splenomegaly on CT abdominal pelvis but no evidence of any other lymphadenopathy did have a low-grade fever which could be more like related to underlying primary illness responsible for this pancytopenia and concern for possible hematological malignancy clinical suspicion is low for secondary infectious etiology as the patient does not look toxic CT chest was negative for pneumonia CT abdominal pelvis was negative for any acute intra-abdominal process 2- blood cultures are so far negative, patient did have a procalcitonin 0.13 and a CRP of 0.7 3-patient remains to be afebrile however the white count is still low and is being monitored closely by oncology, the patient will be monitored closely off a ntibiotic therapy Family the bedside questions were answered Dictation was produced using [employer] dictation software. please excuse any grammatical, word or spelling errors. Time with Patient: Less than 30
--- NOTE | 2023-02-26 14:43 | P.PN ---
Subjective Progress Note Date: 02/26/23 Principal diagnosis: pancytopenia At todays visit patient is resting comfortably in bedside chair, family at bedside. Patient is reporting generalized weakness, and intermittent dizziness that is worsened with standing up/ambulation. Patient denies any bleeding episodes or petechiae. Objective - Vital Signs Vital signs: Vital Signs Temp 97.7 F 02/26/23 11:35 Pulse 111 H 02/26/23 11:35 Resp 18 02/26/23 11:35 BP 108/73 02/26/23 11:35 Pulse Ox 99 02/26/23 11:35 FiO2 Intake & Output 02/25/23 02/26/23 02/26/23 18:59 06:59 18:59 Output Total 400 500 200 Balance -400 -500 -200 Weight 71.214 kg Output: Urine 400 500 200 Other: Voiding Method External Catheter External Catheter External Catheter # Bowel Movements 1 - Constitutional General appearance: Present: no acute distress, thin - EENT Eyes: Present: anicteric sclerae, EOMI ENT: Present: hearing grossly normal - Respiratory Details: breathing is even and unlabored - Cardiovascular Details: skin warm and dry - Integumentary Integumentary: Absent: cyanotic - Musculoskeletal Musculoskeletal: Present: generalized weakness - Psychiatric Psychiatric: Present: A&O x's 3 - Labs CBC & Chem 7: 02/26/23 11:40 02/26/23 11:40 Labs: Abnormal Lab Results - Last 24 Hours (Table) 02/26/23 02/26/23 Range/Units 11:40 11:40 WBC 1.1 L* (3.8-10.6) k/uL RBC 3.52 L (4.30-5.90) m/uL Hgb 10.0 L (13.0-17.5) gm/dL Hct 29.4 L (39.0-53.0) % RDW 16.2 H (11.5-15.5) % Plt Count 51 L (150-450) k/uL Sodium 132 L (137-145) mmol/L Carbon Dioxide 20 L (22-30) mmol/L BUN 54 H (9-20) mg/dL Creatinine 1.79 H (0.66-1.25) mg/dL Glucose 105 H (74-99) mg/dL Calcium 7.7 L (8.4-10.2) mg/dL Assessment and Plan (1) DIC (disseminated intravascular coagulation) Current Visit: Yes Status: Acute Priority: High Code(s): D65 - DISSEMINATED INTRAVASCULAR COAGULATION SNOMED Code(s): 08188453 (2) Pancytopenia Current Visit: Yes Status: Acute Priority: High Code(s): D61.818 - OTHER PANCYTOPENIA SNOMED Code(s): 096989993 Plan: Low grade DIC -DIC labs results reviewed, coags normal, fibrinogen 168. S/p 2 doses of cryoprecipitate -Will continue to monitor -Some solid tumors and liquid tumors, such as APL and CMML, can cause DIC, workup is in progress, s/p BM Bx. -IgM of less than 35, there is a paraproteinemia 0.23 g/dL qualified as IgG lambda. Light chains were both elevated, ratio is normal. Peripheral smear is reported as pancytopenia with rare atypical lymphocytes present, myeloproliferative or myelodysplastic disorder. Bone marrow revealed hypercellular bone marrow with erythroid hyperplasia and mild dysmegakaryopoiesis and mild increase in T cells and no circulating blasts seen on peripheral blood, however results are inconclusive for confirmative diagnosis. Flow cytometry also inconclusive. Cytogenetics and FISH still pending. Hoping to have finalized results in the next couple days Pt and family have been updated in detail on results thus far Pancytopenia -No transfusions needed today -Transfuse for a Hgb< 7 and plt <10K or if symptomatic. Hemoglobin 10.0, platelets 51,000, slowly improving -WBC 1100. No GCSF at this time until we have at least a preliminary bone marrow report. -Underlying cause being worked up. Will update plan of care as more info becomes available
--- NOTE | 2023-02-26 14:56 | P.PN ---
Subjective Progress Note Date: 02/26/23 This is a 82-year-old male who comes in for progressive weakness and failure to thrive was brought in by EMS. He has been worked up outpatient with hematology due to progressive weakness and pancytopenia. On presentation he is noted to have a white count of 2.8. He was also neutropenic with a low-grade fever. Was treated for an acute kidney injury. As well as treated for hyponatremia. Patient is currently pending results of a bone marrow biopsy that was taken on 1024. Patient is status post 2 doses of cryoprecipitate for low-grade DIC this admission. Oncology recommending to transfuse for hgb less than 7 and platelets less than 10. Not recommending GCSF unless there is preliminary bone marrow report. White count is 1.1. today. Hgb 10.0. Platelet count of 51. Sodium 132, BUN 54 creatinine 1.79. Review of Systems Constitutional: Denied any fatigue denied any fever. Cardio vascular: denied any chest pain, palpitations Gastrointestinal: denied any nausea, vomiting, diarrhea Pulmonary: Denied any shortness of breath cough Neurologic denied any new focal deficits All inpatient medications were reviewed and appropriate changes in these medications as dictated in the interval history and assessment and plan. PHYSICAL EXAMINATION: GENERAL: The patient is alert and oriented x3, not in any acute distress. Well developed, well nourished. HEENT: Pupils are round and equally reacting to light. EOMI. No scleral icterus. No conjunctival pallor. Normocephalic, atraumatic. No pharyngeal erythema. No thyromegaly. CARDIOVASCULAR: S1 and S2 present. No murmurs, rubs, or gallops. PULMONARY: Chest is clear to auscultation, no wheezing or crackles. ABDOMEN: Soft, nontender, nondistended, normoactive bowel sounds. No palpable organomegaly. MUSCULOSKELETAL: No joint swelling or deformity. EXTREMITIES: No cyanosis, clubbing, or pedal edema. NEUROLOGICAL: Gross neurological examination did not reveal any focal deficits. Generalized weakness. SKIN: No rashes. 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 -Neutropenia with low-grade temperature -Noninfectious lactic acidosis and dehydration RESOLVED -Acute kidney injury on CK D stage IIIa, AL due to acute tubular necrosis -Acute hyponatremia, from SIADH -Severe protein calorie malnutrition -Hx of prostate cancer with prostatectomy -History of stroke -Hx of hypertension GI prophylaxis DVT prophylaxis no anticoagulation recommended due to thrombocytopenia Full Code Plan Continue on fluid restriction and sodium chloride tabs Continue sodium bicarbonate tabs Pending final bone marrow biopsy results hopefully in the next 24 hours PT/OT following patient to be encouraged to sit up in chair for meals and increase activity; needs supervision IS ordered Repeat labs in AM, F/U fibrinogen level in the AM. Oncology recommending transfusion for hemoglobin less than 7 and plt count less than 10,000. Not recommending GCFS until bone marrow bx resulted. White count today only 1.1. Check a chest xray, continue to encourage incentive spirometer 10 x an hour wh ile awake. The impression and plan of care has been dictated by Elizabeth Bernardo, Nurse Practitioner as directed. Dr. Danilo MD I have performed a history and physical examination and medical decision making of this patient, discussed the same with the dictator, and agree with the dictators assessment and plan as written, documented as a scribe. Based on total visit time, I have performed more than 50% of this visit. Objective - Vital Signs Vital signs: Vital Signs Temp 97.7 F 02/26/23 11:35 Pulse 111 H 02/26/23 11:35 Resp 18 02/26/23 11:35 BP 108/73 02/26/23 11:35 Pulse Ox 99 02/26/23 11:35 FiO2 Intake & Output 02/25/23 02/26/23 02/26/23 18:59 06:59 18:59 Output Total 400 500 200 Balance -400 -500 -200 Weight 71.214 kg Output: Urine 400 500 200 Other: Voiding Method External Catheter External Catheter External Catheter # Bowel Movements 1 - Labs CBC & Chem 7: 02/26/23 11:40 02/26/23 11:40 Labs: Abnormal Lab Results - Last 24 Hours (Table) 02/26/23 02/26/23 Range/Units 11:40 11:40 WBC 1.1 L* (3.8-10.6) k/uL RBC 3.52 L (4.30-5.90) m/uL Hgb 10.0 L (13.0-17.5) gm/dL Hct 29.4 L (39.0-53.0) % RDW 16.2 H (11.5-15.5) % Plt Count 51 L (150-450) k/uL Sodium 132 L (137-145) mmol/L Carbon Dioxide 20 L (22-30) mmol/L BUN 54 H (9-20) mg/dL Creatinine 1.79 H (0.66-1.25) mg/dL Glucose 105 H (74-99) mg/dL Calcium 7.7 L (8.4-10.2) mg/dL Assessment and Plan Time with Patient: Less than 30
[2023-02-26 15:15] LABS: Band Neutrophils % 1 %; Eosinophils # (M) 0.01 k/uL (0-0.7); Monocytes # (M) 0.14 k/uL (0-1.0); Neutrophils % (M) 40 %
[2023-02-26 15:21] LABS: Metamyelocytes # (M) 0.01 k/uL (0); Metamyelocytes % 1 %; Nucleated Red Blood Cells 0 /100 WBC (0-0); Total Cells Counted 200
--- NOTE | 2023-02-26 16:31 | XR ---
EXAMINATION TYPE: XR chest 2V DATE OF EXAM: 02/26/2023 4:16 PM CLINICAL INDICATION:Male, 82 years old with history of scattered wheezing; [facility] COMPARISON: Chest radiographs from 02/09/2023 TECHNIQUE: XR chest 2V Frontal and lateral views of the chest. FINDINGS: Lungs/Pleura: Left upper lung 10 mm nodular-like opacity. There is flattening of the diaphragm with i ncreased lucency of the lungs. No evidence of pneumothorax, pleural effusion or focal consolidation. Pulmonary vascularity: Unremarkable. Heart/mediastinum: Cardiomediastinal silhouette is unremarkable. Musculoskeletal: No acute osseous pathology. IMPRESSION: 1. Possible left upper lung nodule consider nonemergent CT of the chest for further evaluation. No ac hopi cardiopulmonary disease process. 2. COPD changes.
[2023-02-27] MEDS: LEVOTHYROXINE 50 MCG TAB PO SCH (06:18)
[2023-02-27] MEDS: SODIUM BICARBONATE TAB 650 MG TAB PO SCH ×3 (08:50→20:09)
[2023-02-27] MEDS: SODIUM CHLORIDE TAB 1 GM TAB PO SCH ×3 (08:50→20:09)
[2023-02-27] MEDS: TAMSULOSIN 0.4 MG CAP.ER.24H PO SCH (08:50)
--- NOTE | 2023-02-27 11:45 | P.PN ---
Subjective Patient is seen for follow-up for acute kidney injury and top of chronic kidney disease. No significant complaints today. Good urine output. Serum creatinine at 1.8-1.9 mg/dL. Maintained on sodium chloride tablets for hyponatremia. Also maintained on fluid restriction. Serum sodium staying at 132 Awaiting finalized biopsy results with cytogenetics Objective - Vital Signs Vital signs: Vital Signs Temp 97.4 F L 02/27/23 08:00 Pulse 99 02/27/23 08:00 Resp 18 02/27/23 08:00 BP 124/76 02/27/23 08:00 Pulse Ox 96 02/27/23 08:00 FiO2 Intake & Output 02/26/23 02/27/23 02/27/23 18:59 06:59 18:59 Intake Total 240 540 Output Total 600 Balance -360 540 Weight 71.214 kg Intake: Oral 240 540 Output: Urine 600 Other: Voiding Method External Catheter External Catheter External Catheter # Voids 4 - Exam Patient is awake, comfortable, no acute distress Examination of the heart S1 and S2 Examination of the lungs bilateral breath sounds are heard Abdomen is soft nontender Examination of lower extremity shows trace edema 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 - Labs CBC & Chem 7: 02/26/23 11:40 02/26/23 11:40 Labs: Abnormal Lab Results - Last 24 Hours (Table) 02/26/23 02/26/23 Range/Units 11:40 11:40 WBC 1.1 L* (3.8-10.6) k/uL RBC 3.52 L (4.30-5.90) m/uL Hgb 10.0 L (13.0-17.5) gm/dL Hct 29.4 L (39.0-53.0) % RDW 16.2 H (11.5-15.5) % Plt Count 51 L (150-450) k/uL Neutrophils # (Manual) 0.40 L* (1.3-7.7) k/uL Lymphocytes # (Manual) 0.50 L (1.0-4.8) k/uL Metamyelocytes # (Man) 0.01 H (0) k/uL Sodium 132 L (137-145) mmol/L Carbon Dioxide 20 L (22-30) mmol/L BUN 54 H (9-20) mg/dL Creatinine 1.79 H (0.66-1.25) mg/dL Glucose 105 H (74-99) mg/dL Calcium 7.7 L (8.4-10.2) mg/dL Assessment and Plan Assessment: 1. Acute kidney injury, ATN with peak creatinine at 2.5 mg/dL while at [facility] 4 weeks ago. Renal function improved with creatinine now staying at about 1.7-1.8 mg/dL. No evidence of obstruction on CT of the abdomen. UA is completely benign. Previous creatinine 1.2 in 2017 2. Hyponatremia, component of SIADH, maintained on fluid restriction and sodium chloride tabs. Urine sodium was 95 and urine osmolality 10/09/2016. Cortisone was not low and TSH was normal. 3. Chronic kidney disease NKF stage III with previous creatinine 1.2 in 2017. Etiology is nephrosclerosis. UA is quite benign with trace protein. 4. Pancytopenia status post bone marrow biopsy, paraproteinemia noted. Bone marrow biopsy was inconclusive, awaiting cytogenetics and FISH 5. History of prostatic cancer status post surgery 10-15 years ago 6. Non-gap metabolic acidosis associated with acute kidney injury maintained on sodium bicarb 7. Plan: Check labs today Continue sodium bicarb Continue with sodium chloride tabs for now Maintain fluid restriction.
[2023-02-27 11:54] LABS: Glucose,Whole Blood 97 mg/dL (70-110)
[2023-02-27 12:08] LABS: Anisocytosis Slight; HCT 30.3 % (39.0-53.0); HGB 10.1 gm/dL (13.0-17.5); MCH 27.9 pg (25.0-35.0); MCHC 33.4 g/dL (31.0-37.0); MCV 83.6 fL (80.0-100.0); Mean Platelet Volume 9.7; RBC 3.62 m/uL (4.30-5.90); RDW 16.2 % (11.5-15.5)
[2023-02-27 12:18] LABS: Platelet Count 49 k/uL (150-450)
[2023-02-27 12:32] LABS: African American GFR (CKD) 39 (>60 ml/min/1.73 sqM); Anion Gap 5 mmol/L; Blood Urea Nitrogen 53 mg/dL (9-20); Calcium 7.6 mg/dL (8.4-10.2); Carbon Dioxide 22 mmol/L (22-30); Chloride 105 mmol/L (98-107); Glucose 94 mg/dL (74-99); Non-African American GFR(CKD) 34 (>60 ml/min/1.73 sqM); Potassium 4.1 mmol/L (3.5-5.1); Sodium 132 mmol/L (137-145)
[2023-02-27 12:55] LABS: INR 1.4 (<1.2); Prothrombin Time 14.3 sec (10.0-12.5)
[2023-02-27 12:56] LABS: Partial Thromboplastin Time 32.2 sec (22.0-30.0)
--- NOTE | 2023-02-27 15:39 | P.PN ---
Subjective Progress Note Date: 02/27/23 This is a 82-year-old male who comes in for progressive weakness and failure to thrive was brought in by EMS. He has been worked up outpatient with hematology due to progressive weakness and pancytopenia. On presentation he is noted to have a white count of 2.8. He was also neutropenic with a low-grade fever. Was treated for an acute kidney injury. As well as treated for hyponatremia. Patient is currently pending results of a bone marrow biopsy that was taken on 102. Patient is status post 2 doses of cryoprecipitate for low-grade DIC this admission. Oncology recommending to transfuse for hgb less than 7 and platelets less than 10. Not recommending GCSF unless there is preliminary bone marrow report. White count is 1.1. today. Hgb 10.0. Platelet count of 51. Sodium 132, BUN 54 creatinine 1.79. 02/27/2023 Patient is evaluated today resting in bed. Multiple family members at the bedside. Discussion regarding discharge planning home with homecare versus subacute rehab. [facility] Bone Marrow biopsy results pending. Nephrology recommending to continue on oral sodium bicarbonate and oral sodium chloride. Review of Systems Constitutional: Denied any fatigue denied any fever. Cardio vascular: denied any chest pain, palpitations Gastrointestinal: denied any nausea, vomiting, diarrhea Pulmonary: Denied any shortness of breath cough Neurologic denied any new focal deficits All inpatient medications were reviewed and appropriate changes in these medications as dictated in the interval history and assessment and plan. PHYSICAL EXAMINATION: GENERAL: The patient is alert and oriented x3, not in any acute distress. Well developed, well nourished. HEENT: Pupils are round and equally reacting to light. EOMI. No scleral icterus. No conjunctival pallor. Normocephalic, atraumatic. No pharyngeal erythema. No thyromegaly. CARDIOVASCULAR: S1 and S2 present. No murmurs, rubs, or gallops. PULMONARY: Chest is clear to auscultation, no wheezing or crackles. ABDOMEN: Soft, nontender, nondistended, normoactive bowel sounds. No palpable organomegaly. MUSCULOSKELETAL: No joint swelling or deformity. EXTREMITIES: No cyanosis, clubbing, or pedal edema. NEUROLOGICAL: Gross neurological examination did not reveal any focal deficits. Generalized weakness. SKIN: No rashes. 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 -Neutropenia with low-grade temperature -Noninfectious lactic acidosis and dehydration RESOLVED -Acute kidney injury on CK D stage IIIa, AL due to acute tubular necrosis -Acute hyponatremia, from SIADH -Severe protein calorie malnutrition -Hx of prostate cancer with prostatectomy -History of stroke -Hx of hypertension GI prophylaxis DVT prophylaxis no anticoagulation recommended due to thrombocytopenia Full Code Plan Continue on fluid restriction and sodium chloride tabs Continue sodium bicarbonate tabs Pending final bone marrow biopsy results and outpatient oncology following regarding treatment plan. PT/OT following patient to be encouraged to sit up in chair for meals and increase activity; needs supervision IS ordered Repeat labs in AM, F/U fibrinogen level in the AM. Oncology recommending transfusion for hemoglobin less than 7 and plt count less than 10,000. Not recommending GCFS until bone marrow bx resulted. White count today only 1.1. Check a chest xray, continue to encourage incentive spirometer 10 x an hour while awake. Plan for D/C to subacute rehab in the next 24 hours. The impression and plan of care has been dictated by Elizabeth Bernardo Nurse Practitioner as directed. Dr. Danilo MD I have performed a history and physical examination and medical decision making of this patient, discussed the same with the dictator, and agree with the dictators assessment and plan as written, documented as a scribe. Based on total visit time, I have performed more than 50% of this visit. Objective - Vital Signs Vital signs: Vital Signs Temp 97.6 F 02/27/23 11:51 Pulse 98 02/27/23 11:51 Resp 17 02/27/23 11:51 BP 131/81 02/27/23 11:51 Pulse Ox 96 02/27/23 11:51 FiO2 Intake & Output 02/26/23 02/27/23 02/27/23 18:59 06:59 18:59 Intake Total 240 540 118 Output Total 600 Balance -360 540 118 Weight 71.214 kg Intake: Oral 240 540 118 Output: Urine 600 Other: Voiding Method External Catheter External Catheter External Catheter # Voids 4 - Labs CBC & Chem 7: 02/27/23 11:38 02/27/23 11:38 Labs: Abnormal Lab Results - Last 24 Hours (Table) 02/27/23 02/27/23 02/27/23 Range/Units 11:38 11:38 11:38 WBC 1.0 L* (3.8-10.6) k/uL RBC 3.62 L (4.30-5.90) m/uL Hgb 10.1 L (13.0-17.5) gm/dL Hct 30.3 L (39.0-53.0) % RDW 16.2 H (11.5-15.5) % Plt Count 49 L (150-450) k/uL PT 14.3 H (10.0-12.5) sec INR 1.4 H (<1.2) APTT 32.2 H (22.0-30.0) sec Fibrinogen 96 L (200-500) mg/dL Sodium 132 L (137-145) mmol/L BUN 53 H (9-20) mg/dL Creatinine 1.81 H (0.66-1.25) mg/dL Calcium 7.6 L (8.4-10.2) mg/dL Assessment and Plan Time with Patient: Less than 30
[2023-02-27 16:48] LABS: Glucose,Whole Blood 148 mg/dL (70-110)
[2023-02-27 20:05] LABS: Glucose,Whole Blood 113 mg/dL (70-110)
[2023-02-28 06:02] LABS: Glucose,Whole Blood 96 mg/dL (70-110)
[2023-02-28] MEDS: LEVOTHYROXINE 50 MCG TAB PO SCH (06:12)
[2023-02-28] MEDS: TAMSULOSIN 0.4 MG CAP.ER.24H PO SCH (08:55)
[2023-02-28] MEDS: SODIUM CHLORIDE TAB 1 GM TAB PO SCH ×2 (08:55→19:49)
[2023-02-28] MEDS: SODIUM BICARBONATE TAB 650 MG TAB PO SCH ×3 (08:55→19:49)
[2023-02-28 09:03] LABS: Anisocytosis Slight; HCT 27.4 % (39.0-53.0); HGB 9.4 gm/dL (13.0-17.5); MCH 28.5 pg (25.0-35.0); MCHC 34.2 g/dL (31.0-37.0); MCV 83.3 fL (80.0-100.0); RBC 3.29 m/uL (4.30-5.90); RDW 16.5 % (11.5-15.5)
[2023-02-28 09:14] LABS: Platelet Count 47 k/uL (150-450); WBC 1.1 k/uL (3.8-10.6)
[2023-02-28 09:53] LABS: African American GFR (CKD) 39 (>60 ml/min/1.73 sqM); Anion Gap 5 mmol/L; Blood Urea Nitrogen 53 mg/dL (9-20); Calcium 7.5 mg/dL (8.4-10.2); Carbon Dioxide 21 mmol/L (22-30); Chloride 105 mmol/L (98-107); Glucose 87 mg/dL (74-99); Non-African American GFR(CKD) 34 (>60 ml/min/1.73 sqM); Potassium 4.2 mmol/L (3.5-5.1); Sodium 131 mmol/L (137-145)
[2023-02-28 11:27] LABS: Glucose,Whole Blood 94 mg/dL (70-110)
--- NOTE | 2023-02-28 12:51 | P.PN ---
Subjective Progress Note Date: 02/27/23 Principal diagnosis: Febrile neutropenia Patient is a 82-year-old male with a past medical history significant for hypertension osteoarthritis CVA TIA history of prostate cancer and UTI patient presenting to the hospital for evaluation generalized weakness and fatigue, patient did have low-grade fever also noticed to be leukopenia/neutropenia prompting this Infectious disease consultation On today's evaluation that is 02/27/2023, the patient remains to be afebrile, the patient is breathing comfortably on room air and denies any shortness of breath, the patient denies any chest pain or cough , patient denies abdominal pain and no nausea/vomiting or diarrhea , patient mentioned not feeling that good today Patient white count is 1.0, creatinine is 1.81 blood culture has been negative Objective - Vital Signs Vital signs: Vital Signs Temp 97.6 F 02/27/23 11:51 Pulse 98 02/27/23 11:51 Resp 17 02/27/23 11:51 BP 131/81 02/27/23 11:51 Pulse Ox 96 02/27/23 11:51 FiO2 Intake & Output 02/26/23 02/27/23 02/27/23 18:59 06:59 18:59 Intake Total 240 540 Output Total 600 Balance -360 540 Weight 71.214 kg Intake: Oral 240 540 Output: Urine 600 Other: Voiding Method External Catheter External Catheter External Catheter # Voids 4 - Exam GENERAL DESCRIPTION: An elderly male lying in bed in no distress RESPIRATORY SYSTEM: Unlabored breathing , clear to auscultation anteriorly HEART: S1 S2 regular rate and rhythm , ABDOMEN: Soft , no tenderness EXTREMITIES: No edema feet - Labs CBC & Chem 7: 02/28/23 08:04 02/28/23 08:04 Labs: Abnormal Lab Results - Last 24 Hours (Table) 02/26/23 02/27/23 Range/Units 11:40 11:38 WBC 1.1 L* 1.0 L* (3.8-10.6) k/uL RBC 3.52 L 3.62 L (4.30-5.90) m/uL Hgb 10.0 L 10.1 L (13.0-17.5) gm/dL Hct 29.4 L 30.3 L (39.0-53.0) % RDW 16.2 H 16.2 H (11.5-15.5) % Plt Count 51 L 49 L (150-450) k/uL Neutrophils # (Manual) 0.40 L* (1.3-7.7) k/uL Lymphocytes # (Manual) 0.50 L (1.0-4.8) k/uL Metamyelocytes # (Man) 0.01 H (0) k/uL Assessment and Plan (1) Febrile neutropenia Current Visit: Yes Status: Acute Code(s): D70.9 - NEUTROPENIA, UNSPECIFIED; R50.81 - FEVER PRESENTING WITH CONDITIONS CLASSIFIED ELSEWHERE SNOMED Code(s): 074503930 Plan: 1patient with pancytopenia with the first being leukopenic patient did have evidence of splenomegaly on CT abdominal pelvis but no evidence of any other lymphadenopathy did have a low-grade fever which could be more like related to underlying primary illness responsible for this pancytopenia and concern for possible hematological malignancy clinical suspicion is low for secondary infectious etiology as the patient does not look toxic CT chest was negative for pneumonia CT abdominal pelvis was negative for any acute intra-abdominal process 2- blood cultures are so far negative, patient did have a procalcitonin 0.13 and a CRP of 0.7 3-patient remains to be afebrile however the white count remains to be low and is being monitored closely by oncology, the patient seems to be doing well and is being monitored closely off antibiotic therapy son At the bedside and multiple questions concerned were answered Dictation was produced using e[employer] software. please excuse any grammatical, word or spelling errors. Time with Patient: Less than 30
--- NOTE | 2023-02-28 12:52 | P.PN ---
Subjective Progress Note Date: 02/28/23 Principal diagnosis: Febrile neutropenia Patient is a 82-year-old male with a past medical history significant for hypertension osteoarthritis CVA TIA history of prostate cancer and UTI patient presenting to the hospital for evaluation generalized weakness and fatigue, patient did have low-grade fever also noticed to be leukopenia/neutropenia prompting this Infectious disease consultation On today's evaluation that is 02/28/2023, the patient denies any fever or any chills, the patient is breathing comfortably on room air and no need for supplemental oxygen, the patient denies any chest pain, cough or sputum production, patient denies abdominal pain and no nausea/vomiting and no diarrhea has been reported Patient white count is 1.1, creatinine is 1.82 blood culture has been negative Objective - Vital Signs Vital signs: Vital Signs Temp 97.6 F 02/28/23 08:00 Pulse 94 02/28/23 08:00 Resp 16 02/28/23 08:00 BP 122/74 02/28/23 09:52 Pulse Ox 94 L 02/28/23 08:00 FiO2 Intake & Output 02/27/23 02/28/23 02/28/23 18:59 06:59 18:59 Intake Total 118 Output Total 750 Balance 118 -750 Intake: Oral 118 Output: Urine 750 Other: Voiding Method External Catheter External Catheter External Catheter # Bowel Movements 1 - Labs CBC & Chem 7: 02/28/23 08:04 02/28/23 08:04 Labs: Abnormal Lab Results - Last 24 Hours (Table) 02/27/23 02/27/23 02/27/23 Range/Units 11:38 11:38 11:38 WBC 1.0 L* (3.8-10.6) k/uL RBC 3.62 L (4.30-5.90) m/uL Hgb 10.1 L (13.0-17.5) gm/dL Hct 30.3 L (39.0-53.0) % RDW 16.2 H (11.5-15.5) % Plt Count 49 L (150-450) k/uL PT 14.3 H (10.0-12.5) sec INR 1.4 H (<1.2) APTT 32.2 H (22.0-30.0) sec Fibrinogen 96 L (200-500) mg/dL Sodium 132 L (137-145) mmol/L Carbon Dioxide (22-30) mmol/L BUN 53 H (9-20) mg/dL Creatinine 1.81 H (0.66-1.25) mg/dL POC Glucose (mg/dL) (70-110) mg/dL Calcium 7.6 L (8.4-10.2) mg/dL 02/27/23 02/27/23 02/28/23 Range/Units 16:47 20:03 08:04 WBC 1.1 L* (3.8-10.6) k/uL RBC 3.29 L (4.30-5.90) m/uL Hgb 9.4 L (13.0-17.5) gm/dL Hct 27.4 L (39.0-53.0) % RDW 16.5 H (11.5-15.5) % Plt Count 47 L (150-450) k/uL PT (10.0-12.5) sec INR (<1.2) APTT (22.0-30.0) sec Fibrinogen (200-500) mg/dL Sodium (137-145) mmol/L Carbon Dioxide (22-30) mmol/L BUN (9-20) mg/dL Creatinine (0.66-1.25) mg/dL POC Glucose (mg/dL) 148 H 113 H (70-110) mg/dL Calcium (8.4-10.2) mg/dL 02/28/23 Range/Units 08:04 WBC (3.8-10.6) k/uL RBC (4.30-5.90) m/uL Hgb (13.0-17.5) gm/dL Hct (39.0-53.0) % RDW (11.5-15.5) % Plt Count (150-450) k/uL PT (10.0-12.5) sec INR (<1.2) APTT (22.0-30.0) sec Fibrinogen (200-500) mg/dL Sodium 131 L (137-145) mmol/L Carbon Dioxide 21 L (22-30) mmol/L BUN 53 H (9-20) mg/dL Creatinine 1.82 H (0.66-1.25) mg/dL POC Glucose (mg/dL) (70-110) mg/dL Calcium 7.5 L (8.4-10.2) mg/dL Assessment and Plan (1) Febrile neutropenia Current Visit: Yes Status: Acute Code(s): D70.9 - NEUTROPENIA, UNSPECIFIED; R50.81 - FEVER PRESENTING WITH CONDITIONS CLASSIFIED ELSEWHERE SNOMED Code(s): 243903865 Plan: 1patient with pancytopenia with the first being leukopenic patient did have evidence of splenomegaly on CT abdominal pelvis but no evidence of any other lymphadenopathy did have a low-grade fever which could be more like related to underlying primary illness responsible for this pancytopenia and concern for possible hematological malignancy clinical suspicion is low for secondary infectious etiology as the patient does not look toxic CT chest was negative for pneumonia CT abdominal pelvis was negative for any acute intra-abdominal process 2- blood cultures are so far negative, patient did have a procalcitonin 0.13 and a CRP of 0.7 3-patient continues to be afebrile , the white count remains to be low and is being monitored closely by oncology, the patient will be monitored closely off antibiotic therapy as so far doing well off antibiotic therapy At the bedside and multiple questions concerned were answered Dictation was produced using [employer] dictation software. please excuse any g rammatical, word or spelling errors. Time with Patient: Less than 30
--- NOTE | 2023-02-28 13:14 | P.PN ---
Subjective Patient is seen for follow-up for acute kidney injury and top of chronic kidney disease. No significant complaints today. Good urine output. Serum creatinine at 1.8-1.9 mg/dL. Maintained on sodium chloride tablets for hyponatremia. Also maintained on fluid restriction. Serum sodium staying at 131 to 132 Awaiting finalized biopsy results with cytogenetics Objective - Vital Signs Vital signs: Vital Signs Temp 97.7 F 02/28/23 12:00 Pulse 104 H 02/28/23 12:00 Resp 16 02/28/23 12:00 BP 106/73 02/28/23 12:00 Pulse Ox 98 02/28/23 12:00 FiO2 Intake & Output 02/27/23 02/28/23 02/28/23 18:59 06:59 18:59 Intake Total 118 Output Total 750 Balance 118 -750 Intake: Oral 118 Output: Urine 750 Other: Voiding Method External Catheter External Catheter External Catheter # Bowel Movements 1 - Exam Patient is awake, comfortable, no acute distress Examination of lower extremity shows trace edema 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 - Labs CBC & Chem 7: 02/28/23 08:04 02/28/23 08:04 Labs: Abnormal Lab Results - Last 24 Hours (Table) 02/27/23 02/27/23 02/28/23 Range/Units 16:47 20:03 08:04 WBC 1.1 L* (3.8-10.6) k/uL RBC 3.29 L (4.30-5.90) m/uL Hgb 9.4 L (13.0-17.5) gm/dL Hct 27.4 L (39.0-53.0) % RDW 16.5 H (11.5-15.5) % Plt Count 47 L (150-450) k/uL Sodium (137-145) mmol/L Carbon Dioxide (22-30) mmol/L BUN (9-20) mg/dL Creatinine (0.66-1.25) mg/dL POC Glucose (mg/dL) 148 H 113 H (70-110) mg/dL Calcium (8.4-10.2) mg/dL 02/28/23 Range/Units 08:04 WBC (3.8-10.6) k/uL RBC (4.30-5.90) m/uL Hgb (13.0-17.5) gm/dL Hct (39.0-53.0) % RDW (11.5-15.5) % Plt Count (150-450) k/uL Sodium 131 L (137-145) mmol/L Carbon Dioxide 21 L (22-30) mmol/L BUN 53 H (9-20) mg/dL Creatinine 1.82 H (0.66-1.25) mg/dL POC Glucose (mg/dL) (70-110) mg/dL Calcium 7.5 L (8.4-10.2) mg/dL Assessment and Plan Assessment: 1. Acute kidney injury, ATN with peak creatinine at 2.5 mg/dL while at [facility] weeks ago. Renal function improved with creatinine now staying at about 1.7-1.8 mg/dL. No evidence of obstruction on CT of the abdomen. UA is completely benign. Previous creatinine 1.2 in 2017 2. Hyponatremia, component of SIADH, maintained on fluid restriction and sodium chloride tabs. Urine sodium was 95 and urine osmolality 10/09/2016. Cortisone was not low and TSH was normal. 3. Chronic kidney disease NKF stage III with previous creatinine 1.2 in 2017. Etiology is nephrosclerosis. UA is quite benign with trace protein. 4. Pancytopenia status post bone marrow biopsy, paraproteinemia noted. Bone marrow biopsy was inconclusive, awaiting cytogenetics and FISH 5. History of prostatic cancer status post surgery 10-15 years ago 6. Non-gap metabolic acidosis associated with acute kidney injury maintained on sodium bicarb 7. Plan: Continue sodium bicarb Continue with sodium chloride tabs for now Maintain fluid restriction.
--- NOTE | 2023-02-28 13:40 | P.PN ---
Subjective Progress Note Date: 02/28/23 This is a 82-year-old male who comes in for progressive weakness and failure to thrive was brought in by EMS. He has been worked up outpatient with hematology due to progressive weakness and pancytopenia. On presentation he is noted to have a white count of 2.8. He was also neutropenic with a low-grade fever. Was treated for an acute kidney injury. As well as treated for hyponatremia. Patient is currently pending results of a bone marrow biopsy that was taken on 1024. Patient is status post 2 doses of cryoprecipitate for low-grade DIC this admission. Oncology recommending to transfuse for hgb less than 7 and platelets less than 10. Not recommending GCSF unless there is preliminary bone marrow report. White count is 1.1. today. Hgb 10.0. Platelet count of 51. Sodium 132, BUN 54 creatinine 1.79. 02/27/2023 Patient is evaluated today resting in bed. Multiple family members at the bedside. Discussion regarding discharge planning home with homecare versus subacute rehab. [facility] Bone Marrow biopsy results pending. Nephrology recommending to continue on oral sodium bicarbonate and oral sodium chloride. 02/28/2023 Patient evaluated today no acute complaints overnight. Spoke with multiple family members at the bedside again today as well as his daughter over the phone regarding discharge planning. More than 30 minutes on coordination of care and answering questions. Bone marrow biopsy is still pending at this time. Per oncology plan remains to follow up outpatient and my not require treatment but needs the final bone marrow bx. White count 1.1, platelet count 4.7, sodium 131, BUN 53, creatinine 1.82. Review of Systems Constitutional: Denied any fatigue denied any fever. Cardio vascular: denied any chest pain, palpitations Gastrointestinal: denied any nausea, vomiting, diarrhea Pulmonary: Denied any shortness of breath cough Neurologic denied any new focal deficits All inpatient medications were reviewed and appropriate changes in these medications as dictated in the interval history and assessment and plan. PHYSICAL EXAMINATION: GENERAL: The patient is alert and oriented x3, not in any acute distress. Well developed, well nourished. HEENT: Pupils are round and equally reacting to light. EOMI. No scleral icterus. No conjunctival pallor. Normocephalic, atraumatic. No pharyngeal erythema. No thyromegaly. CARDIOVASCULAR: S1 and S2 present. No murmurs, rubs, or gallops. PULMONARY: Chest is clear to auscultation, no wheezing or crackles. ABDOMEN: Soft, nontender, nondistended, normoactive bowel sounds. No palpable organomegaly. MUSCULOSKELETAL: No joint swelling or deformity. EXTREMITIES: No cyanosis, clubbing, or pedal edema. NEUROLOGICAL: Gross neurological examination did not reveal any focal deficits. Generalized weakness. SKIN: No rashes. 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 -Neutropenia with low-grade temperature which now has remained afebrile. -Noninfectious lactic acidosis and dehydration RESOLVED -Acute kidney injury on CK D stage IIIa, AL due to acute tubular necrosis -Acute hyponatremia, from SIADH -Severe protein calorie malnutrition -Hx of prostate cancer with prostatectomy -History of stroke -Hx of hypertension GI prophylaxis DVT prophylaxis no anticoagulation recommended due to thrombocytopenia Full Code Plan Continue on fluid restriction and sodium chloride tabs Continue sodium bicarbonate tabs Pending final bone marrow biopsy results and outpatient oncology following re garding treatment plan. PT/OT following patient to be encouraged to sit up in chair for meals and in crease activity; needs supervision Oncology recommending transfusion for hemoglobin less than 7 and plt count less than 10,000. Not recommending GCFS until bone marrow bx resulted. White count today 1.1. Continue to encourage incentive spirometer 10 x an hour while awake. Plan for D/C to subacute rehab in the next 24 hours. Pending insurance auth for D/C to [facility] The impression and plan of care has been dictated by Elizabeth Bernardo Nurse Practitioner as directed. Dr. Danilo MD I have performed a history and physical examination and medical decision making of this patient, discussed the same with the dictator, and agree with the dictators assessment and plan as written, documented as a scribe. Based on total visit time, I have performed more than 50% of this visit. Objective - Vital Signs Vital signs: Vital Signs Temp 97.7 F 02/28/23 12:00 Pulse 104 H 02/28/23 12:00 Resp 16 02/28/23 12:00 BP 106/73 02/28/23 12:00 Pulse Ox 98 02/28/23 12:00 FiO2 Intake & Output 02/27/23 02/28/23 02/28/23 18:59 06:59 18:59 Intake Total 118 Output Total 750 Balance 118 -750 Intake: Oral 118 Output: Urine 750 Other: Voiding Method External Catheter External Catheter External Catheter # Bowel Movements 1 - Labs CBC & Chem 7: 02/28/23 08:04 02/28/23 08:04 Labs: Abnormal Lab Results - Last 24 Hours (Table) 02/27/23 02/27/23 02/28/23 Range/Units 16:47 20:03 08:04 WBC 1.1 L* (3.8-10.6) k/uL RBC 3.29 L (4.30-5.90) m/uL Hgb 9.4 L (13.0-17.5) gm/dL Hct 27.4 L (39.0-53.0) % RDW 16.5 H (11.5-15.5) % Plt Count 47 L (150-450) k/uL Sodium (137-145) mmol/L Carbon Dioxide (22-30) mmol/L BUN (9-20) mg/dL Creatinine (0.66-1.25) mg/dL POC Glucose (mg/dL) 148 H 113 H (70-110) mg/dL Calcium (8.4-10.2) mg/dL 02/28/23 Range/Units 08:04 WBC (3.8-10.6) k/uL RBC (4.30-5.90) m/uL Hgb (13.0-17.5) gm/dL Hct (39.0-53.0) % RDW (11.5-15.5) % Plt Count (150-450) k/uL Sodium 131 L (137-145) mmol/L Carbon Dioxide 21 L (22-30) mmol/L BUN 53 H (9-20) mg/dL Creatinine 1.82 H (0.66-1.25) mg/dL POC Glucose (mg/dL) (70-110) mg/dL Calcium 7.5 L (8.4-10.2) mg/dL Assessment and Plan Time with Patient: Greater than 30
[2023-02-28 15:11] LABS: Nucleated Red Blood Cells 0 /100 WBC (0-0)
[2023-02-28 15:16] LABS: Band Neutrophils % 1 %; Basophils # (M) 0.01 k/uL (0-0.2); Eosinophils # (M) 0.01 k/uL (0-0.7); Lymphocytes # (M) 0.36 k/uL (1.0-4.8); Metamyelocytes # (M) 0.01 k/uL (0); Metamyelocytes % 1 %; Monocytes # (M) 0.18 k/uL (0-1.0); Neutrophils % (M) 47 %; Total Cells Counted 100
[2023-02-28 16:45] LABS: Glucose,Whole Blood 112 mg/dL (70-110)
[2023-03-01] MEDS: LEVOTHYROXINE 50 MCG TAB PO SCH (06:27)
[2023-03-01 07:50] LABS: Anisocytosis Slight; HCT 27.6 % (39.0-53.0); HGB 9.2 gm/dL (13.0-17.5); MCH 28.1 pg (25.0-35.0); MCHC 33.3 g/dL (31.0-37.0); MCV 84.2 fL (80.0-100.0); Mean Platelet Volume 8.8; RBC 3.28 m/uL (4.30-5.90); RDW 16.6 % (11.5-15.5)
[2023-03-01 08:02] LABS: African American GFR (CKD) 39 (>60 ml/min/1.73 sqM); Anion Gap 3 mmol/L; Blood Urea Nitrogen 48 mg/dL (9-20); Calcium 7.5 mg/dL (8.4-10.2); Carbon Dioxide 23 mmol/L (22-30); Chloride 107 mmol/L (98-107); Glucose 84 mg/dL (74-99); Magnesium 1.9 mg/dL (1.6-2.3); Non-African American GFR(CKD) 34 (>60 ml/min/1.73 sqM); Potassium 4.6 mmol/L (3.5-5.1); Sodium 133 mmol/L (137-145)
[2023-03-01] MEDS: TAMSULOSIN 0.4 MG CAP.ER.24H PO SCH (09:05)
[2023-03-01] MEDS: SODIUM BICARBONATE TAB 650 MG TAB PO SCH ×3 (09:05→19:39)
[2023-03-01] MEDS: SODIUM CHLORIDE TAB 1 GM TAB PO SCH ×2 (09:05→19:39)
[2023-03-01 10:42] LABS: Platelet Count 48 k/uL (150-450); WBC 1.2 k/uL (3.8-10.6)
[2023-03-01 14:10] LABS: Eosinophils # (M) 0.02 k/uL (0-0.7); Monocytes # (M) 0.24 k/uL (0-1.0); Neutrophils # (M) 0.54 k/uL (1.3-7.7); Neutrophils % (M) 45 %; Nucleated Red Blood Cells 0 /100 WBC (0-0); Total Cells Counted 100
[2023-03-01 14:19] LABS: Ovalocytes Present
--- NOTE | 2023-03-01 15:45 | P.PN ---
Subjective Progress Note Date: 03/01/23 82-year-old male who comes in for progressive weakness and failure to thrive was brought in by EMS. He has been worked up outpatient with hematology due to progressive weakness and pancytopenia. On presentation he is noted to have a white count of 2.8. He was also neutropenic with a low-grade fever. Was treated for an acute kidney injury. As well as treated for hyponatremia. Patient is currently pending results of a bone marrow biopsy that was taken on 1024. Patient is status post 2 doses of cryoprecipitate for low-grade DIC this admission. Oncology recommending to transfuse for hgb less than 7 and platelets less than 10. Not recommending GCSF unless there is preliminary bone marrow report. White count is 1.1. today. Hgb 10.0. Platelet count of 51. Sodium 132, BUN 54 creatinine 1.79. Objective - Vital Signs Vital signs: Vital Signs Temp 97.4 F L 03/01/23 08:00 Pulse 89 03/01/23 08:00 Resp 18 03/01/23 08:00 BP 124/76 03/01/23 08:00 Pulse Ox 95 03/01/23 08:00 FiO2 Intake & Output 02/28/23 03/01/23 03/01/23 18:59 06:59 18:59 Output Total 450 150 Balance -450 -150 Output: Urine 450 150 Other: Voiding Method External Catheter Urinal Urinal # Voids 1 # Bowel Movements 1 - Exam GENERAL: The patient is alert and oriented x3, not in any acute distress. Well developed, well nourished. HEENT: Pupils are round and equally reacting to light. EOMI. No scleral icterus. No conjunctival pallor. Normocephalic, atraumatic. No pharyngeal erythema. No thyromegaly. CARDIOVASCULAR: S1 and S2 present. No murmurs, rubs, or gallops. PULMONARY: Chest is clear to auscultation, no wheezing or crackles. ABDOMEN: Soft, nontender, nondistended, normoactive bowel sounds. No palpable organomegaly. MUSCULOSKELETAL: No joint swelling or deformity. EXTREMITIES: No cyanosis, clubbing, or pedal edema. NEUROLOGICAL: Gross neurological examination did not reveal any focal deficits. Generalized weakness. SKIN: No rashes. - Labs CBC & Chem 7: 03/01/23 07:27 03/01/23 07:27 Labs: Abnormal Lab Results - Last 24 Hours (Table) 02/28/23 02/28/23 03/01/23 Range/Units 08:04 16:43 07:27 WBC 1.2 L* (3.8-10.6) k/uL RBC 3.28 L (4.30-5.90) m/uL Hgb 9.2 L (13.0-17.5) gm/dL Hct 27.6 L (39.0-53.0) % RDW 16.6 H (11.5-15.5) % Neutrophils # (Manual) 0.50 L (1.3-7.7) k/uL Lymphocytes # (Manual) 0.36 L (1.0-4.8) k/uL Metamyelocytes # (Man) 0.01 H (0) k/uL Sodium (137-145) mmol/L BUN (9-20) mg/dL Creatinine (0.66-1.25) mg/dL POC Glucose (mg/dL) 112 H (70-110) mg/dL Calcium (8.4-10.2) mg/dL 03/01/23 Range/Units 07:27 WBC (3.8-10.6) k/uL RBC (4.30-5.90) m/uL Hgb (13.0-17.5) gm/dL Hct (39.0-53.0) % RDW (11.5-15.5) % Neutrophils # (Manual) (1.3-7.7) k/uL Lymphocytes # (Manual) (1.0-4.8) k/uL Metamyelocytes # (Man) (0) k/uL Sodium 133 L (137-145) mmol/L BUN 48 H (9-20) mg/dL Creatinine 1.81 H (0.66-1.25) mg/dL POC Glucose (mg/dL) (70-110) mg/dL Calcium 7.5 L (8.4-10.2) mg/dL Assessment and Plan Assessment: -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 -Neutropenia with low-grade temperature which now has remained afebrile. -Noninfectious lactic acidosis and dehydration RESOLVED -Acute kidney injury on CK D stage IIIa, AL due to acute tubular necrosis -Acute hyponatremia, from SIADH -Severe protein calorie malnutrition -Hx of prostate cancer with prostatectomy -History of stroke -Hx of hypertension GI prophylaxis DVT prophylaxis no anticoagulation recommended due to thrombocytopenia Full Code Plan Continue on fluid restriction and sodium chloride tabs Continue sodium bicarbonate tabs Pending final bone marrow biopsy results and outpatient oncology following regarding treatment plan. PT/OT following patient to be encouraged to sit up in chair for meals and increase activity; needs supervision Oncology recommending transfusion for hemoglobin less than 7 and plt count less than 10,000. Not recommending GCFS until bone marrow bx resulted. White count today 1.1. Continue to encourage incentive spirometer 10 x an hour while awake. Plan for D/C to subacute rehab in the next 24 hours. Pending insurance auth for D/C to [facility]
[2023-03-02] MEDS: LEVOTHYROXINE 50 MCG TAB PO SCH (06:13)
[2023-03-02] MEDS: SODIUM BICARBONATE TAB 650 MG TAB PO SCH ×3 (08:01→21:18)
[2023-03-02] MEDS: SODIUM CHLORIDE TAB 1 GM TAB PO SCH (08:01)
[2023-03-02] MEDS: TAMSULOSIN 0.4 MG CAP.ER.24H PO SCH ×2 (08:01→08:03)
[2023-03-02 09:10] LABS: Anisocytosis Slight; HCT 30.5 % (39.0-53.0); HGB 10.3 gm/dL (13.0-17.5); MCH 28.4 pg (25.0-35.0); MCHC 33.7 g/dL (31.0-37.0); MCV 84.3 fL (80.0-100.0); Mean Platelet Volume 9.1; RBC 3.62 m/uL (4.30-5.90); RDW 16.6 % (11.5-15.5)
[2023-03-02 09:13] LABS: African American GFR (CKD) 40 (>60 ml/min/1.73 sqM); Anion Gap 10 mmol/L; Blood Urea Nitrogen 47 mg/dL (9-20); Calcium 7.6 mg/dL (8.4-10.2); Carbon Dioxide 20 mmol/L (22-30); Chloride 105 mmol/L (98-107); Glucose 114 mg/dL (74-99); Non-African American GFR(CKD) 35 (>60 ml/min/1.73 sqM); Sodium 135 mmol/L (137-145)
[2023-03-02 09:14] LABS: WBC 1.2 k/uL (3.8-10.6)
--- NOTE | 2023-03-02 09:16 | P.PN ---
Subjective Progress Note Date: 03/01/23 Principal diagnosis: pancytopenia No acute changes, pancytopenia persists. WBC 1.2, hgb 9.2, plts 48,000. No reported episodes of acute bleeding. Family meeting held today with Dr. Stanislaw Curran to discuss BM biopsy results Objective - Vital Signs Vital signs: Vital Signs Temp 97.6 F 03/02/23 08:00 Pulse 98 03/02/23 08:00 Resp 16 03/02/23 08:00 BP 145/89 03/02/23 08:00 Pulse Ox 99 03/02/23 08:00 FiO2 Intake & Output 03/01/23 03/02/23 03/02/23 18:59 06:59 18:59 Intake Total 480 Output Total 150 350 Balance -150 130 Intake: Oral 480 Output: Urine 150 350 Other: Voiding Method Urinal Urinal # Voids 3 # Bowel Movements 1 - Constitutional General appearance: Present: no acute distress - EENT Eyes: Present: anicteric sclerae, EOMI ENT: Present: hearing grossly normal - Respiratory Details: breathing is even and unlabored - Cardiovascular Details: skin warm and dry - Integumentary Integumentary Comment(s): no petechiae noted Integumentary: Absent: cyanotic - Musculoskeletal Musculoskeletal: Present: generalized weakness - Psychiatric Psychiatric: Present: A&O x's 3 - Labs CBC & Chem 7: 03/01/23 07:27 03/01/23 07:27 Labs: Abnormal Lab Results - Last 24 Hours (Table) 03/01/23 Range/Units 07:27 WBC 1.2 L* (3.8-10.6) k/uL RBC 3.28 L (4.30-5.90) m/uL Hgb 9.2 L (13.0-17.5) gm/dL Hct 27.6 L (39.0-53.0) % RDW 16.6 H (11.5-15.5) % Plt Count 48 L (150-450) k/uL Neutrophils # (Manual) 0.54 L (1.3-7.7) k/uL Lymphocytes # (Manual) 0.40 L (1.0-4.8) k/uL Assessment and Plan (1) DIC (disseminated intravascular coagulation) Current Visit: Yes Status: Acute Priority: High Code(s): D65 - DISSEMINATED INTRAVASCULAR COAGULATION SNOMED Code(s): 29803340 (2) Pancytopenia Current Visit: Yes Status: Acute Priority: High Code(s): D61.818 - OTHER PANCYTOPENIA SNOMED Code(s): 657738503 Plan: Low grade DIC: -S/p 2 doses of cryoprecipitate -Will continue to monitor -Some solid tumors and liquid tumors, such as APL and CMML, can cause DIC Pancytopenia, CCUS: -No transfusions needed today. Pancytopenia persisting, with slow improvement in plts. WBC 1.2, hgb 9.2, plts 48,000 -Transfuse for a Hgb< 7 and plt <10K or if symptomatic -WBC 1200. 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 Light chains were both elevated, ratio is normal. Peripheral smear is reported as pancytopenia with rare atypical lymphocytes present. Bone marrow revealed hypercellular bone marrow with erythroid hyperplasia and mild dysmegakaryopoiesis and mild increase in T cells and no circulating blasts seen on peripheral blood, however results are inconclusive for confirmative diagnosis. Flow cytometry also inconclusive. Cytogenetics and FISH normal. 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 Since his counts have overall have been stable, and has shown some improvement in platelets, there would be no acute treatment at this time, but would recommend close monitoring of CBC and DIC labs and supportive transfusions as needed. We will also obtain a second opinion at [facility] All of the patient and family's questions were answered to their satisfaction attests: I seen and examined patient, performed H&P, developed impression and plan of care. Discussed with dictator. Agree with documentation, dictated as a scribe
[2023-03-02 09:52] LABS: Eosinophils # (M) 0.01 k/uL (0-0.7); Lymphocytes # (M) 0.48 k/uL (1.0-4.8); Monocytes # (M) 0.13 k/uL (0-1.0); Neutrophils # (M) 0.58 k/uL (1.3-7.7); Neutrophils % (M) 48 %; Nucleated Red Blood Cells 0 /100 WBC (0-0); Total Cells Counted 100
[2023-03-02 09:53] LABS: Platelet Count 55 k/uL (150-450)
[2023-03-02 10:19] LABS: INR 1.4 (<1.2); Partial Thromboplastin Time 32.5 sec (22.0-30.0); Prothrombin Time 14.3 sec (10.0-12.5)
--- NOTE | 2023-03-02 11:11 | P.PN ---
Subjective Patient is seen for follow-up for acute kidney injury and top of chronic kidney disease. No significant complaints today. Good urine output. Serum creatinine at 1.8-1.9 mg/dL. Maintained on sodium chloride tablets for hyponatremia. Also maintained on fluid restriction. Serum sodium 135 today Objective - Vital Signs Vital signs: Vital Signs Temp 97.6 F 03/02/23 08:00 Pulse 98 03/02/23 08:00 Resp 16 03/02/23 08:00 BP 145/89 03/02/23 08:00 Pulse Ox 99 03/02/23 08:00 FiO2 Intake & Output 03/01/23 03/02/23 03/02/23 18:59 06:59 18:59 Intake Total 480 540 Output Total 150 350 300 Balance -150 130 240 Intake: Oral 480 540 Output: Urine 150 350 300 Other: Voiding Method Urinal Urinal Toilet Urinal # Voids 3 # Bowel Movements 1 1 - Exam Patient is awake, comfortable, no acute distress Examination of the heart S1 and S2 Examination of the lungs bilateral breath sounds are heard Abdomen is soft nontender Examination of lower extremity shows 1+ edema [employer] exam 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 - Labs CBC & Chem 7: 03/02/23 08:31 03/02/23 08:31 Labs: Abnormal Lab Results - Last 24 Hours (Table) 03/01/23 03/02/23 03/02/23 Range/Units 07:27 08:31 08:31 WBC 1.2 L* (3.8-10.6) k/uL RBC 3.62 L (4.30-5.90) m/uL Hgb 10.3 L (13.0-17.5) gm/dL Hct 30.5 L (39.0-53.0) % RDW 16.6 H (11.5-15.5) % Plt Count 48 L 55 L (150-450) k/uL Neutrophils # (Manual) 0.54 L 0.58 L (1.3-7.7) k/uL Lymphocytes # (Manual) 0.40 L 0.48 L (1.0-4.8) k/uL PT (10.0-12.5) sec INR (<1.2) APTT (22.0-30.0) sec Fibrinogen (200-500) mg/dL Sodium 135 L (137-145) mmol/L Carbon Dioxide 20 L (22-30) mmol/L BUN 47 H (9-20) mg/dL Creatinine 1.77 H (0.66-1.25) mg/dL Glucose 114 H (74-99) mg/dL Calcium 7.6 L (8.4-10.2) mg/dL 03/02/23 Range/Units 09:03 WBC (3.8-10.6) k/uL RBC (4.30-5.90) m/uL Hgb (13.0-17.5) gm/dL Hct (39.0-53.0) % RDW (11.5-15.5) % Plt Count (150-450) k/uL Neutrophils # (Manual) (1.3-7.7) k/uL Lymphocytes # (Manual) (1.0-4.8) k/uL PT 14.3 H (10.0-12.5) sec INR 1.4 H (<1.2) APTT 32.5 H (22.0-30.0) sec Fibrinogen 94 L (200-500) mg/dL Sodium (137-145) mmol/L Carbon Dioxide (22-30) mmol/L BUN (9-20) mg/dL Creatinine (0.66-1.25) mg/dL Glucose (74-99) mg/dL Calcium (8.4-10.2) mg/dL Assessment and Plan Assessment: 1. Acute kidney injury, ATN with peak creatinine at 2.5 mg/dL while at [facility] ago. Renal function improved with creatinine now staying at about 1.7-1.8 mg/dL. No evidence of obstruction on CT of the abdomen. UA is completely benign. Previous creatinine 1.2 in 2017 2. Hyponatremia, component of SIADH, maintained on fluid restriction and sodium chloride tabs. Urine sodium was 95 and urine osmolality 10/09/2016. Cortisone was not low and TSH was normal. 3. Chronic kidney disease NKF stage III with previous creatinine 1.2 in 2017. Etiology is nephrosclerosis. UA is quite benign with trace protein. 4. Pancytopenia status post bone marrow biopsy, paraproteinemia noted. Bone marrow biopsy was inconclusive, awaiting cytogenetics and FISH 5. History of prostatic cancer status post surgery 10-15 years ago 6. Non-gap metabolic acidosis associated with acute kidney injury maintained on sodium bicarb 7. Plan: Continue sodium bicarb Decrease sodium chloride tabs Maintain fluid restriction.
--- NOTE | 2023-03-02 15:49 | P.PN ---
Subjective Progress Note Date: 03/02/23 82-year-old male who comes in for progressive weakness and failure to thrive was brought in by EMS. He has been worked up outpatient with hematology due to progressive weakness and pancytopenia. On presentation he is noted to have a white count of 2.8. He was also neutropenic with a low-grade fever. Was treated for an acute kidney injury. As well as treated for hyponatremia. Patient is currently pending results of a bone marrow biopsy that was taken on 1024. Patient is status post 2 doses of cryoprecipitate for low-grade DIC this admission. Oncology recommending to transfuse for hgb less than 7 and platelets less than 10. Not recommending GCSF unless there is preliminary bone marrow report. White count is 1.1. today. Hgb 10.0. Platelet count of 51. Sodium 132, BUN 54 creatinine 1.79. 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 Oncology recommending close monitoring of CBC and DIC labs with supportive transfusions as needed Objective - Vital Signs Vital signs: Vital Signs Temp 97.6 F 03/02/23 08:00 Pulse 98 03/02/23 08:00 Resp 16 03/02/23 08:00 BP 145/89 03/02/23 08:00 Pulse Ox 99 03/02/23 08:00 FiO2 Intake & Output 03/01/23 03/02/23 03/02/23 18:59 06:59 18:59 Intake Total 480 540 Output Total 150 350 300 Balance -150 130 240 Intake: Oral 480 540 Output: Urine 150 350 300 Other: Voiding Method Urinal Urinal Toilet Urinal # Voids 3 # Bowel Movements 1 1 - Exam GENERAL: The patient is alert and oriented x3, not in any acute distress. Well developed, well nourished. HEENT: Pupils are round and equally reacting to light. EOMI. No scleral icterus. No conjunctival pallor. Normocephalic, atraumatic. No pharyngeal erythema. No thyromegaly. CARDIOVASCULAR: S1 and S2 present. No murmurs, rubs, or gallops. PULMONARY: Chest is clear to auscultation, no wheezing or crackles. ABDOMEN: Soft, nontender, nondistended, normoactive bowel sounds. No palpable o rganomegaly. MUSCULOSKELETAL: No joint swelling or deformity. EXTREMITIES: No cyanosis, clubbing, or pedal edema. NEUROLOGICAL: Gross neurological examination did not reveal any focal deficits. Generalized weakness. SKIN: No rashes. - Labs CBC & Chem 7: 03/02/23 08:31 03/02/23 08:31 Labs: Abnormal Lab Results - Last 24 Hours (Table) 03/01/23 03/02/23 03/02/23 Range/Units 07:27 08:31 08:31 WBC 1.2 L* (3.8-10.6) k/uL RBC 3.62 L (4.30-5.90) m/uL Hgb 10.3 L (13.0-17.5) gm/dL Hct 30.5 L (39.0-53.0) % RDW 16.6 H (11.5-15.5) % Plt Count 48 L 55 L (150-450) k/uL Neutrophils # (Manual) 0.54 L 0.58 L (1.3-7.7) k/uL Lymphocytes # (Manual) 0.40 L 0.48 L (1.0-4.8) k/uL PT (10.0-12.5) sec INR (<1.2) APTT (22.0-30.0) sec Fibrinogen (200-500) mg/dL Sodium 135 L (137-145) mmol/L Carbon Dioxide 20 L (22-30) mmol/L BUN 47 H (9-20) mg/dL Creatinine 1.77 H (0.66-1.25) mg/dL Glucose 114 H (74-99) mg/dL Calcium 7.6 L (8.4-10.2) mg/dL 03/02/23 Range/Units 09:03 WBC (3.8-10.6) k/uL RBC (4.30-5.90) m/uL Hgb (13.0-17.5) gm/dL Hct (39.0-53.0) % RDW (11.5-15.5) % Plt Count (150-450) k/uL Neutrophils # (Manual) (1.3-7.7) k/uL Lymphocytes # (Manual) (1.0-4.8) k/uL PT 14.3 H (10.0-12.5) sec INR 1.4 H (<1.2) APTT 32.5 H (22.0-30.0) sec Fibrinogen 94 L (200-500) mg/dL Sodium (137-145) mmol/L Carbon Dioxide (22-30) mmol/L BUN (9-20) mg/dL Creatinine (0.66-1.25) mg/dL Glucose (74-99) mg/dL Calcium (8.4-10.2) mg/dL Assessment and Plan Assessment: -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 -Neutropenia with low-grade temperature which now has remained afebrile. -Noninfectious lactic acidosis and dehydration RESOLVED -Acute kidney injury on CK D stage IIIa, AL due to acute tubular necrosis -Acute hyponatremia, from SIADH -Severe protein calorie malnutrition -Hx of prostate cancer with prostatectomy -History of stroke -Hx of hypertension GI prophylaxis DVT prophylaxis no anticoagulation recommended due to thrombocytopenia Full Code Plan Continue on fluid restriction and sodium chloride tabs Continue sodium bicarbonate tabs Pending final bone marrow biopsy results and outpatient oncology following regarding treatment plan. PT/OT following patient to be encouraged to sit up in chair for meals and increase activity; needs supervision Oncology recommending transfusion for hemoglobin less than 7 and plt count less than 10,000. Not recommending GCFS until bone marrow bx resulted. White count today 1.1. Continue to encourage incentive spirometer 10 x an hour while awake. Plan for D/C to subacute rehab in the next 24 hours. Pending insurance auth for D/C to [facility]
[2023-03-03] MEDS: LEVOTHYROXINE 50 MCG TAB PO SCH (05:59)
[2023-03-03] MEDS: SODIUM BICARBONATE TAB 650 MG TAB PO SCH ×3 (09:19→21:03)
[2023-03-03] MEDS: TAMSULOSIN 0.4 MG CAP.ER.24H PO SCH (09:19)
[2023-03-03] MEDS: SODIUM CHLORIDE TAB 1 GM TAB PO SCH (09:19)
[2023-03-03 10:12] LABS: Blood Urea Nitrogen 43.2 mg/dL (9.0-27.0); Calcium 7.7 mg/dL (8.7-10.3); Carbon Dioxide 23.6 mmol/L (21.6-31.8); Chloride 106 mmol/L (96-109); Glucose 91 mg/dL (70-110); Potassium 4.4 mmol/L (3.5-5.5); Sodium 136 mmol/L (135-145)
--- NOTE | 2023-03-03 11:48 | P.PN ---
Subjective Patient is seen for follow-up for acute kidney injury and top of chronic kidney disease. No significant complaints today. Good urine output. Serum creatinine at 1.8-1.9 mg/dL. Maintained on sodium chloride tablets for hyponatremia. Also maintained on fluid restriction. Serum sodium 136 today. Complaining about fluid restriction. Objective - Vital Signs Vital signs: Vital Signs Temp 97.6 F 03/03/23 07:35 Pulse 83 03/03/23 07:35 Resp 16 03/03/23 07:35 BP 128/78 03/03/23 07:35 Pulse Ox 92 L 03/03/23 07:35 FiO2 Intake & Output 03/02/23 03/03/23 03/03/23 18:59 06:59 18:59 Intake Total 882 240 Output Total 450 200 Balance 432 40 Intake: Oral 780 240 Blood Product 102 Pooled Cryoprecipitate 102 Unit [id number] Output: Urine 450 200 Other: Voiding Method Toilet Urinal # Bowel Movements 1 - Exam Patient is awake, comfortable, no acute distress Examination of the heart S1 and S2 Examination of the lungs bilateral breath sounds are heard Abdomen is soft nontender Examination of lower extremity shows 1+ edema DELI SLICER exam 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 - Labs CBC & Chem 7: 03/02/23 08:31 03/03/23 05:28 Labs: Abnormal Lab Results - Last 24 Hours (Table) 03/03/23 Range/Units 05:28 BUN 43.2 H (9.0-27.0) mg/dL Creatinine 2.0 H (0.6-1.5) mg/dL Est GFR (CKD-EPI) 33 L (>=60) BUN/Creatinine Ratio 21.60 H (12.00-20.00) Ratio Calcium 7.7 L (8.7-10.3) mg/dL Assessment and Plan Assessment: 1. Acute kidney injury, ATN with peak creatinine at 2.5 mg/dL while at [facility] weeks ago. Renal function improved with creatinine now staying at about 1.7-1.8 mg/dL. No evidence of obstruction on CT of the abdomen. UA is completely benign. Previous creatinine 1.2 in 2017 2. Hyponatremia, component of SIADH, maintained on fluid restriction and sodium chloride tabs. Urine sodium was 95 and urine osmolality 10/09/2016. Cortisone was not low and TSH was normal. 3. Chronic kidney disease NKF stage III with previous creatinine 1.2 in 2017. Etiology is nephrosclerosis. UA is quite benign with trace protein. 4. Pancytopenia status post bone marrow biopsy, paraproteinemia noted. Bone marrow biopsy was inconclusive, awaiting cytogenetics and FISH 5. History of prostatic cancer status post surgery 10-15 years ago 6. Non-gap metabolic acidosis associated with acute kidney injury maintained on sodium bicarb 7. Plan: Continue sodium bicarb Continue with decreased dose of sodium chloride and possibly discontinuing the next 1-2 days Can liberalize fluid restriction to 1800 mL Repeat sodium in a.m.
[2023-03-03 13:31] LABS: Basophils # (A) 0.02 X 10*3/uL (0.00-0.10); Basophils % (A) 1.4 %; Elliptocytes 2+; Eosinophils # (A) 0.03 X 10*3/uL (0.04-0.35); HCT 26.1 % (39.6-50.0); HGB 8.6 g/dL (13.0-17.0); Immature Platelet Fraction 4.6 % (1.1-6.1); Lymphocytes % (A) 40.8 %; MCH 27.5 pg (27.0-32.0); MCV 83.4 FL (80.0-97.0); Mean Platelet Volume 12.2 FL (9.5-12.2); Microcytosis (M) 2+; Monocytes # (A) 0.28 X 10*3/uL (0.20-1.00); NRBC Per 100 WBC 0 X 10*3/uL (0.00-0.01); Neutrophils # (A) 0.53 X 10*3/uL (1.80-7.70); Neutrophils % (A) 36.1 %; Platelet Count 49 X 10*3/uL (140-440); RBC 3.13 X 10*6/uL (4.40-5.60); RDW 17.2 % (11.5-14.5); WBC 1.47 X 10*3/uL (4.50-10.00)
--- NOTE | 2023-03-03 17:07 | P.PN ---
Subjective Progress Note Date: 03/03/23 82-year-old male who comes in for progressive weakness and failure to thrive was brought in by EMS. He has been worked up outpatient with hematology due to progressive weakness and pancytopenia. On presentation he is noted to have a white count of 2.8. He was also neutropenic with a low-grade fever. Was treated for an acute kidney injury. As well as treated for hyponatremia. Patient is currently pending results of a bone marrow biopsy that was taken on 1024. Patient is status post 2 doses of cryoprecipitate for low-grade DIC this admission. Oncology recommending to transfuse for hgb less than 7 and platelets less than 10. Not recommending GCSF unless there is preliminary bone marrow report. White count is 1.1. today. Hgb 10.0. Platelet count of 51. Sodium 132, BUN 54 creatinine 1.79. 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 Oncology recommending close monitoring of CBC and DIC labs with supportive transfusions as needed 03/03/2023 Patient is seen and evaluated in room at bedside; sitting up in bed with family at bedside; no specific complaints reported Vital signs are reviewed and remained stable Lab review shows creatinine trending up from 1.77 up to 2.0 Nephrology on board and recommending to ease fluid restriction and low 1800 mL liquids per day -- We will continue to monitor strict MARIN's and daily weights and avoid nephrotoxins and hypotension -- Patient to be transferred to skilled rehab pending insurance authorization Objective - Vital Signs Vital signs: Vital Signs Temp 97.6 F 03/03/23 07:35 Pulse 83 03/03/23 07:35 Resp 16 03/03/23 07:35 BP 128/78 03/03/23 07:35 Pulse Ox 92 L 03/03/23 07:35 FiO2 Intake & Output 03/02/23 03/03/23 03/03/23 18:59 06:59 18:59 Intake Total 882 240 120 Output Total 450 200 300 Balance 432 40 -180 Intake: Oral 780 240 120 Blood Product 102 Pooled Cryoprecipitate 102 Unit [id number] Output: Urine 450 200 300 Other: Voiding Method Toilet Urinal # Bowel Movements 1 - Exam GENERAL: The patient is alert and oriented x3, not in any acute distress. Well developed, well nourished. HEENT: Pupils are round and equally reacting to light. EOMI. No scleral icterus. No conjunctival pallor. Normocephalic, atraumatic. No pharyngeal erythema. No thyromegaly. CARDIOVASCULAR: S1 and S2 present. No murmurs, rubs, or gallops. PULMONARY: Chest is clear to auscultation, no wheezing or crackles. ABDOMEN: Soft, nontender, nondistended, normoactive bowel sounds. No palpable organomegaly. MUSCULOSKELETAL: No joint swelling or deformity. EXTREMITIES: No cyanosis, clubbing, or pedal edema. NEUROLOGICAL: Gross neurological examination did not reveal any focal deficits. Generalized weakness. SKIN: No rashes. 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 -Neutropenia with low-grade temperature which now has remained afebrile. -Noninfectious lactic acidosis and dehydration RESOLVED -Acute kidney injury on CK D stage IIIa, AL due to acute tubular necrosis -Acute hyponatremia, from SIADH -Severe protein calorie malnutrition -Hx of prostate cancer with prostatectomy -History of stroke -Hx of hypertension GI prophylaxis DVT prophylaxis no anticoagulation recommended due to thrombocytopenia Full Code Plan Continue on fluid restriction and sodium chloride tabs Continue sodium bicarbonate tabs Pending final bone marrow biopsy results and outpatient oncology following regarding treatment plan. PT/OT following patient to be encouraged to sit up in chair for meals and increase activity; needs supervision Oncology recommending transfusion for hemoglobin less than 7 and plt count less than 10,000. Not recommending GCFS until bone marrow bx resulted. White count today 1.1. Continue to encourage incentive spirometer 10 x an hour while awake. Plan for D/C to subacute rehab in the next 24 hours. Pending insurance auth for D/C to [facility]
[2023-03-04] MEDS: LEVOTHYROXINE 50 MCG TAB PO SCH (04:58)
[2023-03-04] MEDS: SODIUM CHLORIDE TAB 1 GM TAB PO SCH (07:52)
[2023-03-04] MEDS: SODIUM BICARBONATE TAB 650 MG TAB PO SCH ×3 (07:52→22:08)
[2023-03-04] MEDS: TAMSULOSIN 0.4 MG CAP.ER.24H PO SCH (07:52)
--- NOTE | 2023-03-04 11:00 | P.PN ---
Subjective Patient is seen in follow-up for acute kidney injury on chronic kidney disease. Denies chest pain or shortness of breath. No vomiting or diarrhea. Oral intake fair. Hemodynamically stable. Renal function stable. No active complaints. Vital signs are stable. General: No acute distress. HEENT: Head exam is unremarkable. LUNGS: No audible rhonchi or wheezes. HEART: Rate and Rhythm are regular. ABDOMEN: Nontender. EXTREMITITES: No edema. Objective - Vital Signs Vital signs: Vital Signs Temp 98.1 F 03/04/23 07:30 Pulse 84 03/04/23 07:30 Resp 18 03/04/23 07:30 BP 147/81 03/04/23 07:30 Pulse Ox 96 03/04/23 07:30 FiO2 Intake & Output 03/03/23 03/04/23 03/04/23 18:59 06:59 18:59 Intake Total 360 Output Total 700 250 350 Balance -340 -250 -350 Intake: Oral 360 Output: Urine 700 250 350 Other: Voiding Method Toilet Toilet Urinal Urinal # Voids 1 # Bowel Movements 1 - Labs CBC & Chem 7: 03/03/23 05:28 03/03/23 05:28 Labs: Abnormal Lab Results - Last 24 Hours (Table) 03/03/23 Range/Units 05:28 WBC 1.47 A* (4.50-10.00) X 10*3/uL RBC 3.13 L (4.40-5.60) X 10*6/uL Hgb 8.6 L (13.0-17.0) g/dL Hct 26.1 L (39.6-50.0) % RDW 17.2 H (11.5-14.5) % Plt Count 49 L (140-440) X 10*3/uL Neutrophils # 0.53 L (1.80-7.70) X 10*3/uL Lymphocytes # 0.60 L (0.90-5.00) X 10*3/uL Eosinophils # 0.03 L (0.04-0.35) X 10*3/uL Microcytosis (manual) 2+ A Elliptocytes 2+ A Assessment and Plan Plan: Assessment: 1. Acute kidney injury secondary to ATN. Renal function fairly stable - creatinine 2.0 dated 03/03/2023. No hydronephrosis noted on CAT scan. UA with trace protein. 2. Hyponatremia. 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 On sodium chloride tab. Urine sodium 95 and urine osmolality 627. Cortisol level not low. TSH normal. 3. Pancytopenia status post bone marrow biopsy. 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 Oncology following. 4. Metabolic acidosis secondary to acute kidney injury and IV fluids maintained on oral bicarbonate. Improved. 5. Chronic kidney disease stage IIIA with creatinine near 1.2 in 2017. Suspect nephrosclerosis. Plan: Encouraged oral intake. Maintain salt tab. 1500 mL fluid restriction. Avoid nephrotoxins. Continue to monitor renal function and urine output. Morning labs pending. Follow up outpatient in 1 week post discharge.
[2023-03-04 11:12] LABS: BUN/Creat Ratio 22.47 Ratio (12.00-20.00); Blood Urea Nitrogen 38.2 mg/dL (9.0-27.0); Calcium 7.4 mg/dL (8.7-10.3); Carbon Dioxide 23.8 mmol/L (21.6-31.8); Chloride 105 mmol/L (96-109); Glucose 85 mg/dL (70-110); Potassium 4.4 mmol/L (3.5-5.5); Sodium 134 mmol/L (135-145)
[2023-03-04 11:36] LABS: Basophils # (A) 0.02 X 10*3/uL (0.00-0.10); Basophils % (A) 1.4 %; Elliptocytes 2+; Eosinophils # (A) 0.04 X 10*3/uL (0.04-0.35); Eosinophils % (A) 2.8 %; HCT 26.6 % (39.6-50.0); HGB 8.7 g/dL (13.0-17.0); Immature Platelet Fraction 3.9 % (1.1-6.1); Lymphocytes # (A) 0.56 X 10*3/uL (0.90-5.00); Lymphocytes % (A) 39.7 %; MCH 27.3 pg (27.0-32.0); MCHC 32.7 g/dL (32.0-37.0); MCV 83.4 FL (80.0-97.0); Mean Platelet Volume 11.9 FL (9.5-12.2); Monocytes # (A) 0.23 X 10*3/uL (0.20-1.00); Monocytes % (A) 16.3 %; NRBC Per 100 WBC 0 X 10*3/uL (0.00-0.01); Neutrophils # (A) 0.55 X 10*3/uL (1.80-7.70); Neutrophils % (A) 39.1 %; Platelet Count 47 X 10*3/uL (140-440); RBC 3.19 X 10*6/uL (4.40-5.60); WBC 1.41 X 10*3/uL (4.50-10.00)
[2023-03-04] MEDS: PANTOPRAZOLE 40 MG TABLET PO SCH (15:19)
[2023-03-04 16:23] LABS: Amylase 40 U/L (30-110); C Reactive Protein <0.5 mg/dL (<1.0); Lipase 133 U/L (23-300)
--- NOTE | 2023-03-04 19:27 | P.PN ---
Subjective Progress Note Date: 03/04/23 Principal diagnosis: pancytopenia In f/u pt denies any acute changes in his health. Objective - Vital Signs Vital signs: Vital Signs Temp 98.1 F 03/04/23 13:17 Pulse 85 03/04/23 13:17 Resp 16 03/04/23 13:17 BP 125/82 03/04/23 13:17 Pulse Ox 97 03/04/23 13:17 FiO2 Intake & Output 03/04/23 03/04/23 03/05/23 06:59 18:59 06:59 Intake Total 720 Output Total 250 350 Balance -250 370 Intake: Oral 720 Output: Urine 250 350 Other: Voiding Method Toilet Toilet Urinal Urinal # Voids 2 - Constitutional General appearance: Present: average body habitus, cooperative, no acute distr ess - EENT Eyes: Present: anicteric sclerae, EOMI ENT: Present: hearing grossly normal - Respiratory Details: even and unlabored at rest - Neurologic Neurologic: Present: CNII-XII intact (grossly) - Psychiatric Psychiatric: Present: A&O x's 3, appropriate affect, intact judgment & insight - Labs CBC & Chem 7: 03/04/23 06:32 03/04/23 06:32 Labs: Abnormal Lab Results - Last 24 Hours (Table) 03/04/23 03/04/23 03/04/23 Range/Units 06:32 06:32 15:04 WBC 1.41 A* (4.50-10.00) X 10*3/uL RBC 3.19 L (4.40-5.60) X 10*6/uL Hgb 8.7 L (13.0-17.0) g/dL Hct 26.6 L (39.6-50.0) % RDW 17.0 H (11.5-14.5) % Plt Count 47 L (140-440) X 10*3/uL Neutrophils # 0.55 L (1.80-7.70) X 10*3/uL Lymphocytes # 0.56 L (0.90-5.00) X 10*3/uL Elliptocytes 2+ A D-Dimer 5.38 H (<0.60) mg/L FEU Sodium 134 L (135-145) mmol/L BUN 38.2 H (9.0-27.0) mg/dL Creatinine 1.7 H (0.6-1.5) mg/dL Est GFR (CKD-EPI) 40 L (>=60) BUN/Creatinine Ratio 22.47 H (12.00-20.00) Ratio Calcium 7.4 L (8.7-10.3) mg/dL Assessment and Plan (1) DIC (disseminated intravascular coagulation) Current Visit: Yes Status: Acute Priority: High Code(s): D65 - DISSEMINATED INTRAVASCULAR COAGULATION SNOMED Code(s): 46871994 (2) Pancytopenia Current Visit: Yes Status: Acute Priority: High Code(s): D61.818 - OTHER PANCYTOPENIA SNOMED Code(s): 465154642 Plan: Low grade DIC -Pt received cryoprecipitate early in admit -Coags and fibrinogen ordered for AM -Some solid tumors and liquid tumors, such as APL and CMML, can cause DIC. Unfortunately BM Bx did yield a diagnosis. The case was sent to [facility] in [place] for 2nd opinion. Family today requested case be sent to [facility] for 2nd opinion. This request was handled, the info will be referred to [facility] -IgM <35, there is a paraproteinemia 0.23 g/dL qualified as IgG lambda. Light chains were both elevated, ratio is equal. Peripheral smear is reported as pancytopenia with rare atypical lymphocytes present, myeloproliferative or myelodysplastic disorder, bone marrow biopsy did not provide definitive diagnosis. Pancytopenia -No transfusions needed today, Hgb 8.7, plt [id number] -Transfuse for a Hgb< 7 and plt <10K or if symptomatic. -WBC 1.4, ANC just over 500. No GCSF until case reviewed at [facility]. -ID has been following. Discussed case briefly with Attending. Plan is for pt to go to rehab. Ambulatory orders for CBC, coags and fibrinogen. Ok to discharge from a Hematology standpoint once cleared by Attending and consulting MDs. F/U appt with Dr. Stanislaw Curran after DC from rehab and opinion from [facility] is obtained
--- NOTE | 2023-03-04 21:57 | PN ---
PROGRESS NOTE DATE OF SERVICE: 03/04/2023 SUBJECTIVE: This is an 82-year-old gentleman, who was admitted with pancytopenia and thrombocytopenia, he is being evaluated. Bone marrow biopsy did not have any conclusive The patient has suspected low-grade DIC with possible MDS. The patient has multiple other lab abnormalities including hyponatremia and kidney injury also. Multiple consultants are following the patient closely. The patient has severe protein-calorie malnutrition. Possible ECF rehab is also being considered. PAST MEDICAL HISTORY: Reviewed. REVIEW OF SYSTEMS: A 14-point review of systems is negative as mentioned. CURRENT MEDICATIONS: Reviewed include Synthroid. Dose and rest of medications noted. PHYSICAL EXAMINATION: VITAL SIGNS: Pulse is 84, blood pressure 147/61, respirations 18. HEENT: Conjunctivae normal. NECK: No jugular venous distention. CARDIOVASCULAR: S1, S2. RESPIRATIONS: Diminished at the bases. ABDOMEN: Soft, nontender. NERVOUS SYSTEM: Diffusely weak. LABORATORY DATA: Reviewed. White count 1.4. ASSESSMENT: 1. Pancytopenia and severe thrombocytopenia for evaluation of possible MDS. 2. Mild low-grade DIC. 3. Neutropenia. 4. lactic acidosis. 5. Acute kidney injury with acute on chronic renal failure, chronic kidney disease stage IIIA. 6. Hyponatremia. 7. History of protein-calorie malnutrition. 8. History of prostate cancer and prostatectomy. 9. History of stroke. 10.History of hypertension. 11.Multiple complex medical issues. RECOMMENDATIONS: Recommended to continue current medications, continue symptomatic treatment. We will monitor the patient closely. PT/OT evaluation. Possible ECF rehab. Supplement vitamins. Closely monitor. Further recommendations to follow. See orders for details. MMODL / IJN: [id number] / MTDD
[2023-03-05 04:44] LABS: Procalcitonin 0.09 ng/mL (0.02-0.09)
[2023-03-05 05:02] LABS: Haptoglobin <10.0 mg/dL (31.2-198.0); Rheumatoid Factor, Qnt <15 IU/mL (0-15)
[2023-03-05] MEDS: LEVOTHYROXINE 50 MCG TAB PO SCH (05:31)
[2023-03-05 08:12] LABS: INR 1.4 (<1.2); Partial Thromboplastin Time 32.3 sec (22.0-30.0); Prothrombin Time 14.1 sec (10.0-12.5)
[2023-03-05] MEDS: TAMSULOSIN 0.4 MG CAP.ER.24H PO SCH (08:40)
[2023-03-05] MEDS: SODIUM BICARBONATE TAB 650 MG TAB PO SCH (08:40)
[2023-03-05] MEDS: PANTOPRAZOLE 40 MG TABLET PO SCH (08:40)
[2023-03-05] MEDS: SODIUM CHLORIDE TAB 1 GM TAB PO SCH (08:40)
[2023-03-05 11:06] LABS: ALT 18 U/L (10-49); AST 24 U/L (14-35); Albumin 2.3 g/dL (3.8-4.9); Albumin/Globulin Ratio 1.35 Ratio (1.60-3.17); Alkaline Phosphatase 73 U/L (41-126); BUN/Creat Ratio 22.59 Ratio (12.00-20.00); Blood Urea Nitrogen 38.4 mg/dL (9.0-27.0); Calcium 7.8 mg/dL (8.7-10.3); Carbon Dioxide 22.4 mmol/L (21.6-31.8); Chloride 106 mmol/L (96-109); Globulin 1.7 g/dL (1.6-3.3); Glucose 87 mg/dL (70-110); Potassium 4.3 mmol/L (3.5-5.5); Sodium 136 mmol/L (135-145); Total Bilirubin 1.5 mg/dL (0.3-1.2)
--- NOTE | 2023-03-05 11:08 | P.DS ---
Providers Date of admission: 02/09/23 01:02 Expected date of discharge: 03/05/23 Attending physician: Rosmery Butterfield Consults: 02/09/23 01:01 Consult Physician Urgent Consulting Provider: Stanislaw Curran Consult Reason/Comments: Pancytopenia Do you want consulting provider notified?: Yes 02/12/23 11:43 Consult Physician Routine Consulting Provider: Kristy Yancey Consult Reason/Comments: AK I on Chronic kidney disease Do you want consulting provider notified?: Yes 02/13/23 11:10 Consult Physician Routine Consulting Provider: Kirsten Casarez Consult Reason/Comments: Febrile neutropenia Do you want consulting provider notified?: Yes Primary care physician: Divya Agustin Hospital Course: Final diagnosis Pancytopenia and severe thrombocytopenia for possible MDS, status post bone marrow biopsy which has been referred to [facility] as well as [facility] in [place] Mild low-grade DIC Neutropenia Lactic acidosis, present on admission, resolved Acute kidney injury with acute on chronic renal failure, chronic kidney disease stage IIIa Hyponatremia secondary to poor solute intake History of severe protein calorie malnutrition with a BMI of 23.2 History of prostate cancer and prostatectomy History previous stroke History of hypertension GI prophylaxis DVT prophylaxis Full code Discharge disposition Patient is being discharged in a stable condition with guarded prognosis to [facility]. Patient will follow-up with Dr. Agustin in the outpatient setting upon discharge. Patient is to continue with current medications as prescribed below as well as close outpatient follow-up with hematology along with nephrology in the outpatient setting. Patient follow-up with nephrology in one week as scheduled. Total time taken is greater than 35 minutes. Hospital course This is a 82-year-old male who was recently admitted with pancytopenia and thrombocytopenia being closely monitored with multiple medical consultations. Nephrology following as well and patient is maintaining on sodium bicarb along with chloride tabs recommend close outpatient follow-up and continued fluid restrictions with heart healthy diet of 1800 mL per day. Patient with follow-up labs and should be at least twice weekly. Patient did have a bone marrow biopsy which was inconclusive and suspected low-grade DIC with possible MDS. Sample has been referred to [facility] and per request of [facility]. Patient follow-up with hematology outpatient. Patient with significant weakness and severe protein calorie malnutrition evaluated by kitty sical therapy recommending rehab and patient and family are agreeable. Patient has received insurance authorization will be going to [facility]. Currently no reports of chest pain, shortness of breath, or palpitations. Patient is afebrile. No reports of nausea or vomiting and patient is tolerating diet. [facility]. Guarded prognosis. Physical exam: Gen: This is a 82-year-old male who is awake, alert and oriented 3, well- developed, well-nourished, thin built, elderly appearing HEENT: Head is atraumatic, normocephalic. Pupils equal, round. Sclerae is anicteric. NECK: Supple. No JVD. No lymphadenopathy. No thyromegaly. LUNGS: Clear to auscultation. No wheezes or rhonchi. No intercostal retractions. HEART: Regular rate and rhythm. No murmur. ABDOMEN: Soft. Thin. Bowel sounds are present. No masses. No tenderness. EXTREMITIES: No pedal edema. No calf tenderness. NEUROLOGICAL: Patient is awake, alert and oriented x3. Cranial nerves 2 through 12 are 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 Diffusely weak Please refer to medication reconciliation sheet for a list of medications. The impression and plan of care has been dictated by Bernadette Choe, Nurse Practitioner as directed. Dr. Scout MD I have performed a history and examination and MDM of this patient, discussed the same with the dictator, and agree with the dictator's assessment and plan as written ,documented as a scribe. Based on total visit time, I have performed more than 50% of the visit. Patient Condition at Discharge: Fair Plan - Discharge Summary Discharge Rx Participant: No New Discharge Prescriptions: New Famotidine [Pepcid] 20 mg PO DAILY #30 tablet Folic Acid 1 mg PO DAILY@1200 tab Thiamine [Vitamin B-1] 100 mg PO DAILY@1200 tab Sodium Bicarbonate Tab 650 mg PO TID #90 tab Acetaminophen Tab [Tylenol] 650 mg PO Q6HR PRN tab PRN Reason: Mild Pain Or Fever > 100.5 Albuterol Inhaler [Ventolin Hfa Inhaler] 1 puff INHALATION QID PRN #8 gm PRN Reason: Shortness Of Breath Or Wheezing Multivitamins, Thera [Multivitamin (formulary)] 1 each PO DAILY@1200 tab Sodium Chloride Tab 1 gm PO DAILY tab Continue Levothyroxine Sodium [Synthroid] 50 mcg PO DAILY Tamsulosin [Flomax] 0.4 mg PO DAILY Discharge Medication List Levothyroxine Sodium [Synthroid] 50 mcg PO DAILY 08/15/16 [History] Tamsulosin [Flomax] 0.4 mg PO DAILY 02/09/23 [History] Acetaminophen Tab [Tylenol] 650 mg PO Q6HR PRN tab 02/27/23 [Rx] Albuterol Inhaler [Ventolin Hfa Inhaler] 1 puff INHALATION QID PRN #8 gm 02/27/23 [Rx] Famotidine [Pepcid] 20 mg PO DAILY #30 tablet 02/27/23 [Rx] Sodium Bicarbonate Tab 650 mg PO TID #90 tab 02/27/23 [Rx] Folic Acid 1 mg PO DAILY@1200 tab 03/05/23 [Rx] Multivitamins, Thera [Multivitamin (formulary)] 1 each PO DAILY@1200 tab 03/05/23 [Rx] Sodium Chloride Tab 1 gm PO DAILY tab 03/05/23 [Rx] Thiamine [Vitamin B-1] 100 mg PO DAILY@1200 tab 03/05/23 [Rx] Follow up Appointment(s)/Referral(s): Kristy Yancey MD [STAFF PHYSICIAN] - 1 Week Stanislaw Curran MD [STAFF PHYSICIAN] - 1 Week (Needs to be seen by Dr. Brianna Curran within a week after discharge from rehab. Please call to sched an appt once known when pt will be discharged from rehab. ) Koko Wolf MD [STAFF PHYSICIAN] - 1 Week Divya Agustin MD [Primary Care Provider] - 1-2 days Ambulatory/Diagnostic Orders: Basic Metabolic Panel [LAB.AMB] Location: None Selected Complete Blood Count w/diff [LAB.AMB] Time Frame: 3 Days, Location: None Selected Magnesium [LAB.AMB] Location: None Selected Miscellaneous Lab Order [LAB.AMB] Location: None Selected Activity/Diet/Wound Care/Special Instructions: Follow up in the office with Dr. Stanislaw Curran upon discharge from rehab. Please schedule CBC, PT/INR, PTT and fibrinogen twice weekly while in rehab Follow up with nephrology, Dr Yancey in the office in 1 week Continue heart healthy diet with fluid restrictions of 1800 mL daily Continue ensure supplements chocolate 3 times a day with meals Discharge Disposition: TRANSFER TO SNF/ECF
[2023-03-05 11:40] LABS: Basophils # (A) 0.02 X 10*3/uL (0.00-0.10); Basophils % (A) 1.5 %; Eosinophils # (A) 0.03 X 10*3/uL (0.04-0.35); Eosinophils % (A) 2.2 %; HCT 26.3 % (39.6-50.0); HGB 8.9 g/dL (13.0-17.0); Immature Platelet Fraction 3.6 % (1.1-6.1); Lymphocytes # (A) 0.52 X 10*3/uL (0.90-5.00); Lymphocytes % (A) 38.8 %; MCH 27.9 pg (27.0-32.0); MCHC 33.8 g/dL (32.0-37.0); MCV 82.4 FL (80.0-97.0); Mean Platelet Volume 12.4 FL (9.5-12.2); Microcytosis (M) 2+; Monocytes # (A) 0.21 X 10*3/uL (0.20-1.00); Monocytes % (A) 15.7 %; NRBC Per 100 WBC 0 X 10*3/uL (0.00-0.01); Neutrophils # (A) 0.55 X 10*3/uL (1.80-7.70); Neutrophils % (A) 41.1 %; Platelet Count 52 X 10*3/uL (140-440); RBC 3.19 X 10*6/uL (4.40-5.60); RDW 17.2 % (11.5-14.5); WBC 1.34 X 10*3/uL (4.50-10.00)
[2023-03-05] MEDS ORDERED: THIAMINE 100 MG TAB PO SCH (12:00)
[2023-03-05] MEDS ORDERED: MULTIVITAMINS, THERA 1 EACH TAB PO SCH (12:00)
[2023-03-05] MEDS ORDERED: FOLIC ACID 1 MG TAB PO SCH (12:00)
[2023-03-05 13:43] LABS: Reticulocyte % 1.8 % (0.5-2.0)
[2023-03-05 13:47] LABS: Bilirubin,Unconjugated 1.8 mg/dL (0.0-1.1)
[2023-03-05 14:03] VITALS: BP 120/79; PULSE 110; RESP 16; TEMP 97.8
[2023-03-05] MEDS ORDERED: FUROSEMIDE 10 MG/ML 2 ML VIAL IV ONE (14:28)
--- NOTE | 2023-03-05 14:29 | P.PN ---
Subjective Patient is seen in follow-up for acute kidney injury on chronic kidney disease. Denies chest pain or shortness of breath. No vomiting or diarrhea. Oral intake fair. Hemodynamically stable. Renal function stable. No active complaints. Vital signs are stable. General: No acute distress. HEENT: Head exam is unremarkable. LUNGS: No audible rhonchi or wheezes. HEART: Rate and Rhythm are regular. ABDOMEN: Nontender. EXTREMITITES: Trace edema. Objective - Vital Signs Vital signs: Vital Signs Temp 97.8 F 03/05/23 13:18 Pulse 110 H 03/05/23 13:18 Resp 16 03/05/23 13:18 BP 120/79 03/05/23 13:18 Pulse Ox 95 03/05/23 13:18 FiO2 Intake & Output 03/04/23 03/05/23 03/05/23 18:59 06:59 18:59 Intake Total 720 240 Output Total 350 100 300 Balance 370 140 -300 Weight 71.214 kg Intake: Oral 720 240 Output: Urine 350 100 300 Other: Voiding Method Toilet Toilet Toilet Urinal Urinal Urinal # Voids 2 - Labs CBC & Chem 7: 03/05/23 07:17 03/05/23 07:17 Labs: Abnormal Lab Results - Last 24 Hours (Table) 03/04/23 03/04/23 03/05/23 Range/Units 15:04 15:04 07:17 WBC 1.34 A* (4.50-10.00) X 10*3/uL RBC 3.19 L (4.40-5.60) X 10*6/uL Hgb 8.9 L (13.0-17.0) g/dL Hct 26.3 L (39.6-50.0) % RDW 17.2 H (11.5-14.5) % Plt Count 52 L (140-440) X 10*3/uL MPV 12.4 H (9.5-12.2) FL Neutrophils # 0.55 L (1.80-7.70) X 10*3/uL Lymphocytes # 0.52 L (0.90-5.00) X 10*3/uL Eosinophils # 0.03 L (0.04-0.35) X 10*3/uL Microcytosis (manual) 2+ A Haptoglobin <10.0 L (31.2-198.0) mg/dL PT (10.0-12.5) sec INR (<1.2) APTT (22.0-30.0) sec Fibrinogen (200-500) mg/dL D-Dimer 5.38 H (<0.60) mg/L FEU BUN (9.0-27.0) mg/dL Creatinine (0.6-1.5) mg/dL Est GFR (CKD-EPI) (>=60) BUN/Creatinine Ratio (12.00-20.00) Ratio Calcium (8.7-10.3) mg/dL Total Bilirubin (0.3-1.2) mg/dL Unconjugated Bilirubin (0.0-1.1) mg/dL Lactate Dehydrogenase (120-246) U/L Total Protein (6.2-8.2) g/dL Albumin (3.8-4.9) g/dL Albumin/Globulin Ratio (1.60-3.17) Ratio 03/05/23 03/05/23 03/05/23 Range/Units 07:17 07:17 13:13 WBC (4.50-10.00) X 10*3/uL RBC (4.40-5.60) X 10*6/uL Hgb (13.0-17.0) g/dL Hct (39.6-50.0) % RDW (11.5-14.5) % Plt Count (140-440) X 10*3/uL MPV (9.5-12.2) FL Neutrophils # (1.80-7.70) X 10*3/uL Lymphocytes # (0.90-5.00) X 10*3/uL Eosinophils # (0.04-0.35) X 10*3/uL Microcytosis (manual) Haptoglobin (31.2-198.0) mg/dL PT 14.1 H (10.0-12.5) sec INR 1.4 H (<1.2) APTT 32.3 H (22.0-30.0) sec Fibrinogen 97 L (200-500) mg/dL D-Dimer (<0.60) mg/L FEU BUN 38.4 H (9.0-27.0) mg/dL Creatinine 1.7 H (0.6-1.5) mg/dL Est GFR (CKD-EPI) 40 L (>=60) BUN/Creatinine Ratio 22.59 H (12.00-20.00) Ratio Calcium 7.8 L (8.7-10.3) mg/dL Total Bilirubin 1.5 H 2.0 H (0.3-1.2) mg/dL Unconjugated Bilirubin 1.8 H (0.0-1.1) mg/dL Lactate Dehydrogenase 262 H (120-246) U/L Total Protein 4.0 L (6.2-8.2) g/dL Albumin 2.3 L (3.8-4.9) g/dL Albumin/Globulin Ratio 1.35 L (1.60-3.17) Ratio Assessment and Plan Plan: Assessment: 1. Acute kidney injury secondary to ATN. Renal function fairly stable - creatinine stable at 1.7. No hydronephrosis noted on CAT scan. UA with trace protein. 2. Hyponatremia. 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 On sodium chloride tab. Urine sodium 95 and urine osmolality 627. Cortisol level not low. TSH normal. 3. Pancytopenia status post bone marrow biopsy. 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 Oncology following. 4. Metabolic acidosis secondary to acute kidney injury and IV fluids maintained on oral bicarbonate. Improved. 5. Chronic kidney disease stage IIIA with creatinine near 1.2 in 2017. Suspect nephrosclerosis. Plan: Encouraged oral intake. D/c salt tab. 1500 mL fluid restriction. Lasix 20 mg IV once today. Avoid nephrotoxins. Continue to monitor renal function and urine output. Follow up outpatient in 1 week post discharge. Repeat BMP and magnesium level 2-3 days postdischarge.
[2023-03-05 14:37] LABS: C-ANCA <1:20 Titer (<1:20)
--- NOTE | 2023-03-05 14:55 | P.PN ---
Subjective Progress Note Date: 03/05/23 Principal diagnosis: pancytopenia In f/u pt denies any New complaints. No new pain, nausea, bleeding to report. Plan is for rehabilitation today Objective - Vital Signs Vital signs: Vital Signs Temp 97.8 F 03/05/23 13:18 Pulse 110 H 03/05/23 13:18 Resp 16 03/05/23 13:18 BP 120/79 03/05/23 13:18 Pulse Ox 95 03/05/23 13:18 FiO2 Intake & Output 03/04/23 03/05/23 03/05/23 18:59 06:59 18:59 Intake Total 720 240 Output Total 350 100 300 Balance 370 140 -300 Weight 71.214 kg Intake: Oral 720 240 Output: Urine 350 100 300 Other: Voiding Method Toilet Toilet Toilet Urinal Urinal Urinal # Voids 2 - Constitutional General appearance: Present: cooperative, no acute distress, thin - EENT Eyes: Present: anicteric sclerae, EOMI ENT: Present: hearing grossly normal - Respiratory Respiratory: bilateral: CTA - Cardiovascular Rhythm: regular Heart sounds: normal: S1, S2 Abnormal Heart Sounds: Absent: systolic murmur, diastolic murmur, rub, S3 Gallop, S4 Gallop, click, other - Peripheral edema leg Peripheral Edema: bilateral: None - Gastrointestinal General gastrointestinal: Present: normal bowel sounds, soft - Neurologic Neurologic: Present: CNII-XII intact (Grossly) - Musculoskeletal Musculoskeletal: Present: generalized weakness - Psychiatric Psychiatric Comment(s): Forgetful Psychiatric: Present: appropriate affect - Labs CBC & Chem 7: 03/05/23 07:17 03/05/23 07:17 Labs: Abnormal Lab Results - Last 24 Hours (Table) 03/04/23 03/04/23 03/05/23 Range/Units 15:04 15:04 07:17 WBC 1.34 A* (4.50-10.00) X 10*3/uL RBC 3.19 L (4.40-5.60) X 10*6/uL Hgb 8.9 L (13.0-17.0) g/dL Hct 26.3 L (39.6-50.0) % RDW 17.2 H (11.5-14.5) % Plt Count 52 L (140-440) X 10*3/uL MPV 12.4 H (9.5-12.2) FL Neutrophils # 0.55 L (1.80-7.70) X 10*3/uL Lymphocytes # 0.52 L (0.90-5.00) X 10*3/uL Eosinophils # 0.03 L (0.04-0.35) X 10*3/uL Microcytosis (manual) 2+ A Haptoglobin <10.0 L (31.2-198.0) mg/dL PT (10.0-12.5) sec INR (<1.2) APTT (22.0-30.0) sec Fibrinogen (200-500) mg/dL D-Dimer 5.38 H (<0.60) mg/L FEU BUN (9.0-27.0) mg/dL Creatinine (0.6-1.5) mg/dL Est GFR (CKD-EPI) (>=60) BUN/Creatinine Ratio (12.00-20.00) Ratio Calcium (8.7-10.3) mg/dL Total Bilirubin (0.3-1.2) mg/dL Unconjugated Bilirubin (0.0-1.1) mg/dL Lactate Dehydrogenase (120-246) U/L Total Protein (6.2-8.2) g/dL Albumin (3.8-4.9) g/dL Albumin/Globulin Ratio (1.60-3.17) Ratio 03/05/23 03/05/23 03/05/23 Range/Units 07:17 07:17 13:13 WBC (4.50-10.00) X 10*3/uL RBC (4.40-5.60) X 10*6/uL Hgb (13.0-17.0) g/dL Hct (39.6-50.0) % RDW (11.5-14.5) % Plt Count (140-440) X 10*3/uL MPV (9.5-12.2) FL Neutrophils # (1.80-7.70) X 10*3/uL Lymphocytes # (0.90-5.00) X 10*3/uL Eosinophils # (0.04-0.35) X 10*3/uL Microcytosis (manual) Haptoglobin (31.2-198.0) mg/dL PT 14.1 H (10.0-12.5) sec INR 1.4 H (<1.2) APTT 32.3 H (22.0-30.0) sec Fibrinogen 97 L (200-500) mg/dL D-Dimer (<0.60) mg/L FEU BUN 38.4 H (9.0-27.0) mg/dL Creatinine 1.7 H (0.6-1.5) mg/dL Est GFR (CKD-EPI) 40 L (>=60) BUN/Creatinine Ratio 22.59 H (12.00-20.00) Ratio Calcium 7.8 L (8.7-10.3) mg/dL Total Bilirubin 1.5 H 2.0 H (0.3-1.2) mg/dL Unconjugated Bilirubin 1.8 H (0.0-1.1) mg/dL Lactate Dehydrogenase 262 H (120-246) U/L Total Protein 4.0 L (6.2-8.2) g/dL Albumin 2.3 L (3.8-4.9) g/dL Albumin/Globulin Ratio 1.35 L (1.60-3.17) Ratio Assessment and Plan (1) DIC (disseminated intravascular coagulation) Status: Acute Priority: High Code(s): D65 - DISSEMINATED INTRAVASCULAR COAGULATION SNOMED Code(s): 35744617 (2) Pancytopenia Status: Acute Priority: High Code(s): D61.818 - OTHER PANCYTOPENIA SNOMED Code(s): 801536449 Plan: Low grade DIC -Pt received cryoprecipitate early in admit -Coags and fibrinogen have been slightly abnormal entire admit -BM Bx did yield a diagnosis. The case was sent to [facility] for 2nd opinion at family request. -IgM <35, there is a paraproteinemia 0.23 g/dL qualified as IgG lambda. Light chains were both elevated, ratio is equal. Peripheral smear is reported as pancytopenia with rare atypical lymphocytes present, myeloproliferative or myelodysplastic disorder, bone marrow biopsy did not provide definitive diagnosis. Possible PNH? Lab work up has been ordered. Case was discussed with Attending. Only request is that labs are drawn before patient is discharged. Pancytopenia -No transfusions needed today, Hgb 8.9, plt 52,000 -Transfuse for a Hgb< 7 and plt <10K or if symptomatic. -WBC 1.3, ANC just over 500. No GCSF until case reviewed at [facility]. -ID has been following, pending their recommendations re: prophylactic abx. Pt going to rehab. Ambulatory orders for CBC, coags and fibrinogen. Ok to savannah juarez from a Hematology standpoint once cleared by Attending and consulting MDs. F/U appt with Dr. Stanislaw Curran after DC from rehab, PNH work up completed and opinion from [facility] is obtained attests: I have seen and examined patient, performed H&P, developed impression and plan of care. Discussed with dictator. Agree with documentation, dictated as a scribe.
[2023-03-06 03:03] LABS: % Iron Saturation 22.29 (15.00-50.00)
== END 2023-03-05 14:36 | DRG 808 ==
LOC: EC 22:50 → 5NMEDONC 02-09 01:02 → 3SCARD 02-09 01:40 → 5NMEDONC 03-02 13:32
PROVIDERS: ADMIT Hospitalist; ATTEND Hospitalist
PROC: 30233M1 Transfusion of Nonautologous Plasma Cryoprecipitate into Peripheral Vein, Percutaneous Approach (ICD-10-PCS; principal; 2023-02-11)
PROC: 07DR3ZX Extraction of Iliac Bone Marrow, Percutaneous Approach, Diagnostic (ICD-10-PCS; 2023-02-13)
DX: D61.818 Other pancytopenia (principal); D65 Disseminated intravascular coagulation [defibrination syndrome]; E43 Unspecified severe protein-calorie malnutrition; N17.0 Acute kidney failure with tubular necrosis; E87.20 Acidosis, unspecified; E22.2 Syndrome of inappropriate secretion of antidiuretic hormone; I95.9 Hypotension, unspecified; R62.7 Adult failure to thrive; R50.81 Fever presenting with conditions classified elsewhere; D46.9 Myelodysplastic syndrome, unspecified; R04.0 Epistaxis; M19.90 Unspecified osteoarthritis, unspecified site; K59.00 Constipation, unspecified; E86.1 Hypovolemia; R53.81 Other malaise; D89.2 Hypergammaglobulinemia, unspecified; E86.0 Dehydration; I12.9 Hypertensive chronic kidney disease with stage 1 through stage 4 chronic kidney disease, or unspecified chronic kidney disease; D70.9 Neutropenia, unspecified; N18.31 Chronic kidney disease, stage 3a; R16.1 Splenomegaly, not elsewhere classified; Z28.310 Unvaccinated for COVID-19; Z68.23 Body mass index [BMI] 23.0-23.9, adult; Z11.52 Encounter for screening for COVID-19; Z86.73 Personal history of transient ischemic attack (TIA), and cerebral infarction without residual deficits; Z85.46 Personal history of malignant neoplasm of prostate; Z79.899 Other long term (current) drug therapy; Z79.890 Hormone replacement therapy; Z79.02 Long term (current) use of antithrombotics/antiplatelets
CPT/HCPCS: 36415; 38222; 71046; 71250; 74176; 78582; 80048; 80053; 81003; 82150; 82248; 82533; 82607; 82728; 82746; 83010; 83540; 83550; 83605; 83615; 83690; 83735; 83883; 83935; 84145; 84153; 84165; 84295; 84300; 84443; 84484; 85025; 85027; 85045; 85379; 85384; 85610; 85652; 85730; 86038; 86140; 86255; 86308; 86334; 86431; 86663; 86664; 86665; 86704; 86706; 86803; 86850; 86880; 86900; 86901; 87040; 87340; 87390; 87636; 93005; 94760; 96360; 96361; 99285

== ENCOUNTER → 2024-02-20 | Outpatient (CLI) | payer MEDICARE ==
--- NOTE | 2024-02-20 17:20 | PE ---
EXAMINATION TYPE: PET CT fusion skull to thigh DATE OF EXAM: 02/20/2024 CLINICAL INDICATION:Male, 83 years old with history of R91.1 LUNG NODULE; history of prostate cancer. TECHNIQUE: Following the intravenous administration of 13.74 mCi of F-18 FDG, whole body images are performed from the skull base to the midthigh. Images are reviewed on the computer in the coronal, axial, and sagittal planes. Reconstructed rotating images are created on independent workstation and reviewed on the computer. A non-contrast CT is performed in conjunction with the PET scan. Glucose level 86 mg/dL CT DLP: 478.32 mGycm, Automated exposure control for dose reduction was used. COMPARISON: CT 02/10/2023, 02/09/2023, PET/CT None, MRI: 08/16/2016 FINDINGS: Mediastinal SUV mean is 2.2. Hepatic parenchyma SUV mean is 2.9. SKULL BASE AND NECK: No suspicious radiotracer activity. CHEST, MEDIASTINUM, AND HILAR REGION: Several new pulmonary nodules from prior examination. Largest within the left upper lobe measures up to 1.5 cm. This demonstrates a maximum SUV of 3.3. Additional large nodule within the medial aspect o f the left upper lobe measures up to 1.2 cm with a maximum SUV of 10.0. Additional large nodule withi n the left lung base measuring up to 1.0 cm. This demonstrates a maximum SUV of 4.8. Anterior annular nodule measuring up to 8 mm with a maximum SUV of 4.8. The remaining nodules are subcentimeter size. ABDOMEN AND PELVIS: Abnormal circumferential wall thickening of the ascending colon measuring up to 1.7 cm in thickness. Demonstrates FDG activity with a maximum SUV of 20.0. Focal region of FDG activity without CT correlation in the region of the small bowel within the anter ior pelvis with a maximum SUV of 15.8. Additional focal region of FDG uptake within the left anterior rectus muscle at the subcutaneous tiss ue muscle layer with a maximum SUV 3.6. No abnormal soft tissue or focal FDG activity within the prostatectomy bed. MUSCULOSKELETAL STRUCTURES: Focal FDG uptake identified within the right C7 vertebral body without CT correlate. Demonstrates a m aximum SUV of 5.8. OTHER CT: Bilateral carotid bulb calcifications. Trace bilateral pleural effusions. Diffuse bone marcela neralization. Bilateral shoulder arthropathy. Punctate calcific granuloma within the posterior right upper lung. Increased cervicothoracic kyphosis. Subcentimeter right thyroid lobe nodule. Mild atheros clerotic calcification of the aorta and its branches. Small aortic valvular calcifications. LAD coron juan josé artery calcifications. Right hilar calcified lymph node. Stable 2.2 cm right adrenal gland nodule consistent with a lipid rich adenoma. No suspicious FDG activity. Left hepatic lobe 2.4 cm cyst. Jarad cification within the right paracolic gutter. Enlarged spleen. Punctate nonobstructive right renal ca lculus. Prostate gland is surgically absent. Iliac chain lymph node dissection changes. IMPRESSION: 1. Few scattered pulmonary nodules measuring up to 1.5 cm. The larger nodules demonstrate FDG activi ty with one demonstrating intense FDG activity symmetrically above background. The remaining nodules below the sensitivity of PET/CT based on size. These nodules are new from prior CT chest 02/10/2023. Findings are concerning for metastatic disease. 2. Focal radiotracer uptake with circumferential wall thickening involving the ascending colon gabriel rning for primary colonic malignancy. Direct visualization is recommended. 3. There are 2 focal foci of radiotracer uptake within the lower anterior abdominal wall near small bowel without definitive CT correlate. Could represent developing peritoneal implants versus artifact . 4. Nonspecific focal FDG uptake within the right C7 vertebral body without CT correlate. Could repre sent developing metastasis. Could be further evaluated with nuclear medicine bone scan as clinically indicated. [facility], , 02/20/2024 5:18 PM
== END | disposition home or self-care (01) ==
LOC: RADPETMAIN 13:16
PROVIDERS: ATTEND Internal Medicine
CPT/HCPCS: 78815

== ENCOUNTER → 2024-03-13 | Day surgery (SDC) | payer MEDICARE ==
[~2024-03-13] MED LIST: PROPOFOL 10 MG/ML 20 ML VIAL IV ONE
[2024-03-13 11:26] VITALS: TEMP 98
[2024-03-13] MEDS: LACTATED RINGERS 1,000 ML IV SCH (11:34)
[2024-03-13] MEDS: IV FLUID CONTINUATION 1,000 ML IV ONE (11:34)
--- NOTE | 2024-03-13 12:20 | P.PCN ---
Date of Procedure: 03/13/24 Procedure(s) Performed: BRIEF HISTORY: Patient is a 83-year-old pleasant white [place] scheduled for an elective colonoscopy as a part of evaluation of abnormal PET scan that was done in January of this year. He revealed abnormal wall thickening of the ascending colon. Last colonoscopy was about 8 years ago according to the patient was normal PROCEDURE PERFORMED: Colonoscopy with biopsy and Snare Polypectomy. PREOPERATIVE DIAGNOSIS: Abnormal CAT scan showing thickening of the ascending colon. IV sedation per Anesthesia. PROCEDURE: After informed consent was obtained, the patient, was brought into the endoscopy unit. IV sedation was administered by Anesthesia under continuous monitoring. Digital rectal examination was normal. Initially the Olympus CF-160 flexible video colonoscope was then inserted in the rectum, gradually advanced into the cecum without any difficulty. Careful examination was performed as the scope was gradually being withdrawn. Ileocecal valve and the appendiceal orifice were visualized and appeared normal. Prep was excellent. Mucosa of the cecum, had a 4 mm flat polyp that was removed by cold biopsy. In the transverse colon there was a 5 mm polyp removed by cold snare polypectomy. In the descending colon there was a 3 mm polyp removed by cold biopsy. Rest of the ascending colon, transverse colon, descending colon, sigmoid colon, and rectum appeared normal. The sigmoid colon there was a 3 mm and 7 mm polyp removed by hot snare polypectomy. Scattered left-sided diverticulosis seen. Retroflexion was performed in the rectum and no lesions were seen. The patient tolerated the procedure well. IMPRESSION: No mucosal abnormality noted in the ascending colon corresponding to the PET scan. 4 mm flat cecal polyp status post cold biopsy. 5 mm transverse colon polyp status post cold snare polypectomy 3 mm descending colon polyp status post cold biopsy 3 mm and 7 mm proximal rectosigmoid polyp status post snare polypectomy Scattered left-sided diverticulosis. RECOMMENDATIONS: Findings of this examination were discussed with the patient as well as his family. He was advised to follow-up the biopsy results. Resume Shawnee liz.
[2024-03-13 13:06] VITALS: BP 136/77; PULSE 72; RESP 16
== END ==
LOC: ORWHC2ENDO 10:25
PROVIDERS: ATTEND Internal Medicine Gastroenterology
DX: D12.3 Benign neoplasm of transverse colon (principal); D12.4 Benign neoplasm of descending colon; D12.7 Benign neoplasm of rectosigmoid junction; K57.30 Diverticulosis of large intestine without perforation or abscess without bleeding; I10 Essential (primary) hypertension; E03.9 Hypothyroidism, unspecified; G40.909 Epilepsy, unspecified, not intractable, without status epilepticus; Z85.46 Personal history of malignant neoplasm of prostate; Z79.890 Hormone replacement therapy; Z98.890 Other specified postprocedural states; Z90.79 Acquired absence of other genital organ(s)
CPT/HCPCS: 88305; 45380; 45385; J2704

== ENCOUNTER 2024-05-08 08:38 | Inpatient (IN) | payer MEDICARE ==
[2024-05-08 09:55] LABS: Partial Thromboplastin Time 27.7 sec (22.0-30.0); Prothrombin Time 11.2 sec (10.0-12.5)
[2024-05-08 09:56] LABS: HGB 11.4 gm/dL (13.0-17.5); MCH 28.5 pg (25.0-35.0); MCHC 34.6 g/dL (31.0-37.0); MCV 82.5 fL (80.0-100.0); Mean Platelet Volume 7.1; RDW 14.2 % (11.5-15.5); WBC 2.8 k/uL (3.8-10.6)
--- NOTE | 2024-05-08 10:04 | ED ---
Weakness HPI - General Chief complaint: Weakness Stated complaint: Weakness Time Seen by Provider: 05/08/24 08:47 Source: patient Mode of arrival: ambulatory Limitations: no limitations - History of Present Illness Initial comments: 84-year-old male with past medical history of prostate cancer, recurrent UTI, myelodysplastic syndrome who follows with Dr. Curran who presents to the emergency department reporting generalized weakness. Patient does have chronic weakness on his right side due to a history of a stroke which is unknown to the family but found in the medical record. Family reports that the patient was notably weak in his right leg 2 weeks ago and this now progressed to include the left lower extremity. Patient previously ambulated with a walker however they state at this time the patient cannot ambulate at all. 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 He did test positive on a home test for a UTI. Dr. Curran in Cipro 500 mg to be taken every 12 hours for 5 days. Patient finished his course. They rechecked him again and patient continues to still test positive. No fevers. No speech deficit. Patient denies any headaches or visual changes. No fevers, chills or cough. Denies chest pain or shortness of breath. No other alleviating, precipitating or modifying factors - Related Data Home Medications Medication Instructions Recorded Confirmed Levothyroxine Sodium [Synthroid] 50 mcg PO DAILY 08/15/16 05/08/24 Cyanocobalamin [Vitamin B-12] 500 mcg PO DAILY 03/12/24 05/08/24 Ibuprofen [Advil] 400 mg PO Q6H PRN 05/08/24 05/08/24 Melatonin 10 mg PO HS 05/08/24 05/08/24 Previous Rx's Medication Instructions Recorded Acetaminophen Tab [Tylenol] 650 mg PO Q6HR PRN tab 02/27/23 HYDROcodone/APAP 5-325MG [[place] 1 tab PO Q6HR PRN #18 tab 05/14/24 5-325] Sennosides/Docusate Sodium 2 each PO DAILY PRN #30 tablet 05/14/24 [Senna-S 8.6-50 mg Tablet] Aspirin 81 mg PO DAILY tab 05/15/24 Cyclobenzaprine [Flexeril] 5 mg PO BID PRN tab 05/15/24 Famotidine [Pepcid] 20 mg PO DAILY tab 05/15/24 Magnesium Hydroxide [Milk of 2,400 mg PO DAILY PRN ml 05/15/24 Magnesia] Pantoprazole [Protonix] 40 mg PO AC-BRKFST tab 05/15/24 amLODIPine [Norvasc] 5 mg PO DAILY tab 05/15/24 methylPREDNISolone Dose Pack 4 mg PO DIRECTED #21 tab 05/15/24 [Medrol Dose Pack] traMADol HCl [Ultram] 50 mg PO Q6HR PRN #4 tab 05/15/24 Allergies Allergy/AdvReac Type Severity Reaction Status Date / Time No Known Allergies Allergy Verified 05/08/24 10:52 Review of Systems ROS Statement: Those systems with pertinent positive or pertinent negative responses have been documented in the HPI. ROS Other: All systems not noted in ROS Statement are negative. Past Medical History Past Medical History: Cancer, CVA/TIA, Hypertension, Osteoarthritis (OA) Additional Past Medical History / Comment(s): Prostate cancer with surgery, 2006 UTI with EColi, back pain on occasion, seasonal allergies. History of Any Multi-Drug Resistant Organisms: None Reported Past Surgical History: Orthopedic Surgery Additional Past Surgical History / Comment(s): Radical retropubic prostatectomy, colonoscopy with polypectomy, R elbow sx, R knee arthroscopy. Past Anesthesia/Blood Transfusion Reactions: No Reported Reaction Past Psychological History: No Psychological Hx Reported Smoking Status: Never smoker Past Alcohol Use History: None Reported Past Drug Use History: None Reported - Past Family History Father Family Medical History: No Reported History Additional Family Medical History / Comment(s): Father was healthy and lived to be 89yrs old. Mother Family Medical History: Diabetes Mellitus Additional Family Medical History / Comment(s): Mother in her 80's. General Exam Limitations: no limitations General appearance: alert, in no apparent distress Head exam: Present: atraumatic, normocephalic, normal inspection Eye exam: Present: normal appearance, PERRL, EOMI. Absent: scleral icterus, conjunctival injection, periorbital swelling ENT exam: Present: normal exam, mucous membranes moist Neck exam: Present: normal inspection. Absent: tenderness, meningismus, lymphadenopathy Respiratory exam: Present: normal lung sounds bilaterally. Absent: respiratory distress, wheezes, rales, rhonchi, stridor Cardiovascular Exam: Present: regular rate, normal rhythm, normal heart sounds. Absent: systolic murmur, diastolic murmur, rubs, gallop, clicks GI/Abdominal exam: Present: soft, normal bowel sounds. Absent: distended, tenderness, guarding, rebound, rigid Extremities exam: Present: full ROM, normal capillary refill, other (4 out of 5 strength of the left lower extremity, 3 out of 5 strength of the right lower extremity). Absent: tenderness, pedal edema, joint swelling, calf tenderness Back exam: Present: normal inspection Neurological exam: Present: alert, oriented X3, CN II-XII intact Psychiatric exam: Present: normal affect, normal mood Skin exam: Present: warm, dry, intact, normal color. Absent: rash Course Vital Signs 05/08/24 05/08/24 05/08/24 08:41 10:32 13:20 Temperature 98.1 F Pulse Rate 84 77 80 Respiratory 18 18 16 Rate Blood Pressure 138/94 146/98 166/99 O2 Sat by Pulse 100 96 Oximetry Medical Decision Making - Medical Decision Making Was pt. sent in by a medical professional or institution (, PA, SPECIAL SKILLS OFFICER, urgent care, hospital, or [facility]...) When possible be specific @ -No Did you speak to anyone other than the patient for history (EMS, parent, family, police, friend...)? What history was obtained from this source @ -Spoke with for history Did you review nursing and triage notes (agree or disagree)? Why? @ -I reviewed and agree with nursing and triage notes Were old charts reviewed (outside hosp., previous admission, EMS record, old EKG, old radiological studies, urgent care reports/EKG's, [facility] records)? Report findings @ -I reviewed the chart from July 2016 when the patient did have a diagnosed stroke that affected the strength in his right side Differential Diagnosis (chest pain, altered mental status, abdominal pain women, abdominal pain men, vaginal bleeding, weakness, fever, dyspnea, syncope, headache, dizziness, GI bleed, back pain, seizure, CVA, palpatations, mental health, musculoskeletal)? @ -Differential Weakness: Hypoglycemia, shock, sepsis, hyponatremia, anemia, infection, OK, ETOH, adverse medicine reaction, overdose, stroke, this is not meant to be an all-inclusive list. EKG interpreted by me (3pts min.). @ -Yes and demonstrates sinus rhythm with a rate of 73. NC interval 215. QRS 132. QTc of 421. No acute ST segment elevations. Right bundle branch block X-rays interpreted by me (1pt min.). @ -Chest x-ray demonstrates no acute process CT interpreted by me (1pt min.). @ -CT of the brain demonstrates no acute intracranial process U/S interpreted by me (1pt. min.). @ -None done What testing was considered but not performed or refused? (CT, X-rays, U/S, labs)? Why? @ -None What meds were considered but not given or refused? Why? @ -None Did you discuss the management of the patient with other professionals (professionals i.e. , PA, SPECIAL SKILLS OFFICER, lab, RT, psych nurse, director social welfare, assembler flexible leads, teacher, humane officer, manager case)? Give summary @ -Spoke with Dr. Carrasco for the admission Was smoking cessation discussed for >3mins.? @ -No Was critical care preformed (if so, how long)? @ -No Were there social determinants of health that impacted care today? How? (Homelessness, low income, unemployed, alcoholism, drug addiction, transportation, low edu. Level, literacy, decrease access to med. care, senior living, r ehab)? @ -No Was there de-escalation of care discussed even if they declined (Discuss DNR or withdrawal of care, Hospice)? DNR status @ -No What co-morbidities impacted this encounter? (DM, HTN, Smoking, COPD, CAD, Cancer, CVA, ARF, Chemo, Hep., AIDS, mental health diagnosis, sleep apnea, morbid obesity)? @ -MDS, CVA Was patient admitted / discharged? Hospital course, mention meds given and rou te, prescriptions, significant lab abnormalities, going to OR and other pertinent info. @ -Upon arrival patient seen and evaluated in room 24. Thorough history and physical exam performed. He does have weakness in his lower extremities. The right side is worse than the left. I did review patient's records which demonstrated he had previous stroke with right-sided weakness. I did complete a CT at this time because of those findings. I also added on a chest x-ray laboratory studies and a urinalysis. Results are discussed with the patient and his . 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 I will admit the patient for further evaluation of his acute onset lower extremity weakness. I spoke with Dr. Carrasco for the admission. Undiagnosed new problem with uncertain prognosis? @ -No Drug Therapy requiring intensive monitoring for toxicity (Heparin, Nitro, Insulin, Cardizem)? @ -No Were any procedures done? @ -No Diagnosis/symptom? @ -Acute lower extremity weakness, inability to ambulate, pancytopenia, history of MDS Acute, or Chronic, or Acute on Chronic? @Acute on chronic Uncomplicated (without systemic symptoms) or Complicated (systemic symptoms)? @ -Complicated Side effects of treatment? @ -No Exacerbation, Progression, or Severe Exacerbation? @ -No Poses a threat to life or bodily function? How? (Chest pain, USA, OK, pneumonia, PE, COPD, DKA, ARF, appy, cholecystitis, CVA, Diverticulitis, Homicidal, Suicid al, threat to staff... and all critical care pts) @ -No - Lab Data Result diagrams: 05/13/24 04:45 05/15/24 05:59 Lab Results 05/08/24 05/08/24 05/08/24 Range/Units 09:33 09:33 09:33 WBC 2.8 L (3.8-10.6) k/uL RBC 4.00 L (4.30-5.90) m/uL Hgb 11.4 L (13.0-17.5) gm/dL Hct 33.0 L (39.0-53.0) % MCV 82.5 D (80.0-100.0) fL MCH 28.5 (25.0-35.0) pg MCHC 34.6 (31.0-37.0) g/dL RDW 14.2 (11.5-15.5) % Plt Count 87 L (150-450) k/uL MPV 7.1 Immature Gran % (Auto) % Absolute Nucleated RBC % Neutrophils % % Neutrophils % (Manual) 60 % Lymphocytes % % Lymphocytes % (Manual) 24 % Monocytes % % Monocytes % (Manual) 14 % Eosinophils % % Eosinophils % (Manual) 2 % Basophils % % Immature Gran # (0.00-0.04) X 10*3/uL Neutrophils # (1.80-7.70) X 10*3/uL Neutrophils # (Manual) 1.68 (1.3-7.7) k/uL Lymphocytes # (0.90-5.00) X 10*3/uL Lymphocytes # (Manual) 0.67 L (1.0-4.8) k/uL Monocytes # (0.20-1.00) X 10*3/uL Monocytes # (Manual) 0.39 (0-1.0) k/uL Eosinophils # (0.04-0.35) X 10*3/uL Eosinophils # (Manual) 0.06 (0-0.7) k/uL Basophils # (0.00-0.10) X 10*3/uL Nucleated RBCs 0 (0-0) /100 WBC NRBC/100 WBC Diff (0.00-0.01) X 10*3/uL Manual Slide Review Performed PT 11.2 (10.0-12.5) sec INR 1.0 (<1.2) APTT 27.7 (22.0-30.0) sec Sodium 135 L (137-145) mmol/L Potassium 4.2 (3.5-5.1) mmol/L Chloride 105 (98-107) mmol/L Carbon Dioxide 22 (22-30) mmol/L Anion Gap 8 mmol/L BUN 42 H (9-20) mg/dL Creatinine 1.59 H (0.66-1.25) mg/dL Est GFR (CKD-EPI) (>=60) Est GFR (CKD-EPI)AfAm 45 (>60 ml/min/1.73 sqM) Est GFR (CKD-EPI)NonAf 39 (>60 ml/min/1.73 sqM) BUN/Creatinine Ratio (12.00-20.00) Ratio Glucose 93 (74-99) mg/dL POC Glucose (mg/dL) (70-110) mg/dL POC Glu [employer] Worker ID Estimated Ave Glu mg/dL mg/dL Hemoglobin A1c (<=6.0) % Plasma Lactic Acid Eulogio (0.7-2.0) mmol/L Calcium 9.1 (8.4-10.2) mg/dL Magnesium 1.9 (1.6-2.3) mg/dL Total Bilirubin 1.3 (0.2-1.3) mg/dL AST 33 (17-59) U/L ALT 28 (4-49) U/L Alkaline Phosphatase 108 (38-126) U/L Troponin I (0.000-0.034) ng/mL NT-Pro-B Natriuret Pep 629 pg/mL Total Protein 6.7 (6.3-8.2) g/dL Albumin 3.6 (3.5-5.0) g/dL Globulin (1.6-3.3) g/dL Albumin/Globulin Ratio (1.60-3.17) Ratio Triglycerides (0.00-149.00) mg/dL Cholesterol (0.00-200.00) mg/dL LDL Cholesterol, Calc (0.0-131.0) mg/dL VLDL Cholesterol, Calc (5.00-40.00) mg/dL HDL Cholesterol (40.00-60.00) mg/dL Cholesterol/HDL Ratio Ratio Vitamin B12 (200.0-944.0) pg/mL Methylmalonic Acid (<0.40) umol/L RBC Folate (280 - 791) ng/mL Urine Color Urine Appearance (Clear) Urine pH (5.0-8.0) Ur Specific [place] (1.001-1.035) Urine Protein (Negative) Urine Glucose (UA) (Negative) Urine Ketones (Negative) Urine Blood (Negative) Urine Nitrite (Negative) Urine Bilirubin (Negative) Urine Urobilinogen (<2.0) mg/dL Ur Leukocyte Esterase (Negative) 05/08/24 05/08/24 05/08/24 Range/Units 09:33 09:33 10:31 WBC (3.8-10.6) k/uL RBC (4.30-5.90) m/uL Hgb (13.0-17.5) gm/dL Hct (39.0-53.0) % MCV (80.0-100.0) fL MCH (25.0-35.0) pg MCHC (31.0-37.0) g/dL RDW (11.5-15.5) % Plt Count (150-450) k/uL MPV Immature Gran % (Auto) % Absolute Nucleated RBC % Neutrophils % % Neutrophils % (Manual) % Lymphocytes % % Lymphocytes % (Manual) % Monocytes % % Monocytes % (Manual) % Eosinophils % % Eosinophils % (Manual) % Basophils % % Immature Gran # (0.00-0.04) X 10*3/uL Neutrophils # (1.80-7.70) X 10*3/uL Neutrophils # (Manual) (1.3-7.7) k/uL Lymphocytes # (0.90-5.00) X 10*3/uL Lymphocytes # (Manual) (1.0-4.8) k/uL Monocytes # (0.20-1.00) X 10*3/uL Monocytes # (Manual) (0-1.0) k/uL Eosinophils # (0.04-0.35) X 10*3/uL Eosinophils # (Manual) (0-0.7) k/uL Basophils # (0.00-0.10) X 10*3/uL Nucleated RBCs (0-0) /100 WBC NRBC/100 WBC Diff (0.00-0.01) X 10*3/uL Manual Slide Review PT (10.0-12.5) sec INR (<1.2) APTT (22.0-30.0) sec Sodium (137-145) mmol/L Potassium (3.5-5.1) mmol/L Chloride (98-107) mmol/L Carbon Dioxide (22-30) mmol/L Anion Gap mmol/L BUN (9-20) mg/dL Creatinine (0.66-1.25) mg/dL Est GFR (CKD-EPI) (>=60) Est GFR (CKD-EPI)AfAm (>60 ml/min/1.73 sqM) Est GFR (CKD-EPI)NonAf (>60 ml/min/1.73 sqM) BUN/Creatinine Ratio (12.00-20.00) Ratio Glucose (74-99) mg/dL POC Glucose (mg/dL) (70-110) mg/dL POC Glu [employer] Worker ID Estimated Ave Glu mg/dL mg/dL Hemoglobin A1c (<=6.0) % Plasma Lactic Acid Eulogio <0.5 L (0.7-2.0) mmol/L Calcium (8.4-10.2) mg/dL Magnesium (1.6-2.3) mg/dL Total Bilirubin (0.2-1.3) mg/dL AST (17-59) U/L ALT (4-49) U/L Alkaline Phosphatase (38-126) U/L Troponin I <0.012 (0.000-0.034) ng/mL NT-Pro-B Natriuret Pep pg/mL Total Protein (6.3-8.2) g/dL Albumin (3.5-5.0) g/dL Globulin (1.6-3.3) g/dL Albumin/Globulin Ratio (1.60-3.17) Ratio Triglycerides (0.00-149.00) mg/dL Cholesterol (0.00-200.00) mg/dL LDL Cholesterol, Calc (0.0-131.0) mg/dL VLDL Cholesterol, Calc (5.00-40.00) mg/dL HDL Cholesterol (40.00-60.00) mg/dL Cholesterol/HDL Ratio Ratio Vitamin B12 (200.0-944.0) pg/mL Methylmalonic Acid (<0.40) umol/L RBC Folate (280 - 791) ng/mL Urine Color Colorless Urine Appearance Clear (Clear) Urine pH 5.0 (5.0-8.0) Ur Specific [place] 1.013 (1.001-1.035) Urine Protein Negative (Negative) Urine Glucose (UA) Negative (Negative) Urine Ketones Negative (Negative) Urine Blood Negative (Negative) Urine Nitrite Negative (Negative) Urine Bilirubin Negative (Negative) Urine Urobilinogen <2.0 (<2.0) mg/dL Ur Leukocyte Esterase Negative (Negative) 05/09/24 05/09/24 05/09/24 Range/Units 03:50 03:50 03:50 WBC 2.89 L (3.8-10.6) k/uL RBC 3.86 L (4.30-5.90) m/uL Hgb 11.1 L (13.0-17.5) gm/dL Hct 31.5 L (39.0-53.0) % MCV 81.6 (80.0-100.0) fL MCH 28.8 (25.0-35.0) pg MCHC 35.2 (31.0-37.0) g/dL RDW 14.5 (11.5-15.5) % Plt Count 85 L (150-450) k/uL MPV 10.5 Immature Gran % (Auto) 0.30 % Absolute Nucleated RBC 0 % Neutrophils % 83.1 % Neutrophils % (Manual) % Lymphocytes % 11.8 % Lymphocytes % (Manual) % Monocytes % 4.5 % Monocytes % (Manual) % Eosinophils % 0 % Eosinophils % (Manual) % Basophils % 0.3 % Immature Gran # 0.01 (0.00-0.04) X 10*3/uL Neutrophils # 2.40 (1.80-7.70) X 10*3/uL Neutrophils # (Manual) (1.3-7.7) k/uL Lymphocytes # 0.34 L (0.90-5.00) X 10*3/uL Lymphocytes # (Manual) (1.0-4.8) k/uL Monocytes # 0.13 L (0.20-1.00) X 10*3/uL Monocytes # (Manual) (0-1.0) k/uL Eosinophils # 0 L (0.04-0.35) X 10*3/uL Eosinophils # (Manual) (0-0.7) k/uL Basophils # 0.01 (0.00-0.10) X 10*3/uL Nucleated RBCs (0-0) /100 WBC NRBC/100 WBC Diff 0 (0.00-0.01) X 10*3/uL Manual Slide Review PT (10.0-12.5) sec INR (<1.2) APTT (22.0-30.0) sec Sodium 137 (137-145) mmol/L Potassium 5.0 (3.5-5.1) mmol/L Chloride 108 (98-107) mmol/L Carbon Dioxide 18.9 L (22-30) mmol/L Anion Gap 10.10 mmol/L BUN 41.9 H (9-20) mg/dL Creatinine 1.7 H (0.66-1.25) mg/dL Est GFR (CKD-EPI) 39 L (>=60) Est GFR (CKD-EPI)AfAm (>60 ml/min/1.73 sqM) Est GFR (CKD-EPI)NonAf (>60 ml/min/1.73 sqM) BUN/Creatinine Ratio 24.65 H (12.00-20.00) Ratio Glucose 154 H (74-99) mg/dL POC Glucose (mg/dL) (70-110) mg/dL POC Glu [employer] Worker ID Estimated Ave Glu mg/dL mg/dL Hemoglobin A1c (<=6.0) % Plasma Lactic Acid Eulogio (0.7-2.0) mmol/L Calcium 9.0 (8.4-10.2) mg/dL Magnesium 2.0 (1.6-2.3) mg/dL Total Bilirubin 0.7 (0.2-1.3) mg/dL AST 26 (17-59) U/L ALT 24 (4-49) U/L Alkaline Phosphatase 115 (38-126) U/L Troponin I (0.000-0.034) ng/mL NT-Pro-B Natriuret Pep pg/mL Total Protein 6.4 (6.3-8.2) g/dL Albumin 3.5 L (3.5-5.0) g/dL Globulin 2.9 (1.6-3.3) g/dL Albumin/Globulin Ratio 1.21 L (1.60-3.17) Ratio Triglycerides 90.50 (0.00-149.00) mg/dL Cholesterol 123.00 (0.00-200.00) mg/dL LDL Cholesterol, Calc 74.7 (0.0-131.0) mg/dL VLDL Cholesterol, Calc 18.10 (5.00-40.00) mg/dL HDL Cholesterol 30.20 L (40.00-60.00) mg/dL Cholesterol/HDL Ratio 4.07 Ratio Vitamin B12 750.0 (200.0-944.0) pg/mL Methylmalonic Acid 0.29 (<0.40) umol/L RBC Folate 794 H (280 - 791) ng/mL Urine Color Urine Appearance (Clear) Urine pH (5.0-8.0) Ur Specific [place] (1.001-1.035) Urine Protein (Negative) Urine Glucose (UA) (Negative) Urine Ketones (Negative) Urine Blood (Negative) Urine Nitrite (Negative) Urine Bilirubin (Negative) Urine Urobilinogen (<2.0) mg/dL Ur Leukocyte Esterase (Negative) 05/09/24 05/09/24 05/10/24 Range/Units 17:03 20:05 02:57 WBC (3.8-10.6) k/uL RBC (4.30-5.90) m/uL Hgb (13.0-17.5) gm/dL Hct (39.0-53.0) % MCV (80.0-100.0) fL MCH (25.0-35.0) pg MCHC (31.0-37.0) g/dL RDW (11.5-15.5) % Plt Count (150-450) k/uL MPV Immature Gran % (Auto) % Absolute Nucleated RBC % Neutrophils % % Neutrophils % (Manual) % Lymphocytes % % Lymphocytes % (Manual) % Monocytes % % Monocytes % (Manual) % Eosinophils % % Eosinophils % (Manual) % Basophils % % Immature Gran # (0.00-0.04) X 10*3/uL Neutrophils # (1.80-7.70) X 10*3/uL Neutrophils # (Manual) (1.3-7.7) k/uL Lymphocytes # (0.90-5.00) X 10*3/uL Lymphocytes # (Manual) (1.0-4.8) k/uL Monocytes # (0.20-1.00) X 10*3/uL Monocytes # (Manual) (0-1.0) k/uL Eosinophils # (0.04-0.35) X 10*3/uL Eosinophils # (Manual) (0-0.7) k/uL Basophils # (0.00-0.10) X 10*3/uL Nucleated RBCs (0-0) /100 WBC NRBC/100 WBC Diff (0.00-0.01) X 10*3/uL Manual Slide Review PT (10.0-12.5) sec INR (<1.2) APTT (22.0-30.0) sec Sodium (137-145) mmol/L Potassium (3.5-5.1) mmol/L Chloride (98-107) mmol/L Carbon Dioxide (22-30) mmol/L Anion Gap mmol/L BUN (9-20) mg/dL Creatinine (0.66-1.25) mg/dL Est GFR (CKD-EPI) (>=60) Est GFR (CKD-EPI)AfAm (>60 ml/min/1.73 sqM) Est GFR (CKD-EPI)NonAf (>60 ml/min/1.73 sqM) BUN/Creatinine Ratio (12.00-20.00) Ratio Glucose (74-99) mg/dL POC Glucose (mg/dL) 180 H 172 H (70-110) mg/dL POC Glu [employer] Worker ID Esteban Barry Estimated [address] Glu mg/dL 94 mg/dL Hemoglobin A1c 4.9 (<=6.0) % Plasma Lactic Acid Eulogio (0.7-2.0) mmol/L Calcium (8.4-10.2) mg/dL Magnesium (1.6-2.3) mg/dL Total Bilirubin (0.2-1.3) mg/dL AST (17-59) U/L ALT (4-49) U/L Alkaline Phosphatase (38-126) U/L Troponin I (0.000-0.034) ng/mL NT-Pro-B Natriuret Pep pg/mL Total Protein (6.3-8.2) g/dL Albumin (3.5-5.0) g/dL Globulin (1.6-3.3) g/dL Albumin/Globulin Ratio (1.60-3.17) Ratio Triglycerides (0.00-149.00) mg/dL Cholesterol (0.00-200.00) mg/dL LDL Cholesterol, Calc (0.0-131.0) mg/dL VLDL Cholesterol, Calc (5.00-40.00) mg/dL HDL Cholesterol (40.00-60.00) mg/dL Cholesterol/HDL Ratio Ratio Vitamin B12 (200.0-944.0) pg/mL Methylmalonic Acid (<0.40) umol/L RBC Folate (280 - 791) ng/mL Urine Color Urine Appearance (Clear) Urine pH (5.0-8.0) Ur Specific [place] (1.001-1.035) Urine Protein (Negative) Urine Glucose (UA) (Negative) Urine Ketones (Negative) Urine Blood (Negative) Urine Nitrite (Negative) Urine Bilirubin (Negative) Urine Urobilinogen (<2.0) mg/dL Ur Leukocyte Esterase (Negative) 05/10/24 05/10/24 05/10/24 Range/Units 02:57 07:06 08:34 WBC (3.8-10.6) k/uL RBC (4.30-5.90) m/uL Hgb (13.0-17.5) gm/dL Hct (39.0-53.0) % MCV (80.0-100.0) fL MCH (25.0-35.0) pg MCHC (31.0-37.0) g/dL RDW (11.5-15.5) % Plt Count (150-450) k/uL MPV Immature Gran % (Auto) % Absolute Nucleated RBC % Neutrophils % % Neutrophils % (Manual) % Lymphocytes % % Lymphocytes % (Manual) % Monocytes % % Monocytes % (Manual) % Eosinophils % % Eosinophils % (Manual) % Basophils % % Immature Gran # (0.00-0.04) X 10*3/uL Neutrophils # (1.80-7.70) X 10*3/uL Neutrophils # (Manual) (1.3-7.7) k/uL Lymphocytes # (0.90-5.00) X 10*3/uL Lymphocytes # (Manual) (1.0-4.8) k/uL Monocytes # (0.20-1.00) X 10*3/uL Monocytes # (Manual) (0-1.0) k/uL Eosinophils # (0.04-0.35) X 10*3/uL Eosinophils # (Manual) (0-0.7) k/uL Basophils # (0.00-0.10) X 10*3/uL Nucleated RBCs (0-0) /100 WBC NRBC/100 WBC Diff (0.00-0.01) X 10*3/uL Manual Slide Review PT (10.0-12.5) sec INR (<1.2) APTT (22.0-30.0) sec Sodium 134 L (137-145) mmol/L Potassium 4.7 (3.5-5.1) mmol/L Chloride 108 (98-107) mmol/L Carbon Dioxide 18.2 L (22-30) mmol/L Anion Gap 7.80 mmol/L BUN 46.5 H (9-20) mg/dL Creatinine 1.8 H (0.66-1.25) mg/dL Est GFR (CKD-EPI) 36 L (>=60) Est GFR (CKD-EPI)AfAm (>60 ml/min/1.73 sqM) Est GFR (CKD-EPI)NonAf (>60 ml/min/1.73 sqM) BUN/Creatinine Ratio 25.83 H (12.00-20.00) Ratio Glucose 144 H (74-99) mg/dL POC Glucose (mg/dL) 126 H 150 H (70-110) mg/dL POC Glu [employer] Worker ID Hollis Reynoso Estimated Ave Glu mg/dL mg/dL Hemoglobin A1c (<=6.0) % Plasma Lactic Acid Eulogio (0.7-2.0) mmol/L Calcium 8.6 L (8.4-10.2) mg/dL Magnesium (1.6-2.3) mg/dL Total Bilirubin (0.2-1.3) mg/dL AST (17-59) U/L ALT (4-49) U/L Alkaline Phosphatase (38-126) U/L Troponin I (0.000-0.034) ng/mL NT-Pro-B Natriuret Pep pg/mL Total Protein (6.3-8.2) g/dL Albumin (3.5-5.0) g/dL Globulin (1.6-3.3) g/dL Albumin/Globulin Ratio (1.60-3.17) Ratio Triglycerides (0.00-149.00) mg/dL Cholesterol (0.00-200.00) mg/dL LDL Cholesterol, Calc (0.0-131.0) mg/dL VLDL Cholesterol, Calc (5.00-40.00) mg/dL HDL Cholesterol (40.00-60.00) mg/dL Cholesterol/HDL Ratio Ratio Vitamin B12 (200.0-944.0) pg/mL Methylmalonic Acid (<0.40) umol/L RBC Folate (280 - 791) ng/mL Urine Color Urine Appearance (Clear) Urine pH (5.0-8.0) Ur Specific [place] (1.001-1.035) Urine Protein (Negative) Urine Glucose (UA) (Negative) Urine Ketones (Negative) Urine Blood (Negative) Urine Nitrite (Negative) Urine Bilirubin (Negative) Urine Urobilinogen (<2.0) mg/dL Ur Leukocyte Esterase (Negative) 05/10/24 05/10/24 05/10/24 Range/Units 12:02 17:24 20:06 WBC (3.8-10.6) k/uL RBC (4.30-5.90) m/uL Hgb (13.0-17.5) gm/dL Hct (39.0-53.0) % MCV (80.0-100.0) fL MCH (25.0-35.0) pg MCHC (31.0-37.0) g/dL RDW (11.5-15.5) % Plt Count (150-450) k/uL MPV Immature Gran % (Auto) % Absolute Nucleated RBC % Neutrophils % % Neutrophils % (Manual) % Lymphocytes % % Lymphocytes % (Manual) % Monocytes % % Monocytes % (Manual) % Eosinophils % % Eosinophils % (Manual) % Basophils % % Immature Gran # (0.00-0.04) X 10*3/uL Neutrophils # (1.80-7.70) X 10*3/uL Neutrophils # (Manual) (1.3-7.7) k/uL Lymphocytes # (0.90-5.00) X 10*3/uL Lymphocytes # (Manual) (1.0-4.8) k/uL Monocytes # (0.20-1.00) X 10*3/uL Monocytes # (Manual) (0-1.0) k/uL Eosinophils # (0.04-0.35) X 10*3/uL Eosinophils # (Manual) (0-0.7) k/uL Basophils # (0.00-0.10) X 10*3/uL Nucleated RBCs (0-0) /100 WBC NRBC/100 WBC Diff (0.00-0.01) X 10*3/uL Manual Slide Review PT (10.0-12.5) sec INR (<1.2) APTT (22.0-30.0) sec Sodium (137-145) mmol/L Potassium (3.5-5.1) mmol/L Chloride (98-107) mmol/L Carbon Dioxide (22-30) mmol/L Anion Gap mmol/L BUN (9-20) mg/dL Creatinine (0.66-1.25) mg/dL Est GFR (CKD-EPI) (>=60) Est GFR (CKD-EPI)AfAm (>60 ml/min/1.73 sqM) Est GFR (CKD-EPI)NonAf (>60 ml/min/1.73 sqM) BUN/Creatinine Ratio (12.00-20.00) Ratio Glucose (74-99) mg/dL POC Glucose (mg/dL) 157 H 170 H 150 H (70-110) mg/dL POC Glu [employer] ID Hollis Borrero Estimated Ave Glu mg/dL mg/dL Hemoglobin A1c (<=6.0) % Plasma Lactic Acid [place] (0.7-2.0) mmol/L Calcium (8.4-10.2) mg/dL Magnesium (1.6-2.3) mg/dL Total Bilirubin (0.2-1.3) mg/dL AST (17-59) U/L ALT (4-49) U/L Alkaline Phosphatase (38-126) U/L Troponin I (0.000-0.034) ng/mL NT-Pro-B Natriuret Pep pg/mL Total Protein (6.3-8.2) g/dL Albumin (3.5-5.0) g/dL Globulin (1.6-3.3) g/dL Albumin/Globulin Ratio (1.60-3.17) Ratio Triglycerides (0.00-149.00) mg/dL Cholesterol (0.00-200.00) mg/dL LDL Cholesterol, Calc (0.0-131.0) mg/dL VLDL Cholesterol, Calc (5.00-40.00) mg/dL HDL Cholesterol (40.00-60.00) mg/dL Cholesterol/HDL Ratio Ratio Vitamin B12 (200.0-944.0) pg/mL Methylmalonic Acid (<0.40) umol/L RBC Folate (280 - 791) ng/mL Urine Color Urine Appearance (Clear) Urine pH (5.0-8.0) Ur Specific [place] (1.001-1.035) Urine Protein (Negative) Urine Glucose (UA) (Negative) Urine Ketones (Negative) Urine Blood (Negative) Urine Nitrite (Negative) Urine Bilirubin (Negative) Urine Urobilinogen (<2.0) mg/dL Ur Leukocyte Esterase (Negative) 05/11/24 05/11/24 05/11/24 Range/Units 04:08 04:08 07:36 WBC 4.15 L (3.8-10.6) k/uL RBC 3.22 L (4.30-5.90) m/uL Hgb 9.0 L (13.0-17.5) gm/dL Hct 27.3 L (39.0-53.0) % MCV 84.8 (80.0-100.0) fL MCH 28.0 (25.0-35.0) pg MCHC 33.0 (31.0-37.0) g/dL RDW 14.6 H (11.5-15.5) % Plt Count 95 L (150-450) k/uL MPV 10.7 Immature Gran % (Auto) 0.70 % Absolute Nucleated RBC 0 % Neutrophils % 83.0 % Neutrophils % (Manual) % Lymphocytes % 8.9 % Lymphocytes % (Manual) % Monocytes % 7.2 % Monocytes % (Manual) % Eosinophils % 0 % Eosinophils % (Manual) % Basophils % 0.2 % Immature Gran # 0.03 (0.00-0.04) X 10*3/uL Neutrophils # 3.44 (1.80-7.70) X 10*3/uL Neutrophils # (Manual) (1.3-7.7) k/uL Lymphocytes # 0.37 L (0.90-5.00) X 10*3/uL Lymphocytes # (Manual) (1.0-4.8) k/uL Monocytes # 0.30 (0.20-1.00) X 10*3/uL Monocytes # (Manual) (0-1.0) k/uL Eosinophils # 0 L (0.04-0.35) X 10*3/uL Eosinophils # (Manual) (0-0.7) k/uL Basophils # 0.01 (0.00-0.10) X 10*3/uL Nucleated RBCs (0-0) /100 WBC NRBC/100 WBC Diff 0 (0.00-0.01) X 10*3/uL Manual Slide Review PT (10.0-12.5) sec INR (<1.2) APTT (22.0-30.0) sec Sodium 137 (137-145) mmol/L Potassium 4.6 (3.5-5.1) mmol/L Chloride 110 H (98-107) mmol/L Carbon Dioxide 18.7 L (22-30) mmol/L Anion Gap 8.30 mmol/L BUN 55.5 H (9-20) mg/dL Creatinine 1.7 H (0.66-1.25) mg/dL Est GFR (CKD-EPI) 39 L (>=60) Est GFR (CKD-EPI)AfAm (>60 ml/min/1.73 sqM) Est GFR (CKD-EPI)NonAf (>60 ml/min/1.73 sqM) BUN/Creatinine Ratio 32.65 H (12.00-20.00) Ratio Glucose 139 H (74-99) mg/dL POC Glucose (mg/dL) 121 H (70-110) mg/dL POC Glu [employer] Work[employer] ID [address]ord[address] Glu mg/dL mg/dL Hemoglobin A1c (<=6.0) % Plasma Lactic Acid Eulogio (0.7-2.0) mmol/L Calcium 8.7 (8.4-10.2) mg/dL Magnesium 1.8 (1.6-2.3) mg/dL Total Bilirubin (0.2-1.3) mg/dL AST (17-59) U/L ALT (4-49) U/L Alkaline Phosphatase (38-126) U/L Troponin I (0.000-0.034) ng/mL NT-Pro-B Natriuret Pep pg/mL Total Protein (6.3-8.2) g/dL Albumin (3.5-5.0) g/dL Globulin (1.6-3.3) g/dL Albumin/Globulin Ratio (1.60-3.17) Ratio Triglycerides (0.00-149.00) mg/dL Cholesterol (0.00-200.00) mg/dL LDL Cholesterol, Calc (0.0-131.0) mg/dL VLDL Cholesterol, Calc (5.00-40.00) mg/dL HDL Cholesterol (40.00-60.00) mg/dL Cholesterol/HDL Ratio Ratio Vitamin B12 (200.0-944.0) pg/mL Methylmalonic Acid (<0.40) umol/L RBC Folate (280 - 791) ng/mL Urine Color Urine Appearance (Clear) Urine pH (5.0-8.0) Ur Specific [place] (1.001-1.035) Urine Protein (Negative) Urine Glucose (UA) (Negative) Urine Ketones (Negative) Urine Blood (Negative) Urine Nitrite (Negative) Urine Bilirubin (Negative) Urine Urobilinogen (<2.0) mg/dL Ur Leukocyte Esterase (Negative) Disposition Clinical Impression: Weakness, Pancytopenia Disposition: ADMITTED IP TO THIS HOSP Condition: Stable Is patient prescribed a controlled substance at d/c from ED?: No Time of Disposition: 11:18 Decision to Admit Reason: Admit from EC Decision Date: 05/08/24 Decision Time: 11:18
[2024-05-08 10:13] LABS: ALT 28 U/L (4-49); AST 33 U/L (17-59); African American GFR (CKD) 45 (>60 ml/min/1.73 sqM); Albumin 3.6 g/dL (3.5-5.0); Alkaline Phosphatase 108 U/L (38-126); Anion Gap 8 mmol/L; Blood Urea Nitrogen 42 mg/dL (9-20); Calcium 9.1 mg/dL (8.4-10.2); Carbon Dioxide 22 mmol/L (22-30); Chloride 105 mmol/L (98-107); Glucose 93 mg/dL (74-99); Magnesium 1.9 mg/dL (1.6-2.3); Non-African American GFR(CKD) 39 (>60 ml/min/1.73 sqM); Potassium 4.2 mmol/L (3.5-5.1); Sodium 135 mmol/L (137-145); Total Bilirubin 1.3 mg/dL (0.2-1.3); Total Protein 6.7 g/dL (6.3-8.2)
[2024-05-08 10:18] LABS: Eosinophils # (M) 0.06 k/uL (0-0.7); Lymphocytes # (M) 0.67 k/uL (1.0-4.8); Monocytes # (M) 0.39 k/uL (0-1.0); Neutrophils # (M) 1.68 k/uL (1.3-7.7); Neutrophils % (M) 60 %; Nucleated Red Blood Cells 0 /100 WBC (0-0); Total Cells Counted 100
[2024-05-08 10:19] LABS: Platelet Count 87 k/uL (150-450)
[2024-05-08 10:22] LABS: NT-Pro-B-Type Natriuretic Pept 629 pg/mL
[2024-05-08] MEDS: SODIUM CHLORIDE 0.9% 1,000 ML IV STA (10:26)
[2024-05-08] MEDS: SODIUM CHLORIDE 0.9% 500 ML 500 ML IV STA (10:27)
--- NOTE | 2024-05-08 10:28 | CT ---
EXAMINATION TYPE: CT brain wo con DATE OF EXAM: 05/08/2024 10:14 AM COMPARISON: None. CLINICAL INDICATION: Male, 84 years old with history of right leg weakness, right leg weakness TECHNIQUE: CT of the brain is performed utilizing 3 mm thick sections through the posterior fossa and 3 mm thick sections through the remaining calvarium. Study is performed within 24 hours of arrival to the hospital. Contrast used: mL of , (none if empty) CT DLP: 1004.2 mGycm, Automated exposure control for dose reduction was used. FINDINGS: No abnormal hyperdensity is present to suggest an acute intracranial hemorrhage. No mass lesion is evident. No acute infarcts are evident. Mild periventricular white matter hypodensity is present, likely on th e basis of chronic white matter ischemic changes. Ventricles and sulci are prominent for the patient age. Paranasal sinuses and mastoid air cells within the [id number] are clear. IMPRESSION: 1. No acute intracranial process. Follow up MRI can be performed as clinically indicated. 2. Chronic appearing periventricular white matter ischemic changes [facility], Workstation: [email or web address], 05/08/2024 10:25 AM
--- NOTE | 2024-05-08 10:45 | XR ---
EXAMINATION TYPE: XR chest 2V DATE OF EXAM: 05/08/2024 10:19 AM COMPARISON: Chest radiographs from 02/26/2023 CLINICAL INDICATION: Male, 84 years old with history of Weakness; [facility] TECHNIQUE: XR chest 2V Frontal and lateral views of the chest. FINDINGS: Lungs/Pleura: There is no evidence of pleural effusion, focal consolidation, or pneumothorax. Pulmonary vascularity: Unremarkable. Heart/mediastinum: Cardiomediastinal silhouette is unremarkable. Musculoskeletal: No acute osseous pathology. IMPRESSION: No acute cardiopulmonary disease/process. [facility], , 05/08/2024 10:42 AM
[2024-05-08 10:52] LABS: Appearance,Urine Clear (Clear); Bilirubin,Urine Negative (Negative); Blood,Urine Negative (Negative); Color,Urine Colorless; Glucose,Urine (UA) Negative (Negative); Ketones,Urine Negative (Negative); Leukocyte Esterase,Urine Negative (Negative); Nitrite,Urine Negative (Negative); Protein,Urine Negative (Negative); Specific Gravity,Urine 1.013 (1.001-1.035); Urobilinogen,Urine <2.0 mg/dL (<2.0)
[2024-05-08] MEDS ORDERED: ACETAMINOPHEN TAB 325 MG TAB PO PRN ×2 (11:41→12:43)
[2024-05-08] MEDS ORDERED: NALOXONE 0.4 MG/ML 1 ML VIAL IV PRN (11:41)
[2024-05-08] MEDS: IBUPROFEN 200 MG TAB PO STA (11:53)
[2024-05-08] MEDS: ASPIRIN 81 MG PO SCH (13:19)
[2024-05-08] MEDS: FAMOTIDINE 20 MG TAB PO SCH (13:19)
[2024-05-08] MEDS: IBUPROFEN 400 MG TAB PO PRN (13:19)
--- NOTE | 2024-05-08 13:42 | P.HPIM ---
History of Present Illness 84-year-old male with known history of prostate cancer, stroke in 2017 with residual weakness in the right leg came in with increased weakness on the right leg and also generalized weakness believed to have UTI but urinalysis is essentially within normal limits. 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 Patient weakness has been progressively getting worse. REVIEW OF SYSTEMS: All other systems are negative except those mentioned in the HPI PHYSICAL EXAMINATION: GENERAL: The patient is alert and oriented x3, not in any acute distress. Well developed, well nourished. HEENT: Pupils are round and equally reacting to light. EOMI. No scleral icterus. No conjunctival pallor. Normocephalic, atraumatic. No pharyngeal erythema. No thyromegaly. CARDIOVASCULAR: S1 and S2 present. No murmurs, rubs, or gallops. PULMONARY: Chest is clear to auscultation, no wheezing or crackles. ABDOMEN: Soft, nontender, nondistended, normoactive bowel sounds. No palpable organomegaly. MUSCULOSKELETAL: No joint swelling or deformity. EXTREMITIES: No cyanosis, clubbing, or pedal edema. NEUROLOGICAL: Gross neurological examination did not reveal any focal deficits except for left leg weakness 4+/5 strength. SKIN: No rashes. Assessment and plan -Left lower extremity weakness: Patient had a recent PET scan which showed C7 vertebral involvement will order Decadron neurology was consulted CT of the cervical and thoracic spine was ordered. If CT of the cervical thoracic spine is negative we will obtain an MRI -History of cerebrovascular accident in the past -Prostate cancer history -Hypertension -Chronic kidney disease stage IIIb -Hypothyroidism Prevention chronic medical problems patient be resumed on appropriate home medications DVT prophylaxis: Subcutaneous heparin Past Medical History Past Medical History: Cancer, CVA/TIA, Hypertension, Osteoarthritis (OA) Additional Past Medical History / Comment(s): Prostate cancer with surgery, 2006 UTI with EColi, back pain on occasion, seasonal allergies. History of Any Multi-Drug Resistant Organisms: None Reported Past Surgical History: Orthopedic Surgery Additional Past Surgical History / Comment(s): Radical retropubic prostatectomy, colonoscopy with polypectomy, R elbow sx, R knee arthroscopy. Past Anesthesia/Blood Transfusion Reactions: No Reported Reaction Past Psychological History: No Psychological Hx Reported Smoking Status: Never smoker Past Alcohol Use History: None Reported Past Drug Use History: None Reported - Past Family History Father Family Medical History: No Reported History Additional Family Medical History / Comment(s): Father was healthy and lived to be 89yrs old. Mother Family Medical History: Diabetes Mellitus Additional Family Medical History / Comment(s): Mother in her 80's. Medications and Allergies Home Medications Medication Instructions Recorded Confirmed Type Levothyroxine Sodium [Synthroid] 50 mcg PO DAILY 08/15/16 05/08/24 History Acetaminophen Tab [Tylenol] 650 mg PO Q6HR PRN tab 02/27/23 05/08/24 Rx Cyanocobalamin [Vitamin B-12] 500 mcg PO DAILY 03/12/24 05/08/24 History Ibuprofen [Advil] 400 mg PO Q6H PRN 05/08/24 05/08/24 History Melatonin 10 mg PO HS 05/08/24 05/08/24 History Allergies Allergy/AdvReac Type Severity Reaction Status Date / Time No Known Allergies Allergy Verified 05/08/24 10:52 Physical Exam Vitals: Vital Signs Temp Pulse Resp BP Pulse Ox 05/08/24 13:20 80 16 166/99 96 05/08/24 10:32 77 18 146/98 05/08/24 08:41 98.1 F 84 18 138/94 100 Intake and Output 05/07/24 05/08/24 05/08/24 22:59 06:59 14:59 Other: Weight 68.039 kg Results CBC & Chem 7: 05/08/24 09:33 05/08/24 09:33 Labs: Abnormal Lab Results - Last 24 Hours (Table) 05/08/24 05/08/24 05/08/24 Range/Units 09:33 09:33 09:33 WBC 2.8 L (3.8-10.6) k/uL RBC 4.00 L (4.30-5.90) m/uL Hgb 11.4 L (13.0-17.5) gm/dL Hct 33.0 L (39.0-53.0) % Plt Count 87 L (150-450) k/uL Lymphocytes # (Manual) 0.67 L (1.0-4.8) k/uL Sodium 135 L (137-145) mmol/L BUN 42 H (9-20) mg/dL Creatinine 1.59 H (0.66-1.25) mg/dL Plasma Lactic Acid Eulogio <0.5 L (0.7-2.0) mmol/L
--- NOTE | 2024-05-08 14:54 | P.CNNES ---
History of Present Illness Consult date: 05/08/24 Requesting physician: Carrie Carrasco Reason for Consult: lower extremity weakness History of Present Illness: This is a 84-year-old gentleman with history of prostate cancer status post resection, myelodysplastic syndrome, recurrent urinary tract infection emergency department because of progressive weakness of the lower extremities. Patient is accompanied with his and daughter was at bedside. It seems the patient follows up with his oncologist Dr. Curran regarding his myelodysplastic syndrome and patient has been having progressive weakness of the lower extremities and falls. His right leg is weaker than the left. Denies any numbness, any back pain neck pain. Denies any bowel issues. He had bowel movement yesterday and it was normal. He does have underlying urinary issues and that is chronic nothing worse than baseline. Denies any upper extremity weakness, speech difficulty or swallowing. He has history of generalized weakness. It seems that he had a urinary tract infection about a week ago and patient has been on antibiotic. Patient has completed his course of antibiotic. Patient does have a prior history of stroke according to family members in which she had weakness and facial droop over the right side that was in 2017 and resolved. Denies any A-fib. Denies being on any antiplatelet. Stated that he is supposed to have spinal CT next week as an outpatient. Denies any omid motherapy or radiation therapy. Some of the workup during this hospital visit consisted of: White blood cells 2.8, platelets 87 and hemoglobin is 11.4 Grams 135, calcium is 9.1, magnesium is 1.9, AST ALT is within normal limits Serum glucose is 93 Urine analysis appears negative for any acute urinary tract infection. CT of the head is reported as no acute intracranial process. I personally revi ewed the CT and agree there is no acute or subacute process. PET scan on 02/20/2024: And shows few scattered pulmonary nodules... concerning for metastasis disease. There is also focal radiotracer uptake in the ascending colon concerning for primary colonic malignancy. As well as uptake in the lower anterior abdominal wall near the small bowel as well as nonspecific focal uptake in the right C7 vertebral body without CT correlate could represent developing metastasis. The patient had colon biopsy as well as rectal biopsy and its reported as transverse colon polyp biopsy tubular adenoma. Descending colonic polyps biopsy is tubular adenoma. And 2 sigmoid polyp biopsy is tubular adenoma with focal prolapse changes. I read oncology note in the hospital on 03/05/2023 and it seems the patient had DIC as well as pancytopenia. Review of Systems As per HPI. Past Medical History Past Medical History: Cancer, CVA/TIA, Hypertension, Osteoarthritis (OA) Additional Past Medical History / Comment(s): Prostate cancer with surgery, 2006 UTI with EColi, back pain on occasion, seasonal allergies. History of Any Multi-Drug Resistant Organisms: None Reported Past Surgical History: Orthopedic Surgery Additional Past Surgical History / Comment(s): Radical retropubic prostatectomy, colonoscopy with polypectomy, R elbow sx, R knee arthroscopy. Past Anesthesia/Blood Transfusion Reactions: No Reported Reaction Past Psychological History: No Psychological Hx Reported Smoking Status: Never smoker Past Alcohol Use History: None Reported Past Drug Use History: None Reported - Past Family History Father Family Medical History: No Reported History Additional Family Medical History / Comment(s): Father was healthy and lived to be 89yrs old. Mother Family Medical History: Diabetes Mellitus Additional Family Medical History / Comment(s): Mother in her 80's. Medications and Allergies Home Medications Medication Instructions Recorded Confirmed Type Levothyroxine Sodium [Synthroid] 50 mcg PO DAILY 08/15/16 05/08/24 History Acetaminophen Tab [Tylenol] 650 mg PO Q6HR PRN tab 02/27/23 05/08/24 Rx Cyanocobalamin [Vitamin B-12] 500 mcg PO DAILY 03/12/24 05/08/24 History Ibuprofen [Advil] 400 mg PO Q6H PRN 05/08/24 05/08/24 History Melatonin 10 mg PO HS 05/08/24 05/08/24 History Allergies Allergy/AdvReac Type Severity Reaction Status Date / Time No Known Allergies Allergy Verified 05/08/24 10:52 Physical Examination - Vital Signs Vital Signs: Vital Signs Temp Pulse Resp BP Pulse Ox 05/08/24 13:20 80 16 166/99 96 05/08/24 10:32 77 18 146/98 05/08/24 08:41 98.1 F 84 18 138/94 100 Intake and Output 05/07/24 05/08/24 05/08/24 22:59 06:59 14:59 Other: Weight 68.039 kg GENERAL: The patient is lying in bed and is not in acute distress. NEUROLOGICAL: Higher mental function: The patient is awake, alert, oriented to self, place and time. Patient is following commands. No aphasia and no neglect. Cranial nerves: The pupils are round, equal and reactive to light and accommodation. Visual lucas are full to confrontation throughout. Extraocular movement is intact no nystagmus is noted. Facial sensation is normal to touch throughout. The facial strength is normal throughout. Hearing is normal bilaterally to hand rub. Tongue is midline and moved [id number] without any difficulty. No dysarthria is noted. Shoulder shrug is normal bilaterally. Motor: The strength is 5 over 5 throughout uppers. In lowers R/L: At hips 4+ to 5-/5-; knee 3-4-/4+, ankles dorsiflexion 3-4/1-2 plantar flexion 4+/2-3. Has atrophy at the first dorsal interosseious on the left. Decrease mild tone in the lowers. Normal bulk. Cerebellum: Normal finger to nose bilaterally. Sensation: Sensation is normal to touch throughout. Reflexes (right/left): 2+ in uppers while in lowers patient was somehwat limited because of chronic knee pain but seems 0-1 bilaterally. At ankles are 1+ bilaterally. Plantars are mute bilaterally. 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 No loss of consciousness. He had a recent urinary tract infection about 1 week ago and completed antibiotic. Acute bilateral lower extremity weakness that is progressive over the last 2 weeks I am concerned about metastasis to spinal cord. History of myelodysplastic syndrome Metastasis had a PET scan towards the end of January 2024 in which shows metastasis to the colon (and had biopsy and was positive for adenoma), lung and ?uptake on right C7 vertebral body. Unsure if primary is colon. Prostate cancer status post resection Recent urinary tract infection Chronic kidney insufficiency Ongoing pancytopenia History of DIC History of stroke in 2017 and patient had right-sided weakness as well as facial droop and per family members his weakness has resolved. In 2017 patient had MRI of the brain which shows area of suspected acute ischemia within the [place] History of recurrent urinary tract infection Plan: I ordered a stat CT cervical, thoracic and lumbar spine. Commend after the CT patient to receive IV fluids because of chronic kidney insufficiency I highly recommend MRI of the lumbar thoracic stat as well as cervical spine STAT. If those are negative then proceed with MRI brain but I doubt this is a stroke. Patient started on aspirin 81 mg daily primary team but I recommend holding off especially with the pancytopenia and risk outweigh the risk. I am concerned abo ut spinal metastasis Recommend PT and OT Oncology team is consulted Consider hospice consultation. Primary team started patient on Decadron. Will defer the rest of medical management to primary team and other specialist. The plan is discussed with primary team physician and nurse practioner. Dr. Posey will resume neurology service tomorrow A.M. Time with Patient: Greater than 30
--- NOTE | 2024-05-08 15:25 | CT ---
EXAMINATION TYPE: CT [place]umbar [place] [place]: 3515 mGycm, Automated exposure control for dose reduction was used. DATE OF EXAM: 05/08/2024 2:56 PM CLINICAL INDICATION:Male, 84 years old with history of leg weakness; leg weakness COMPARISON: PET CT 02/20/2024, CT chest 02/10/2023, CT abdomen and pelvis 02/09/2023, CT brain C-spin e 10/28/2016 TECHNIQUE: Axial images of the cervical, thoracic and lumbar spine were obtained before and after the uneventful administration of 80 mL Isovue-370 intravenously. Coronal and sagittal reformats were per formed. FINDINGS: Cervical: No acute fracture. Vertebral body heights are maintained. Alignment is preserved. Multileve l facet arthropathy. Multilevel disc space narrowing with endplate sclerosis and vacuum disc disease. Multilevel anterior and posterior disc osteophytes. Prominent pannus formation at C1-C2 articulation again. Broad-based disc bulge at C2-C3 without significant effacement of the anterior thecal sac. Mild right neural foraminal stenosis at this level secondary to facet arthropathy. Posterior disc osteophyte complex at C3-C4 with mild effacement of the anterior thecal sac. Moderate right and mild left neural foraminal stenosis secondary to facet arthropathy and uncovertebral joint hypertrophy. Posterior disc osteophyte complex at C4-C5 with at least moderate effacement of the anterior thecal s ac. Moderate to severe bilateral neural foraminal stenosis secondary to uncovertebral joint hypertrop hy and bilateral facet arthropathy. Posterior disc osteophyte complex at C5-C6 with at least moderate effacement of the anterior thecal s ac. Moderate bilateral neural foraminal stenosis secondary to uncovertebral joint hypertrophy and tarah ateral facet arthropathy. Posterior disc osteophyte complex at C6-C7 with at least mild effacement of the anterior thecal sac. Moderate bilateral neural foraminal stenosis secondary to uncovertebral joint hypertrophy and bilater al facet arthropathy. No significant central canal or neural foraminal stenosis at C7-T1. Bilateral carotid bulb calcifications. Thoracic: The thoracic vertebral bodies have preserved heights and alignment. Multilevel anterior osteophytosi s. There appears to be an acute nondisplaced fracture involving the anterior endplate of the T9 verte bral body. No vertebral body height loss or retropulsion. Remote healed left posterior 10th and 12th rib fractures. Broadbase disc bulge at T7-T8 with mild effacement of anterior thecal sac. No thoracic neural foramin al stenosis identified. No other significant thoracic central canal stenosis. Coronary artery calcifications. Elevation of the right hemidiaphragm. Redemonstration of a few scatte red pulmonary nodules as seen on PET/CT in January. There is a 1.3 cm pulmonary nodule within the lef t upper lobe. The right lower lobe pulmonary nodule appears increased in size now measuring up to 1.3 cm. Development of medial left lower lobe pulmonary mass measuring 3.6 cm with additional satellite nodule measuring up to 7 mm (series 23, image 76)a. Lumbar: Alignment: There are 5 lumbar type vertebral bodies. Mild retrolisthesis of L2 on L3. Bone: No evidence of fracture is identified. Bilateral SI joint arthropathy with left anterior bridg ing. Stable sclerotic right iliac bone 1.4 cm lesion. No corresponding FDG activity in prior PET/CT a nd likely represents a bone island. Discs: Multilevel disc space with endplate sclerosis and anterior osteophytosis. Multilevel vacuum di sc disease. T12-L1: No spinal canal or neural foraminal stenosis is identified. L1-L2: No spinal canal or neural foraminal stenosis is identified. L2-L3: Mild retrolisthesis. Broad-based disc bulge with mild effacement of anterior thecal sac. Bilat eral facet arthropathy. Mild bilateral neural foraminal stenosis. L3-L4: Central disc protrusion with at least mild to moderate effacement of anterior thecal sac. Bila teral facet arthropathy. Moderate bilateral neuroforaminal stenosis. L4-L5: Broad-based disc bulge with mild effacement of anterior thecal sac. Bilateral facet arthropat hy with moderate bilateral neuroforaminal stenosis. L5-S1: No spinal canal or neural foraminal stenosis is identified. Other: Atherosclerotic calcification of the aorta and its branches. No abdominal aortic aneurysm. IMPRESSION: 1. Acute appearing nondisplaced fracture involving the anterior endplate of the T9 vertebral body. Co rrelate with point tenderness. 2. Multilevel degenerative disease of the visualized spine as described above. Most pronounced within the cervical and lumbar spine. 3. Development of left lower lobe pulmonary mass measuring up to 3.6 cm from prior PET/CT. Additional few scattered pulmonary nodules. Highly concerning for malignancy/metastasis. Recommend further eval uation with CT chest. [facility], , 05/08/2024 3:23 PM
--- NOTE | 2024-05-08 16:45 | P.CONS ---
History of Present Illness - Reason for Consult Consult date: 05/08/24 Pancytopenia, lung masses, leg weakness - History of Present Illness The patient is an 84-year-old white male, well-known to our service. He was initially evaluated in late 2022, when found to have pancytopenia. The patient had a bone marrow aspiration biopsy in 03/14, and then again approximately a year later. This showed some dysplastic changes, not sufficient to make a diagnosis of myelodysplasia morphologically. The patient did have MDS associated genetic markers. However his counts would typically drop with acute illness but then recovered spontaneously. 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 He has been on observation for the same. The patient has also been noted to have lung nodules, with PET scan in 02/12 showing no definite suspicious uptake. Therefore he is on observation for the same. There was focal uptake noted in the colon due to which she had a colonoscopy in 03/15, revealing no evidence of malignancy. The patient's PET scan had shown some uptake at C7 with no anatomic correlate. The patient had no symptoms in this area. This is a nonspecific finding. The patient was admitted due to lower extremity weakness. He does have some chronic right lower extremity weakness, which according to him is mild and is felt to be due to a remote stroke. According to the patient the onset of leg weakness was fairly quick to where he was unable to bear weight. He denied any trauma or falls. He denied any loss of sensation. Urinary and bowel sensation are maintained. No history of any fever or chills. The patient's labs again showed mild pancytopenia with hemoglobin 11.4, WBC 2.8, platelets 87, and ANC above 1000 at 1.68. The patient had a CT of the cervical and thoracic spine done, that showed no e vidence of any mass or pathologic fracture in the C-spine. There was an acute nondisplaced fracture noted at T9, which per the description did not appear to be pathologic. No masses were noted in the CT of the T-spine either. This incidentally showed a mild increase in one of his known lung nodules in the right lower lobe. However there was mention of a new left lower lobe nodule measuring 3.6 cm. Review of Systems Constitutional: Reports weakness Eyes: denies blurred vision, denies pain Ears: deny: decreased hearing, ear discharge, earache, tinnitus Ears, nose, mouth and throat: Denies headache, Denies sore throat Cardiovascular: Reports decreased exercise tolerance Respiratory: Denies cough Gastrointestinal: Denies abdominal pain, Denies diarrhea, Denies nausea, Denies vomiting Genitourinary: Reports nocturia, Reports urinary frequency Musculoskeletal: Reports as per HPI, Reports muscle weakness Integumentary: Denies pruritus, Denies rash Neurological: Reports gait dysfunction, Reports weakness Psychiatric: Denies anxiety, Denies depression Endocrine: Denies fatigue, Denies weight change Hematologic/Lymphatic: Reports as per HPI Past Medical History Past Medical History: Cancer, CVA/TIA, Hypertension, Osteoarthritis (OA) Additional Past Medical History / Comment(s): Prostate cancer with surgery, 2006 UTI with EColi, back pain on occasion, seasonal allergies. History of Any Multi-Drug Resistant Organisms: None Reported Past Surgical History: Orthopedic Surgery Additional Past Surgical History / Comment(s): Radical retropubic prostatectomy, colonoscopy with polypectomy, R elbow sx, R knee arthroscopy. Past Anesthesia/Blood Transfusion Reactions: No Reported Reaction Past Psychological History: No Psychological Hx Reported Smoking Status: Never smoker Past Alcohol Use History: None Reported Past Drug Use History: None Reported - Past Family History Father Family Medical History: No Reported History Additional Family Medical History / Comment(s): Father was healthy and lived to be 89yrs old. Mother Family Medical History: Diabetes Mellitus Additional Family Medical History / Comment(s): Mother in her 80's. Medications and Allergies Home Medications Medication Instructions Recorded Confirmed Type Levothyroxine Sodium [Synthroid] 50 mcg PO DAILY 08/15/16 05/08/24 History Acetaminophen Tab [Tylenol] 650 mg PO Q6HR PRN tab 02/27/23 05/08/24 Rx Cyanocobalamin [Vitamin B-12] 500 mcg PO DAILY 03/12/24 05/08/24 History Ibuprofen [Advil] 400 mg PO Q6H PRN 05/08/24 05/08/24 History Melatonin 10 mg PO HS 05/08/24 05/08/24 History Allergies Allergy/AdvReac Type Severity Reaction Status Date / Time No Known Allergies Allergy Verified 05/08/24 10:52 Physical Exam Vitals: Vital Signs Temp Pulse Pulse Resp BP BP Pulse Ox 05/08/24 14:12 155/92 01/17/25 13:48 97.5 F L 81 16 172/94 98 05/08/24 13:20 80 16 166/99 96 05/08/24 10:32 77 18 146/98 05/08/24 08:41 98.1 F 84 18 138/94 100 Intake and Output 05/08/24 05/08/24 05/08/24 06:59 14:59 22:59 Other: Weight 68.039 kg - Constitutional General appearance: no acute distress - EENT Eyes: EOMI, PERRLA ENT: hearing grossly normal, normal oropharynx - Neck Neck: no lymphadenopathy Thyroid: bilateral: normal size - Respiratory Respiratory: bilateral: CTA - Cardiovascular Rhythm: regular Heart sounds: normal: S1, S2 - Gastrointestinal General gastrointestinal: normal bowel sounds, soft - Integumentary Integumentary: normal - Neurologic Bilateral lower extremity weakness, left slightly more than right. No loss of sensation in lower extremities, or in the saddle area or lower abdomen Neurologic: CNII-XII intact - Musculoskeletal Bilateral lower extremity weakness, as described above - Psychiatric Psychiatric: A&O x's 3, appropriate affect Results CBC & Chem 7: 05/08/24 09:33 05/08/24 09:33 Labs: Abnormal Lab Results - Last 24 Hours (Table) 05/08/24 05/08/24 05/08/24 Range/Units 09:33 09:33 09:33 WBC 2.8 L (3.8-10.6) k/uL RBC 4.00 L (4.30-5.90) m/uL Hgb 11.4 L (13.0-17.5) gm/dL Hct 33.0 L (39.0-53.0) % Plt Count 87 L (150-450) k/uL Lymphocytes # (Manual) 0.67 L (1.0-4.8) k/uL Sodium 135 L (137-145) mmol/L BUN 42 H (9-20) mg/dL Creatinine 1.59 H (0.66-1.25) mg/dL Plasma Lactic Acid Eulogio <0.5 L (0.7-2.0) mmol/L Comments: CT of the C-spine/T-spine reviewed Chest x-ray: report reviewed CT Scan - head: report reviewed Assessment and Plan (1) Weakness Narrative/Plan: The patient has bilateral lower extremity weakness, that has progressed comparatively acutely according to him. this is not associated with any loss of sensation in the lower extremities, saddle area, bowel or bladder. There has been no associated trauma. The patient denies any upper or lower back pain at this time. -The etiology of this presentation is not immediately clear. The patient does not appear to have any significant metabolic abnormality or infection. CT of the thoracic and lumbar spine did not show any evidence of pathologic appearing fractures or any pathologic cord compression. There is mention of an acute nondisplaced fracture at T9, but the patient does not have any pain associated with this area. - He has been placed on steroids by the admitting service. At this time there does not appear to be a definite indication for the same. However as workup is still in progress, continue this for now. Check MRI of the T-spine to evaluate the T9 in more detail. If this is unrevealing, then we can consider additional imaging of the brain and lumbar spine -The patient does have a history of B12 deficiency although he has been on regular supplementation, with normal level subsequently. Check levels Current Visit: Yes Status: Acute Code(s): R53.1 - WEAKNESS SNOMED Code(s): 46323074 (2) Pancytopenia Narrative/Plan: History as described in the HPI. Counts are within his usual baseline, and well within a safe range. Continue to monitor. No active intervention required Current Visit: Yes Status: Acute Priority: High Code(s): D61.818 - OTHER PANCYTOPENIA SNOMED Code(s): 891920456 (3) Lung mass Narrative/Plan: The patient has known lung nodules, the largest in the 1 cm range. PET scan in 02/12 was nonspecific with essentially only 1 nodule showing mild uptake somewhat higher than background therefore observation was recommended. On this admission he is noted to have a new 3.6 cm nodule in the left lower lobe. In the absence of any specific metabolic abnormality, or bone lesions (so far), this would be considered an incidental finding to his presentation. Repeat PET scan as outpatient Current Visit: Yes Status: Acute Code(s): R91.8 - OTHER NONSPECIFIC ABNORMAL FINDING OF LUNG FIELD SNOMED Code(s): 477107985
[2024-05-08] MEDS: HEPARIN SODIUM,PORCINE 5,000 UNIT/ML 1 ML VIAL SQ SCH (16:50)
[2024-05-08] MEDS: DEXAMETHASONE SOD PHOSPHATE 4 MG/ML 1 ML VIAL IVP SCH (16:50)
[2024-05-08] MEDS: SODIUM CHLORIDE 0.9% 1,000 ML IV SCH (18:22)
[2024-05-08] MEDS: MELATONIN 5 MG TABLET PO SCH (21:50)
[2024-05-09] MEDS: LEVOTHYROXINE 50 MCG TAB PO SCH (08:29)
[2024-05-09] MEDS: CYANOCOBALAMIN 500 MCG TAB PO SCH (08:29)
--- NOTE | 2024-05-09 09:11 | P.CNOR ---
History of Present Illness - [facility] Consult date: 05/09/24 History of present illness: Patient is an 84-year-old male who presented to the hospital on 05/08/2024 due to bilateral lower extremity weakness. Patient does have a past medical history significant for prostate cancer, recurrent UTI, myelodysplastic syndrome who follows with Dr. Curran. Patient does have chronic rate readings on the right side due to history of stroke which is unknown to the family but found in medical record. Orthopedics was consulted due to T9 vertebral body fracture as well as bilateral lower extremity weakness. Patient was seen at bedside this morning on 5 N. lying in the semirecumbent position. Patient states he has had ongoing weakness over the past several months and more recently over the past 2 to 3 weeks it has been getting worse. Patient states a few days ago prior to coming to the hospital, he was unable to stand up out of his chair due to the weakness in his legs. Patient denies any trauma/falls prior to this occurring. Patient denies any previous orthopedic spine surgery. Patient denies being a diabetic. Patient denies being on any blood thinners. Patient states he does have some numbness and tingling just above the right hip extends to the right groin region. Patient also states some weakness in the right leg with having an inability to raise the right leg off the bed. Patient denies any current chest pain, fever, nausea, vomiting, change in vision. Past Medical History Past Medical History: Cancer, CVA/TIA, Hypertension, Osteoarthritis (OA) Additional Past Medical History / Comment(s): Prostate cancer with surgery, 2006 UTI with EColi, back pain on occasion, seasonal allergies. History of Any Multi-Drug Resistant Organisms: None Reported Past Surgical History: Orthopedic Surgery Additional Past Surgical History / Comment(s): Radical retropubic prostatectomy, colonoscopy with polypectomy, R elbow sx, R knee arthroscopy. Past Anesthesia/Blood Transfusion Reactions: No Reported Reaction Past Psychological History: No Psychological Hx Reported Smoking Status: Never smoker Past Alcohol Use History: None Reported Past Drug Use History: None Reported - Past Family History Father Family Medical History: No Reported History Additional Family Medical History / Comment(s): Father was healthy and lived to be 89yrs old. Mother Family Medical History: Diabetes Mellitus Additional Family Medical History / Comment(s): Mother in her 80's. Medications and Allergies Home Medications Medication Instructions Recorded Confirmed Type Levothyroxine Sodium [Synthroid] 50 mcg PO DAILY 08/15/16 05/08/24 History Acetaminophen Tab [Tylenol] 650 mg PO Q6HR PRN tab 02/27/23 05/08/24 Rx Cyanocobalamin [Vitamin B-12] 500 mcg PO DAILY 03/12/24 05/08/24 History Ibuprofen [Advil] 400 mg PO Q6H PRN 05/08/24 05/08/24 History Melatonin 10 mg PO HS 05/08/24 05/08/24 History Allergies Allergy/AdvReac Type Severity Reaction Status Date / Time No Known Allergies Allergy Verified 05/08/24 10:52 Physical Examination Inspection: Some generalized scoliosis present on spine exam. Negative for any open fractures, significant erythema/ecchymosis/open wounds. Sensation: Some numbness and diminished sensation present along the T12/L1 dermatome on the right side extending to the groin. Equal, symmetric, bilaterally intact throughout the rest of the extremities on exam. Palpation: Nontender to palpation throughout spine on exam. Range of motion: Patient does have good range of motion throughout bilateral upper extremities on exam. Patient does have limited range of motion in the right leg and hip flexion/extension secondary to weakness in the right hip. Patient does have good active range of motion throughout the right knee in flexion so extension. Some limited range of motion in right ankle dorsi/plantarflexion. Patient does have good range of motion throughout the left hip and left knee in flexion/extension. There is some limited range of motion in the left ankle and dorsi/plantarflexion. Motor: 4+/5 in all major motor groups in bilateral upper extremities. 3+/5 in resisted right hip flexion so extension. 3+/5 in resisted left ankle dorsi/plantarflexion. 4/5 in all other major motor groups in left lower extremity. 4-/5 in all other major motor groups in right lower extremity. Neurovascular: Radial pulse intact, 2+ bilaterally. Cap refill under 3 seconds in digits of upper extremities. Special test: Negative Homans bilaterally. Negative clonus bilaterally. Negative Carlos bilaterally Results - Labs Labs: Abnormal Lab Results - Last 24 Hours (Table) 05/08/24 05/08/24 05/08/24 Range/Units 09:33 09:33 09:33 WBC 2.8 L (3.8-10.6) k/uL RBC 4.00 L (4.30-5.90) m/uL Hgb 11.4 L (13.0-17.5) gm/dL Hct 33.0 L (39.0-53.0) % Plt Count 87 L (150-450) k/uL Lymphocytes # (Manual) 0.67 L (1.0-4.8) k/uL Sodium 135 L (137-145) mmol/L BUN 42 H (9-20) mg/dL Creatinine 1.59 H (0.66-1.25) mg/dL Plasma Lactic Acid Eulogio <0.5 L (0.7-2.0) mmol/L H & H 05/08/24 Range/Units 09:33 Hgb 11.4 L (13.0-17.5) gm/dL Hct 33.0 L (39.0-53.0) % Coagulation 05/08/24 Range/Units 09:33 INR 1.0 (<1.2) Result Diagrams: 05/08/24 09:33 05/08/24 09:33 - Diagnostic results CT Scan - lumbar: report reviewed, image reviewed (CT scan of the cervical, thoracic, lumbar spine has been reviewed. There is evident anterior endplate fracture at T9. There is some degenerative disc disease as well as spondylosis throughout the spine. Negative for any other fractures.) Assessment and Plan Assessment: 1. Anterior endplate T9 fracture; degenerative disc disease; spondylosis of the thoracolumbar spine 2. Multiple medical comorbidities Plan: 1. Anterior endplate T9 fracture; degenerative disc disease; spondylosis of the thoracolumbar spine - CT scan of the cervical, thoracic, lumbar spine has been reviewed. There is evident anterior endplate fracture at T9. There is some degenerative disc disease as well as spondylosis throughout the spine. Negative for any other fractures. I will discuss the findings of the imaging and exam with my attending, Dr. Lawson before proceeding with any orthopedic intervention. Neurology and medicine have ordered MRI of C-spine, T-spine, L- spine for further evaluation. We will await MRI findings before proceeding with any potential intervention. At this time we are recommending conservative measures with the use of pain medication and physical therapy/Occupational Therapy. Patient to perform gentle range of motion exercises while resting in bed and to be weightbearing as tolerated with walker and assistance. We will continue to follow patient during stay in the hospital. 2. Prescient medical, oncology, neurology management 3. Pain management -Tylenol 4. DVT prophylaxis -aspirin; heparin 5. GI prophylaxis -Pepcid 6. PT/OT -weightbearing as tolerated with walker and assistance 7. Encourage incentive spirometer use 8. Appreciate consult Time with Patient: Less than 30
[2024-05-09 09:43] LABS: ALT 24 U/L (10-49); AST 26 U/L (14-35); Albumin 3.5 g/dL (3.8-4.9); Albumin/Globulin Ratio 1.21 Ratio (1.60-3.17); Alkaline Phosphatase 115 U/L (41-126); BUN/Creat Ratio 24.65 Ratio (12.00-20.00); Blood Urea Nitrogen 41.9 mg/dL (9.0-27.0); Carbon Dioxide 18.9 mmol/L (21.6-31.8); Chloride 108 mmol/L (96-109); Chol/HDL Ratio 4.07 Ratio; Globulin 2.9 g/dL (1.6-3.3); Glucose 154 mg/dL (70-110); LDL Cholesterol,Calculated 74.7 mg/dL (0.0-131.0); Sodium 137 mmol/L (135-145); Total Bilirubin 0.7 mg/dL (0.3-1.2); Total Protein 6.4 g/dL (6.2-8.2)
[2024-05-09 09:55] LABS: Basophils # (A) 0.01 X 10*3/uL (0.00-0.10); Basophils % (A) 0.3 %; Eosinophils # (A) 0 X 10*3/uL (0.04-0.35); Eosinophils % (A) 0 %; HCT 31.5 % (39.6-50.0); HGB 11.1 g/dL (13.0-17.0); Lymphocytes # (A) 0.34 X 10*3/uL (0.90-5.00); Lymphocytes % (A) 11.8 %; MCH 28.8 pg (27.0-32.0); MCHC 35.2 g/dL (32.0-37.0); MCV 81.6 FL (80.0-97.0); Mean Platelet Volume 10.5 FL (9.5-12.2); Monocytes # (A) 0.13 X 10*3/uL (0.20-1.00); Monocytes % (A) 4.5 %; NRBC Per 100 WBC 0 X 10*3/uL (0.00-0.01); Neutrophils % (A) 83.1 %; Platelet Count 85 X 10*3/uL (140-440); RBC 3.86 X 10*6/uL (4.40-5.60); RDW 14.5 % (11.5-14.5); WBC 2.89 X 10*3/uL (4.50-10.00)
--- NOTE | 2024-05-09 10:42 | P.PN ---
Subjective Progress Note Date: 05/09/24 The patient is an 84-year-old male who is seen in neurologic follow-up, in coverage for Dr. Steele, on May 09, 2024, in collaboration with Rain Rivers, via teleneurology. The chart has been reviewed. MRI of the cervical and thoracic spine is scheduled for 1:15 PM today. The patient denies neck and back pain. He states that his left leg is easier to move than the right leg. He says the right leg is "almost ". The patient also reports new onset difficulty with bladder control. He denies difficulty with control of his bowel. Objective - Vital Signs Vital signs: Vital Signs Temp 98.0 F 05/09/24 08:00 Pulse 77 05/09/24 08:00 Resp 16 05/09/24 08:00 BP 160/84 05/09/24 08:00 Pulse Ox 99 05/09/24 08:00 FiO2 Intake & Output 05/08/24 05/09/24 05/09/24 18:59 06:59 18:59 Intake Total 780 Output Total 150 Balance 630 Weight 68.039 kg Intake: Oral 780 Output: Urine 150 Other: Voiding Method Urinal Diaper # Voids 2 - Exam General: Patient is reclining in the bed. He is well-nourished, well-developed and in no acute distress. HEENT: Head is atraumatic, normocephalic. Fundus not visualized. There is no scleral icterus. Mucous membranes are moist. Neurological examination Mental status: Patient is awake, alert and oriented x 3. His speech is clear. There is no dysarthria or aphasia. Cranial nerves: 2-12 grossly intact Motor: Bilateral upper extremity strength 5/5. Right hip flexor 2-3/5. Right ankle plantar and dorsiflexors 5/5. Left lower extremity strength 5/5. Sensation: Grossly intact to light touch throughout Deep tendon reflexes: 2+/4+ in the bilateral upper extremities. Right patellar reflex 3+/4+. There is a crossed adductor sign. Left patellar reflex 1+/4+. Right plantar response is extensor and the left plantar responses flexor. Coordination: Qjwxwn-py-lehs and dguv-ux-oery testing are intact. Gait: Not assessed - Labs CBC & Chem 7: 05/09/24 03:50 05/09/24 03:50 Labs: Abnormal Lab Results - Last 24 Hours (Table) 05/08/24 05/08/24 05/08/24 Range/Units 09:33 09:33 09:33 WBC 2.8 L (3.8-10.6) k/uL RBC 4.00 L (4.30-5.90) m/uL Hgb 11.4 L (13.0-17.5) gm/dL Hct 33.0 L (39.0-53.0) % Plt Count 87 L (150-450) k/uL Lymphocytes # (Manual) 0.67 L (1.0-4.8) k/uL Sodium 135 L (137-145) mmol/L BUN 42 H (9-20) mg/dL Creatinine 1.59 H (0.66-1.25) mg/dL Plasma Lactic Acid Eulogio <0.5 L (0.7-2.0) mmol/L Assessment and Plan Assessment: 1. Acute bilateral lower extremity weakness that is progressive over the last 2 weeks. There is concern for spinal cord compression 2. History of myelodysplastic syndrome 3. 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 Unsure if primary is colon. 4. Prostate cancer status post resection 5. Recent urinary tract infection 6. Chronic kidney insufficiency 7. Ongoing pancytopenia 8. History of DIC 9. History of stroke in 2017 and patient had right-sided weakness as well as facial droop and per family members his weakness has resolved. In 2017 patient had MRI of the brain which shows area of suspected acute ischemia within the gilbert 10. History of recurrent urinary tract infection Plan: 1. Appreciate Ortho consultation 2. Stat MRI of the cervical and thoracic spine have been ordered 3. Physical and Occupational Therapy evaluations 4. Oncology has been asked to evaluate the patient 5. Plan for MRI has been discussed with the patient 6. Plan has been discussed with the patient's nurse Time with Patient: Greater than 30 (35 minutes were spent caring for this patient today including, obtaining history, examining the patient, reviewing imaging, chart documentation, labs, placing orders and creating this note)
[2024-05-09 13:24] VITALS: BMI 23.5
--- NOTE | 2024-05-09 16:05 | MR ---
EXAMINATION TYPE: MR cspine/lspine wo/w con DATE OF EXAM: 05/09/2024 2:32 PM COMPARISON: 05/08/2024. CLINICAL INDICATION: Male, 84 years old with history of weakness, gait dysfunction; PHH, Weakness, ga it dysfunction. Hx prostate cancer and lung nodule. TECHNIQUE: Multi planar, multi sequence imaging was performed utilizing: T1-weighted, T2-weighted, a nd turbo inversion recovery imaging of the cervical and lumbar spine. IV Contrast: 7 mL Gadobutrol (None, if empty) FINDINGS: CERVICAL: Alignment: The cervical vertebral bodies have preserved heights. Alignment is within normal limits gi tarik patient positioning. Bones: Scattered Modic endplate changes with osteophytes and disc space narrowing. Multilevel degener ative disc disease is noted and most pronounced at the C4-C6 vertebral levels. No abnormal postcontra st enhancement. Cord: The spinal cord is unremarkable with regards to their signal intensity and morphology. No abnor mal postcontrast enhancement. Discs: Multilevel disc desiccation is present. C2-C3: No significant disc pathology. The spinal canal is patent. No neural foraminal stenosis. C3-C4: A disc central osteophyte complex is present with mild spinal canal stenosis. Bilateral facet and uncovertebral joint arthropathy are present with mild right neural foraminal stenosis. The left neural foramen is patent. C4-C5: No significant disc pathology. The spinal canal is patent. Bilateral facet and uncovertebral joint arthropathy are present with moderate to severe bilateral neural foraminal stenosis. C5-C6: A disc central osteophyte complex is present with moderate to severe spinal canal stenosis. Dy sesthetic complex does impress upon the spinal cord anteriorly series [id number] Bilateral facet and unc overtebral joint arthropathy are present with moderate to severe bilateral neural foraminal stenosis. C6-C7: A disc osteophyte complex is present with mild spinal canal stenosis. Bilateral facet and unc overtebral joint arthropathy are present with moderate bilateral neural foraminal stenosis. C7-T1: No significant disc pathology. The spinal canal is patent. No neural foraminal stenosis. Other: None. LUMBAR: Alignment: The lumbar vertebral bodies have preserved heights and alignment. Cord: The conus medullaris and the distal spinal cord appear unremarkable with regards to their signa l intensity and morphology. No abnormal postcontrast enhancement. Bones/Discs: Moderate degeneration changes throughout the spine with osteophyte formation and facet j oint arthropathy. Multilevel disc desiccation is present.No abnormal postcontrast enhancement. No abn ormal inversion recovery signal in this short tau inversion recovery imaging. T12-L1: No evidence of significant spinal canal stenosis or neural foraminal stenosis. L1-L2: No evidence of significant spinal canal stenosis or neural foraminal stenosis. L2-L3: Disc bulge and facet joint arthropathy result in moderate to severe spinal canal and moderate bilateral neural foraminal stenosis. L3-L4: Disc bulge and facet joint arthropathy result in moderate to severe spinal canal and severe le ft and moderate to severe right neural foraminal stenosis. L4-L5: Disc bulge and facet joint arthropathy result in mild spinal canal and moderate bilateral neur al foraminal stenosis. Osteophytes impress upon the exiting right nerve. L5-S1: The disc is rounded posterior morphology without significant spinal canal stenosis. Facet ann nt arthropathy with mild neural foraminal stenosis. No significant spinal canal or neural foraminal stenosis in the remainder of the visualized levels. Other findings: Simple appearing right renal cyst. IMPRESSION: 1. L2-L3 and L3-L4 moderate to severe spinal canal stenosis secondary disc bulge and facet joint art hropathy. Additionally severe left and moderate to severe right neural foraminal stenosis. 2. No evidence for spinal fracture. T9 vertebral body fracture seen on CT is not in the evcef-dl-hcy w. 3. Multilevel moderate degeneration changes throughout the cervical spine worse at C4-C6 with modera te C5-C6 spinal canal stenosis. Disc degeneration with associated osteoarthritic changes with moderat e to severe bilateral C4-C5, C5-C6 and moderate C6-C7 neural foraminal stenosis. [facility], , 05/09/2024 4:02 PM
[2024-05-09] MEDS ORDERED: DEXTROSE 50% SYRINGE 50 ML IVP PRN ×2 (16:59)
--- NOTE | 2024-05-09 17:01 | P.PN ---
Subjective Progress Note Date: 05/09/24 84-year-old male with known history of prostate cancer, stroke in 2017 with residual weakness in the right leg came in with increased weakness on the right leg and also generalized weakness believed to have UTI but urinalysis is essentially within normal limits. 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 Patient weakness has been progressively getting worse. 05/09/2024 Patient is seen in follow-up on the medical floor. Patient reporting no back pa in while at rest. He does continue to report some weakness of the right leg. He is currently pending a back MRI at this time. Blood work today reveals a BUN of 41.9, creatinine of 1.7, sodium of 137. His lipid panel reveals triglycerides of 90.50 cholesterol 123, LDL 24.7 and HDL 30.20. PHYSICAL EXAMINATION: GENERAL: The patient is alert and oriented x3, not in any acute distress. Well developed, well nourished. HEENT: Pupils are round and equally reacting to light. EOMI. No scleral icterus. No conjunctival pallor. Normocephalic, atraumatic. No pharyngeal erythema. No thyromegaly. CARDIOVASCULAR: S1 and S2 present. No murmurs, rubs, or gallops. PULMONARY: Chest is clear to auscultation, no wheezing or crackles. ABDOMEN: Soft, nontender, nondistended, normoactive bowel sounds. No palpable organomegaly. MUSCULOSKELETAL: No joint swelling or deformity. EXTREMITIES: No cyanosis, clubbing, or pedal edema. NEUROLOGICAL: Gross neurological examination did not reveal any focal deficits except for left leg weakness 4+/5 strength. SKIN: No rashes. Assessment and plan -Left lower extremity weakness: Patient had a recent PET scan which showed C7 vertebral involvement will order Decadron neurology was consulted. -T9 compression fracture pending MRI for further evaluation -History of cerebrovascular accident in the past -Prostate cancer history -Hypertension -Chronic kidney disease stage IIIb -Hypothyroidism Prevention chronic medical problems patient be resumed on appropriate home medications DVT prophylaxis: Subcutaneous heparin Full Code Plan Pending follow up MRI Neurology, spinal surgery following closely Creatinine 1.7 slightly worse and will recommend to rule out urinary retention Patient is continued on normal saline at 75 mls/hr Repeat blood work tomorrow The impression and plan of care has been dictated by Elizabeth Bernardo, Nurse Practitioner as directed. Dr. Danilo MD I have performed a history and physical examination and medical decision making of this patient, discussed the same with the dictator, and agree with the dictators assessment and plan as written, documented as a scribe. Based on total visit time, I have performed more than 50% of this visit. Objective - Vital Signs Vital signs: Vital Signs Temp 97.8 F 05/09/24 13:53 Pulse 89 05/09/24 13:53 Resp 18 05/09/24 13:53 BP 152/85 05/09/24 13:53 Pulse Ox 98 05/09/24 13:53 FiO2 Intake & Output 05/08/24 05/09/24 05/09/24 18:59 06:59 18:59 Intake Total 780 420 Output Total 150 Balance 630 420 Weight 68.039 kg 68.039 kg Intake: Oral 780 420 Output: Urine 150 Other: Voiding Method Urinal Urinal Diaper Diaper # Voids 2 - Labs CBC & Chem 7: 05/09/24 03:50 05/09/24 03:50 Labs: Abnormal Lab Results - Last 24 Hours (Table) 05/09/24 05/09/24 Range/Units 03:50 03:50 WBC 2.89 L (4.50-10.00) X 10*3/uL RBC 3.86 L (4.40-5.60) X 10*6/uL Hgb 11.1 L (13.0-17.0) g/dL Hct 31.5 L (39.6-50.0) % Plt Count 85 L (140-440) X 10*3/uL Lymphocytes # 0.34 L (0.90-5.00) X 10*3/uL Monocytes # 0.13 L (0.20-1.00) X 10*3/uL Eosinophils # 0 L (0.04-0.35) X 10*3/uL Carbon Dioxide 18.9 L (21.6-31.8) mmol/L BUN 41.9 H (9.0-27.0) mg/dL Creatinine 1.7 H (0.6-1.5) mg/dL Est GFR (CKD-EPI) 39 L (>=60) BUN/Creatinine Ratio 24.65 H (12.00-20.00) Ratio Glucose 154 H (70-110) mg/dL Albumin 3.5 L (3.8-4.9) g/dL Albumin/Globulin Ratio 1.21 L (1.60-3.17) Ratio HDL Cholesterol 30.20 L (40.00-60.00) mg/dL Assessment and Plan Time with Patient: Less than 30
[2024-05-09 17:14] LABS: Glucose,Whole Blood 180 mg/dL (70-110)
[2024-05-09] MEDS: INSULIN ASPART (NovoLOG) 100 UNIT/ML VIAL SQ SCH (17:45)
[2024-05-09 20:07] LABS: Glucose,Whole Blood 172 mg/dL (70-110)
[2024-05-10] MEDS: FAMOTIDINE 20 MG TAB PO SCH (08:50)
--- NOTE | 2024-05-10 09:10 | P.PN ---
Progress Note - Text Progress Note Date: 05/10/24 CT and MRI reviewed. Cervical: -Wide spread spondylosis with stenosis worse at C5-7 with large disc osteophyte complexes causing severe stenosis. Pt would need ACDF at these levels if he is myelopathic and or with acute neurological sx. Lumbar: -Widespread spondylosis, disc collapse and stenosis. Worst levels L2-4 with severe stenosis and disc collapse with severe caudal compression noted. L5-S1 grade I spondylolisthesis. No fractures. Pt would need at least a laminectomy at these levels. Will speak with patient and family to determine their wishes and review his sx and issues again.
--- NOTE | 2024-05-10 09:55 | P.PN ---
Subjective Progress Note Date: 05/10/24 Principal diagnosis: Anterior endplate T9 fracture; degenerative disc disease; spondylosis of cervical and lumbar spine; L2-L4 central canal stenosis and neuroforaminal stenosis; C4-C6 central canal and neuroforaminal stenosis Patient was seen at bedside this morning lying the semirecumbent position. Patient did have MRI of cervical and lumbar spine performed yesterday. He says he is still having weakness in the bilateral lower extremities. Patient denies any other changes from yesterday. Objective - Vital Signs Vital signs: Vital Signs Temp 98.4 F 05/10/24 07:09 Pulse 68 05/10/24 07:09 Resp 17 05/10/24 07:09 BP 130/70 05/10/24 07:09 Pulse Ox 97 05/10/24 07:09 FiO2 Intake & Output 05/09/24 05/10/24 05/10/24 18:59 06:59 18:59 Intake Total 600 240 Output Total 275 Balance 600 -35 Weight 68.039 kg Intake: Oral 600 240 Output: Urine 275 Other: Voiding Method Urinal Urinal Diaper Diaper - Exam Inspection: Some generalized scoliosis present on spine exam. Negative for any open fractures, significant erythema/ecchymosis/open wounds. Sensation: Some numbness and diminished sensation present along the T12/L1 dermatome on the right side extending to the groin. Equal, symmetric, bilaterally intact throughout the rest of the extremities on exam. Palpation: Nontender to palpation throughout spine on exam. Range of motion: Patient does have good range of motion throughout bilateral upper extremities on exam. Patient does have limited range of motion in the right leg and hip flexion/extension secondary to weakness in the right hip. Patient does have good active range of motion throughout the right knee in flexion so extension. Some limited range of motion in right ankle dorsi/plantarflexion. Patient does have good range of motion throughout the left hip and left knee in flexion/extension. There is some limited range of motion in the left ankle and dorsi/plantarflexion. Motor: 4+/5 in all major motor groups in bilateral upper extremities. 3+/5 in resisted right hip flexion so extension. 3+/5 in resisted left ankle dorsi/plantarflexion. 4/5 in all other major motor groups in left lower extremity. 4-/5 in all other major motor groups in right lower extremity. Neurovascular: Radial pulse intact, 2+ bilaterally. Cap refill under 3 seconds in digits of upper extremities. Special test: Negative Homans bilaterally. Negative clonus bilaterally. Negative Carlos bilaterally - Labs CBC & Chem 7: 05/09/24 03:50 05/09/24 03:50 Labs: Abnormal Lab Results - Last 24 Hours (Table) 05/09/24 05/09/24 05/09/24 Range/Units 03:50 03:50 17:03 WBC 2.89 L (4.50-10.00) X 10*3/uL RBC 3.86 L (4.40-5.60) X 10*6/uL Hgb 11.1 L (13.0-17.0) g/dL Hct 31.5 L (39.6-50.0) % Plt Count 85 L (140-440) X 10*3/uL Lymphocytes # 0.34 L (0.90-5.00) X 10*3/uL Monocytes # 0.13 L (0.20-1.00) X 10*3/uL Eosinophils # 0 L (0.04-0.35) X 10*3/uL Carbon Dioxide 18.9 L (21.6-31.8) mmol/L BUN 41.9 H (9.0-27.0) mg/dL Creatinine 1.7 H (0.6-1.5) mg/dL Est GFR (CKD-EPI) 39 L (>=60) BUN/Creatinine Ratio 24.65 H (12.00-20.00) Ratio Glucose 154 H (70-110) mg/dL POC Glucose (mg/dL) 180 H (70-110) mg/dL Albumin 3.5 L (3.8-4.9) g/dL Albumin/Globulin Ratio 1.21 L (1.60-3.17) Ratio HDL Cholesterol 30.20 L (40.00-60.00) mg/dL 05/09/24 Range/Units 20:05 WBC (4.50-10.00) X 10*3/uL RBC (4.40-5.60) X 10*6/uL Hgb (13.0-17.0) g/dL Hct (39.6-50.0) % Plt Count (140-440) X 10*3/uL Lymphocytes # (0.90-5.00) X 10*3/uL Monocytes # (0.20-1.00) X 10*3/uL Eosinophils # (0.04-0.35) X 10*3/uL Carbon Dioxide (21.6-31.8) mmol/L BUN (9.0-27.0) mg/dL Creatinine (0.6-1.5) mg/dL Est GFR (CKD-EPI) (>=60) BUN/Creatinine Ratio (12.00-20.00) Ratio Glucose (70-110) mg/dL POC Glucose (mg/dL) 172 H (70-110) mg/dL Albumin (3.8-4.9) g/dL Albumin/Globulin Ratio (1.60-3.17) Ratio HDL Cholesterol (40.00-60.00) mg/dL Assessment and Plan Assessment: 1. Anterior endplate T9 fracture; degenerative disc disease; spondylosis of cervical and lumbar spine; L2-L4 central canal stenosis and neuroforaminal stenosis; C4-C6 central canal and neuroforaminal stenosis 2. Multiple medical comorbidities Plan: 1. Anterior endplate T9 fracture; degenerative disc disease; -MRI of the cervical and lumbar spines have been reviewed. There is evident central canal neuroforaminal stenosis bilaterally from C4-C6 and L2-L4. I will discuss the findings of the imaging and exam with my attending, Dr. Lawson before proceeding with any potential intervention. At this time we are recommending conservative measures with the use of pain medication and physical therapy/Occupational Therapy. Patient to perform gentle range of motion exercises while resting in bed and to be weightbearing as tolerated with walker and assistance. We will continue to follow patient during stay in the hospital. 2. Prescient medical, oncology, neurology management 3. Pain management -Tylenol 4. DVT prophylaxis -aspirin; heparin 5. GI prophylaxis -Pepcid 6. PT/OT -weightbearing as tolerated with walker and assistance 7. Encourage incentive spirometer use Time with Patient: Less than 30
[2024-05-10 12:03] LABS: Glucose,Whole Blood 157 mg/dL (70-110)
[2024-05-10 12:36] LABS: BUN/Creat Ratio 25.83 Ratio (12.00-20.00); Blood Urea Nitrogen 46.5 mg/dL (9.0-27.0); Calcium 8.6 mg/dL (8.7-10.3); Carbon Dioxide 18.2 mmol/L (21.6-31.8); Chloride 108 mmol/L (96-109); Glucose 144 mg/dL (70-110); Potassium 4.7 mmol/L (3.5-5.5); Sodium 134 mmol/L (135-145)
--- NOTE | 2024-05-10 16:32 | P.PN ---
Subjective Progress Note Date: 05/10/24 The patient is an 84-year-old male who is seen in neurologic follow-up, in coverage for Dr. Steele, on May 10, 2024, in collaboration with Rain Rivers, via teleneurology. The chart has been reviewed. MRI of the cervical and lumbar spine have been completed. Images have been reviewed. Thoracic spine was not imaged. The patient denies neck and back pain. He states that he is right leg continues to be weak. He says the right leg is "almost ". The patient also reports new onset difficulty with bladder control. He denies difficulty with control of his bowel. Patient's family is present at the bedside at the time of the evaluation today. They are questioning results of imaging as well as diagnosis. MRI results were discussed with family and the patient. It was also advised that MRI of the thoracic spine was not done yet. Family reports that they have not spoken with the orthopedic doctors regarding treatment plan. The patient continues to deny any pain. He reports no changes in his symptoms. Objective - Vital Signs Vital signs: Vital Signs Temp 98.4 F 05/10/24 07:09 Pulse 68 05/10/24 07:09 Resp 17 05/10/24 07:09 BP 130/70 05/10/24 07:09 Pulse Ox 97 05/10/24 07:09 FiO2 Intake & Output 05/09/24 05/10/24 05/10/24 18:59 06:59 18:59 Intake Total 600 240 Output Total 275 Balance 600 -35 Weight 68.039 kg Intake: Oral 600 240 Output: Urine 275 Other: Voiding Method Urinal Urinal Urinal Diaper Diaper Diaper - Exam General: Patient is reclining in the bed. He is well-nourished, well-developed and in no acute distress. HEENT: Head is atraumatic, normocephalic. Fundus not visualized. There is no scleral icterus. Mucous membranes are moist. Neurological examination Mental status: Patient is awake, alert and oriented x 3. His speech is clear. There is no dysarthria or aphasia. Cranial nerves: 2-12 grossly intact - Labs CBC & Chem 7: 05/09/24 03:50 05/10/24 02:57 Labs: Abnormal Lab Results - Last 24 Hours (Table) 05/09/24 05/09/24 Range/Units 17:03 20:05 POC Glucose (mg/dL) 180 H 172 H (70-110) mg/dL Assessment and Plan Assessment: 1. Acute bilateral lower extremity weakness that is progressive over the last 2 weeks. There is concern for spinal cord compression at the T6 level. MRI of the lumbar spine reveals severe stenosis at L 2-3 level 2. History of myelodysplastic syndrome 3. 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 Unsure if primary is colon. 4. Prostate cancer status post resection 5. Recent urinary tract infection 6. Chronic kidney insufficiency 7. Ongoing pancytopenia 8. History of DIC 9. History of stroke in 2017 and patient had right-sided weakness as well as facial droop and per family members his weakness has resolved. In 2017 patient had MRI of the brain which shows area of suspected acute ischemia within the gilbert 10. History of recurrent urinary tract infection Plan: 1. Appreciate Ortho consultation 2. Stat MRI of the thoracic spine has been reordered 3. Physical and Occupational Therapy evaluations 4. Oncology has been asked to evaluate the patient 5. Plan for MRI has been discussed with the patient and family Dr. Rodriguez will assume neurologic coverage of this patient as of May 11, 2024 Time with Patient: Greater than 30 (40 minutes were spent caring for this patient today including, obtaining history, examining the patient, reviewing imaging, chart documentation, labs, placing orders and creating this note)
[2024-05-10 17:26] LABS: Glucose,Whole Blood 170 mg/dL (70-110)
[2024-05-10 20:16] LABS: Glucose,Whole Blood 150 mg/dL (70-110)
--- NOTE | 2024-05-11 04:06 | P.PN ---
Subjective Progress Note Date: 05/10/24 84-year-old male with known history of prostate cancer, stroke in 2017 with residual weakness in the right leg came in with increased weakness on the right leg and also generalized weakness believed to have UTI but urinalysis is essentially within normal limits. 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 Patient weakness has been progressively getting worse. 05/09/2024 Patient is seen in follow-up on the medical floor. Patient reporting no back pain while at rest. He does continue to report some weakness of the right leg. He is currently pending a back MRI at this time. Blood work today reveals a BUN of 41.9, creatinine of 1.7, sodium of 137. His lipid panel reveals triglycerides of 90.50 cholesterol 123, LDL 24.7 and HDL 30.20. 05/10/2024 Patient is seen in follow-up today with neurology, oncology, orthopedics following. Patient did undergo lumbar spine MRI awaiting thoracic which is scheduled for 05/11/2024. No immediate plans for surgical intervention while awaiting these images. Patient continues to report significant weakness with neurology following and significant stenosis along with multiple abnormalities noted on imaging. Patient is afebrile with no reports of chest pain or shortness of breath. Patient tolerating diet and denies nausea or vomiting. Review of systems: Constitutional: No reports of fatigue, fever, or chills Cardiovascular: No reports of chest pain or palpitations Respiratory: No reports of shortness of breath or cough GI: No reports of nausea, vomiting, or diarrhea : No reports of dysuria or retention Neurovascular: reports of continued ongoing weakness All medications have been reviewed PHYSICAL EXAMINATION: GENERAL: The patient is alert and oriented x3, not in any acute distress. Well developed, well nourished. Elderly appearing, thin built HEENT: Pupils are round and equally reacting to light. EOMI. No scleral icterus. No conjunctival pallor. Normocephalic, atraumatic. No pharyngeal erythema. No thyromegaly. CARDIOVASCULAR: S1 and S2 present. No murmurs, rubs, or gallops. PULMONARY: Chest is clear to auscultation, no wheezing or crackles. ABDOMEN: Soft, nontender, nondistended, normoactive bowel sounds. No palpable organomegaly. MUSCULOSKELETAL: No joint swelling or deformity. EXTREMITIES: No cyanosis, clubbing, or pedal edema. NEUROLOGICAL: Gross neurological examination did not reveal any focal deficits except for left leg weakness 4+/5 strength. SKIN: No rashes. Assessment: -Left lower extremity weakness: Patient had a recent PET scan which showed C7 vertebral involvement -T9 compression fracture pending MRI for further evaluation -History of cerebrovascular accident in the past -Prostate cancer history -Hypertension -Chronic kidney disease stage IIIb -Hypothyroidism GI prophylaxis DVT prophylaxis: Subcutaneous heparin Full Code Plan: Pending follow up MRI of the T-spine. Multiple abnormalities noted on previous imaging and awaiting to speak further with orthopedics Neurology, spinal surgery following closely Creatinine 1.7 slightly worse and will recommend to rule out urinary retention, follow-up on repeat labs and continue gentle hydration Oncology on consult for evaluation Due to multiple complex medical issues, overall prognosis is guarded at this time The impression and plan of care has been dictated by Bernadette Choe, Nurse Practitioner as directed. Dr. Danilo MD I have performed a history and physical examination and medical decision making of this patient, discussed the same with the dictator, and agree with the dictators assessment and plan as written, documented as a scribe. Based on total visit time, I have performed more than 50% of this visit. Objective - Vital Signs Vital signs: Vital Signs Temp 98.3 F 05/10/24 00:59 Pulse 68 05/10/24 00:59 Resp 15 05/10/24 00:59 BP 114/56 05/10/24 00:59 Pulse Ox 98 05/10/24 00:59 FiO2 Intake & Output 05/09/24 05/09/24 05/10/24 06:59 18:59 06:59 Intake Total 600 240 Balance 600 240 Weight 68.039 kg Intake: Oral 600 240 Other: Voiding Method Urinal Urinal Urinal Diaper Diaper Diaper # Voids 2 - Labs CBC & Chem 7: 05/09/24 03:50 05/10/24 02:57 Labs: Abnormal Lab Results - Last 24 Hours (Table) 05/09/24 05/09/24 05/09/24 Range/Units 03:50 03:50 17:03 WBC 2.89 L (4.50-10.00) X 10*3/uL RBC 3.86 L (4.40-5.60) X 10*6/uL Hgb 11.1 L (13.0-17.0) g/dL Hct 31.5 L (39.6-50.0) % Plt Count 85 L (140-440) X 10*3/uL Lymphocytes # 0.34 L (0.90-5.00) X 10*3/uL Monocytes # 0.13 L (0.20-1.00) X 10*3/uL Eosinophils # 0 L (0.04-0.35) X 10*3/uL Carbon Dioxide 18.9 L (21.6-31.8) mmol/L BUN 41.9 H (9.0-27.0) mg/dL Creatinine 1.7 H (0.6-1.5) mg/dL Est GFR (CKD-EPI) 39 L (>=60) BUN/Creatinine Ratio 24.65 H (12.00-20.00) Ratio Glucose 154 H (70-110) mg/dL POC Glucose (mg/dL) 180 H (70-110) mg/dL Albumin 3.5 L (3.8-4.9) g/dL Albumin/Globulin Ratio 1.21 L (1.60-3.17) Ratio HDL Cholesterol 30.20 L (40.00-60.00) mg/dL 05/09/24 Range/Units 20:05 WBC (4.50-10.00) X 10*3/uL RBC (4.40-5.60) X 10*6/uL Hgb (13.0-17.0) g/dL Hct (39.6-50.0) % Plt Count (140-440) X 10*3/uL Lymphocytes # (0.90-5.00) X 10*3/uL Monocytes # (0.20-1.00) X 10*3/uL Eosinophils # (0.04-0.35) X 10*3/uL Carbon Dioxide (21.6-31.8) mmol/L BUN (9.0-27.0) mg/dL Creatinine (0.6-1.5) mg/dL Est GFR (CKD-EPI) (>=60) BUN/Creatinine Ratio (12.00-20.00) Ratio Glucose (70-110) mg/dL POC Glucose (mg/dL) 172 H (70-110) mg/dL Albumin (3.8-4.9) g/dL Albumin/Globulin Ratio (1.60-3.17) Ratio HDL Cholesterol (40.00-60.00) mg/dL
[2024-05-11 07:38] LABS: Glucose,Whole Blood 121 mg/dL (70-110)
[2024-05-11 08:34] LABS: Basophils # (A) 0.01 X 10*3/uL (0.00-0.10); Basophils % (A) 0.2 %; Eosinophils # (A) 0 X 10*3/uL (0.04-0.35); Eosinophils % (A) 0 %; HCT 27.3 % (39.6-50.0); Lymphocytes # (A) 0.37 X 10*3/uL (0.90-5.00); Lymphocytes % (A) 8.9 %; MCV 84.8 FL (80.0-97.0); Mean Platelet Volume 10.7 FL (9.5-12.2); Monocytes % (A) 7.2 %; NRBC Per 100 WBC 0 X 10*3/uL (0.00-0.01); Neutrophils # (A) 3.44 X 10*3/uL (1.80-7.70); Platelet Count 95 X 10*3/uL (140-440); RBC 3.22 X 10*6/uL (4.40-5.60); RDW 14.6 % (11.5-14.5); WBC 4.15 X 10*3/uL (4.50-10.00)
[2024-05-11] MEDS ORDERED: TRANEXAMIC 1,000 MG/100ML-NACL 1,000 MG in SALINE 1 100ML.BAG IVPB PRN (09:02)
--- NOTE | 2024-05-11 09:02 | P.PN ---
Subjective Progress Note Date: 05/11/24 Principal diagnosis: T9 vertebral compression fracture New bilateral leg weakness with hx of mets Patient seen and examined this morning. Patient is resting comfortably in bed. Patient states he has not had any changes in his symptoms. He was on the phone with his and I was able to offer and explain surgical option of L2-L4 laminectomy. Patient verbalizes understanding and has agreed to proceed with surgery. Spouse wanted to verify medical clearance would be performed. I was able to discuss that with her that we would obtain all necessary clearances and then the patients's phone shut off. Informed patient that he will be scheduled for tomorrow 05/12/24 and will be NPO at midnight tonight. Heparin has been discontinued at this time. Physical Therapist was outside the room at this time and stated that they will hold off on session today. Objective - Vital Signs Vital signs: Vital Signs Temp 98.2 F 05/11/24 07:30 Pulse 52 L 05/11/24 07:30 Resp 18 05/11/24 07:30 BP 162/84 05/11/24 07:30 Pulse Ox 96 05/11/24 07:30 FiO2 Intake & Output 05/10/24 05/11/24 05/11/24 18:59 06:59 18:59 Output Total 300 525 Balance -300 -525 Output: Urine 300 525 Other: Voiding Method Urinal Urinal Diaper Diaper # Voids 1 1 # Bowel Movements 1 - Exam Inspection: Some generalized scoliosis present on spine exam. Negative for any open fractures, significant erythema/ecchymosis/open wounds. Sensation: Some numbness and diminished sensation present along the T12/L1 dermatome on the right side extending to the groin. Equal, symmetric, bilaterally intact throughout the rest of the extremities on exam. Palpation: Nontender to palpation throughout spine on exam. Range of motion: Patient does have good range of motion throughout bilateral upper extremities on exam. Patient does have limited range of motion in the right leg and hip flexion/extension secondary to weakness in the right hip. Pa tient does have good active range of motion throughout the right knee in flexion so extension. Some limited range of motion in right ankle dorsi/plantarflexion. Patient does have good range of motion throughout the left hip and left knee in flexion/extension. There is some limited range of motion in the left ankle and dorsi/plantarflexion. Motor: 4+/5 in all major motor groups in bilateral upper extremities. 3+/5 in resisted right hip flexion so extension. 3+/5 in resisted left ankle dorsi/ plantarflexion. 4/5 in all other major motor groups in left lower extremity. 4- /5 in all other major motor groups in right lower extremity. Neurovascular: Radial pulse intact, 2+ bilaterally. Cap refill under 3 seconds in digits of upper extremities. Special test: Negative Homans bilaterally. Negative clonus bilaterally. Negative Carlos bilaterally - Labs CBC & Chem 7: 05/11/24 04:08 05/10/24 02:57 Labs: Abnormal Lab Results - Last 24 Hours (Table) 05/10/24 05/10/24 05/10/24 Range/Units 02:57 12:02 17:24 WBC (4.50-10.00) X 10*3/uL RBC (4.40-5.60) X 10*6/uL Hgb (13.0-17.0) g/dL Hct (39.6-50.0) % RDW (11.5-14.5) % Plt Count (140-440) X 10*3/uL Lymphocytes # (0.90-5.00) X 10*3/uL Eosinophils # (0.04-0.35) X 10*3/uL Sodium 134 L (135-145) mmol/L Carbon Dioxide 18.2 L (21.6-31.8) mmol/L BUN 46.5 H (9.0-27.0) mg/dL Creatinine 1.8 H (0.6-1.5) mg/dL Est GFR (CKD-EPI) 36 L (>=60) BUN/Creatinine Ratio 25.83 H (12.00-20.00) Ratio Glucose 144 H (70-110) mg/dL POC Glucose (mg/dL) 157 H 170 H (70-110) mg/dL Calcium 8.6 L (8.7-10.3) mg/dL 05/10/24 05/11/24 05/11/24 Range/Units 20:06 04:08 07:36 WBC 4.15 L (4.50-10.00) X 10*3/uL RBC 3.22 L (4.40-5.60) X 10*6/uL Hgb 9.0 L (13.0-17.0) g/dL Hct 27.3 L (39.6-50.0) % RDW 14.6 H (11.5-14.5) % Plt Count 95 L (140-440) X 10*3/uL Lymphocytes # 0.37 L (0.90-5.00) X 10*3/uL Eosinophils # 0 L (0.04-0.35) X 10*3/uL Sodium (135-145) mmol/L Carbon Dioxide (21.6-31.8) mmol/L BUN (9.0-27.0) mg/dL Creatinine (0.6-1.5) mg/dL Est GFR (CKD-EPI) (>=60) BUN/Creatinine Ratio (12.00-20.00) Ratio Glucose (70-110) mg/dL POC Glucose (mg/dL) 150 H 121 H (70-110) mg/dL Calcium (8.7-10.3) mg/dL Assessment and Plan Assessment: Anterior endplate T9 fracture Degenerative disc disease Spondylosis of cervical and lumbar spine L2-L4 central canal stenosis and neuroforaminal stenosis C4-C6 central canal and neuroforaminal stenosis Bilateral lower extremity radiculopathy with weakness Plan: At this time we recommend L2-L4 laminectomy, discussed with patient and his spouse. Patient would like to proceed with surgical intervention. Patient has been schedule for tomorrow 05/12/24. He will be NPO at [place]. Heparin has been discontinued at this time. 2. Appreciate medical management 3. Pain management - continue with current regimen. 4. GI prophylaxis -per medicine 5. DVT prophylaxis - Aspirin 81mg 6. PT/OT - weightbearing as tolerated with a walker as needed. 7. Appreciate consult.
[2024-05-11 09:09] LABS: BUN/Creat Ratio 32.65 Ratio (12.00-20.00); Blood Urea Nitrogen 55.5 mg/dL (9.0-27.0); Calcium 8.7 mg/dL (8.7-10.3); Carbon Dioxide 18.7 mmol/L (21.6-31.8); Chloride 110 mmol/L (96-109); Glucose 139 mg/dL (70-110); Magnesium 1.8 mg/dL (1.5-2.4); Potassium 4.6 mmol/L (3.5-5.5); Sodium 137 mmol/L (135-145)
[2024-05-11] MEDS: PANTOPRAZOLE 40 MG TABLET PO SCH (09:16)
[2024-05-11] MEDS: DEXAMETHASONE SOD PHOSPHATE 4 MG/ML 1 ML VIAL IVP SCH (09:17)
[2024-05-11 13:47] LABS: Glucose,Whole Blood 120 mg/dL (70-110)
--- NOTE | 2024-05-11 14:23 | MR ---
EXAMINATION TYPE: MR thoracic spine wo/w con DATE OF EXAM: 05/11/2024 1:51 PM COMPARISON: CT scan 05/08/2024 CLINICAL INDICATION: Male, 84 years old with history of Weakness, gait dysfunction, MS, F/U, NO SYMPT OMS IV Contrast: 8 cc Gadobutrol (None if empty) CONTRAST: Standard multiplanar, multisequence MRI departmental protocol images were obtained without contrast a nd with 8 mL intravenous Gadobutrol gadolinium contrast. FINDINGS: There is a kyphosis of the dressing spine with multilevel moderate degenerative disc disease. A chron ic appearing anterior wedge deformity of T1, T2, T3, T6, T7, T8 and T10 appear to be chronic. Noncont rast T1 demonstrate diminished marrow signal at the T8-9 segment with a less than 10% compression def ormity endplate. This could be acute to subacute. No spinal cord contact. Central disc bulging T7-T8 but no spinal cord contact or canal stenosis. Small disc protrusion in the differential diagnosis. Remaining levels demonstrate broad-based disc bulging and posterior spondylo sis T6-T7 with no canal stenosis or disc herniation. There is a left paracentral disc small herniatio n or disc osteophyte complex T9-T10. No spinal cord contact. Neural foramina remains patent. Multilevel facet arthropathy. No significant foraminal encroachment. There appears to be small bilateral pleural effusion. Motion artifact limits assessment of the lung f ield. Left lower lobe lung mass suspected. Assessment spinal cord is limited due to artifact but grossly no enhancement or evidence to suggest a bnormal signal. Incidental note is made of degenerative change lower cervical spine. There is a nonspecific right adrenal mass. Simple appearing upper pole right renal cyst Bosniak class ification I. IMPRESSION: 1. Abnormal marrow alteration T9 with approximate 10% acute compression fracture superior endplate. N o spinal cord contact or canal stenosis. Recommend follow-up to marrow resolution to exclude underlyi ng pathologic fracture. No evidence of destructive change or enhancing mass. Most likely on the basis of a nonpathologic compression fracture. PET scan could be obtained as clinically warranted. 2. Multilevel moderate degenerative disc disease with disc bulging or protrusions at T7-8 and more pr onounced at T9-T10 paracentrally to the left. No spinal cord contact or canal stenosis. 3. Small bilateral pleural effusion. Suspected left lower lobe pulmonary mass. 4. Additional chronic appearing mild compression fractures. [facility], , 05/11/2024 2:20 PM
[2024-05-11 17:29] LABS: Glucose,Whole Blood 146 mg/dL (70-110)
[2024-05-11 20:06] LABS: Glucose,Whole Blood 168 mg/dL (70-110)
--- NOTE | 2024-05-12 03:06 | P.PN ---
Subjective Progress Note Date: 05/11/24 84-year-old male with known history of prostate cancer, stroke in 2017 with residual weakness in the right leg came in with increased weakness on the right leg and also generalized weakness believed to have UTI but urinalysis is essentially within normal limits. 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 Patient weakness has been progressively getting worse. 05/09/2024 Patient is seen in follow-up on the medical floor. Patient reporting no back pain while at rest. He does continue to report some weakness of the right leg. He is currently pending a back MRI at this time. Blood work today reveals a BUN of 41.9, creatinine of 1.7, sodium of 137. His lipid panel reveals triglycerides of 90.50 cholesterol 123, LDL 24.7 and HDL 30.20. 05/10/2024 Patient is seen in follow-up today with neurology, oncology, orthopedics following. Patient did undergo lumbar spine MRI awaiting thoracic which is scheduled for 05/11/2024. No immediate plans for surgical intervention while awaiting these images. Patient continues to report significant weakness with neurology following and significant stenosis along with multiple abnormalities noted on imaging. Patient is afebrile with no reports of chest pain or shortness of breath. Patient tolerating diet and denies nausea or vomiting. 05/11/2024 Patient is seen in follow-up today scheduled to undergo thoracic spine MRI and has met with orthopedics with plans on undergoing L2-L4 laminectomy. Patient continues with weakness and inability to ambulate. Patient will be n.p.o. at midnight and follow-up on repeat labs. Will await official surgical report. Patient will require PT/OT therapy and likely rehab on discharge. Case management/social work consulted and following. Oncology following as well. Review of systems: Constitutional: No reports of fatigue, fever, or chills Cardiovascular: No reports of chest pain or palpitations Respiratory: No reports of shortness of breath or cough GI: No reports of nausea, vomiting, or diarrhea : No reports of dysuria or retention Neurovascular: reports of continued ongoing weakness All medications have been reviewed PHYSICAL EXAMINATION: GENERAL: The patient is alert and oriented x3, not in any acute distress. Well developed, well nourished. Elderly appearing, thin built HEENT: Pupils are round and equally reacting to light. EOMI. No scleral icterus. No conjunctival pallor. Normocephalic, atraumatic. No pharyngeal erythema. No th yromegaly. CARDIOVASCULAR: S1 and S2 present. No murmurs, rubs, or gallops. PULMONARY: Chest is clear to auscultation, no wheezing or crackles. ABDOMEN: Soft, nontender, nondistended, normoactive bowel sounds. No palpable organomegaly. MUSCULOSKELETAL: No joint swelling or deformity. EXTREMITIES: No cyanosis, clubbing, or pedal edema. NEUROLOGICAL: Gross neurological examination did not reveal any focal deficits except for left leg weakness 4+/5 strength. SKIN: No rashes. Assessment: -Left lower extremity weakness: Patient had a recent PET scan which showed C7 vertebral involvement -T9 compression fracture pending MRI for further evaluation. Patient scheduled to undergo surgical intervention with orthopedics Dr. Lawson on 05/12/2024 -History of cerebrovascular accident in the past -Prostate cancer history -Hypertension -Chronic kidney disease stage IIIb -Hypothyroidism GI prophylaxis DVT prophylaxis: Subcutaneous heparin Full Code Plan: Pending follow up MRI of the T-spine. Ordered for today and pending at this time. Multiple abnormalities noted on previous imaging and discussed with orthopedics and is tentatively scheduled for surgical intervention with possible L2-L4 laminectomy, currently awaiting thoracic spine MRI for further evaluation Neurology, spinal surgery following closely Creatinine 1.7 slightly worse and will recommend to rule out urinary retention, follow-up on repeat labs and continue gentle hydration Oncology on consult for evaluation Due to multiple complex medical issues, overall prognosis is guarded at this time The impression and plan of care has been dictated by Bernadette Choe, Nurse Practitioner as directed. Dr. Scout MD I have performed a history and physical examination and medical decision making of this patient, discussed the same with the dictator, and agree with the dictators assessment and plan as written, documented as a scribe. Based on total visit time, I have performed more than 50% of this visit. Objective - Vital Signs Vital signs: Vital Signs Temp 98.2 F 05/11/24 07:30 Pulse 52 L 05/11/24 07:30 Resp 18 05/11/24 07:30 BP 162/84 05/11/24 07:30 Pulse Ox 96 05/11/24 07:30 FiO2 Intake & Output 05/10/24 05/11/24 05/11/24 18:59 06:59 18:59 Output Total 300 525 Balance -300 -525 Output: Urine 300 525 Other: Voiding Method Urinal Urinal Diaper Diaper # Voids 1 1 # Bowel Movements 1 - Labs CBC & Chem 7: 05/11/24 04:08 05/11/24 04:08 Labs: Abnormal Lab Results - Last 24 Hours (Table) 05/10/24 05/10/24 05/10/24 Range/Units 02:57 12:02 17:24 WBC (4.50-10.00) X 10*3/uL RBC (4.40-5.60) X 10*6/uL Hgb (13.0-17.0) g/dL Hct (39.6-50.0) % RDW (11.5-14.5) % Plt Count (140-440) X 10*3/uL Lymphocytes # (0.90-5.00) X 10*3/uL Eosinophils # (0.04-0.35) X 10*3/uL Sodium 134 L (135-145) mmol/L Chloride (96-109) mmol/L Carbon Dioxide 18.2 L (21.6-31.8) mmol/L BUN 46.5 H (9.0-27.0) mg/dL Creatinine 1.8 H (0.6-1.5) mg/dL Est GFR (CKD-EPI) 36 L (>=60) BUN/Creatinine Ratio 25.83 H (12.00-20.00) Ratio Glucose 144 H (70-110) mg/dL POC Glucose (mg/dL) 157 H 170 H (70-110) mg/dL Calcium 8.6 L (8.7-10.3) mg/dL 05/10/24 05/11/24 05/11/24 Range/Units 20:06 04:08 04:08 WBC 4.15 L (4.50-10.00) X 10*3/uL RBC 3.22 L (4.40-5.60) X 10*6/uL Hgb 9.0 L (13.0-17.0) g/dL Hct 27.3 L (39.6-50.0) % RDW 14.6 H (11.5-14.5) % Plt Count 95 L (140-440) X 10*3/uL Lymphocytes # 0.37 L (0.90-5.00) X 10*3/uL Eosinophils # 0 L (0.04-0.35) X 10*3/uL Sodium (135-145) mmol/L Chloride 110 H (96-109) mmol/L Carbon Dioxide 18.7 L (21.6-31.8) mmol/L BUN 55.5 H (9.0-27.0) mg/dL Creatinine 1.7 H (0.6-1.5) mg/dL Est GFR (CKD-EPI) 39 L (>=60) BUN/Creatinine Ratio 32.65 H (12.00-20.00) Ratio Glucose 139 H (70-110) mg/dL POC Glucose (mg/dL) 150 H (70-110) mg/dL Calcium (8.7-10.3) mg/dL 05/11/24 Range/Units 07:36 WBC (4.50-10.00) X 10*3/uL RBC (4.40-5.60) X 10*6/uL Hgb (13.0-17.0) g/dL Hct (39.6-50.0) % RDW (11.5-14.5) % Plt Count (140-440) X 10*3/uL Lymphocytes # (0.90-5.00) X 10*3/uL Eosinophils # (0.04-0.35) X 10*3/uL Sodium (135-145) mmol/L Chloride (96-109) mmol/L Carbon Dioxide (21.6-31.8) mmol/L BUN (9.0-27.0) mg/dL Creatinine (0.6-1.5) mg/dL Est GFR (CKD-EPI) (>=60) BUN/Creatinine Ratio (12.00-20.00) Ratio Glucose (70-110) mg/dL POC Glucose (mg/dL) 121 H (70-110) mg/dL Calcium (8.7-10.3) mg/dL
[2024-05-12 05:29] LABS: Methylmalonic Acid 0.29 umol/L (<0.40)
[2024-05-12 07:11] LABS: Glucose,Whole Blood 121 mg/dL (70-110)
--- NOTE | 2024-05-12 07:30 | P.PN ---
Progress Note - Text Progress Note Date: 05/12/24 Spine Surgery Clinical and Risk Review Sergo Lyons is a 84-year-old male presenting for evaluation of low back pain and lower extremity weakness. It was my pleasure to have seen and examined Sergo Lyons. In our visit today we have had a chance to go over subjective complaints, physical examination findings and treatments including the natural course history without intervention and various interventional options. The patients imaging demonstrates L2-L4 severe stenosis with spondylosis On physical exam, Sergo demonstrates right lower extremity radiculopathy right lower extremity weakness progressive weakness inability to ambulate I have explained to the patient that as their condition progresses it will cause further neurological deficits and eventual paralysis. Based on the patients imaging, physical exam, and the rapid progression and disabling nature of their symptoms, at this time I recommend surgery in the form or a: L2-L4 decompressive laminectomy. I discussed the risk and benefits of this procedure at length with Sergo Lyons. The patienT and his agreed to considered pursuing the procedure abovementioned. Prior to surgery, she should follow up with her PCP (Cardio, ID, IM etc) for clearance. Questions were invited and answered, and the patient wishes to proceed as outlined below. Currently, I am recommendin. L2-L4 decompressive laminectomy 2. Follow up with PCP for surgical clearance 3. Review of surgical risks and benefits as well as an educational packet on the proposed surgical procedure. Risks: All surgical procedures come with inherent risks, including those related to positioning, anesthesia, intraoperative findings, and postoperative complications. It is important to understand that surgery does not come with any guarantee of a successful outcome as complications and adverse events are always possible. The patient was given a handout in office today discussing the surgical procedure and risks associated with the intervention, both of which were discussed with the patient. These risks include but are not limited to the following: * Experiencing same, different or even worse symptoms in back, neck, arms, or legs compared to before surgery. * Requiring further surgery or other forms of treatment presently or at some time in the future at same or other levels of the intended spine surgery. * On an extreme but fortunately relatively rare basis severe complication such as blindness, stroke, heart attack, temporary and/or permanent nerve injury, paralysis, coma, or may occur, sometimes without known explanation. * Surgical complications may include but are not limited to risk of infection, fluid accumulation in the surgical dissection site, including a seroma or hematoma, that requires additional surgery, wound drainage, bleeding, new numbness or weakness, vision changes/loss, spinal fluid leakage, non-healing and/or infected incision, headaches, difficulty or inability to swallow, hoarseness, hemopneumothorax, pneumothorax, impotence, retrograde ejaculation, vaginal dryness; injury to nerves, spinal cord, blood vessels, lymphatics or other vital organs (i.e., bowel injury, injury to the great vessels); heterotopic bone formation; complications related to the hardware such as screws, rods, cages including misplaced hardware, device failure, instrumentation at the wrong spine level, hardware fracture/breakage, or hardware loosening; vertebral failure of the spinal column above or below the newly placed hardware; retained surgical instrumentations or devices and the need for further surgery. * Medical risks of the planned spine surgery include but are not limited to generalized Infections to the whole body or local areas outside of the surgical site (sepsis), heart attack, bleeding, anaphylaxis, meningitis, seizure, epilepsy, hearing loss, burn catalan, laceration of the head or other areas of the body, bruising, hypersensitivity of the skin, bladder over distension; allergic reaction; shoulder injury related to positioning; fat, blood and air clots to other areas of the body like heart, lungs, brain; failure of internal organs such as lungs, kidneys, liver and excessive bleeding. If blood transfusions are necessary, note that transfusions may cause intolerance reactions such as anaphylaxis or other complex reactions. * Despite best efforts, the results of spine surgery might not heal in terms of bone, soft tissues such as skin, fascia, ligaments, and joints. Additionally, in order to achieve best possible results, spine surgery may be carried out beyond the initially planned levels and involve decompression, fusion including insertion of hardware at levels other than the original intended area of surgical interest change some portions of the procedure in order to ensure the best possible outcomes. * With spine surgery and spinal fusion, there are different off label uses of instrumentation (devices, implants and hardware) as well as biological substances (bone morphogenic proteins, demineralized bone matrix) as well as using extra bone from allograft sources (i.e. cadaver bone) or autograft (iliac crest bone, ribs, or the spine itself). The patient has been given information about these practices and their inherent risks and benefits. The patient has had a chance to review all the listed information, has been given print outs detailing this information, and has had all his/her questions answered to their satisfaction. It was my pleasure to have seen and examined Sergo Lyons. In our visit today we have had a chance to go over my understanding of our patient's current condition, the natural course history without intervention and various interventional options. Questions were invited and answered, and the patient wishes to proceed as outlined above. I have seen and examined the patient for 25 minutes and we have spent more than 50% of the time in repeat and detailed counseling about the patient's condition, its natural course history with out and as much as can be predicted with surgery and re-review of various surgical treatment options. In conclusion, Sergo Lyons and his requested we proceed with the above suggested surgery and are willing to accept risks and limitations of the suggested surgery as nature of the disease process and our best attempts at treatment for the condition. Thank you again for allowing us to be part of your patient's care. Please don't hesitate to contact me if you have any further questions. Signed and authenticated by: Devaughn Ch [facility] [address] [address]
[2024-05-12 08:45] LABS: ALT 20 U/L (10-49); AST 16 U/L (14-35); Albumin 3.2 g/dL (3.8-4.9); Albumin/Globulin Ratio 1.23 Ratio (1.60-3.17); Alkaline Phosphatase 86 U/L (41-126); BUN/Creat Ratio 35.69 Ratio (12.00-20.00); Blood Urea Nitrogen 57.1 mg/dL (9.0-27.0); Calcium 8.8 mg/dL (8.7-10.3); Carbon Dioxide 19.6 mmol/L (21.6-31.8); Chloride 110 mmol/L (96-109); Globulin 2.6 g/dL (1.6-3.3); Glucose 120 mg/dL (70-110); Magnesium 1.7 mg/dL (1.5-2.4); Potassium 4.4 mmol/L (3.5-5.5); Sodium 138 mmol/L (135-145); Total Bilirubin 0.7 mg/dL (0.3-1.2); Total Protein 5.8 g/dL (6.2-8.2)
[2024-05-12 09:03] LABS: Basophils # (A) 0 X 10*3/uL (0.00-0.10); Basophils % (A) 0 %; Eosinophils # (A) 0 X 10*3/uL (0.04-0.35); Eosinophils % (A) 0 %; HCT 27.4 % (39.6-50.0); HGB 9.3 g/dL (13.0-17.0); Lymphocytes # (A) 0.39 X 10*3/uL (0.90-5.00); Lymphocytes % (A) 10.2 %; MCH 28.4 pg (27.0-32.0); MCHC 33.9 g/dL (32.0-37.0); MCV 83.8 FL (80.0-97.0); Mean Platelet Volume 10.6 FL (9.5-12.2); Monocytes # (A) 0.46 X 10*3/uL (0.20-1.00); NRBC Per 100 WBC 0 X 10*3/uL (0.00-0.01); Neutrophils # (A) 2.94 X 10*3/uL (1.80-7.70); Platelet Count 102 X 10*3/uL (140-440); RBC 3.27 X 10*6/uL (4.40-5.60); RDW 14.6 % (11.5-14.5); WBC 3.82 X 10*3/uL (4.50-10.00)
--- NOTE | 2024-05-12 11:05 | P.PN ---
Subjective Progress Note Date: 05/11/24 Patient was initially seen by Dr. Bandar Steele in consultation, then followed up with Dr. Posey over the weekend. Today is my first day of the service. Patient is a 84-year-old male with progressive right lower extremity weakness with history of prostate cancer and recent diagnosis of multiple myeloma. Some concern about T6 spinal cord compression. Orthopedic surgery following the patient. Patient has presented with bilateral lower extremity weakness for [address] of the spine showed spinal compression T7. Oncology also following. Patient was seen for follow-up. Patient is laying comfortably in the bed. He denies any back pain, but he states his legs are weak, right more than left. Patient states that that his right leg and barely lift but can hold the left well. He denies any significant neck pain. Patient admits to having significant urgency for urination. Still has feeling. Objective - Vital Signs Vital signs: Vital Signs Temp 98.5 F 05/11/24 13:40 Pulse 60 05/11/24 13:40 Resp 17 05/11/24 13:40 BP 153/75 05/11/24 13:40 Pulse Ox 97 05/11/24 13:40 FiO2 Intake & Output 05/10/24 05/11/24 05/11/24 18:59 06:59 18:59 Intake Total 240 Output Total 300 525 Balance -300 -525 240 Intake: Oral 240 Output: Urine 300 525 Other: Voiding Method Urinal Urinal Urinal Diaper Diaper Diaper # Voids 1 1 # Bowel Movements 1 - Exam Patient's mental status, speech and language functions are normal. Cranial nerves are normal, visual lucas are full, face is symmetric and tongue protrudes in midline. Pupils are equal, round and reacting. Extraocular muscles intact. On muscle strength testing, the strength is normal in arms distally and proximally. In the lower limbs (right/left) hip flexion 3+4-/5-, hip adduction 5/5, hip abduction 4+5-/5-, knee extension 3+/5, ankle dorsiflexion 5/1, inversion 5/3+, peronei 5/1-2, plantarflexion 5/4-, toe extension 4/0. Sensory to touch is equal. No ataxia for [id number] testing. Deep tendon reflexes are (right/left) biceps 2+/1+, brachioradialis 2+/1+, knees 0/1, ankles 0/0, plantar is up on the right, and flat on the left. - Labs CBC & Chem 7: 05/12/24 05:34 05/12/24 05:34 Labs: Abnormal Lab Results - Last 24 Hours (Table) 05/10/24 05/11/24 05/11/24 Range/Units 20:06 04:08 04:08 WBC 4.15 L (4.50-10.00) X 10*3/uL RBC 3.22 L (4.40-5.60) X 10*6/uL Hgb 9.0 L (13.0-17.0) g/dL Hct 27.3 L (39.6-50.0) % RDW 14.6 H (11.5-14.5) % Plt Count 95 L (140-440) X 10*3/uL Lymphocytes # 0.37 L (0.90-5.00) X 10*3/uL Eosinophils # 0 L (0.04-0.35) X 10*3/uL Chloride 110 H (96-109) mmol/L Carbon Dioxide 18.7 L (21.6-31.8) mmol/L BUN 55.5 H (9.0-27.0) mg/dL Creatinine 1.7 H (0.6-1.5) mg/dL Est GFR (CKD-EPI) 39 L (>=60) BUN/Creatinine Ratio 32.65 H (12.00-20.00) Ratio Glucose 139 H (70-110) mg/dL POC Glucose (mg/dL) 150 H (70-110) mg/dL 05/11/24 05/11/24 05/11/24 Range/Units 07:36 13:46 17:27 WBC (4.50-10.00) X 10*3/uL RBC (4.40-5.60) X 10*6/uL Hgb (13.0-17.0) g/dL Hct (39.6-50.0) % RDW (11.5-14.5) % Plt Count (140-440) X 10*3/uL Lymphocytes # (0.90-5.00) X 10*3/uL Eosinophils # (0.04-0.35) X 10*3/uL Chloride (96-109) mmol/L Carbon Dioxide (21.6-31.8) mmol/L BUN (9.0-27.0) mg/dL Creatinine (0.6-1.5) mg/dL Est GFR (CKD-EPI) (>=60) BUN/Creatinine Ratio (12.00-20.00) Ratio Glucose (70-110) mg/dL POC Glucose (mg/dL) 121 H 120 H 146 H (70-110) mg/dL Assessment and Plan Assessment: 1. Acute bilateral lower extremity weakness that is progressive over the last 2 weeks. Likely due to severe lumbar spinal stenosis at L 2-3 and L3-4 levels. 2. History of myelodysplastic syndrome 3. 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 Unsure if primary is colon. 4. Prostate cancer status post resection 5. Recent urinary tract infection 6. Chronic kidney insufficiency 7. Ongoing pancytopenia 8. History of DIC 9. History of stroke in 2017 and patient had right-sided weakness as well as facial droop and per family members his weakness has resolved. In 2017 patient had MRI of the brain which shows area of suspected acute ischemia within the gilbert 10. History of recurrent urinary tract infection Plan: 1. Appreciate Ortho consultation 2. MRI of the thoracic spine with and without contrast revealed abnormal marrow alteration T9 with approximately 10% acute compression fracture superior e ndplate. No spinal cord contact or canal stenosis. Recommend follow-up to marrow resolution to exclude underlying pathologic fracture. No evidence of destructive change or enhancing mass. PET scan to be obtained as clinically warranted. Multilevel moderate degenerative disc disease with disc bulging or protrusion at T7-8 and more pronounced at T9-T10 paracentral into the left. No spinal cord contact was canal stenosis. I personally reviewed MRI, agree with the findings. 3. Physical and Occupational Therapy evaluations 4. Oncology has been asked to evaluate the patient 5. MRI of the lumbar spine revealed L2-L3 and L3-L4 moderate to severe spinal canal stenosis secondary to disc bulge and facet joint arthropathy. Additionally severe left and moderate to severe right neuroforaminal stenosis. No evidence for spinal fracture. 6. MRI of the cervical spine revealed multilevel moderate degeneration changes throughout the cervical spine, worst at C4 C6 with moderate C5-C6 spinal canal stenosis. Disc degeneration with associated osteoarthritic changes with moderate to severe bilateral C4-5, C5-6 and moderate C6-7 neuroforaminal stenosis. I personally reviewed MRI agree with the findings. Orthopedic surgery closely following the patient and are recommending patient to undergo L2-L4 decompressive laminectomy.
[2024-05-12] MEDS: hydrALAZINE HCL 20 MG/ML 1 ML VIAL IVP PRN (11:32)
[2024-05-12 12:08] LABS: Glucose,Whole Blood 113 mg/dL (70-110)
[2024-05-12 14:41] LABS: Glucose,Whole Blood 116 mg/dL (70-110)
[2024-05-12] MEDS ORDERED: HYDROmorphone 0.5 MG/0.5 ML SYRINGE IVP PRN (15:06)
[2024-05-12] MEDS ORDERED: CYCLOBENZAPRINE 5 MG TAB PO PRN (15:06)
[2024-05-12] MEDS ORDERED: MAGNESIUM HYDROXIDE 2,400 MG/30 ML CUP PO PRN (15:06)
[2024-05-12] MEDS: LACTATED RINGERS 1,000 ML IV ONE (15:10)
[2024-05-12] MEDS ORDERED: LIDOCAINE 4% LTA KIT (4 ML) TOPICAL ONE (15:16)
[2024-05-12] MEDS ORDERED: NEOSTIGMINE 1 MG/ML 10 ML VIAL ONE (15:16)
[2024-05-12] MEDS ORDERED: GLYCOPYRROLATE 0.2 MG/ML 2 ML VIAL ONE (15:16)
[2024-05-12] MEDS ORDERED: ROCURONIUM 10 MG/ML (5 ML VIAL) IV ONE (15:16)
[2024-05-12] MEDS ORDERED: SUCCINYLCHOLINE CHLORIDE 200 MG/10 ML VIAL IV ONE (15:16)
[2024-05-12] MEDS ORDERED: PROPOFOL 10 MG/ML 20 ML VIAL IV ONE (15:16)
[2024-05-12] MEDS ORDERED: PHENYLEPHRINE 10 MG/ML VIAL ONE (15:16)
[2024-05-12] MEDS ORDERED: fentaNYL (PF) 50 MCG/ML 2 ML AMP ONE (15:16)
[2024-05-12] MEDS ORDERED: LIDOCAINE 1% INJ 10MG/ML (20 ML MDV) ONE (15:16)
[2024-05-12] MEDS ORDERED: TRANEXAMIC 1,000 MG/100ML-NACL PREMIX BAG ONE (15:16)
[2024-05-12] MEDS: THROMBIN (BOVINE) 5,000 UNIT VIAL TOPICAL ONE (15:44)
[2024-05-12] MEDS: ceFAZolin 3,000 MG in SODIUM CHLORIDE 0.9% IRRIGATIO 3,000 ML IRRIGATION ONE (15:44)
[2024-05-12] MEDS: BUPIVACAINE (PF) 0.5% 30 ML VIAL SQ ONE (15:44)
[2024-05-12] MEDS: LIDOCAINE 2%-EPI 1:100,000 20 ML VIAL SQ ONE (15:44)
[2024-05-12] MEDS: VANCOMYCIN 1,000 MG VIAL MISCELLANE ONE (16:35)
--- NOTE | 2024-05-12 16:53 | P.OP ---
Date of Procedure: 05/12/24 Preoperative Diagnosis: 1. 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 L2-S1 SPONDYLOSIS, SEVERE 3. LE WEAKNESS 4. NEUROGENIC CLAUDICATION 5. LOW BACK PAIN Postoperative Diagnosis: 1. 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 L2-S1 SPONDYLOSIS, SEVERE 3. LE WEAKNESS 4. NEUROGENIC CLAUDICATION 5. LOW BACK PAIN Procedure(s) Performed: 1. L2-3 AND L3-4 BILATERAL LAMINECTOMY, PARTIAL MEDIAL FACETECTOMY AND FORAMINOTOMY FOR COMPLETE NEURAL DECOMPRESSION Implants: NONE Anesthesia: GETA Surgeon: Devaughn Lawson Child Day Care Provider #1: Kenton Chaudhry (WAS PRESENT AND ASSISTED WITH ALL ASPECTS OF THE CASE FROM POSITION TO DRESSING PLACEMENT) Estimated Blood Loss (ml): 75 IV fluids (ml): 1,100 Urine output (ml): 0 Pathology: none sent Condition: stable Disposition: PACU Indications for Procedure: Sergo Lyons is a 84-year-old male presenting for evaluation of low back pain and lower extremity weakness. It was my pleasure to have seen and examined Sergo Lyons. In our visit today we have had a chance to go over subjective complaints, physical examination findings and treatments including the natural course history without intervention and various interventional options. The patients imaging demonstrates L2-L4 severe stenosis with spondylosis On physical exam, Sergo demonstrates right lower extremity radiculopathy right lower extremity weakness progressive weakness inability to ambulate I have explained to the patient that as their condition progresses it will cause further neurological deficits and eventual paralysis. Based on the patients imaging, physical exam, and the rapid progression and disabling nature of their symptoms, at this time I recommend surgery in the form or a: L2-L4 decompressive laminectomy. I discussed the risk and benefits of this procedure at length with Sergo Lyons. The patienT and his agreed to considered pursuing the procedure abovementioned. Prior to surgery, she should follow up with her PCP (Cardio, ID, IM etc) for clearance. Questions were invited and answered, and the patient wishes to proceed as outlined below. Currently, I am recommendin. L2-L4 decompressive laminectomy Description of Procedure: L2-3 open laminectomy The patient was seen and examined in the preoperative area. All preoperative protocols were followed. Informed consent was obtained, risks and benefits of the procedure were discussed at length. Risks including bleeding infection damage to the surrounding tissue and risk of reoperation were discussed with the patient. Risk of anesthesia up to and including was discussed with the patient. These are outlined in the risk review. They were willing to accept these risks and all of the risks of surgery. The patient was given a weight- based dose of antibiotics in the form of [Ancef]. The patient was seen and evaluated by the anesthesia team who deemed them fit for surgery. The site was marked, the patient was willing to proceed with the procedure. The patient was transferred to the operative suite by the Department of anesthesia. They were then drifted off to sleep by the department anesthesia and [GETA] was performed. The patient tolerated this well. [Denney catheter was placed by nursing staff, atraumatically]. Once confirmation of lines and ventilation the patient was transferred to a [prone Reagan table very carefully]. All bony prominences including wrists, elbows, axilla, chest, hips, and thighs, and feet were padded very well. Special attention was paid to the genitalia and these were padded accordingly. SCDs were placed on bilateral lower extremities and were connected. Arms were well padded and placed [on arm boards up and out in the 90/90 position]. Once in position, again we confirmed good ventilation capabilities and that lines were running appropriately. The patient's [Lumbar] spine was then exposed. 1010s were placed outlining the incision site. Standard alcohol was used to clean the incision site and allowed to dry. C-arm was used to biomark the patient and confirm level for incision which was marked with a skin marker. Operative briefing was performed with all teams and everyone in agreement to proceed. The patient was then prepped and draped in a normal sterile fashion. Timeout was then performed and all parties were in agreement with the procedure to be performed. Midline skin incision made and subperiosteal dissection taken down over the lamina of L1-5. Facet joints located and protected. Lachine 4 was placed at the pars of L3 to gaston and lateral image taken to confirm levels for operation. Bilateral laminectomy, partial medial facetectomy and foraminotomies were then performed at L2-3 using high speed leann, 2-0 upbiting curette, 6-0 kerrison and 4-0 kerrison rongeurs. Ligamentum was removed. Deep facet joints capsule was removed along with cysts that were found deep from the facets. Foraminotomies done with kerrison and checked with a Juarez ball probe. Once decompression completed, meticulous hemostasis was done with floseal, paddies and gel foam. Attention was then turned to the L3-4 level. At L3-4 again, Bilateral laminectomy, partial medial facetectomy and foraminotomies were then performed at L3-4 using high speed leann, 2-0 upbiting curette, 6-0 kerrison and 4-0 kerrison rongeurs. Ligamentum was removed. Deep facet joints capsule was removed along with cysts that were found deep from the facets. Foraminotomies done with kerrison and checked with a Juarez ball probe. Once decompression completed, meticulous hemostasis was done with floseal, paddies and gel foam. The wound bed was then irrigated with 6 L Abx Anfect and Gen followed by 6L NSS. The wound was inspected. Good decompression noted with no injury. X Ray taken AP and lateral with markers to gaston the decompression. The wound was irrigated with 3L Ancef, 3L gentamycin and 3L NSS solution. Surgicel was placed on the dura. 2g Vanco powder placed in the wound. We then proceeded with closure. #1 PDS placed in the facia. 0 Vicryl placed in the deep subq and 2-0 in the superficial. Carleton placed in the skin. Wound edges approximated very well. The wound was then cleaned and dressed sterilly with Optifoam dressing. The patient was transferred back to their hospital bed atraumatically. Patient was then awakened and extubated by the department of anesthesia having tolerated the procedure very well with no complications. They were transferred to the postoperative care unit in stable condition.
--- NOTE | 2024-05-12 16:56 | XR ---
EXAMINATION TYPE: XR lumbar spine 2 or 3V, FL guidance operating room DATE OF EXAM: 05/12/2024 4:50 PM COMPARISON: Pre Operative Images if available both CT/MRI or plain film CLINICAL INDICATION: Male, 84 years old with history of LUMBAR LAMINECTOMY; TECHNIQUE: XR lumbar spine 2 or 3V, FL guidance operating room, multiple fluoroscopic images provided for procedure. Total fluoroscopy time: 4.7 seconds Total submitted images to PACS: 3 DAP: 0.4227 mGym2 Gycm2 uGym2 cGycm2 or equivalent. FINDINGS: Fluoroscopic images during internal fixation/arthroplasty demonstrate hardware in appropriate positio n. Hardware appears intact. No immediate complication identified. IMPRESSION: 1. No evidence for intraoperative complication. 2. Please see the operative/procedural note for further details. [facility], , 05/12/2024 4:54 PM
[2024-05-12] MEDS: ONDANSETRON 4 MG/2 ML VIAL IVP PRN (18:12)
[2024-05-12] MEDS: TRANEXAMIC 1,000 MG/100ML-NACL 1,000 MG in SALINE 1 100ML.BAG IVPB ONE ×2 (18:23→18:24)
[2024-05-12 20:25] LABS: Glucose,Whole Blood 113 mg/dL (70-110)
--- NOTE | 2024-05-13 06:08 | P.PN ---
Subjective Progress Note Date: 05/12/24 84-year-old male with known history of prostate cancer, stroke in 2017 with residual weakness in the right leg came in with increased weakness on the right leg and also generalized weakness believed to have UTI but urinalysis is essentially within normal limits. 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 Patient weakness has been progressively getting worse. 05/09/2024 Patient is seen in follow-up on the medical floor. Patient reporting no back pain while at rest. He does continue to report some weakness of the right leg. He is currently pending a back MRI at this time. Blood work today reveals a BUN of 41.9, creatinine of 1.7, sodium of 137. His lipid panel reveals triglycerides of 90.50 cholesterol 123, LDL 24.7 and HDL 30.20. 05/10/2024 Patient is seen in follow-up today with neurology, oncology, orthopedics following. Patient did undergo lumbar spine MRI awaiting thoracic which is scheduled for 05/11/2024. No immediate plans for surgical intervention while awaiting these images. Patient continues to report significant weakness with neurology following and significant stenosis along with multiple abnormalities noted on imaging. Patient is afebrile with no reports of chest pain or shortness of breath. Patient tolerating diet and denies nausea or vomiting. 05/11/2024 Patient is seen in follow-up today scheduled to undergo thoracic spine MRI and has met with orthopedics with plans on undergoing L2-L4 laminectomy. Patient continues with weakness and inability to ambulate. Patient will be n.p.o. at midnight and follow-up on repeat labs. Will await official surgical report. Patient will require PT/OT therapy and likely rehab on discharge. Case management/social work consulted and following. Oncology following as well. 05/12/2024 Patient is seen in follow-up currently n.p.o. scheduled to undergo surgical in tervention with orthopedics today. Will await official report. Family at the bedside with questions and concerns that were answered to the best of our ability. Review of systems: Constitutional: No reports of fatigue, fever, or chills Cardiovascular: No reports of chest pain or palpitations Respiratory: No reports of shortness of breath or cough GI: No reports of nausea, vomiting, or diarrhea : No reports of dysuria or retention Neurovascular: reports of continued ongoing weakness, reports some right hip discomfort All medications have been reviewed PHYSICAL EXAMINATION: GENERAL: The patient is alert and oriented x3, not in any acute distress. Well developed, Elderly appearing, thin built HEENT: Pupils are round and equally reacting to light. EOMI. No scleral icterus. No conjunctival pallor. Normocephalic, atraumatic. No pharyngeal erythema. No thyromegaly. CARDIOVASCULAR: S1 and S2 present. No murmurs, rubs, or gallops. PULMONARY: Chest is clear to auscultation, no wheezing or crackles. ABDOMEN: Soft, nontender, nondistended, normoactive bowel sounds. No palpable organomegaly. MUSCULOSKELETAL: No joint swelling or deformity. EXTREMITIES: No cyanosis, clubbing, or pedal edema. NEUROLOGICAL: Gross neurological examination did not reveal any focal deficits except for left leg weakness 4+/5 strength. SKIN: No rashes. Assessment: -Left lower extremity weakness: Patient had a recent PET scan which showed C7 vertebral involvement -T9 compression fracture . Patient scheduled to undergo surgical intervention with orthopedics Dr. Lawson today 05/12/2024 -History of cerebrovascular accident in the past -Prostate cancer history -Hypertension -Chronic kidney disease stage IIIb -Hypothyroidism GI prophylaxis DVT prophylaxis: Subcutaneous heparin Full Code Plan: Multiple abnormalities noted on previous imaging and discussed with orthopedics and is tentatively scheduled for surgical intervention with possible L2-L4 laminectomy today with orthopedics. Patient is currently n.p.o. and diet will be resumed once cleared by surgery. Will await official report Neurology, spinal surgery following closely Creatinine 1.7 slightly worse and will recommend to rule out urinary retention, follow-up on repeat labs and continue gentle hydration Oncology on consult for evaluation Will need PT/OT therapy evaluation postsurgical to determine if patient will require ECF on discharge with social work following. Due to multiple complex medical issues, overall prognosis is guarded at this time The impression and plan of care has been dictated by Bernadette Choe, Nurse Practitioner as directed. Dr. Scout MD I have performed a history and physical examination and medical decision making of this patient, discussed the same with the dictator, and agree with the dictators assessment and plan as written, documented as a scribe. Based on total visit time, I have performed more than 50% of this visit. Objective - Vital Signs Vital signs: Vital Signs Temp 97.6 F 05/12/24 07:06 Pulse 50 L 05/12/24 07:06 Resp 17 05/12/24 07:06 BP 179/85 05/12/24 07:06 Pulse Ox 98 05/12/24 07:06 FiO2 Intake & Output 05/11/24 05/12/24 05/12/24 18:59 06:59 18:59 Intake Total 780 Output Total 525 800 Balance 255 -800 Intake: Oral 780 Output: Urine 525 800 Other: Voiding Method Urinal Urinal Diaper Diaper - Labs CBC & Chem 7: 05/12/24 05:34 05/12/24 05:34 Labs: Abnormal Lab Results - Last 24 Hours (Table) 05/09/24 05/11/24 05/11/24 Range/Units 03:50 13:46 17:27 WBC (4.50-10.00) X 10*3/uL RBC (4.40-5.60) X 10*6/uL Hgb (13.0-17.0) g/dL Hct (39.6-50.0) % RDW (11.5-14.5) % Plt Count (140-440) X 10*3/uL Lymphocytes # (0.90-5.00) X 10*3/uL Eosinophils # (0.04-0.35) X 10*3/uL Chloride (96-109) mmol/L Carbon Dioxide (21.6-31.8) mmol/L BUN (9.0-27.0) mg/dL Creatinine (0.6-1.5) mg/dL Est GFR (CKD-EPI) (>=60) BUN/Creatinine Ratio (12.00-20.00) Ratio Glucose (70-110) mg/dL POC Glucose (mg/dL) 120 H 146 H (70-110) mg/dL Total Protein (6.2-8.2) g/dL Albumin (3.8-4.9) g/dL Albumin/Globulin Ratio (1.60-3.17) Ratio RBC Folate 794 H (280 - 791) ng/mL 05/11/24 05/12/24 05/12/24 Range/Units 20:04 05:34 05:34 WBC 3.82 L (4.50-10.00) X 10*3/uL RBC 3.27 L (4.40-5.60) X 10*6/uL Hgb 9.3 L (13.0-17.0) g/dL Hct 27.4 L (39.6-50.0) % RDW 14.6 H (11.5-14.5) % Plt Count 102 L (140-440) X 10*3/uL Lymphocytes # 0.39 L (0.90-5.00) X 10*3/uL Eosinophils # 0 L (0.04-0.35) X 10*3/uL Chloride 110 H (96-109) mmol/L Carbon Dioxide 19.6 L (21.6-31.8) mmol/L BUN 57.1 H (9.0-27.0) mg/dL Creatinine 1.6 H (0.6-1.5) mg/dL Est GFR (CKD-EPI) 42 L (>=60) BUN/Creatinine Ratio 35.69 H (12.00-20.00) Ratio Glucose 120 H (70-110) mg/dL POC Glucose (mg/dL) 168 H (70-110) mg/dL Total Protein 5.8 L (6.2-8.2) g/dL Albumin 3.2 L (3.8-4.9) g/dL Albumin/Globulin Ratio 1.23 L (1.60-3.17) Ratio RBC Folate (280 - 791) ng/mL 05/12/24 Range/Units 07:10 WBC (4.50-10.00) X 10*3/uL RBC (4.40-5.60) X 10*6/uL Hgb (13.0-17.0) g/dL Hct (39.6-50.0) % RDW (11.5-14.5) % Plt Count (140-440) X 10*3/uL Lymphocytes # (0.90-5.00) X 10*3/uL Eosinophils # (0.04-0.35) X 10*3/uL Chloride (96-109) mmol/L Carbon Dioxide (21.6-31.8) mmol/L BUN (9.0-27.0) mg/dL Creatinine (0.6-1.5) mg/dL Est GFR (CKD-EPI) (>=60) BUN/Creatinine Ratio (12.00-20.00) Ratio Glucose (70-110) mg/dL POC Glucose (mg/dL) 121 H (70-110) mg/dL Total Protein (6.2-8.2) g/dL Albumin (3.8-4.9) g/dL Albumin/Globulin Ratio (1.60-3.17) Ratio RBC Folate (280 - 791) ng/mL
[2024-05-13 07:02] LABS: Glucose,Whole Blood 100 mg/dL (70-110)
[2024-05-13 08:34] LABS: Basophils # (A) 0 X 10*3/uL (0.00-0.10); Basophils % (A) 0 %; Eosinophils # (A) 0 X 10*3/uL (0.04-0.35); Eosinophils % (A) 0 %; HCT 28.2 % (39.6-50.0); HGB 9.5 g/dL (13.0-17.0); Lymphocytes # (A) 0.48 X 10*3/uL (0.90-5.00); Lymphocytes % (A) 8.5 %; MCH 27.9 pg (27.0-32.0); MCHC 33.7 g/dL (32.0-37.0); MCV 82.7 FL (80.0-97.0); Mean Platelet Volume 10.2 FL (9.5-12.2); Monocytes # (A) 0.61 X 10*3/uL (0.20-1.00); Monocytes % (A) 10.8 %; NRBC Per 100 WBC 0 X 10*3/uL (0.00-0.01); Neutrophils # (A) 4.48 X 10*3/uL (1.80-7.70); Neutrophils % (A) 79.6 %; Platelet Count 120 X 10*3/uL (140-440); RBC 3.41 X 10*6/uL (4.40-5.60); RDW 14.6 % (11.5-14.5); WBC 5.63 X 10*3/uL (4.50-10.00)
[2024-05-13] MEDS: HYDROcodone/APAP 5-325MG 1 EACH TAB PO PRN (08:38)
[2024-05-13] MEDS: SENNOSIDES-DOCUSATE SODIUM 1 EACH TAB PO SCH (08:40)
[2024-05-13 08:52] LABS: BUN/Creat Ratio 34.93 Ratio (12.00-20.00); Blood Urea Nitrogen 52.4 mg/dL (9.0-27.0); Calcium 8.8 mg/dL (8.7-10.3); Chloride 110 mmol/L (96-109); Glucose 110 mg/dL (70-110); Potassium 5.3 mmol/L (3.5-5.5); Sodium 137 mmol/L (135-145)
--- NOTE | 2024-05-13 09:32 | P.PN ---
Subjective Progress Note Date: 05/13/24 Principal diagnosis: T9 vertebral compression fracture New bilateral leg weakness with hx of mets Patient seen and examined this morning. Patient is resting in bed. He does re port he is comfortable as long as he is not moving. Patient has been refusing pain medication or to reposition in bed. Educated patient on the use of pain medication, ice paks, and to increase his activity level. Patient verbalizes understanding. Prescription for an LSO brace has been placed in chart, patient does not need this to participate with physical therapy. Surgical incision to the lumbar spine, dressing is clean dry and intact. Patient does report improvement of his lower extremity weakness since the procedure. Continue to encourage patient to be up in chair for all meals, to participate with therapy, and to increase his to activity as tolerated. Objective - Vital Signs Vital signs: Vital Signs Temp 97.7 F 05/13/24 07:03 Pulse 56 L 05/13/24 07:03 Resp 16 05/13/24 07:03 BP 162/77 05/13/24 07:03 Pulse Ox 97 05/13/24 07:03 FiO2 Intake & Output 05/12/24 05/13/24 05/13/24 18:59 06:59 18:59 Intake Total 751 Output Total 75 800 Balance 676 -800 Intake: IV 751 Output: Urine 800 Estimated Blood Loss 75 Other: Voiding Method Urinal Urinal Diaper - Exam Physical Examination General: The patient is awake and alert, in no acute distress Skin: Skin is warm and dry with no obvious rashes or lesions. Surgical incision to the lumbar spine, dressing is clean dry and intact. Eye: Pupils are equal, round and reactive to light, extra-ocular movements are intact; there is normal conjunctiva bilaterally. Neck: The neck is supple, there is no tenderness and ROM intact. Cardiovascular: There is a regular rate and rhythm. No murmur, rub or gallop is appreciated. Respiratory: Respirations are non-labored, breath sounds are equal. Gastrointestinal: Soft, non-distended, non-tender abdomen. Back: There is no tenderness to palpation in the midline, paralumbar, parathoracic or buttocks region. There is no obvious deformity . Musculoskeletal: ROM limited secondary to pain and stiffness from surgical procedure. Right: Shoulder abduction 5/5, elbow flexors 5/5, wrist dorsiflexors 5/5. finger abductor 5/5, personal financial counselor 5/5, hip flexor 4/5, knee flexor 4/5, ankle dorsiflexor 5/5, ankle plantarflexion 5/5 and extensor hallucis 5/5. Left: Shoulder abduction 5/5, elbow flexors 5/5, wrist dorsiflexors 5/5. finger abductor 5/5, personal financial counselor 5/5, hip flexor 4/5, knee flexor 4/5, ankle dorsiflexor 5/5, ankle plantarflexion 5/5 and extensor hallucis 5/5. Neurological: CN 2-12 intact. There are no obvious motor or sensory deficits. Movement and coordination equal and intact. Sensory exam to light touch intact C5-T1 and intact from L2-S1. Reflexes 2/4 in bilateral upper and lower extremities. Negative Hoffmans, babinski, and clonus signs. Psychiatric: Cooperative, appropriate mood & affect, normal judgment. - Labs CBC & Chem 7: 05/13/24 04:45 05/13/24 04:45 Labs: Abnormal Lab Results - Last 24 Hours (Table) 05/12/24 05/12/24 05/12/24 Range/Units 05:34 05:34 12:08 WBC 3.82 L (4.50-10.00) X 10*3/uL RBC 3.27 L (4.40-5.60) X 10*6/uL Hgb 9.3 L (13.0-17.0) g/dL Hct 27.4 L (39.6-50.0) % RDW 14.6 H (11.5-14.5) % Plt Count 102 L (140-440) X 10*3/uL Lymphocytes # 0.39 L (0.90-5.00) X 10*3/uL Eosinophils # 0 L (0.04-0.35) X 10*3/uL Chloride 110 H (96-109) mmol/L Carbon Dioxide 19.6 L (21.6-31.8) mmol/L BUN 57.1 H (9.0-27.0) mg/dL Creatinine 1.6 H (0.6-1.5) mg/dL Est GFR (CKD-EPI) 42 L (>=60) BUN/Creatinine Ratio 35.69 H (12.00-20.00) Ratio Glucose 120 H (70-110) mg/dL POC Glucose (mg/dL) 113 H (70-110) mg/dL Total Protein 5.8 L (6.2-8.2) g/dL Albumin 3.2 L (3.8-4.9) g/dL Albumin/Globulin Ratio 1.23 L (1.60-3.17) Ratio 05/12/24 05/12/24 Range/Units 14:39 20:23 WBC (4.50-10.00) X 10*3/uL RBC (4.40-5.60) X 10*6/uL Hgb (13.0-17.0) g/dL Hct (39.6-50.0) % RDW (11.5-14.5) % Plt Count (140-440) X 10*3/uL Lymphocytes # (0.90-5.00) X 10*3/uL Eosinophils # (0.04-0.35) X 10*3/uL Chloride (96-109) mmol/L Carbon Dioxide (21.6-31.8) mmol/L BUN (9.0-27.0) mg/dL Creatinine (0.6-1.5) mg/dL Est GFR (CKD-EPI) (>=60) BUN/Creatinine Ratio (12.00-20.00) Ratio Glucose (70-110) mg/dL POC Glucose (mg/dL) 116 H 113 H (70-110) mg/dL Total Protein (6.2-8.2) g/dL Albumin (3.8-4.9) g/dL Albumin/Globulin Ratio (1.60-3.17) Ratio Assessment and Plan Assessment: Postop day 1: L2-L4 laminectomy Anterior endplate T9 fracture Plan: -Appreciate territory sales consultant and team management. -Activity: Ambulate QID, OOB all meals, up and about, limit lifting bending twisting to less than 5 lbs. Use walker or cane if needed for stability. -Daily PT/OT, increase ambulation strength and balance. -Brace when up and about, not needed in bed or chair -Prescription for LSO brace has been placed in chart, patient does not need this to participate with therapy. -Pain control: Adequate at this time -Meds: reviewed -GI ppx: senna, Miralax -DVT PPX: Aspirin 81mg daily -Hygiene: Maintain incision clean and dry. May change dressing as needed, please document in notes if performed. Meticulous cleaning after BMs away from the incision site -Encourage IS 10x/hr -Dispo: Clinically pending. *I reviewed and discussed this case with my attending Dr. Lawson, whom has reviewed this chart and films and is in agreement with assessment and plan of care as outlined above. I have personally seen and examined the patient, performed the documentation and the assessment and plan as written. Number of minutes spent on the visit: 20m.
[2024-05-13 12:14] LABS: Glucose,Whole Blood 124 mg/dL (70-110)
[2024-05-13] MEDS: amLODIPine 5 MG TAB PO SCH (16:57)
[2024-05-13] MEDS: traMADol 50 MG TAB PO PRN (16:59)
[2024-05-13 17:11] LABS: Glucose,Whole Blood 124 mg/dL (70-110)
[2024-05-13 20:16] LABS: Glucose,Whole Blood 192 mg/dL (70-110)
[2024-05-14 06:46] LABS: African American GFR (CKD) 58 (>60 ml/min/1.73 sqM); Anion Gap 6 mmol/L; Blood Urea Nitrogen 48 mg/dL (9-20); Calcium 8.7 mg/dL (8.4-10.2); Carbon Dioxide 20 mmol/L (22-30); Chloride 103 mmol/L (98-107); Glucose 116 mg/dL (74-99); Non-African American GFR(CKD) 50 (>60 ml/min/1.73 sqM); Potassium 4.8 mmol/L (3.5-5.1); Sodium 129 mmol/L (137-145)
[2024-05-14 07:49] LABS: Glucose,Whole Blood 126 mg/dL (70-110)
--- NOTE | 2024-05-14 10:28 | P.PN ---
Subjective Progress Note Date: 05/13/24 84-year-old male with known history of prostate cancer, stroke in 2017 with residual weakness in the right leg came in with increased weakness on the right leg and also generalized weakness believed to have UTI but urinalysis is essentially within normal limits. 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 Patient weakness has been progressively getting worse. 05/09/2024 Patient is seen in follow-up on the medical floor. Patient reporting no back pain while at rest. He does continue to report some weakness of the right leg. He is currently pending a back MRI at this time. Blood work today reveals a BUN of 41.9, creatinine of 1.7, sodium of 137. His lipid panel reveals triglycerides of 90.50 cholesterol 123, LDL 24.7 and HDL 30.20. 05/10/2024 Patient is seen in follow-up today with neurology, oncology, orthopedics following. Patient did undergo lumbar spine MRI awaiting thoracic which is scheduled for 05/11/2024. No immediate plans for surgical intervention while awaiting these images. Patient continues to report significant weakness with neurology following and significant stenosis along with multiple abnormalities noted on imaging. Patient is afebrile with no reports of chest pain or shortness of breath. Patient tolerating diet and denies nausea or vomiting. 05/11/2024 Patient is seen in follow-up today scheduled to undergo thoracic spine MRI and has met with orthopedics with plans on undergoing L2-L4 laminectomy. Patient continues with weakness and inability to ambulate. Patient will be n.p.o. at midnight and follow-up on repeat labs. Will await official surgical report. Patient will require PT/OT therapy and likely rehab on discharge. Case management/social work consulted and following. Oncology following as well. 05/12/2024 Patient is seen in follow-up currently n.p.o. scheduled to undergo surgical in tervention with orthopedics today. Will await official report. Family at the bedside with questions and concerns that were answered to the best of our ability. 05/13/2024 Patient is seen in follow-up today status post laminectomy with orthopedics and reports doing well although his back is extremely painful at this time. Per nursing staff he had been not taking anything for pain. Encouraged pain management and limiting narcotic use but needs to have his pain controlled in order to work with physical therapy and perform ADLs. Patient is currently afebrile with no reports of chest pain or shortness of breath. Patient is tolerating diet with no reported nausea or vomiting. Awaiting updated PT/OT therapy notes and discussion with family and patient regarding discharge planning. Patient would like to go home although will await recommendations in the event patient may need ECF. Review of systems: Constitutional: No reports of fatigue, fever, or chills Cardiovascular: No reports of chest pain or palpitations Respiratory: No reports of shortness of breath or cough GI: No reports of nausea, vomiting, or diarrhea : No reports of dysuria or retention Neurovascular: reports of continued ongoing weakness, reports back pain All medications have been reviewed PHYSICAL EXAMINATION: GENERAL: The patient is alert and oriented x3, not in any acute distress. Well developed, Elderly appearing, thin built HEENT: Pupils are round and equally reacting to light. EOMI. No scleral icterus. No conjunctival pallor. Normocephalic, atraumatic. No pharyngeal erythema. No thyromegaly. CARDIOVASCULAR: S1 and S2 present. No murmurs, rubs, or gallops. PULMONARY: Chest is clear to auscultation, no wheezing or crackles. ABDOMEN: Soft, nontender, nondistended, normoactive bowel sounds. No palpable organomegaly. MUSCULOSKELETAL: No joint swelling or deformity. EXTREMITIES: No cyanosis, clubbing, or pedal edema. NEUROLOGICAL: Gross neurological examination did not reveal any focal deficits except for left leg weakness 4+/5 strength. SKIN: No rashes. Assessment: -Left lower extremity weakness: Patient had a recent PET scan which showed C7 vertebral involvement -T9 compression fracture . Status post lumbar spine laminectomy with orthopedics Dr. Lawson today 05/12/2024 -History of cerebrovascular accident in the past -Prostate cancer history -Hypertension -Chronic kidney disease stage IIIb -Hypothyroidism GI prophylaxis DVT prophylaxis: Subcutaneous heparin Full Code Plan: Multiple abnormalities noted on previous imaging and discussed with orthopedics and is status post L2-L4 laminectomy with orthopedics. Continue with pain management per orthopedics and monitor closely while taking narcotics. Per nursing staff patient was not asking for anything for pain and was in a significant amount of pain. Encouraged pain management even if just Tylenol in order to work with physical therapy. Neurology, spinal surgery following closely Creatinine 1.7 slightly worse and will recommend to rule out urinary retention, follow-up on repeat labs and continue gentle hydration Oncology on consult for evaluation Awaiting PT/OT therapy evaluation postsurgical to determine if patient will require ECF on discharge with social work following. Patient reports he would like to go home with family Will discuss with orthopedics regarding discharge planning Continue with bowel regimen as needed Due to multiple complex medical issues, overall prognosis is guarded at this time The impression and plan of care has been dictated by Bernadette Choe, Nurse Practitioner as directed. Dr. Scout MD I have performed a history and physical examination and medical decision making of this patient, discussed the same with the dictator, and agree with the dictators assessment and plan as written, documented as a scribe. Based on total visit time, I have performed more than 50% of this visit. Objective - Vital Signs Vital signs: Vital Signs Temp 98 F 05/14/24 01:37 Pulse 65 05/14/24 01:37 Resp 16 05/14/24 01:37 BP 147/78 05/14/24 01:37 Pulse Ox 96 05/14/24 01:37 FiO2 Intake & Output 05/13/24 05/14/24 05/14/24 18:59 06:59 18:59 Intake Total 900 Output Total 250 600 Balance 650 -600 Weight 68.039 kg Intake: Oral 900 Output: Urine 250 600 Other: Voiding Method Urinal Urinal Diaper Diaper # Voids 2 - Labs CBC & Chem 7: 05/13/24 04:45 05/14/24 06:15 Labs: Abnormal Lab Results - Last 24 Hours (Table) 05/13/24 05/13/24 05/13/24 Range/Units 12:13 17:10 20:12 Sodium (137-145) mmol/L Carbon Dioxide (22-30) mmol/L BUN (9-20) mg/dL Creatinine (0.66-1.25) mg/dL Glucose (74-99) mg/dL POC Glucose (mg/dL) 124 H 124 H 192 H (70-110) mg/dL 05/14/24 05/14/24 Range/Units 06:15 07:47 Sodium 129 L (137-145) mmol/L Carbon Dioxide 20 L (22-30) mmol/L BUN 48 H (9-20) mg/dL Creatinine 1.29 H (0.66-1.25) mg/dL Glucose 116 H (74-99) mg/dL POC Glucose (mg/dL) 126 H (70-110) mg/dL
--- NOTE | 2024-05-14 12:08 | P.PN ---
Subjective Progress Note Date: 05/13/24 05/13/2024: Patient was seen for follow-up. Patient is laying in the bed. He complains of pain 8/10 in the lower back. Patient's family members were present. He states that he got up from bed, walk with walker with a therapist. Patient had undergone L2-3 AND L3-4 BILATERAL LAMINECTOMY, PARTIAL MEDIAL FACETECTOMY AND FORAMINOTOMY FOR COMPLETE NEURAL DECOMPRESSION, on 05/12/2024. 05/11/2024:Patient was initially seen by Dr. Bandar Steele in consultation, then followed up with Dr. Posey over the weekend. Today is my first day of the service. Patient is a 84-year-old male with progressive right lower extremity weakness with history of prostate cancer and recent diagnosis of multiple myeloma. Some concern about T6 spinal cord compression. Orthopedic surgery following the patient. Patient has presented with bilateral lower extremity weakness for [address] of the spine showed spinal compression T7. Oncology also following. Patient was seen for follow-up. Patient is laying comfortably in the bed. He denies any back pain, but he states his legs are weak, right more than left. Patient states that that his right leg and barely lift but can hold the left well. He denies any significant neck pain. Patient admits to having significant urgency for urination. Still has feeling. Objective - Vital Signs Vital signs: Vital Signs Temp 97.6 F 05/13/24 13:20 Pulse 55 L 05/13/24 13:20 Resp 16 05/13/24 13:20 BP 166/79 05/13/24 13:20 Pulse Ox 97 05/13/24 13:20 FiO2 Intake & Output 05/12/24 05/13/24 05/13/24 18:59 06:59 18:59 Intake Total 751 Output Total 75 800 250 Balance 676 -800 -250 Intake: IV 751 Output: Urine 800 250 Estimated Blood Loss 75 Other: Voiding Method Urinal Urinal Urinal Diaper Diaper - Exam Patient's mental status, speech and language functions are normal. Cranial nerves are normal, visual lucas are full, face is symmetric and tongue protrudes in midline. Pupils are equal, round and reacting. Extraocular muscles intact. On muscle strength testing, the strength is normal in arms distally and proximally. In the lower limbs (right/left) hip flexion 4 4-/5, knee extension 4 4-/5, ankle dorsiflexion 5/2, toe extension 5/2. Sensory to touch is equal. No ataxia for [id number] testing. Deep tendon reflexes are (right/left) biceps 2+/1+, brachioradialis 2+/1+, knees 0/1, ankles 0/0, plantar is up on the right, and flat on the left. - Labs CBC & Chem 7: 05/13/24 04:45 05/14/24 06:15 Labs: Abnormal Lab Results - Last 24 Hours (Table) 05/12/24 05/13/24 05/13/24 Range/Units 20:23 04:45 04:45 RBC 3.41 L (4.40-5.60) X 10*6/uL Hgb 9.5 L (13.0-17.0) g/dL Hct 28.2 L (39.6-50.0) % RDW 14.6 H (11.5-14.5) % Plt Count 120 L (140-440) X 10*3/uL Immature Gran # 0.06 H (0.00-0.04) X 10*3/uL Lymphocytes # 0.48 L (0.90-5.00) X 10*3/uL Eosinophils # 0 L (0.04-0.35) X 10*3/uL Chloride 110 H (96-109) mmol/L Carbon Dioxide 19.0 L (21.6-31.8) mmol/L BUN 52.4 H (9.0-27.0) mg/dL Est GFR (CKD-EPI) 45 L (>=60) BUN/Creatinine Ratio 34.93 H (12.00-20.00) Ratio POC Glucose (mg/dL) 113 H (70-110) mg/dL 05/13/24 05/13/24 Range/Units 12:13 17:10 RBC (4.40-5.60) X 10*6/uL Hgb (13.0-17.0) g/dL Hct (39.6-50.0) % RDW (11.5-14.5) % Plt Count (140-440) X 10*3/uL Immature Gran # (0.00-0.04) X 10*3/uL Lymphocytes # (0.90-5.00) X 10*3/uL Eosinophils # (0.04-0.35) X 10*3/uL Chloride (96-109) mmol/L Carbon Dioxide (21.6-31.8) mmol/L BUN (9.0-27.0) mg/dL Est GFR (CKD-EPI) (>=60) BUN/Creatinine Ratio (12.00-20.00) Ratio POC Glucose (mg/dL) 124 H 124 H (70-110) mg/dL Assessment and Plan Assessment: 1. Acute bilateral lower extremity weakness that is progressive over the last 2 weeks. Likely due to severe lumbar spinal stenosis at L 2-3 and L3-4 levels. 2. Status post L2-3 AND L3-4 BILATERAL LAMINECTOMY, PARTIAL MEDIAL FACETECTOMY AND FORAMINOTOMY FOR COMPLETE NEURAL DECOMPRESSION 05/12/2024 3. 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 Unsure if primary is colon. 4. Prostate cancer status post resection 5. Recent urinary tract infection 6. Chronic kidney insufficiency 7. Ongoing pancytopenia 8. History of DIC 9. History of stroke in 2017 and patient had right-sided weakness as well as facial droop and per family members his weakness has resolved. In 2017 patient had MRI of the brain which shows area of suspected acute ischemia within the gilbert 10. History of recurrent urinary tract infection 11. History of myelodysplastic syndrome Plan: 1. Patient is doing well postsurgery. His strength is already improved as compared to the examination from prior to surgery. 2. MRI of the thoracic spine with and without contrast revealed abnormal marrow alteration T9 with approximately 10% acute compression fracture superior endplate. No spinal cord contact or canal stenosis. Recommend follow-up to marrow resolution to exclude underlying pathologic fracture. No evidence of destructive change or enhancing mass. PET scan to be obtained as clinically warranted. Multilevel moderate degenerative disc disease with disc bulging or protrusion at T7-8 and more pronounced at T9-T10 paracentral into the left. No spinal cord contact was canal stenosis. I personally reviewed MRI, agree with the findings. 3. Physical and Occupational Therapy evaluations 4. Oncology has been asked to evaluate the patient 5. MRI of the lumbar spine revealed L2-L3 and L3-L4 moderate to severe spinal canal stenosis secondary to disc bulge and facet joint arthropathy. Additionally severe left and moderate to severe right neuroforaminal stenosis. No evidence for spinal fracture. 6. MRI of the cervical spine revealed multilevel moderate degeneration changes throughout the cervical spine, worst at C4 C6 with moderate C5-C6 spinal canal stenosis. Disc degeneration with associated osteoarthritic changes with moderate to severe bilateral C4-5, C5-6 and moderate C6-7 neuroforaminal stenosis. I personally reviewed MRI agree with the findings. Neurologically clear for transfer to rehab.
[2024-05-14 12:27] LABS: Glucose,Whole Blood 134 mg/dL (70-110)
--- NOTE | 2024-05-14 13:50 | P.PN ---
Subjective Progress Note Date: 05/14/24 Principal diagnosis: Status post L2-L4 decompressive laminectomy Patient was evaluated at bedside today, he is resting in his hospital bed. Patient states that the pain is currently controlled. He did ambulate a little bit with physical therapy to the doorway and back. He feels that the weakness in the bilateral lower extremities is improving. Patient has no headaches, hea dedness, chest pain or shortness of breath Objective - Vital Signs Vital signs: Vital Signs Temp 98 F 05/14/24 01:37 Pulse 65 05/14/24 01:37 Resp 16 05/14/24 01:37 BP 147/78 05/14/24 01:37 Pulse Ox 96 05/14/24 01:37 FiO2 Intake & Output 05/13/24 05/14/24 05/14/24 18:59 06:59 18:59 Intake Total 900 Output Total 250 600 Balance 650 -600 Weight 68.039 kg Intake: Oral 900 Output: Urine 250 600 Other: Voiding Method Urinal Urinal Urinal Diaper Diaper Diaper # Voids 2 - Exam Gen: AOx3, NAD VSS stable at this time Integument: Postop dressing is in good position and condition Palpation: Mild tenderness with palpation to the lumbar spine ROM: Full range of motion in all major muscle groups of the bilateral upper extremities, no focal deficits. Range of motion intact to the bilateral lower extremities, he does have difficulty with dorsiflexion of the left foot Sensory Exam: Senory exam to light touch is intact C5-T1 Senosry exam to light touch is intact L2-S1 Motor: 4-/5 bilateral lower extremities with hip flexion 4/5 strength to the bilateral lower extremities with knee extension knee flexion , plantarflexion 4/5 strength in the right lower extremity with dorsi flexion, plantarflexion, EHL, FHL 2/5 strength in the left lower extremity with dorsiflexion, EHL Reflexes: 2/4 in all UE and LE Negative Carlos's bilaterally Negative Babinski bilaterally Clonus bilaterally - Labs CBC & Chem 7: 05/13/24 04:45 05/14/24 06:15 Labs: Abnormal Lab Results - Last 24 Hours (Table) 05/13/24 05/13/24 05/14/24 Range/Units 17:10 20:12 06:15 Sodium 129 L (137-145) mmol/L Carbon Dioxide 20 L (22-30) mmol/L BUN 48 H (9-20) mg/dL Creatinine 1.29 H (0.66-1.25) mg/dL Glucose 116 H (74-99) mg/dL POC Glucose (mg/dL) 124 H 192 H (70-110) mg/dL 05/14/24 05/14/24 Range/Units 07:47 12:26 Sodium (137-145) mmol/L Carbon Dioxide (22-30) mmol/L BUN (9-20) mg/dL Creatinine (0.66-1.25) mg/dL Glucose (74-99) mg/dL POC Glucose (mg/dL) 126 H 134 H (70-110) mg/dL Assessment and Plan Assessment: Postoperative day #2 status post L2-L4 decompressive laminectomy Left foot drop Multiple medical comorbidities Plan: Pain control, continue current medications DVT prophylaxis, aspirin 81 mg daily Monitor surgical dressing AFO brace will be ordered for left lower extremity LSO brace when up and ambulating, weight-bear as tolerated with walker PT/OT recommendations Encourage incentive spirometer Medical recommendations appreciated Discharge planning: Orthopedically patient remained stable, recommend follow-up in the outpatient setting in the next 2 weeks for recheck Time with Patient: Less than 30
[2024-05-14 17:08] LABS: Glucose,Whole Blood 115 mg/dL (70-110)
[2024-05-14 20:17] LABS: Glucose,Whole Blood 119 mg/dL (70-110)
--- NOTE | 2024-05-14 22:43 | P.PN ---
Subjective Progress Note Date: 05/14/24 Principal diagnosis: Pulmonary nodules In follow-up today patient is doing okay postop. He denies any respiratory distress or chest discomfort, no hemoptysis Objective - Vital Signs Vital signs: Vital Signs Temp 98.2 F 05/14/24 19:38 Pulse 62 05/14/24 19:38 Resp 16 05/14/24 19:38 BP 128/68 05/14/24 19:38 Pulse Ox 96 05/14/24 19:38 FiO2 Intake & Output 05/14/24 05/14/24 05/15/24 06:59 18:59 06:59 Intake Total 1020 Output Total 600 Balance -600 1020 Weight 68.039 kg Intake: Oral 1020 Output: Urine 600 Other: Voiding Method Urinal Urinal Diaper Diaper # Voids 5 - Constitutional General appearance: Present: cooperative, no acute distress, thin - EENT Eyes: Present: anicteric sclerae, EOMI - Respiratory Details: Respirations unlabored at rest - Cardiovascular Details: Skin warm, well-perfused, pedal pulses are palpable - Peripheral edema leg Peripheral Edema: bilateral: None - Neurologic Neurologic: Present: CNII-XII intact - Psychiatric Psychiatric: Present: A&O x's 3, appropriate affect, intact judgment & insight - Labs CBC & Chem 7: 05/13/24 04:45 05/14/24 06:15 Labs: Abnormal Lab Results - Last 24 Hours (Table) 05/14/24 05/14/24 05/14/24 Range/Units 06:15 07:47 12:26 Sodium 129 L (137-145) mmol/L Carbon Dioxide 20 L (22-30) mmol/L BUN 48 H (9-20) mg/dL Creatinine 1.29 H (0.66-1.25) mg/dL Glucose 116 H (74-99) mg/dL POC Glucose (mg/dL) 126 H 134 H (70-110) mg/dL 05/14/24 05/14/24 Range/Units 17:07 20:13 Sodium (137-145) mmol/L Carbon Dioxide (22-30) mmol/L BUN (9-20) mg/dL Creatinine (0.66-1.25) mg/dL Glucose (74-99) mg/dL POC Glucose (mg/dL) 115 H 119 H (70-110) mg/dL Assessment and Plan (1) Lung mass Current Visit: Yes Status: Chronic Priority: Medium Code(s): R91.8 - OTHER NONSPECIFIC ABNORMAL FINDING OF LUNG FIELD SNOMED Code(s): 501350869 Plan: Lung nodule -Chronic lung nodule, has been being followed -Plan for PET scan to assess for changes in pulmonary nodule noted on recent CT scan. -This will be scheduled and patient will be contacted with date and time. -Patient has a follow-up appointment with medical oncologist 06/05 at 115. -Patient verbalizes understanding the plan of care and is in agreement with the same Spinal stenosis -Patient has had surgery for the same. Orthopedic surgeon following.
--- NOTE | 2024-05-15 04:45 | P.PN ---
Subjective Progress Note Date: 05/14/24 84-year-old male with known history of prostate cancer, stroke in 2017 with residual weakness in the right leg came in with increased weakness on the right leg and also generalized weakness believed to have UTI but urinalysis is essentially within normal limits. 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 Patient weakness has been progressively getting worse. 05/09/2024 Patient is seen in follow-up on the medical floor. Patient reporting no back pain while at rest. He does continue to report some weakness of the right leg. He is currently pending a back MRI at this time. Blood work today reveals a BUN of 41.9, creatinine of 1.7, sodium of 137. His lipid panel reveals triglycerides of 90.50 cholesterol 123, LDL 24.7 and HDL 30.20. 05/10/2024 Patient is seen in follow-up today with neurology, oncology, orthopedics following. Patient did undergo lumbar spine MRI awaiting thoracic which is scheduled for 05/11/2024. No immediate plans for surgical intervention while awaiting these images. Patient continues to report significant weakness with neurology following and significant stenosis along with multiple abnormalities noted on imaging. Patient is afebrile with no reports of chest pain or shortness of breath. Patient tolerating diet and denies nausea or vomiting. 05/11/2024 Patient is seen in follow-up today scheduled to undergo thoracic spine MRI and has met with orthopedics with plans on undergoing L2-L4 laminectomy. Patient continues with weakness and inability to ambulate. Patient will be n.p.o. at midnight and follow-up on repeat labs. Will await official surgical report. Patient will require PT/OT therapy and likely rehab on discharge. Case management/social work consulted and following. Oncology following as well. 05/12/2024 Patient is seen in follow-up currently n.p.o. scheduled to undergo surgical in tervention with orthopedics today. Will await official report. Family at the bedside with questions and concerns that were answered to the best of our ability. 05/13/2024 Patient is seen in follow-up today status post laminectomy with orthopedics and reports doing well although his back is extremely painful at this time. Per nursing staff he had been not taking anything for pain. Encouraged pain management and limiting narcotic use but needs to have his pain controlled in order to work with physical therapy and perform ADLs. Patient is currently afebrile with no reports of chest pain or shortness of breath. Patient is tolerating diet with no reported nausea or vomiting. Awaiting updated PT/OT therapy notes and discussion with family and patient regarding discharge planning. Patient would like to go home although will await recommendations in the event patient may need ECF. 05/14/2024 Patient is seen in follow up today status post laminectomy and reports to have some pain and generalized weakness and to ECF. Patient will require insurance authorization with social work following which has been submitted. Patient also awaiting a brace per orthopedics. Patient is afebrile with no reports of chest pain or shortness of breath. Patient tolerating diet. Sodium slightly low and will discontinue IV fluids. Follow-up on repeat labs. Review of systems: Constitutional: No reports of fatigue, fever, or chills Cardiovascular: No reports of chest pain or palpitations Respiratory: No reports of shortness of breath or cough GI: No reports of nausea, vomiting, or diarrhea : No reports of dysuria or retention Neurovascular: reports of continued ongoing weakness, reports back pain All medications have been reviewed PHYSICAL EXAMINATION: GENERAL: The patient is alert and oriented x3, not in any acute distress. Well developed, Elderly appearing, thin built HEENT: Pupils are round and equally reacting to light. EOMI. No scleral icterus. No conjunctival pallor. Normocephalic, atraumatic. No pharyngeal erythema. No thyromegaly. CARDIOVASCULAR: S1 and S2 present. No murmurs, rubs, or gallops. PULMONARY: Chest is clear to auscultation, no wheezing or crackles. ABDOMEN: Soft, nontender, nondistended, normoactive bowel sounds. No palpable organomegaly. MUSCULOSKELETAL: No joint swelling or deformity. EXTREMITIES: No cyanosis, clubbing, or pedal edema. NEUROLOGICAL: Gross neurological examination did not reveal any focal deficits except for left leg weakness 4+/5 strength. SKIN: No rashes. Assessment: -Left lower extremity weakness: Patient had a recent PET scan which showed C7 vertebral involvement -T9 compression fracture . Status post lumbar spine laminectomy with orthopedics Dr. Lawson today 05/12/2024 -History of cerebrovascular accident in the past -Prostate cancer history -Hyponatremia -Hypertension -Chronic kidney disease stage IIIb -Hypothyroidism GI prophylaxis DVT prophylaxis: Subcutaneous heparin Full Code Plan: Multiple abnormalities noted on previous imaging and discussed with orthopedics and is status post L2-L4 laminectomy with orthopedics. Continue with pain management per orthopedics and monitor closely while taking narcotics. Neurology, spinal surgery following closely Creatinine 1.7 slightly worse and will recommend to rule out urinary retention, follow-up on repeat labs and continue gentle hydration Oncology on consult for evaluation PT/OT therapy evaluation postsurgical to determine and patient will require ECF on discharge with social work following. Requires insurance authorization which is pending Will discuss with orthopedics regarding discharge planning. Patient cleared after brace has been received for outpatient follow-up Continue with bowel regimen as needed Due to multiple complex medical issues, overall prognosis is guarded at this time Possible discharge planning in the next 24 to 48 hours The impression and plan of care has been dictated by Bernadette Choe, Nurse Practitioner as directed. Dr. Scout MD I have performed a history and physical examination and medical decision making of this patient, discussed the same with the dictator, and agree with the dictators assessment and plan as written, documented as a scribe. Based on total visit time, I have performed more than 50% of this visit. Objective - Vital Signs Vital signs: Vital Signs Temp 98 F 05/14/24 01:37 Pulse 65 05/14/24 01:37 Resp 16 05/14/24 01:37 BP 147/78 05/14/24 01:37 Pulse Ox 96 05/14/24 01:37 FiO2 Intake & Output 05/13/24 05/14/24 05/14/24 18:59 06:59 18:59 Intake Total 900 Output Total 250 600 Balance 650 -600 Weight 68.039 kg Intake: Oral 900 Output: Urine 250 600 Other: Voiding Method Urinal Urinal Diaper Diaper # Voids 2 - Labs CBC & Chem 7: 05/13/24 04:45 05/14/24 06:15 Labs: Abnormal Lab Results - Last 24 Hours (Table) 05/13/24 05/13/24 05/13/24 Range/Units 12:13 17:10 20:12 Sodium (137-145) mmol/L Carbon Dioxide (22-30) mmol/L BUN (9-20) mg/dL Creatinine (0.66-1.25) mg/dL Glucose (74-99) mg/dL POC Glucose (mg/dL) 124 H 124 H 192 H (70-110) mg/dL 05/14/24 05/14/24 Range/Units 06:15 07:47 Sodium 129 L (137-145) mmol/L Carbon Dioxide 20 L (22-30) mmol/L BUN 48 H (9-20) mg/dL Creatinine 1.29 H (0.66-1.25) mg/dL Glucose 116 H (74-99) mg/dL POC Glucose (mg/dL) 126 H (70-110) mg/dL
[2024-05-15 07:46] LABS: Glucose,Whole Blood 125 mg/dL (70-110)
[2024-05-15 08:26] LABS: BUN/Creat Ratio 32.27 Ratio (12.00-20.00); Blood Urea Nitrogen 48.4 mg/dL (9.0-27.0); Calcium 8.4 mg/dL (8.7-10.3); Carbon Dioxide 19.9 mmol/L (21.6-31.8); Chloride 101 mmol/L (96-109); Glucose 124 mg/dL (70-110); Potassium 4.7 mmol/L (3.5-5.5); Sodium 129 mmol/L (135-145)
[2024-05-15 12:27] LABS: Glucose,Whole Blood 134 mg/dL (70-110)
--- NOTE | 2024-05-15 12:30 | P.PN ---
Subjective Progress Note Date: 05/15/24 Principal diagnosis: Status post L2-L4 decompressive laminectomy Patient was evaluated at bedside today, he is resting in his hospital chair . Patient states that the pain is currently controlled. He feels that the weakness in the bilateral lower extremities is improving. Patient has no headaches, headedness, chest pain or shortness of breath Objective - Vital Signs Vital signs: Vital Signs Temp 98 F 05/15/24 07:20 Pulse 59 L 05/15/24 07:20 Resp 16 05/15/24 07:20 BP 130/68 05/15/24 07:20 Pulse Ox 97 05/15/24 07:20 FiO2 Intake & Output 05/14/24 05/15/24 05/15/24 18:59 06:59 18:59 Intake Total 1020 Balance 1020 Weight 68.039 kg Intake: Oral 1020 Other: Voiding Method Urinal Urinal Diaper Diaper # Voids 5 3 - Exam Gen: AOx3, NAD VSS stable at this time Integument: Postop dressing is in good position and condition Palpation: Mild tenderness with palpation to the lumbar spine ROM: Full range of motion in all major muscle groups of the bilateral upper extremities, no focal deficits. Range of motion intact to the bilateral lower extremities, he does have difficulty with dorsiflexion of the left foot Sensory Exam: Senory exam to light touch is intact C5-T1 Senosry exam to light touch is intact L2-S1 Motor: 4-/5 bilateral lower extremities with hip flexion 4/5 strength to the bilateral lower extremities with knee extension knee flexion, plantarflexion 4/5 strength in the right lower extremity with dorsi flexion, plantarflexion, EHL, FHL 3/5 strength in the left lower extremity with dorsiflexion, EHL Reflexes: 2/4 in all UE and LE Negative Carlos's bilaterally Negative Babinski bilaterally Negative clonus bilaterally - Labs CBC & Chem 7: 05/13/24 04:45 05/15/24 05:59 Labs: Abnormal Lab Results - Last 24 Hours (Table) 05/14/24 05/14/24 05/15/24 Range/Units 17:07 20:13 05:59 Sodium 129 L (135-145) mmol/L Carbon Dioxide 19.9 L (21.6-31.8) mmol/L BUN 48.4 H (9.0-27.0) mg/dL Est GFR (CKD-EPI) 45 L (>=60) BUN/Creatinine Ratio 32.27 H (12.00-20.00) Ratio Glucose 124 H (70-110) mg/dL POC Glucose (mg/dL) 115 H 119 H (70-110) mg/dL Calcium 8.4 L (8.7-10.3) mg/dL 05/15/24 05/15/24 Range/Units 07:39 12:22 Sodium (135-145) mmol/L Carbon Dioxide (21.6-31.8) mmol/L BUN (9.0-27.0) mg/dL Est GFR (CKD-EPI) (>=60) BUN/Creatinine Ratio (12.00-20.00) Ratio Glucose (70-110) mg/dL POC Glucose (mg/dL) 125 H 134 H (70-110) mg/dL Calcium (8.7-10.3) mg/dL Assessment and Plan Assessment: Postoperative day #3 status post L2-L4 decompressive laminectomy Left lower extremity weakness, left foot drop Multiple medical comorbidities Plan: Pain control, continue current medications DVT prophylaxis, aspirin 81 mg daily Monitor surgical dressing Discussed with nursing, I do not want to hold up the patient's discharge to subacute rehab waiting for the AFO brace. As long as they can facilitate delivery and fitting of the AFO brace for patient at rehab I feel that that is adequate LSO brace when up and ambulating, weight-bear as tolerated with walker PT/OT recommendations Encourage incentive spirometer Medical recommendations appreciated Discharge planning: Orthopedically patient remains stable, recommend follow-up in the outpatient setting in the next 2 weeks for recheck. Time with Patient: Less than 30
--- NOTE | 2024-05-15 15:32 | P.PN ---
Subjective Progress Note Date: 05/15/24 84-year-old male with known history of prostate cancer, stroke in 2017 with residual weakness in the right leg came in with increased weakness on the right leg and also generalized weakness believed to have UTI but urinalysis is essentially within normal limits. 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 Patient weakness has been progressively getting worse. 05/09/2024 Patient is seen in follow-up on the medical floor. Patient reporting no back pain while at rest. He does continue to report some weakness of the right leg. He is currently pending a back MRI at this time. Blood work today reveals a BUN of 41.9, creatinine of 1.7, sodium of 137. His lipid panel reveals triglycerides of 90.50 cholesterol 123, LDL 24.7 and HDL 30.20. 05/10/2024 Patient is seen in follow-up today with neurology, oncology, orthopedics following. Patient did undergo lumbar spine MRI awaiting thoracic which is scheduled for 05/11/2024. No immediate plans for surgical intervention while awaiting these images. Patient continues to report significant weakness with neurology following and significant stenosis along with multiple abnormalities noted on imaging. Patient is afebrile with no reports of chest pain or shortness of breath. Patient tolerating diet and denies nausea or vomiting. 05/11/2024 Patient is seen in follow-up today scheduled to undergo thoracic spine MRI and has met with orthopedics with plans on undergoing L2-L4 laminectomy. Patient continues with weakness and inability to ambulate. Patient will be n.p.o. at midnight and follow-up on repeat labs. Will await official surgical report. Patient will require PT/OT therapy and likely rehab on discharge. Case management/social work consulted and following. Oncology following as well. 05/12/2024 Patient is seen in follow-up currently n.p.o. scheduled to undergo surgical in tervention with orthopedics today. Will await official report. Family at the bedside with questions and concerns that were answered to the best of our ability. 05/13/2024 Patient is seen in follow-up today status post laminectomy with orthopedics and reports doing well although his back is extremely painful at this time. Per nursing staff he had been not taking anything for pain. Encouraged pain management and limiting narcotic use but needs to have his pain controlled in order to work with physical therapy and perform ADLs. Patient is currently afebrile with no reports of chest pain or shortness of breath. Patient is tolerating diet with no reported nausea or vomiting. Awaiting updated PT/OT therapy notes and discussion with family and patient regarding discharge planning. Patient would like to go home although will await recommendations in the event patient may need ECF. 05/14/2024 Patient is seen in follow up today status post laminectomy and reports to have some pain and generalized weakness and to ECF. Patient will require insurance authorization with social work following which has been submitted. Patient also awaiting a brace per orthopedics. Patient is afebrile with no reports of chest pain or shortness of breath. Patient tolerating diet. Sodium slightly low and will discontinue IV fluids. Follow-up on repeat labs. 05/15/2024 Patient is seen in follow-up today with orthopedics following closely and has been cleared for discharge. Currently awaiting insurance authorization to [facility] and was approved although arranging for transportation and family would like to take the patient in the morning to [facility] [place] as they have had issues previously with arriving there in the evening and not a good experience. Family would like to transport the patient in the a.m. in the packet and arrangements will be made for this. Patient is currently afebrile with no reports of chest pain or shortness of breath. Patient tolerating diet with no reported nausea or vomiting. Patient sodium improved at 129 and will continue current regimen. Encourage incentive spirometer at least 10 times every hour while awake. Review of systems: Constitutional: No reports of fatigue, fever, or chills Cardiovascular: No reports of chest pain or palpitations Respiratory: No reports of shortness of breath or cough GI: No reports of nausea, vomiting, or diarrhea : No reports of dysuria or retention Neurovascular: reports of continued ongoing weakness, reports back pain All medications have been reviewed PHYSICAL EXAMINATION: GENERAL: The patient is alert and oriented x3, not in any acute distress. Well developed, Elderly appearing, thin built HEENT: Pupils are round and equally reacting to light. EOMI. No scleral icterus. No conjunctival pallor. Normocephalic, atraumatic. No pharyngeal erythema. No thyromegaly. CARDIOVASCULAR: S1 and S2 present. No murmurs, rubs, or gallops. PULMONARY: Chest is clear to auscultation, no wheezing or crackles. ABDOMEN: Soft, nontender, nondistended, normoactive bowel sounds. No palpable organomegaly. MUSCULOSKELETAL: No joint swelling or deformity. EXTREMITIES: No cyanosis, clubbing, or pedal edema. NEUROLOGICAL: Gross neurological examination did not reveal any focal deficits except for left leg weakness 4+/5 strength. SKIN: No rashes. Assessment: -Left lower extremity weakness: Patient had a recent PET scan which showed C7 vertebral involvement -T9 compression fracture . Status post lumbar spine laminectomy with orthopedics Dr. Lawson today 05/12/2024 -History of cerebrovascular accident in the past -Prostate cancer history -Hyponatremia -Hypertension -Chronic kidney disease stage IIIb -Hypothyroidism GI prophylaxis DVT prophylaxis: Subcutaneous heparin Full Code Plan: Multiple abnormalities noted on previous imaging and discussed with orthopedics and is status post L2-L4 laminectomy with orthopedics. Continue with pain management per orthopedics and monitor closely while taking narcotics. Neurology, spinal surgery following closely Creatinine 1.7 stable and recommend follow-up labs in the outpatient setting Oncology on consult for evaluation PT/OT therapy evaluation postsurgical and patient will be going to [facility]. Patient received insurance authorization this afternoon and family would like to transport the patient in the morning and this is being arranged. Liaison was notified and will notify weekend social work that packet is ready and patient is okay to be discharged. Family will be transporting and this was confirmed acceptable by liaison. Patient to follow-up with orthopedics outpatient. Patient cleared after brace has been received for outpatient follow-up Continue with bowel regimen as needed Due to multiple complex medical issues, overall prognosis is guarded at this time Patient will discharge in 24 hours to [facility] The impression and plan of care has been dictated by Bernadette Choe Nurse Practitioner as directed. Dr. Scout MD I have performed a history and physical examination and medical decision making of this patient, discussed the same with the dictator, and agree with the dictators assessment and plan as written, documented as a scribe. Based on total visit time, I have performed more than 50% of this visit. Objective - Vital Signs Vital signs: Vital Signs Temp 97.9 F 05/15/24 13:22 Pulse 68 01/24/25 13:22 Resp 17 05/15/24 13:22 BP 122/71 05/15/24 13:22 Pulse Ox 96 05/15/24 13:22 FiO2 Intake & Output 05/14/24 05/15/24 05/15/24 18:59 06:59 18:59 Intake Total 1020 Balance 1020 Weight 68.039 kg Intake: Oral 1020 Other: Voiding Method Urinal Urinal Diaper Diaper # Voids 5 3 - Labs CBC & Chem 7: 05/13/24 04:45 05/15/24 05:59 Labs: Abnormal Lab Results - Last 24 Hours (Table) 05/14/24 05/14/24 05/15/24 Range/Units 17:07 20:13 05:59 Sodium 129 L (135-145) mmol/L Carbon Dioxide 19.9 L (21.6-31.8) mmol/L BUN 48.4 H (9.0-27.0) mg/dL Est GFR (CKD-EPI) 45 L (>=60) BUN/Creatinine Ratio 32.27 H (12.00-20.00) Ratio Glucose 124 H (70-110) mg/dL POC Glucose (mg/dL) 115 H 119 H (70-110) mg/dL Calcium 8.4 L (8.7-10.3) mg/dL 05/15/24 05/15/24 Range/Units 07:39 12:22 Sodium (135-145) mmol/L Carbon Dioxide (21.6-31.8) mmol/L BUN (9.0-27.0) mg/dL Est GFR (CKD-EPI) (>=60) BUN/Creatinine Ratio (12.00-20.00) Ratio Glucose (70-110) mg/dL POC Glucose (mg/dL) 125 H 134 H (70-110) mg/dL Calcium (8.7-10.3) mg/dL
--- NOTE | 2024-05-15 15:36 | P.DS ---
Providers Date of admission: 05/11/24 08:17 Expected date of discharge: 05/15/24 Attending physician: Rosmery Butterfield Consults: 05/08/24 11:41 Consult Physician Urgent Consulting Provider: James Curran Consult Reason/Comments: pancytopenia, mds Do you want consulting provider notified?: Yes 05/08/24 12:50 Consult Physician Routine Consulting Provider: Bandar Steele Consult Reason/Comments: Lower extremity weakness Do you want consulting provider notified?: Yes 05/08/24 16:14 Consult Physician Stat Consulting Provider: Devaughn Lawson Consult Reason/Comments: compression fracture t9. new bilateral leg weakness with hx of mets. Do you want consulting provider notified?: Yes Primary care physician: Divya Agustin Hospital Course: Final diagnosis -Left lower extremity weakness: Patient had a recent PET scan which showed C7 vertebral involvement -T9 compression fracture . Status post lumbar spine laminectomy with ort hopedics Dr. Lawson today 05/12/2024 -History of cerebrovascular accident in the past -Prostate cancer history -Hyponatremia -Hypertension -Chronic kidney disease stage IIIb -Hypothyroidism GI prophylaxis DVT prophylaxis: Subcutaneous heparin Full Code Discharge disposition Patient is being discharged in a stable condition with guarded prognosis to [facility]. Patient will follow-up with Dr. Agustin in the outpatient setting upon discharge. Patient is to continue with current medications and close outpatient follow-up with oncology as well as orthopedics as scheduled. Total time taken is greater than 35 minutes. Hospital course This is a 84-year-old male who was recently admitted with generalized lower extremity weakness noted to have T9 compression fracture of the endplate and also is status post a laminectomy of L4-5 with orthopedics. Patient doing well and does have a brace and evaluated by physical therapy recommending rehab. Patient will require ECF on discharge and has been accepted by [facility]. Insurance authorization has been submitted and obtained and patient will discharge on 05/16/2024. Family will be transporting the patient to [facility]. Orthopedics has cleared the patient for discharge. An ankle brace was also ordered with portillo and will be delivered to the home. Patient has been instructed to continue with incentive spirometer at least 10 times every hour while awake. Continue with current pain regimen along with bowel regimen as needed and scheduled. Patient will follow-up with oncolog y once discharged from [facility]. Currently no reports of chest pain, shortness of breath, or palpitations. Patient is afebrile. No reports of nausea or vomiting and patient is tolerating diet. Patient will be going to [facility]. Guarded prognosis. Physical exam: Gen: This is a 84-year-old male who is awake, alert and oriented x 3, well- developed, thin build, elderly appearing HEENT: Head is atraumatic, normocephalic. Pupils equal, round. Sclerae is anicteric. NECK: Supple. No JVD. No lymphadenopathy. No thyromegaly. LUNGS: Clear to auscultation. No wheezes or rhonchi. No intercostal retractions. HEART: S1, S2 are muffled ABDOMEN: Soft. Thin. Bowel sounds are present. No masses. No tenderness. EXTREMITIES: No pedal edema. No calf tenderness. NEUROLOGICAL: Patient is awake, alert and oriented x3. Cranial nerves 2 through 12 are 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 Diffusely weak Please refer to medication reconciliation sheet for a list of medications. The impression and plan of care has been dictated by Bernadette Choe, Nurse Practitioner as directed. Dr. Scout MD I have performed a history and examination and MDM of this patient, discussed the same with the dictator, and agree with the dictator's assessment and plan as written ,documented as a scribe. Based on total visit time, I have performed more than 50% of the visit. Patient Condition at Discharge: Stable Plan - Discharge Summary Discharge Rx Participant: No New Discharge Prescriptions: New HYDROcodone/APAP 5-325MG [Gem 5-325] 1 tab PO Q6HR PRN #18 tab PRN Reason: Pain Sennosides/Docusate Sodium [Senna-S 8.6-50 mg Tablet] 2 each PO DAILY PRN #30 tablet PRN Reason: Constipation Magnesium Hydroxide [Milk of Magnesia] 2,400 mg PO DAILY PRN ml PRN Reason: Constipation Famotidine [Pepcid] 20 mg PO DAILY tab traMADol HCl [Ultram] 50 mg PO Q6HR PRN #4 tab PRN Reason: Pain Scale 4 - 6 Aspirin 81 mg PO DAILY tab Cyclobenzaprine [Flexeril] 5 mg PO BID PRN tab PRN Reason: Muscle Spasm methylPREDNISolone Dose Pack [Medrol Dose Pack] 4 mg PO DIRECTED #21 tab amLODIPine [Norvasc] 5 mg PO DAILY tab Pantoprazole [Protonix] 40 mg PO AC-BRKFST tab Continue Levothyroxine Sodium [Synthroid] 50 mcg PO DAILY Ibuprofen [Advil] 400 mg PO Q6H PRN PRN Reason: Pain Or Fever > 100.5 Acetaminophen Tab [Tylenol] 650 mg PO Q6HR PRN tab PRN Reason: Mild Pain Or Fever > 100.5 Cyanocobalamin [Vitamin B-12] 500 mcg PO DAILY Melatonin 10 mg PO HS Discharge Medication List Levothyroxine Sodium [Synthroid] 50 mcg PO DAILY 08/15/16 [History] Acetaminophen Tab [Tylenol] 650 mg PO Q6HR PRN tab 02/27/23 [Rx] Cyanocobalamin [Vitamin B-12] 500 mcg PO DAILY 03/12/24 [History] Ibuprofen [Advil] 400 mg PO Q6H PRN 05/08/24 [History] Melatonin 10 mg PO HS 05/08/24 [History] HYDROcodone/APAP 5-325MG [Gem 5-325] 1 tab PO Q6HR PRN #18 tab 05/14/24 [Rx] Sennosides/Docusate Sodium [Senna-S 8.6-50 mg Tablet] 2 each PO DAILY PRN #30 tablet 05/14/24 [Rx] Aspirin 81 mg PO DAILY tab 05/15/24 [Rx] Cyclobenzaprine [Flexeril] 5 mg PO BID PRN tab 05/15/24 [Rx] Famotidine [Pepcid] 20 mg PO DAILY tab 05/15/24 [Rx] Magnesium Hydroxide [Milk of Magnesia] 2,400 mg PO DAILY PRN ml 05/15/24 [Rx] Pantoprazole [Protonix] 40 mg PO AC-BRKFST tab 05/15/24 [Rx] amLODIPine [Norvasc] 5 mg PO DAILY tab 05/15/24 [Rx] methylPREDNISolone Dose Pack [Medrol Dose Pack] 4 mg PO DIRECTED #21 tab 05/15/24 [Rx] traMADol HCl [Ultram] 50 mg PO Q6HR PRN #4 tab 05/15/24 [Rx] Follow up Appointment(s)/Referral(s): Stanislaw Curran MD [STAFF PHYSICIAN] - 06/05/24 11:15 am (PET scan will be scheduled few days prior to visit with Dr. Curran. Pt will be contacted with appt date and time) Devaughn Lawson DO [Doctor of Osteopathic Medicine] - 2 Weeks Divya Agustin MD [Primary Care Provider] - 1-2 days Activity/Diet/Wound Care/Special Instructions: Patient is going to [facility] [employer] [facility] as tolerated with restrictions per orthopedics as mentioned below Follow-up on repeat CBC, CMP, magnesium and monitor sodium level Spine Discharge and Recovery Instructions Medications: See medication list All medication refills should be obtained through your primary care doctor or your clinic spine surgeon. Please discuss prescription refills at your follow up appointment. Do not call the hospital for medication refills. Dressing: Leave your dressing in place for a total of 5 days post operatively. Then you may remove your dressing and leave open to air. Keep the area clean and if not able to keep area clean, then cover with sterile gauze and tape. Showering: You may shower 3 days after your procedure allowing soap and water to run over incision. Do not scrub. Do not soak. Blot dry. Follow up: Please confirm a follow up appointment with your surgeon 3 weeks post operatively. Please make an appointment to follow up with your PCP in 1-2 weeks after surgery for evaluation '3 phase, 3-week plan' POST OP WEEKS 1-3 1. Lifting/carrying/pushing/pulling limited to less than 5 pounds. 2. Do not sit for longer than 15 minutes at one time. Get up and walk around. Prolonged sitting is NOT advised. If you lay down, see if you can tolerate laying down on you front (belly side) 3. Walk for periods of 15 minutes = 1 mile but no longer; do it multiple times times each day. 4. Ice your low back after activity. POST OP WEEKS 3-6 1. Lifting limited to less than 20 pounds. 2. Do not sit for longer than 30 minutes at a time. Frequently change positions. Use a sit-to stand workstation or take frequent breaks from sitting if you have returned to work. 3. Walk for 30 minutes each day. If possible, do these three or more times a day POST OP WEEKS 6+ At your 6-week appointment we will give you a physical therapy referral to focus on a core stabilization and strengthening program. You should also work on leg & buttock strengthening, hamstring & quadriceps stretching, and continue a low impact aerobic activity program such as swimming, walking, or riding a stationary bicycle. During the initial 6 weeks after your surgery, you are at the highest risk of re-injuring your spine. You should generally avoid BLT's (bending, lifting and twisting combination motions) and follow the above guidelines to reduce the chance of reinjury. You can anticipate post op appointments in our office at approximately 3 weeks and 6 weeks after your surgery. INCISION CARE: If your incision is not draining you do NOT need to cover it with a dressing. Keep your incision clean, dry and intact. In most cases, we apply skin glue, chacorta or sutures to the incision at the time of surgery. This will be like a crust or have the appearance of a scab and will fall off in time on its own. The stitches or chacorta need to be removed at 3 weeks post op appointment. You may begin to shower 3 days after surgery (this allows the glue to grimes well). However, please avoid scrubbing the incision site or peeling off any of the skin glue. This will ensure optimal healing of your incision. Also, during this time avoid soaking the incision area in water - this includes swimming pools, hot tubs or baths. No ointments, lotions or oils on the incision until your surgeon allows. Leave chacorta, sutures or glue in place. Neurological dysfunction that comes on suddenly can also be a sign of a stroke. Below some common symptoms of a stroke are listed: B - balance difficulty such as sudden onset walking or leaning to one side - NEW E - eye problem such as sudden double vision or trouble seeing on one side - NEW F - Facial weakness or numbness on one side - NEW A - Arm or leg weakness or numbness on one side - NEW S - Slurred speech or difficulty with word finding - NEW T - Time is BRAIN! Call 911 as soon as you recognize these symptoms Diet: Consume a regular diet rich in vegetables and lean protein such as chicken or fish. You should consume in a ratio of approximately 20% fats|40% carbohydrates|40%protein. Vegetables, sweet potatoes, brown rice or quinoa are examples of good carbohydrates. Chips, white bread, cookies and sweets/sugar are examples of bad carbohydrates. Limit your bad carbs, go wild with good carbs. "Life's Simple 7" Guidelines as per [place] [employer] These will help you reclaim your life after surgery and felting machine operator helper in your recovery, keeping in mind your restrictions. (1) Get Active. Physical activity can help people lose weight, control high blood pressure and cholesterol, feel emotionally better, and sleep better. (2) Control Cholesterol. Avoid a diet high in saturated fat, trans fat, & cholesterol. Limit whole milk & cream, ice cream, butter, egg yolks, processed meats (like sausage and hot dogs), and fatty meats. Choose healthy foods that are low in saturated fat, trans fat and cholesterol which include: Fruits and vegetables, fiber rich grain products (like whole grain pasta and brown rice), lean meat such as chicken, fish, nuts, seeds, and legumes. (3) Eat Better. Eat small portions. Shop at the grocery with a list and do not stray from it. Tips for a healthy diet include: Limit sodium intake to less than 1500mg daily, avoid prepackaged, processed, and fast foods, choose a diet rich in fruits, vegetables, and whole grain, high fiber foods, and limit saturated & cholesterol in your diet. (4) Manage Blood Pressure. If you have high blood pressure, you should have a cuff at home so that you can check your blood pressure regularly. Be sure you have a good cuff. An arm one is generally better than a wrist one. Bring the cuff to a doctor's appointment to validate that the measurements that your cuff are taking are accurate. Take your blood pressure twice daily when you are sitting down and relaxing. Record the numbers in a log and bring this log with you to your doctors' appointments. (5) Lose Weight if your BMI is above 25. A healthy BMI is between 19-25. To calculate Your BMI, you may use a Standard BMI Calculator on the NIH BMI website: <www.nhlbi.nih.gov/guidelines/obesity/BMI/bmicalc.htm>. Weigh oneself daily. If you are overweight, set a goal to lose weight. A pound a week loss if needed is a good target. (6) Reduce Blood Sugar. Limit foods and liquids with "added sugars." (Added sugars include sucrose, fructose, glucose, maltose, dextrose, high fructose corn syrup, corn syrup, concentrated fruit juice and honey). (7) Stop Smoking. If you smoke, quitting smoking is one of the best things that you can do for your health. Smoking increases your risk of heart attack, stroke, and peripheral vascular disease, which is a build-up of plaque in your arteries. Please discard all the cigarettes and lighters in your house. Have a plan for what you will do when you have the urge to smoke. Direct and second- hand smoke shortens your life as well as the lives of your family, friends and others around you. For your health and the health of those around you, please consider quitting! Proper Bending Body Mechanics: Maintain a wide stance with one foot slightly in front of the other. Keep your back straight. Bend utilizing the strength in your hips and knees. Do not bend at the waist. Maintain the lifted object at your waist-level close to your body. Avoid lifting weight that causes immediately pain or pain anywhere in the body afterwards. Smoking/Nicotine If there was ever one thing that you could do to increase your overall health, decrease your risk of cardiovascular problems by about 39% the second you make the choice, it is to STOP SMOKING. Your body's most instant gratification is the second you stop smoking. We have all heard the studies, read the articles but it is true, smoking is extremely bad for your overall health, and moreover it is detrimental to your bone health. Nicotine, IN ANY FORM, kills bone cells, prevents your body from healing fractures, and significantly prolongs healing after surgery. In spine surgery specifically, it increases your risk of not healing your bones to create a fusion and increases your risk of having a revision surgery due to this up to 60%. I know it is hard. I know it feels impossible. But there are ways. Take control of your life. We are here to help you through it. And when you are ready, ask us and we can direct you to help if you desire. Use the START Plan to Quit Smoking (please visit the Helpguide.org website listed below for more information): S = Set a quit date. Choose a date within the next 2 weeks, so you have enough time to prepare without losing your motivation to quit. If you mainly smoke at work, quit on the weekend, so you have a few days to adjust to the change. T = Tell family, friends, and co-workers that you plan to quit. Let your friends and family in on your plan to quit smoking and tell them you need their support and encouragement to stop. Look for a quit guillermo who wants to stop smoking as well. You can help each other get through the rough times. A = Anticipate and plan for the challenges you'll face while quitting. Most people who begin smoking again do so within the first 3 months. You can help yourself make it through by preparing ahead for common challenges, such as nicotine withdrawal and cigarette cravings. R = Remove cigarettes and other tobacco products from your home, car, and work. Throw away all your cigarettes (no emergency pack!), lighters, ashtrays, and matches. Wash your clothes and freshen up anything that smells like smoke. Shampoo your car, clean your drapes and carpet, and steam your furniture. T = Talk to your doctor about getting help to quit. Your doctor can prescribe medication to help with withdrawal and suggest other alternatives. If you can't see a doctor, you can get many products over the counter at your local pharmacy or grocery store, including the nicotine patch, nicotine lozenges, and nicotine gum. Resources for Quitting Smoking: <https://www.[place].gov/documents/[facility]/Quit_Tobacco_Resources_for_patients_313 480_7.pdf> Supplementation: Take recommended dosages of Vitamin D and Calcium to help fortify your bones and help them to heal. See your health maintenance packet for dosages and recommended levels. DVT/VTE prophylaxis: You will be given compression stockings from the hospital. Wear these daily for the first two weeks after surgery. You may take them off at night. You may be prescribed a medication to help thin your blood. Take this as directed. If you are not prescribed this medication, early and frequent ambulation has been shown to be the best prophylaxis to deep vein thrombosis and sequelae related to this event. Discharge Disposition: TRANSFER TO SNF/ECF
--- NOTE | 2024-05-15 17:16 | P.PN ---
Subjective Progress Note Date: 05/15/24 Principal diagnosis: Pancytopenia, lung nodule -No acute events overnight -Resting in bed comfortably, denies any new signs or symptoms. He is being discharged to [facility] today Objective - Vital Signs Vital signs: Vital Signs Temp 97.9 F 05/15/24 13:22 Pulse 68 05/15/24 13:22 Resp 17 05/15/24 13:22 BP 122/71 05/15/24 13:22 Pulse Ox 96 05/15/24 13:22 FiO2 Intake & Output 05/14/24 05/15/24 05/15/24 18:59 06:59 18:59 Intake Total 1020 Balance 1020 Weight 68.039 kg Intake: Oral 1020 Other: Voiding Method Urinal Urinal Diaper Diaper # Voids 5 3 - Constitutional General appearance: Present: cooperative, no acute distress, thin - EENT Eyes: Present: EOMI - Respiratory Details: Nonlabored breathing - Cardiovascular Details: Warm and well-perfused - Gastrointestinal General gastrointestinal: Present: soft. Absent: distended - Neurologic Neurologic: Present: CNII-XII intact. Absent: focal deficits - Labs CBC & Chem 7: 05/13/24 04:45 05/15/24 05:59 Labs: Abnormal Lab Results - Last 24 Hours (Table) 05/14/24 05/15/24 05/15/24 Range/Units 20:13 05:59 07:39 Sodium 129 L (135-145) mmol/L Carbon Dioxide 19.9 L (21.6-31.8) mmol/L BUN 48.4 H (9.0-27.0) mg/dL Est GFR (CKD-EPI) 45 L (>=60) BUN/Creatinine Ratio 32.27 H (12.00-20.00) Ratio Glucose 124 H (70-110) mg/dL POC Glucose (mg/dL) 119 H 125 H (70-110) mg/dL Calcium 8.4 L (8.7-10.3) mg/dL 05/15/24 Range/Units 12:22 Sodium (135-145) mmol/L Carbon Dioxide (21.6-31.8) mmol/L BUN (9.0-27.0) mg/dL Est GFR (CKD-EPI) (>=60) BUN/Creatinine Ratio (12.00-20.00) Ratio Glucose (70-110) mg/dL POC Glucose (mg/dL) 134 H (70-110) mg/dL Calcium (8.7-10.3) mg/dL Assessment and Plan (1) Spinal stenosis of lumbar region Current Visit: Yes Status: Acute Code(s): M48.061 - SPINAL STENOSIS, LUMBAR REGION WITHOUT NEUROGENIC JD SNOMED Code(s): 69907216 (2) Pancytopenia Current Visit: Yes Status: Chronic Priority: High Code(s): D61.818 - OTHER PANCYTOPENIA SNOMED Code(s): 260950311 (3) Lung mass Current Visit: Yes Status: Chronic Priority: Medium Code(s): R91.8 - OTHER NONSPECIFIC ABNORMAL FINDING OF LUNG FIELD SNOMED Code(s): 322911934 Plan: Lung nodule -Chronic lung nodule, has been being followed -Plan for PET scan to assess for changes in pulmonary nodule noted on recent CT scan -This will be scheduled and patient will be contacted with date and time -If any changes need to be made with regards to the PET/CT while he is at [facility], this can be rescheduled -Patient has a follow-up appointment with medical oncologist 06/05 at [facility] -Patient verbalizes understanding the plan of care and is in agreement with the same Pancytopenia -Improved since hospitalization at [facility] in December 2023 -Cell counts stable during admission with no workup required inpatient Spinal stenosis -Patient has had surgery for the same. Orthopedic surgeon following. Stanislaw Curran MD
[2024-05-15 17:22] LABS: Glucose,Whole Blood 151 mg/dL (70-110)
[2024-05-15 20:14] LABS: Glucose,Whole Blood 149 mg/dL (70-110)
[2024-05-16] MEDS ORDERED: HYDROmorphone 0.5 MG/0.5 ML SYRINGE IVP PRN (05:20)
[2024-05-16] MEDS ORDERED: LIDOCAINE 1% (10MG/ML) FOR IV START INTRADERMA PRN (05:20)
[2024-05-16] MEDS: ONDANSETRON 4 MG/2 ML VIAL IVP ONE (06:47)
[2024-05-16] MEDS: LACTATED RINGERS 1,000 ML IV SCH (06:47)
[2024-05-16] MEDS: DEXAMETHASONE SOD PHOSPHATE 4 MG/ML 1 ML VIAL IV ONE (06:47)
[2024-05-16 07:16] LABS: Glucose,Whole Blood 114 mg/dL (70-110)
[2024-05-16 07:27] VITALS: BP 140/73; PULSE 57; RESP 19; TEMP 98
[2024-05-16] MEDS: polyethylene glycoL 3350 17 GM POWD.PACK PO SCH (08:46)
[2024-05-19 09:58] LABS: Glucose,Whole Blood 126 mg/dL (70-110)
[2024-05-19 09:58] LABS: Glucose,Whole Blood 150 mg/dL (70-110)
== END 2024-05-16 12:21 | DRG 516 ==
LOC: EC 08:38 → 5NMEDONC 11:41 → OBSVTOIN 05-11 08:17
PROVIDERS: ADMIT Hospitalist; ATTEND Hospitalist
PROC: 01NB0ZZ Release Lumbar Nerve, Open Approach (ICD-10-PCS; principal; 2024-05-12 08:20)
DX: M48.061 Spinal stenosis, lumbar region without neurogenic claudication (principal); C18.9 Malignant neoplasm of colon, unspecified; D61.818 Other pancytopenia; C90.00 Multiple myeloma not having achieved remission; S22.079A Unspecified fracture of T9-T10 vertebra, initial encounter for closed fracture; E87.1 Hypo-osmolality and hyponatremia; E03.9 Hypothyroidism, unspecified; I12.9 Hypertensive chronic kidney disease with stage 1 through stage 4 chronic kidney disease, or unspecified chronic kidney disease; N18.32 Chronic kidney disease, stage 3b; D46.9 Myelodysplastic syndrome, unspecified; M25.78 Osteophyte, vertebrae; M47.812 Spondylosis without myelopathy or radiculopathy, cervical region; M47.815 Spondylosis without myelopathy or radiculopathy, thoracolumbar region; M48.02 Spinal stenosis, cervical region; M51.16 Intervertebral disc disorders with radiculopathy, lumbar region; M21.372 Foot drop, left foot; M43.16 Spondylolisthesis, lumbar region; E53.8 Deficiency of other specified B group vitamins; J30.2 Other seasonal allergic rhinitis; M19.90 Unspecified osteoarthritis, unspecified site; R29.6 Repeated falls; R29.810 Facial weakness; R91.1 Solitary pulmonary nodule; Z87.440 Personal history of urinary (tract) infections; Z85.46 Personal history of malignant neoplasm of prostate; Z90.79 Acquired absence of other genital organ(s); Z86.0100 Personal history of colon polyps, unspecified; Z79.890 Hormone replacement therapy; Z86.73 Personal history of transient ischemic attack (TIA), and cerebral infarction without residual deficits; Z98.1 Arthrodesis status; Z86.2 Personal history of diseases of the blood and blood-forming organs and certain disorders involving the immune mechanism; Z79.899 Other long term (current) drug therapy
CPT/HCPCS: 36415; 70450; 71046; 72100; 72127; 72130; 72133; 72156; 72157; 72158; 80048; 80053; 80061; 81003; 82607; 82747; 83036; 83605; 83735; 83880; 83921; 84484; 85025; 85610; 85730; 86850; 86900; 86901; 93005; 96360; 96361; 99285